=== PATIENT | male | born 1955 | race Caucasian/White ===

== ENCOUNTER 2016-06-07 07:25 | Inpatient (IN) | payer OTHER ==
[2016-06-07] VITALS (7 sets, daily range): BP systolic 123–182; BP diastolic 58–83; PULSE 66–84; RESP 16–20; TEMP 98–98.5; O2SAT 94–98
[~2016-06-07] VITALS: Ht 177.8 cm; Wt 91.0 kg
[~2016-06-07 07:25] MED LIST: ALBU6.7H INH; AMLO5 PO; ASPI1TAB69 PO; ATOR1TAB18 PO; BLOO1KIT49; BUPR100T4 PO; DIGO0.25 PO; ESOM0.1C PO; FENO48TA PO; GABA600T PO; INSU1INJ5 SQ; IPRAAER INH; ISOS20TA PO; LISI-515 PO; METO50TA11 PO; PLAV75TA29 PO; PRED20 PO; SYMB80AE INH; TAMS5CAP PO; TRAZ50TA12 PO
--- NOTE | 2016-06-07 07:44 | PD ---
HPI Chief Complaint: Complaint Time Seen by Provider: 07:33 Travel History International Travel<30 days: No Contact w/Intl Traveler<30days: No Traveled to known affect area: No History of Present Illness HPI 61-year-old male with history of CAD, diabetes, PVD, urinary retention, here for evaluation because his Melgoza catheter fell out about 5 hours ago as well as for evaluation of ulceration to his right foot and right great toe. Patient is complaining of lower abdominal discomfort since his Melgoza became dislodged. He states he is unable to urinate. He has urinary retention secondary to an enlarged prostate. He states that for the last 2 weeks he has been having an ulceration to his right great toe and right great foot which she has been trying to treat on his own at home. No fevers or chills. Pain is mild. He reports that he is supposed be on insulin, however he is not taking any medications at this time. PFSH Past Medical History Hx Anticoagulant Therapy: Yes Atrial Fibrillation: Yes Cardiac Catheterization: Yes Cardiovascular Problems: Yes COPD: Yes Cerebrovascular Accident: Yes Diabetes: Yes Hypertension: Yes Kidney Stones: Yes Psychiatric: No Social History Alcohol Use: No Tobacco Use: Yes (2 PPD) Substance Use: No Allergies-Medications (Allergen,Severity, Reaction): Coded Allergies: Bee Sting (Verified Allergy, Severe, Anaphylaxis, 06/07/16) Reported Meds & Prescriptions Reported Meds & Active Scripts Active Prednisone 20 Mg Tab 20 Mg PO DAILY Flomax (Tamsulosin HCl) 0.4 Mg Cap 0.4 Mg PO DAILY Metoprolol Succinate ER 24 HR (Metoprolol Succinate) 50 Mg Tab 50 Mg PO DAILY Blood Glucose System Kishan (Blood Glucose Monitoring Suppl) 1 Kit Kit Kit Levemir Flextouch Pen Inj (Insulin Detemir) 300 unit/3 ML Pen 30 Units SQ BID Plavix (Clopidogrel Bisulfate) 75 Mg Tab 75 Mg PO DAILY Norvasc (Amlodipine Besylate) 5 Mg Tab 2.5 Mg PO DAILY Reported Finasteride 5 Mg Tab 5 Mg PO DAILY Do not crush. Lisinopril 40 Mg Tab 40 Mg PO Proventil Hfa 6.7 GM Inh (Albuterol Sulfate) 90 Mcg/Act Aer 2 Puff INH Q4-6H PRN Symbicort Inh (Budesonide/Formoterol Fumarate) 80-4.5 Mcg/Act Aero 1 Puff INH Q12HR Trazodone (Trazodone HCl) 50 Mg Tab 50 Mg PO HS Combivent Respimat Inh (Ipratropium-Albuterol Inh) 20-100 Residential/Act Aero 1 Puff INH QID Fenofibrate 48 Mg Tab 48 Mg PO DAILY Gabapentin 600 Mg Tab 600 Mg PO BID Digoxin 0.25 Mg Tab 0.25 Mg PO DAILY Isosorbide Mononitrate 20 Mg Tab 30 Mg PO DAILY Take 2 doses [address]. [address] 20 Mg Capdr 20 Mg PO DAILY Bupropion HCl 100 Mg Tab 150 Mg PO BID Aspirin 81 Mg Tabdr 81 Mg PO DAILY Review of Systems Except as stated in HPI: all other systems reviewed are Neg Physical Exam Narrative GENERAL: Well-developed, well-nourished, no acute distress. SKIN: Right foot with small approximately 1 cm x 1 cm ulceration to the dorsal aspect of his toe just proximal to the base of his fifth metatarsal. His right great toe has distal ulceration with necrosis and foul-smelling purulence. Right foot is erythematous and warm. HEAD: Atraumatic. Normocephalic. EYES: Pupils equal and round. No scleral icterus. No injection or drainage. ENT: Mucous membranes pink and moist. CARDIOVASCULAR: Regular rate and rhythm. Bilateral dorsalis pedis pulses are palpable, however are faint. RESPIRATORY: No accessory muscle use. Clear to auscultation. Breath sounds equal bilaterally. GASTROINTESTINAL: Abdomen soft, non-tender, nondistended. : No blood at urethral meatus MUSCULOSKELETAL: No obvious deformities. No clubbing. No cyanosis. No edema. NEUROLOGICAL: Awake and alert. No obvious cranial nerve deficits. Motor grossly within normal limits. Normal speech. PSYCHIATRIC: Appropriate mood and affect; insight and judgment normal. Data Data Last Documented VS Vital Signs Date Time Temp Pulse Resp B/P Pulse Ox O2 Delivery O2 Flow Rate FiO2 06/07/16 07:52 79 20 126/63 97 Room Air 06/07/16 07:28 98.0 Orders Complete Blood Count With Diff (06/07/16 07:39) Comprehensive Metabolic Panel (06/07/16 07:39) Lipase (06/07/16 07:39) Prothrombin Time / Inr (Pt) (06/07/16 07:39) Act Partial Throm Time (Ptt) (06/07/16 07:39) Urinalysis - C+S If Indicated (06/07/16 07:39) Iv Access Insert/Monitor (06/07/16 07:39) Ecg Monitoring (06/07/16 07:39) Oximetry (06/07/16 07:39) Sodium Chloride 0.9% Flush (Ns Flush) (06/07/16 07:45) Foot, Complete ([id number]) (06/07/16 ) Urinary Catheter Insert/Apply (06/07/16 07:56) Vancomycin Inj (Vancomycin Inj) (06/07/16 08:15) Wound Culture And Gram Stain (06/07/16 08:29) Urine Culture (06/07/16 07:50) Ceftriaxone Inj (Rocephin Inj) (06/07/16 09:00) Insulin Human Regular Inj (Novolin R Inj (06/07/16 09:30) Labs Laboratory Tests Test 06/07/16 07:50 White Blood Count 10.8 TH/MM3 Red Blood Count 4.66 MIL/MM3 Hemoglobin 13.0 GM/DL Hematocrit 40.3 % Mean Corpuscular Volume 86.6 FL Mean Corpuscular Hemoglobin 28.0 PG Mean Corpuscular Hemoglobin 32.4 % Concent Red Cell Distribution Width 15.9 % Platelet Count 221 TH/MM3 Mean Platelet Volume 9.1 FL Neutrophils (%) (Auto) 72.0 % Lymphocytes (%) (Auto) 15.2 % Monocytes (%) (Auto) 7.9 % Eosinophils (%) (Auto) 3.9 % Basophils (%) (Auto) 1.0 % Neutrophils # (Auto) 7.8 TH/MM3 Lymphocytes # (Auto) 1.6 TH/MM3 Monocytes # (Auto) 0.9 TH/MM3 Eosinophils # (Auto) 0.4 TH/MM3 Basophils # (Auto) 0.1 TH/MM3 CBC Comment DIFF FINAL Differential Comment Prothrombin Time 10.6 SEC Prothromb Time International 1.0 RATIO Ratio Activated Partial 28.6 SEC Thromboplast Time Urine Color YELLOW Urine Turbidity HAZY Urine pH 5.5 Urine Specific [place] 1.017 Urine Protein 30 mg/dL Urine Glucose (UA) 300 mg/dL Urine Ketones NEG mg/dL Urine Occult Blood TRACE Urine Nitrite NEG Urine Bilirubin NEG Urine Urobilinogen LESS THAN 2.0 MG/DL Urine Leukocyte Esterase LARGE Urine RBC 9 /hpf Urine WBC 76 /hpf Urine WBC Clumps MOD Urine Squamous Epithelial <1 /hpf Cells Urine Bacteria MANY /hpf Urine Hyaline Casts 1 /lpf Microscopic Urinalysis Comment CULTURE INDICATED Sodium Level 138 MEQ/L Potassium Level 4.2 MEQ/L Chloride Level 103 MEQ/L Carbon Dioxide Level 25.5 MEQ/L Anion Gap 10 MEQ/L Blood Urea Nitrogen 21 MG/DL Creatinine 1.08 MG/DL Estimat Glomerular Filtration 69 ML/MIN Rate Random Glucose 366 MG/DL Calcium Level 9.1 MG/DL Total Bilirubin 0.2 MG/DL Aspartate Amino Transf 14 U/L (AST/SGOT) Alanine Aminotransferase 17 U/L (ALT/SGPT) Alkaline Phosphatase 113 U/L Total Protein 7.1 GM/DL Albumin 3.5 GM/DL Lipase 129 U/L [facility] Medical Decision Making Medical Screen Exam Complete: Yes Emergency Medical Condition: Yes Differential Diagnosis Urinary retention, urethral injury, diabetic foot ulcer, osteomyelitis, chronic PVD, acute arterial occlusion less likely Narrative Course Initial vital signs show heart rate 84, blood pressure 182/83, pulse ox 94% on room air, oral temp of 98F. Blood pressure improved to 126/63 without any intervention. CBC is unremarkable. CMP is remarkable for random glucose 366, otherwise unremarkable. Lipase is 129. UA is suggestive of UTI. Right foot x-ray: CONCLUSION: 1.... No acute fracture or dislocation. 2. Mild degenerative changes involving the right first metatarsal phalangeal joint and right mid foot. Melgoza catheter placed shortly after the patient arrived to the emergency department with over 500 cc of urine output. Patient had almost instant relief of abdominal discomfort with this. Patient was given insulin for his hyperglycemia. He was also started on vancomycin for right foot and right great toe ulcerations with foul-smelling discharge. Right great toe also has some distal necrosis. Bilateral feet are warm. I doubt this is an acute arterial occlusion. His dorsalis pedis pulses are very faint, yet palpable. He will be admitted for further treatment and evaluation of diabetic foot ulcer rule out osteomyelitis, hyperglycemia. Case discussed with hospitalist Dr. Buck who will admit the patient to his service. Diagnosis Primary Impression: Diabetic foot ulcer Qualified Code: E13.621 - Diabetic ulcer of toe of right foot associated with diabetes mellitus of other type, unspecified ulcer stage Additional Impressions: Hyperglycemia Urinary retention Admitting Information Admitting Physician Requests: Admit Renan Ortega MD Jun 07, 2016 07:44
[2016-06-07] MEDS ORDERED: SODIUM CHLORIDE 0.9% FLUSH 10 ML FLUSH IV FLUSH PRN ×2 (07:45→09:45)
[2016-06-07] MEDS ORDERED: VANCOMYCIN INJ 1,000 MG in SODIUM CHLOR 0.9% 250 ML INJ 250 ML IV ONE (08:15)
[2016-06-07] MEDS ORDERED: LISI40TA PO (08:25)
[2016-06-07 08:28] LABS: AUTOMATED NEUTROPHIL # 7.8 TH/MM3 (1.8-7.7); BASOPHIL # 0.1 TH/MM3 (0-0.2); EOSINOPHIL # 0.4 TH/MM3 (0-0.4); EOSINOPHIL % 3.9 % (0.0-4.0); HEMATOCRIT 40.3 % (39.0-51.0); HEMO FLAGS DIFF FINAL; LYMPH % 15.2 % (9.0-44.0); LYMPHOCYTE # 1.6 TH/MM3 (1.0-4.8); MEAN CELL VOLUME 86.6 FL (80.0-100.0); MEAN CORPUSCULAR HGB CONC 32.4 % (32.0-36.0); MONO % 7.9 % (0.0-8.0); PLATELET COUNT 221 TH/MM3 (150-450); RED BLOOD COUNT 4.66 MIL/MM3 (4.50-5.90); RED CELL DISTRIBUTION WIDTH 15.9 % (11.6-17.2); WHITE BLOOD COUNT 10.8 TH/MM3 (4.0-11.0)
[2016-06-07] MEDS ORDERED: FINA5TAB2 PO (08:29)
[2016-06-07 08:37] LABS: APTT (PATIENT) 28.6 SEC (24.3-30.1); PROTHROMBIN TIME - PATIENT 10.6 SEC (9.8-11.6)
[2016-06-07 08:40] LABS: BACTERIA, URINE MANY /hpf; BLOOD, URINE TRACE (NEG); GLUCOSE,URINE 300 mg/dL (NEG); HYALINE CAST, URINE 1 /lpf (RARE); KETONE, URINE NEG (NEG); NITRITE,URINE NEG (NEG); PH, URINE 5.5 (5.0-8.5); SQUAMOUS EPITHELIAL CELL URINE <1 /hpf (0-5); URINE COLOR YELLOW (YELLW/STRAW)
[2016-06-07 08:42] LABS: COMMENT (UR) CULTURE INDICATED; CULTURE IF INDICATED CULTURE INDICATED
[2016-06-07] MEDS ORDERED: cefTRIAXone INJ 1,000 MG in SODIUM CHLORIDE 0.9% INJ 100 ML IV ONE (09:00)
[2016-06-07 09:09] LABS: ALKALINE PHOSPHATASE 113 U/L (45-117); ALT (GPT) 17 U/L (12-78); ANION GAP 10 MEQ/L (5-15); AST (GOT) 14 U/L (15-37); BICARBONATE 25.5 MEQ/L (21.0-32.0); BLOOD UREA NITROGEN 21 MG/DL (7-18); CHLORIDE 103 MEQ/L (98-107); GLOMERULAR FILTRATION RATE 69 ML/MIN (>89); POTASSIUM 4.2 MEQ/L (3.5-5.1); SODIUM (NA) 138 MEQ/L (136-145); TOTAL BILIRUBIN ADULT 0.2 MG/DL (0.2-1.0)
--- NOTE | 2016-06-07 09:22 | RADRPT ---
EXAM DATE/TIME: 06/07/2016 08:10 [place] COMPARISON: No previous studies available for comparison. INDICATIONS: Patient states he has had a toe injury and it hasn't healed. MEDICAL HISTORY: Chronic obstructive pulmonary disease. Renal calculi. Afib. HTN. Diabetes. SURGICAL HISTORY: Coronary artery stent. Cardiac cath. ENCOUNTER: Initial ACUITY: 1 week PAIN SCORE: 6/10 LOCATION: Right ankle. FINDINGS: There is no acute fracture or dislocation of the right foot. Mild degenerative changes are noted inv olving the right first metatarsal phalangeal joint and right mid foot. CONCLUSION: 1. No acute fracture or dislocation. 2. Mild degenerative changes involving the right first metatarsal phalangeal joint and right mid valentino t. Virgil Singh MD on June 07, 2016 at 9:15 Board Certified Radiologist. This report was verified electronically.
[2016-06-07] MEDS ORDERED: INSULIN HUMAN REGULAR 1,000 UNITS/10 ML VIAL SQ ONE (09:30)
[2016-06-07] MEDS ORDERED: NALOXONE HCL 0.4 MG/ML AMP IV PRN (09:45)
[2016-06-07] MEDS ORDERED: BISACODYL 10 MG SUPP PR PRN (09:45)
[2016-06-07] MEDS ORDERED: ACETAMINOPHEN 325 MG TAB PO PRN (09:45)
[2016-06-07] MEDS ORDERED: ONDANSETRON HCL 4 MG/2 ML VIAL IVP PRN (09:45)
[2016-06-07] MEDS ORDERED: HYDROmorphone HCL PF 1 MG/ML VIAL IV PUSH PRN (10:00)
[2016-06-07] MEDS ORDERED: Vancomycin Consult Pharmacy 1 EA OTHER SCH (10:00)
[2016-06-07] MEDS: ENOXAPARIN SODIUM 30 MG/0.3 ML SYRINGE SQ SCH (10:51)
[2016-06-07] MEDS: SODIUM CHLOR 0.9% 1000 ML INJ 1,000 ML IV SCH ×2 (10:51→21:30)
[2016-06-07] MEDS: CEFEPIME INJ 2,000 MG in SODIUM CHLORIDE 0.9% INJ 100 ML IV SCH ×2 (11:08→19:12)
--- NOTE | 2016-06-07 15:15 | HHI.HP ---
[facility] Admission Diagnosis diabetic foot infection, hyperglycemia, urinary retention Diagnoses: Chief Complaint: Wolfe catheter problem, diabetic foot infection. Travel History International Travel<30 Days: No Contact w/Intl Traveler <30 Da: No Traveled to Known Affected Are: No History of Present Illness Mr. Rowland D1-year-old with a history of CAD, diabetes, PVD, urinary retention who presented to the emergency department on 06/07/2016 due to Wolfe catheter problems. Patient complained of lower abdominal discomfort since his Wolfe catheter became dislodged. In the emergency department Wolfe catheter was reinserted. Additionally patient also requested evaluation for his right foot and right great toe ulceration. Patient reports no pain or sensation below his ankle on the right side. His right great toe has been black for about 2 weeks. Denies any chest pain, shortness of breath, fever or chills. Patient was discharged in Feb 2016 after NSTEMI s/p stent placement to RCA and first diagonal branch of LAD. He was discharged on Aspirin and plavix. He was also discharged on insulin for diabetes. Patient reports that he has not taken insulin but has been on aspirin/plavix. Review of Systems Except as stated in HPI: all other systems reviewed are Neg Past Family Social History Past Medical History Diabetes mellitus, PVD, CAD status post stent placement Past Surgical History Stent placements. No major surgery. Reported Medications Prednisone 20 Mg Tab 20 Mg PO DAILY Flomax (Tamsulosin HCl) 0.4 Mg Cap 0.4 Mg PO DAILY Metoprolol Succinate ER 24 HR (Metoprolol Succinate) 50 Mg Tab 50 Mg PO DAILY Blood Glucose System Kishan (Blood Glucose Monitoring Suppl) 1 Kit Kit Kit Levemir Flextouch Pen Inj (Insulin Detemir) 300 unit/3 ML Pen 30 Units SQ BID Plavix (Clopidogrel Bisulfate) 75 Mg Tab 75 Mg PO DAILY Norvasc (Amlodipine Besylate) 5 Mg Tab 2.5 Mg PO DAILY Reported Finasteride 5 Mg Tab 5 Mg PO DAILY Do not crush. Lisinopril 40 Mg Tab 40 Mg PO Proventil Hfa 6.7 GM Inh (Albuterol Sulfate) 90 Mcg/Act Aer 2 Puff INH Q4-6H PRN Symbicort Inh (Budesonide/Formoterol Fumarate) 80-4.5 Mcg/Act Aero 1 Puff INH Q12HR Trazodone (Trazodone HCl) 50 Mg Tab 50 Mg PO HS Combivent Respimat Inh (Ipratropium-Albuterol Inh) 20-100 [place]/Act Aero 1 Puff INH QID Fenofibrate 48 Mg Tab 48 Mg PO DAILY Gabapentin 600 Mg Tab 600 Mg PO BID Digoxin 0.25 Mg Tab 0.25 Mg PO DAILY Isosorbide Mononitrate 20 Mg Tab 30 Mg PO DAILY Take 2 doses [address]. [address] 20 Mg Capdr 20 Mg PO DAILY Bupropion HCl 100 Mg Tab 150 Mg PO BID Aspirin 81 Mg Tabdr 81 Mg PO DAILY Allergies: Coded Allergies: Bee Sting (Verified Allergy, Severe, Anaphylaxis, 06/07/16) Family History No family history of Alzheimer's or Parkinson's. Social History Denies using alcohol or illicit drugs. Smokes 2 ppd. Physical Exam Vital Signs Vital Signs Date Time Temp Pulse Resp B/P Pulse Ox O2 Delivery O2 Flow Rate FiO2 06/07/16 13:00 74 16 123/61 98 Room Air 06/07/16 10:00 76 16 133/62 98 Room Air 06/07/16 07:52 79 20 126/63 97 Room Air 06/07/16 07:28 98.0 84 20 182/83 94 Physical Exam GENERAL: This is a well-nourished, well-developed patient, in no apparent distress. SKIN: No rashes, ecchymoses or lesions. Warm and dry. HEAD: Atraumatic. Normocephalic. No temporal or scalp tenderness. EYES: Pupils equal round and reactive. No injection or drainage. ENT: Nose without bleeding, purulent drainage or septal hematoma. Airway patent. NECK: Trachea midline. No lymphadenopathy. Supple, nontender, no meningeal signs. CARDIOVASCULAR: Regular rate and rhythm without murmurs, gallops, or rubs. No JVD. RESPIRATORY: Clear to auscultation. Breath sounds equal bilaterally. No wheezes , rales, or rhonchi. GASTROINTESTINAL: Abdomen soft, non-tender, nondistended. No guarding. MUSCULOSKELETAL: Extremities without clubbing, cyanosis, or edema. Right great toe has an necrotic top, Sensory deficits below ankle bilaterally. NEUROLOGICAL: Awake and alert. Cranial nerves II through XII intact. No focal neurological deficits. Normal speech. Laboratory Laboratory Tests Test 06/07/16 07:50 White Blood Count 10.8 Red Blood Count 4.66 Hemoglobin 13.0 Hematocrit 40.3 Mean Corpuscular Volume 86.6 Mean Corpuscular Hemoglobin 28.0 Mean Corpuscular Hemoglobin 32.4 Concent Red Cell Distribution Width 15.9 Platelet Count 221 Mean Platelet Volume 9.1 Neutrophils (%) (Auto) 72.0 Lymphocytes (%) (Auto) 15.2 Monocytes (%) (Auto) 7.9 Eosinophils (%) (Auto) 3.9 Basophils (%) (Auto) 1.0 Neutrophils # (Auto) 7.8 Lymphocytes # (Auto) 1.6 Monocytes # (Auto) 0.9 Eosinophils # (Auto) 0.4 Basophils # (Auto) 0.1 CBC Comment DIFF FINAL Differential Comment Erythrocyte Sedimentation Rate 28 Prothrombin Time 10.6 Prothromb Time International 1.0 Ratio Activated Partial 28.6 Thromboplast Time Urine Color YELLOW Urine Turbidity HAZY Urine pH 5.5 Urine Specific [place] 1.017 Urine Protein 30 Urine Glucose (UA) 300 Urine Ketones NEG Urine Occult Blood TRACE Urine Nitrite NEG Urine Bilirubin NEG Urine Urobilinogen LESS THAN 2.0 Urine Leukocyte Esterase LARGE Urine RBC 9 Urine WBC 76 Urine WBC Clumps MOD Urine Squamous Epithelial <1 Cells Urine Bacteria MANY Urine Hyaline Casts 1 Microscopic Urinalysis Comment CULTURE INDICATED Sodium Level 138 Potassium Level 4.2 Chloride Level 103 Carbon Dioxide Level 25.5 Anion Gap 10 Blood Urea Nitrogen 21 Creatinine 1.08 Estimat Glomerular Filtration 69 Rate Random Glucose 366 Calcium Level 9.1 Total Bilirubin 0.2 Aspartate Amino Transf 14 (AST/SGOT) Alanine Aminotransferase 17 (ALT/SGPT) Alkaline Phosphatase 113 Total Protein 7.1 Albumin 3.5 Lipase 129 Date/Time Procedure Status Source Growth 06/07/16 09:20 Gram Stain - Final Resulted Wound Toe 06/07/16 09:20 Wound Culture Resulted Wound Toe Pending 06/07/16 07:50 Urine Culture Received Urine Clean Catch Pending Result Diagram: 06/07/16 0750 06/07/16 0750 Imaging Last Impressions Foot X-Ray 06/07/16 0000 Signed Impressions: Service Date/Time: Tuesday, June 07, 2016 08:10 - CONCLUSION: 1. No acute fracture or dislocation. 2. Mild degenerative changes involving the right first metatarsal phalangeal joint and right mid foot. Virgil Singh MD Assessment and Plan Problem List: (1) Diabetic foot ulcer ICD Code: E11.621 Status: Acute (2) Diabetes ICD Code: E11.9 Status: Acute (3) CAD (coronary artery disease) ICD Code: I25.10 Status: Chronic (4) Urinary retention ICD Code: R33.9 Status: Chronic Assessment and Plan Mr. Rowland is a pleasant 61 year old male with a history of CAD s/p two stent placed, diabetes who presented to the ED due to wolfe catheter problem as well as right sided diabetic foot infection. Patient has been having urinary retention problem and thus has been on Wolfe catheter. Wolfe catheter was replaced in the ED. 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 - Will continue abx - Cefepime and Vancomycin - both intravenously for now. - Podiatry consult pending. Will wait for Podiatry input. An MRI study may be of benefit. - Percocet PO PRN and Dilaudid IV PRN for pain control. - Diabetes mellitus - Diabetic neuropathy - Levemir 15 units QHS and sliding scale insulin. May need pre-meal coverage. - Continue Gabapentin 600mg BID. - CAD s/p two stents - RCA and 1st diag of LAD - Hypercholesteremia - Continue aspirin 81mg, Plavix 75mg. Continue metoprolol succ 50mg Qday, Imdur 30mg Qday. - Continue Fenofibrate. Will discuss with patient regarding statin use. No statins on home meds. - If there is no contraindications, patient should be on high intensity statin such as 80mg Lipitor QHS. - Continue Lisinopril 40mg Qday. Continue digoxin 0.25mg Qday. - Hypertension - Continue Amlodipine 2.5mg Qday, Lisinopril 40mg Qday. - BPH - Continue Tamsulin 0.4mg Qday. - GERD - continue PPI. Full code. Lovenox. Physician Certification 2 Midnight Certification Type: Admission for Inpatient Services Order for Inpatient Services The services are ordered in accordance with Medicare regulations or non- Medicare payer requirements, as applicable. In the case of services not specified as inpatient-only, they are appropriately provided as inpatient services in accordance with the 2-midnight benchmark. Estimated LOS (days): 2 days is the estimated time the patient will need to remain in the hospital, assuming treatment plan goals are met and no additional complications. Post-Hospital Plan: Home Problem Qualifiers (1) Diabetic foot ulcer: Qualified Code: E13.621 - Diabetic ulcer of toe of right foot associated with diabetes mellitus of other type, unspecified ulcer stage Francisco Buck DO Jun 07, 2016 15:15
[2016-06-07] MEDS: oxyCODONE/ACETAMINOPHEN 7.5 MG/325 MG TAB PO PRN ×2 (15:16→21:19)
[2016-06-07] MEDS ORDERED: GLUCAGON 1 MG/ML VIAL OTHER PRN (15:30)
[2016-06-07] MEDS ORDERED: DEXTROSE 50% IN WATER 50 ML VIAL(D50) IV PUSH PRN (15:30)
[2016-06-07] MEDS: INSULIN ASPART SUPPLEMENTAL SCALE SQ SCH ×2 (16:00→21:38)
[2016-06-07] MEDS ORDERED: PILL SPLITTER OTHER PRN (16:15)
[2016-06-07] MEDS: VANCOMYCIN INJ 1,500 MG in SODIUM CHLORID 0.9% 500 ML INJ 500 ML IV SCH (16:55)
[2016-06-07] MEDS: SODIUM CHLORIDE 0.9% FLUSH 10 ML FLUSH IV FLUSH SCH (21:00)
[2016-06-07] MEDS: BUDESONIDE-FORMOTEROL 80/4.5 MCG INHALER INH SCH (21:15)
[2016-06-07] MEDS: GABAPENTIN 300 MG CAP PO SCH (21:15)
[2016-06-07] MEDS: traZODone HCL 50 MG TAB PO SCH (21:16)
[2016-06-07] MEDS: buPROPion HCL 75 MG TAB PO SCH (21:16)
[2016-06-07] MEDS: INSULIN DETEMIR 100 UNITS/ML VIAL SQ SCH (21:37)
[2016-06-08] MEDS: CEFEPIME INJ 2,000 MG in SODIUM CHLORIDE 0.9% INJ 100 ML IV SCH ×3 (03:48→18:49)
[2016-06-08] MEDS: oxyCODONE/ACETAMINOPHEN 7.5 MG/325 MG TAB PO PRN ×3 (03:49→21:16)
[2016-06-08] MEDS: VANCOMYCIN INJ 1,500 MG in SODIUM CHLORID 0.9% 500 ML INJ 500 ML IV SCH ×2 (03:50→15:04)
[2016-06-08] MEDS: SODIUM CHLOR 0.9% 1000 ML INJ 1,000 ML IV SCH ×2 (03:51→15:45)
[2016-06-08 04:03] VITALS: BP 153/65; PULSE 71; RESP 16; TEMP 98.3; O2SAT 96
[2016-06-08] MEDS: INSULIN ASPART SUPPLEMENTAL SCALE SQ SCH ×4 (07:00→21:14)
[2016-06-08 07:29] LABS: AUTOMATED NEUTROPHIL # 5.2 TH/MM3 (1.8-7.7); BASOPHIL # 0.1 TH/MM3 (0-0.2); BASOPHIL % 1.3 % (0.0-2.0); EOSINOPHIL # 0.5 TH/MM3 (0-0.4); EOSINOPHIL % 5.6 % (0.0-4.0); HEMATOCRIT 34.2 % (39.0-51.0); HEMO FLAGS DIFF FINAL; LYMPH % 20.6 % (9.0-44.0); LYMPHOCYTE # 1.7 TH/MM3 (1.0-4.8); MEAN CELL VOLUME 85.9 FL (80.0-100.0); MEAN CORPUSCULAR HEMOGLOBIN 28.9 PG (27.0-34.0); MEAN CORPUSCULAR HGB CONC 33.6 % (32.0-36.0); MONO % 7.8 % (0.0-8.0); NEUT % 64.7 % (16.0-70.0); PLATELET COUNT 184 TH/MM3 (150-450); RED BLOOD COUNT 3.98 MIL/MM3 (4.50-5.90); RED CELL DISTRIBUTION WIDTH 15.5 % (11.6-17.2); WHITE BLOOD COUNT 8.1 TH/MM3 (4.0-11.0)
[2016-06-08 08:00] VITALS: BP 126/64; PULSE 73; RESP 18; TEMP 98.6; O2SAT 96
[2016-06-08 08:02] LABS: BICARBONATE 26.7 MEQ/L (21.0-32.0)
[2016-06-08] MEDS: SODIUM CHLORIDE 0.9% FLUSH 10 ML FLUSH IV FLUSH SCH ×2 (09:00→21:00)
[2016-06-08] MEDS ORDERED: TAMSULOSIN HCL 0.4 MG CAP PO SCH (09:00)
[2016-06-08] MEDS: BUDESONIDE-FORMOTEROL 80/4.5 MCG INHALER INH SCH ×2 (10:14→21:13)
[2016-06-08] MEDS: ASPIRIN EC 81 MG TABEC PO SCH (10:15)
[2016-06-08] MEDS: ISOSORBIDE MONONITRATE 20 MG TAB PO SCH (10:16)
[2016-06-08] MEDS: GABAPENTIN 300 MG CAP PO SCH ×2 (10:17→21:15)
[2016-06-08] MEDS: DIGOXIN 0.25 MG TAB PO SCH (10:17)
[2016-06-08] MEDS: amLODIPine BESYLATE 5 MG TAB PO SCH (10:18)
[2016-06-08] MEDS: CLOPIDOGREL 75 MG TAB PO SCH (10:19)
[2016-06-08] MEDS: LISINOPRIL 20 MG TAB PO SCH (10:19)
[2016-06-08] MEDS: FINASTERIDE 5 MG TAB PO SCH (10:20)
[2016-06-08] MEDS: METOPROLOL SUCCINATE 50 MG EXTENDED RELEASE TAB PO SCH (10:20)
[2016-06-08] MEDS: PANTOPRAZOLE SOD 20 MG DELAYED RELEASE TAB PO SCH (10:20)
[2016-06-08] MEDS: FENOFIBRATE 48 MG TAB PO SCH (10:21)
[2016-06-08] MEDS: buPROPion HCL 75 MG TAB PO SCH ×2 (10:21→21:15)
[2016-06-08 12:00] VITALS: BP 130/70; PULSE 75; RESP 18; TEMP 98.8; O2SAT 95
--- NOTE | 2016-06-08 12:55 | PD.POD.CON ---
Patient Intake Chief Complaint Dry gangrene right foot Consult Requested by Medicine Reason for Consult Evaluation and treatment of dry gangrene right foot Primary Care Physician [facility] History of Present Illness Patient is a 61-year-old diabetic male with severe peripheral vascular disease. Patient states he's never had a vascular workup. He was told by the first aid attendant at the [facility] that he has blockage of his legs based on his exam. Patient started developed right gangrenous changes of the right distal hallux and the right lateral foot. He presented to the emergency department for a problem with his urinary catheter. Coded Allergies: Bee Sting (Verified Allergy, Severe, Anaphylaxis, 06/07/16) Preferred Language to Discuss: Malawian Barriers to Learning: None Teaching Method: Discussion Vital Signs Date Time Temp Pulse Resp B/P Pulse Ox O2 Delivery O2 Flow Rate FiO2 06/08/16 08:00 98.6 73 18 126/64 96 06/08/16 04:03 98.3 71 16 153/65 96 06/08/16 00:00 Room Air 06/07/16 23:30 98.5 66 18 130/71 94 06/07/16 20:58 98.4 72 18 137/66 96 06/07/16 20:00 Room Air 06/07/16 15:16 98.5 73 20 129/58 96 06/07/16 13:00 74 16 123/61 98 Room Air Pain scale used: 0-10 numeric scale Pain score: 3 Medications Current Medications Sodium Chloride 2 ml 2 ml UNSCH PRN IV FLUSH FLUSH AFTER USING IV ACCESS; Start 06/07/16 at 07:45; Stop 06/07/16 at 09:55; Status DC Vancomycin HCl 1000 mg/Sodium Chloride 250 ml @ 250 mls/hr ONCE ONCE IV Last administered on 06/07/16 08:23; Start 06/07/16 at 08:15; Stop 06/07/16 at 09:14 ; Status DC Ceftriaxone Sodium/Sodium Chloride (Rocephin Inj/NS Inj) 100 ml @ 200 mls/hr ONCE ONCE IV Last administered on 06/07/16 09:29; Start 06/07/16 at 09:00; Stop 06/07/16 at 09:29; Status DC Insulin Human Regular 8 units 8 units ONCE ONCE SQ Last administered on 09:30; Start 06/07/16 at 09:30; Stop 06/07/16 at 09:31; Status DC Sodium Chloride (NS 1000 ml Inj) 1,000 ml @ 100 mls/hr Q10H IV Last administered on 06/08/16 03:51; Start 06/07/16 at 09:45 Sodium Chloride (NS Flush) 2 ml UNSCH PRN IV FLUSH FLUSH AFTER USING IV ACCESS ; Start 06/07/16 at 09:45 Sodium Chloride (NS Flush) 2 ml BID IV FLUSH ; Start 06/07/16 at 21:00 Acetaminophen (Tylenol) 650 mg Q4H PRN PO FEVER, HEADACHE, PAIN 1-4; Start at 09:45 Ondansetron HCl (Zofran Inj) 4 mg Q6H PRN IVP NAUSEA OR VOMITING; Start at 09:45 Bisacodyl (Dulcolax Supp) 10 mg DAILY PRN WI CONSTIPATION; Start 06/07/16 at 09 :45 Magnesium Hydroxide (Milk Of Magncyrus Liq) 30 ml Q12H PRN PO CONSTIPATION; Start 06/07/16 at 09:45 Enoxaparin Sodium (Lovenox Inj) 30 mg Q24H SQ Last administered on 06/07/16 10 :51; Start 06/07/16 at 11:00 Naloxone HCl (Narcan Inj) 0.4 mg UNSCH PRN IV SEE LABEL COMMENTS; Start at 09:45 Oxycodone/ Acetaminophen (Percocet 7.5-325 Mg) 1 tab Q6H PRN PO PAIN SCALE 5 TO 10 Last administered on 06/08/16 03:49; Start 06/07/16 at 10:00 Hydromorphone HCl 0.5 mg 0.5 mg Q4H PRN IV PUSH BREAKTHROUGH PAIN; Start at 10:00 Pharmacy Profile Note 0 ml @ 0 mls/hr UNSCH OTHER ; Start 06/07/16 at 10:00 Cefepime HCl 2000 mg/Sodium Chloride 100 ml @ 200 mls/hr Q8H IV Last administered on 06/08/16 10:24; Start 06/07/16 at 11:00 Vancomycin HCl/ Sodium Chloride (Vancomycin Inj/ NS 500 ml Inj) 515 ml @ 250 mls/hr Q12H IV Last administered on 06/08/16 03:50; Start 06/07/16 at 15:00 Miscellaneous Information SPECIFIC LAB TO BE DRAWN:VANCOMYCIN TROUGH DATE TO... ONCE ONCE XX ; Start 06/09/16 at 02:45; Stop 06/09/16 at 02:46 Amlodipine Besylate (Norvasc) 2.5 mg DAILY PO Last administered on 06/08/16 10 :18; Start 06/08/16 at 09:00 Aspirin (Ecotrin Ec) 81 mg DAILY PO Last administered on 06/08/16 10:15; Start 06/08/16 at 09:00 Budesonide/ Formoterol Fumarate (Symbicort 80-4.5 Mcg Inh) 1 puff Q12HR INH Last administered on 06/08/16 10:14; Start 06/07/16 at 21:00 Bupropion HCl (Wellbutrin) 150 mg BID PO Last administered on 06/08/16 10:21; Start 06/07/16 at 21:00 Clopidogrel Bisulfate (Plavix) 75 mg DAILY PO Last administered on 06/08/16 10 :19; Start 06/08/16 at 09:00 Digoxin (Lanoxin) 0.25 mg DAILY PO Last administered on 06/08/16 10:17; Start 06/08/16 at 09:00 Fenofibrate (Tricor) 48 mg DAILY PO Last administered on 06/08/16 10:21; Start 06/08/16 at 09:00 Finasteride (Proscar) 5 mg DAILY PO Last administered on 06/08/16 10:20; Start 06/08/16 at 09:00 Gabapentin (Neurontin) 600 mg BID PO Last administered on 06/08/16 10:17; Start 06/07/16 at 21:00 Isosorbide Mononitrate (Ismo) 30 mg DAILY PO Last administered on 06/08/16 10: 16; Start 06/08/16 at 09:00 Metoprolol Succinate (Toprol Xl) 50 mg DAILY PO Last administered on 06/08/16 10:20; Start 06/08/16 at 09:00 Tamsulosin HCl (Flomax) 0.4 mg DAILY PO Last administered on 06/08/16 10:15; Start 3/23/17 at 09:00 Trazodone HCl (Desyrel) 50 mg HS PO Last administered on 06/07/16 21:16; Start 06/07/16 at 21:00 Pantoprazole Sodium (Protonix) 20 mg DAILY PO Last administered on 06/08/16 10 :20; Start 06/08/16 at 09:00 Dextrose (D50w (Vial) Inj) 25 ml UNSCH PRN IV PUSH HYPOGLYCEMIA-SEE COMMENTS; Start 06/07/16 at 15:30 Glucagon (Glucagon Inj) 1 mg UNSCH PRN OTHER HYPOGLYCEMIA-SEE COMMENTS; Start 06/07/16 at 15:30 Insulin Aspart (NovoLOG SUPPLEMENTAL SCALE) 1 ACHS SLIDING SCALE SQ Last administered on 06/07/16 21:38; Start 06/07/16 at 16:00 Insulin Detemir (Levemir Inj) 15 units HS SQ Last administered on 06/07/16 21: 37; Start 06/07/16 at 21:00 Miscellaneous (Pill Splitter) 1 ea UNSCH PRN OTHER SEE LABEL COMMENTS; Start at 16:15 Lisinopril (Prinivil) 40 mg DAILY PO Last administered on 06/08/16 10:19; Start 06/08/16 at 09:00 Additional information Patient states he can only walk about 40 feet before he gets cramping and pain in his right leg. He quit smoking 10 days ago. Past, Family & Social History Past Medical History PFS Reviewed: Yes Endocrine: REPORTS HX OF: Diabetes mellitus Cardiovascular: REPORTS HX OF: Coronary artery disease, Peripheral vascular dz Genitourinary: REPORTS HX OF: Past UTI Past Surgical History Genitourinary: REPORTS HX OF: Other surgery Substance Use Substance use: Denies use Review of Systems Constitutional: COMPLAINS OF: Pain Exam-Podiatry Constitutional General appearance: comfortable Nutritional status: normal Orientation: alert and oriented x3 Dermatological Exam Skin Temp - Right: Cool Skin Texture - Right: Within Normal Limits Skin Elasticity - Right: Within Normal Limits Skin Tugor - Right: Within Normal Limits Hair Growth - Right: Within Normal Limits Pigmentation - Right: Within Normal Limits Skin Temp - Left: Cool Skin Texture - Left: Within Normal Limits Skin Elasticity - Left: Within Normal Limits Skin Tugor - Left: Within Normal Limits Hair Growth - Left: Within Normal Limits Pigmentation - Left: Within Normal Limits Ulcers: Location/Measurements Dry gangrene changes of the distal right hallux and ischemic ulcerations of the right lateral foot. Vascular/Lymphatic Exam R Dorsails Pedis: Doppler L Dorsails Pedis: Doppler R Posterior Tibial: Doppler L Posterior Tibial: Doppler Neurologic Exam Present on right: Tingling Present on left: Tingling Muscle Strength Dorsiflexion (Right): Normal Plantarflexion (Right): Normal Inversion (Right): Normal Eversion (Right): Normal Digital (Right): Normal Dorsiflexion (Left): Normal Plantarflexion (Left): Normal Inversion (Left): Normal Eversion (Left): Normal Digital (Left): Normal Foot Range of Motion Dorsiflexion (Right): Normal Plantarflexion (Right): Normal Inversion (Right): Normal Eversion (Right): Normal Digital (Right): Normal Dorsiflexion (Left): Normal Plantarflexion (Left): Normal Inversion (Left): Normal Eversion (Left): Normal Digital (Left): Normal Lab and Radiology Results Laboratory Laboratory Tests Test 06/07/16 06/08/16 07:50 07:13 Erythrocyte Sedimentation Rate 28 mm/hr White Blood Count 10.8 TH/MM3 8.1 TH/MM3 Red Blood Count 4.66 MIL/MM3 3.98 MIL/MM3 Hemoglobin 13.0 GM/DL 11.5 GM/DL Hematocrit 40.3 % 34.2 % Mean Corpuscular Volume 86.6 FL 85.9 FL Mean Corpuscular Hemoglobin 28.0 PG 28.9 PG Mean Corpuscular Hemoglobin 32.4 % 33.6 % Concent Red Cell Distribution Width 15.9 % 15.5 % Platelet Count 221 TH/MM3 184 TH/MM3 Mean Platelet Volume 9.1 FL 9.0 FL Neutrophils (%) (Auto) 72.0 % 64.7 % Lymphocytes (%) (Auto) 15.2 % 20.6 % Monocytes (%) (Auto) 7.9 % 7.8 % Eosinophils (%) (Auto) 3.9 % 5.6 % Basophils (%) (Auto) 1.0 % 1.3 % Neutrophils # (Auto) 7.8 TH/MM3 5.2 TH/MM3 Lymphocytes # (Auto) 1.6 TH/MM3 1.7 TH/MM3 Monocytes # (Auto) 0.9 TH/MM3 0.6 TH/MM3 Eosinophils # (Auto) 0.4 TH/MM3 0.5 TH/MM3 Basophils # (Auto) 0.1 TH/MM3 0.1 TH/MM3 CBC Comment DIFF FINAL DIFF FINAL Differential Comment Laboratory Tests Test 06/07/16 06/08/16 07:50 07:13 Sodium Level 138 MEQ/L 144 MEQ/L Potassium Level 4.2 MEQ/L 4.0 MEQ/L Chloride Level 103 MEQ/L 110 MEQ/L Carbon Dioxide Level 25.5 MEQ/L 26.7 MEQ/L Anion Gap 10 MEQ/L 7 MEQ/L Blood Urea Nitrogen 21 MG/DL 12 MG/DL Creatinine 1.08 MG/DL 0.70 MG/DL Estimat Glomerular Filtration 69 ML/MIN 114 ML/MIN Rate Random Glucose 366 MG/DL 132 MG/DL Calcium Level 9.1 MG/DL 8.5 MG/DL Total Bilirubin 0.2 MG/DL Aspartate Amino Transf 14 U/L (AST/SGOT) Alanine Aminotransferase 17 U/L (ALT/SGPT) Alkaline Phosphatase 113 U/L Total Protein 7.1 GM/DL Albumin 3.5 GM/DL Lipase 129 U/L Microbiology Date/Time Procedure Status Source Growth 06/07/16 07:50 Urine Culture - Preliminary Resulted Urine Clean Catch Gram Negative Alejandro 06/07/16 09:20 Gram Stain - Final Resulted Wound Toe 06/07/16 09:20 Wound Culture Resulted Wound Toe Pending Radiology Last Impressions Foot X-Ray 06/07/16 0000 Signed Impressions: Service Date/Time: Tuesday, June 07, 2016 08:10 - CONCLUSION: 1. No acute fracture or dislocation. 2. Mild degenerative changes involving the right first metatarsal phalangeal joint and right mid foot. Virgil Singh MD Assessment/Plan Problem List: (1) Diabetic foot ulcer Status: Acute (2) CAD (coronary artery disease) Status: Chronic (3) Gangrene of foot Status: Acute (4) Peripheral vascular disease in diabetes mellitus Status: Chronic (5) Diabetes mellitus with foot ulcer and gangrene Status: Acute Additional Plans & Procedures PLAN: Ordered CTA with distal runoff. Vascular surgery consult. Before any intervention surgically needs to be performed the patient will require revascularization. Will follow thank you for this consultation Problem Qualifiers (1) Diabetic foot ulcer: Qualified Code: E13.621 - Diabetic ulcer of toe of right foot associated with diabetes mellitus of other type, unspecified ulcer stage Cortez Madsen DPM Jun 08, 2016 12:55
[2016-06-08] MEDS: ENOXAPARIN SODIUM 30 MG/0.3 ML SYRINGE SQ SCH (13:05)
[2016-06-08 16:00] VITALS: BP 122/58; PULSE 68; RESP 18; TEMP 98; O2SAT 99
--- NOTE | 2016-06-08 16:22 | HHI.PR ---
Subjective Remarks Follow up for diabetic foot infection, PVD, DM. Patient is doing well. No fever , chills. Objective Vitals Vital Signs Date Time Temp Pulse Resp B/P Pulse Ox O2 Delivery O2 Flow Rate FiO2 06/08/16 12:00 98.8 75 18 130/70 95 06/08/16 08:00 98.6 73 18 126/64 96 06/08/16 04:03 98.3 71 16 153/65 96 06/08/16 00:00 Room Air 06/07/16 23:30 98.5 66 18 130/71 94 06/07/16 20:58 98.4 72 18 137/66 96 06/07/16 20:00 Room Air I/O 06/07/16 06/07/16 06/07/16 06/08/16 06/08/16 06/08/16 07:00 15:00 23:00 07:00 15:00 23:00 Intake Total 720 ml 120 ml Output Total 1150 ml 650 ml Balance -430 ml -530 ml Intake Oral 720 ml 120 ml Output Urine Total 1150 ml 650 ml # Bowel Movements 0 0 Result Diagram: 06/08/16 0713 06/08/16 0713 Imaging Last Impressions Foot X-Ray 06/07/16 0000 Signed Impressions: Service Date/Time: Tuesday, June 07, 2016 08:10 - CONCLUSION: 1. No acute fracture or dislocation. 2. Mild degenerative changes involving the right first metatarsal phalangeal joint and right mid foot. Virgil Singh MD Objective Remarks GENERAL: AOX3, NAD. SKIN: Warm and dry. HEAD: Normocephalic. EYES: No scleral icterus. No injection or drainage. NECK: Supple, trachea midline. No JVD or lymphadenopathy. CARDIOVASCULAR: Regular rate and rhythm without murmurs, gallops, or rubs. RESPIRATORY: Breath sounds equal bilaterally. No accessory muscle use. GASTROINTESTINAL: Abdomen soft, non-tender, nondistended. MUSCULOSKELETAL: No cyanosis, or edema. Right great toe necrosis. BACK: Nontender without obvious deformity. No CVA tenderness. Procedures None. A/P Problem List: (1) Diabetic foot ulcer ICD Code: E11.621 Status: Acute (2) Diabetes ICD Code: E11.9 Status: Acute (3) CAD (coronary artery disease) ICD Code: I25.10 Status: Chronic (4) Urinary retention ICD Code: R33.9 Status: Chronic Assessment and Plan Mr. Rowland is a pleasant 61 year old male with a history of CAD s/p two stent placed, diabetes who presented to the ED due to wolfe catheter problem as well as right sided diabetic foot infection. Patient has been having urinary retention problem and thus has been on Wolfe catheter. Wolfe catheter was replaced in the ED. 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 - Will continue abx - Cefepime and Vancomycin - both intravenously for now. - Podiatry evaluated patient and recommended Vascular surgery eval. CTA with runoff pending. Discussed with Vascular surgery [facility]. - Percocet PO PRN and Dilaudid IV PRN for pain control. - Diabetes mellitus - Diabetic neuropathy - Levemir 15 units QHS and sliding scale insulin. May need pre-meal coverage. - Continue Gabapentin 600mg BID. - CAD s/p two stents - RCA and 1st diag of LAD - Hypercholesteremia - Continue aspirin 81mg, Plavix 75mg. Continue metoprolol succ 50mg Qday, Imdur 30mg Qday. - Continue Fenofibrate. Will discuss with patient regarding statin use. No statins on home meds. - If there is no contraindications, patient should be on high intensity statin such as 80mg Lipitor QHS. - Continue Lisinopril 40mg Qday. Continue digoxin 0.25mg Qday. - Hypertension - Continue Amlodipine 2.5mg Qday, Lisinopril 40mg Qday. - BPH - Continue Tamsulin 0.8mg Qday. Dr. Davis saw patient previously. Patient requests an Urology evaluation. Will consult Dr. Davis. - GERD - continue PPI. Full code. Lovenox. Problem Qualifiers (1) Diabetic foot ulcer: Qualified Code: E13.621 - Diabetic ulcer of toe of right foot associated with diabetes mellitus of other type, unspecified ulcer stage Francisco Buck DO Jun 08, 2016 4:22 pm
--- NOTE | 2016-06-08 16:38 | PD.VS.CON ---
History of Present Illness Chief Complaint: Pt c/o wound to right great toe times two weeks that started with a cut Consult Requested by: Dr Buck History of Present Illness As Reported: Mr. Rowland is a 61-year-old with a history of CAD, diabetes, PVD, urinary retention who presented to the emergency department on 06/07/2016 due to Melgoza catheter problems. Patient complained of lower abdominal discomfort since his Melgzoa catheter became dislodged. In the emergency department Melgoza catheter was reinserted. Additionally patient also requested evaluation for his right foot and right great toe ulceration. Patient reports no pain or sensation below his ankle on the right side. His right great toe has been black for about 2 weeks. Patient was discharged in Feb 2016 after NSTEMI s/p stent placement to RCA and first diagonal branch of LAD. He was discharged on Aspirin and plavix. He was also discharged on insulin for diabetes. Patient reports that he has not taken insulin but has been on aspirin/plavix. (Muna Blackman) Past/Family/Social History Past Medical History PVD Diabetes mellitus CAD status post stent placement (4) COPD Past Surgical History Stent placements Social History Denies using alcohol or illicit drugs Smokes 2 ppd for 50 years and stated he has not smoked for 10 days. (Muna Blackman) Home Medications Active Scripts Prednisone 20 Mg Tab20 Mg PO DAILY #3 TAB Prov:Ashok Bedoya DO 03/15/16 Tamsulosin (Flomax)0.4 Mg Cap0.4 Mg PO DAILY #30 CAP Prov:Ashok Bedoya DO 03/15/16 Metoprolol Succinate ER 24 HR 50 Mg Tab50 Mg PO DAILY #30 TAB Prov:Ashok Bedoya DO 03/15/16 Blood Glucose Monitoring Suppl (Blood Glucose System Kishan)1 Kit Kit #1 Kit Prov:Ashok Bedoya DO 03/15/16 Insulin Detemir Inj (Levemir Flextouch Pen Inj)300 unit/3 ML Pen30 Units SQ BID #60 PEN Ref 0 Prov:Ashok Bedoya DO 03/15/16 Clopidogrel (Plavix)75 Mg Tab75 Mg PO DAILY #30 TAB Prov:Ashok Bedoya DO 03/15/16 Amlodipine (Norvasc)5 Mg Tab2.5 Mg PO DAILY #30 TAB Prov:Ashok Bedoya DO 03/15/16 Reported Medications Finasteride 5 Mg Tab5 Mg PO DAILY #30 TAB Ref 0 Do not crush. 06/07/16 Lisinopril 40 Mg Tab40 Mg PO #30 TAB Ref 0 06/07/16 Albuterol 6.7 GM Inh (Proventil Hfa 6.7 GM Inh)90 Mcg/Act Aer2 Puff INH Q4-6H PRN (SHORTNESS OF BREATH) #1 INHALER Ref 0 03/07/16 Budesonide-Formoterol Inh (Symbicort Inh)80-4.5 Mcg/Act Aero1 Puff INH Q12HR # 1 INHALER Ref 0 03/07/16 Trazodone 50 Mg Tab50 Mg PO HS #30 TAB Ref 0 03/07/16 Ipratropium-Albuterol Inh (Combivent Respimat Inh)20-100 Longterm/Act Aero1 Puff INH QID #1 INHALER Ref 0 03/07/16 Fenofibrate 48 Mg Tab48 Mg PO DAILY #30 TAB Ref 0 03/07/16 Gabapentin 600 Mg [id number] Mg PO BID #60 TAB Ref 0 03/07/16 Digoxin 0.25 Mg Tab0.25 Mg PO DAILY #30 TAB Ref 0 03/07/16 Isosorbide Mononitrate 20 Mg Tab30 Mg PO DAILY #60 TAB Ref 0 Take 2 doses 7 hours apart. 03/07/[address] 20 Mg Capdr20 Mg PO DAILY #30 CAP Ref 0 03/07/16 Bupropion HCl 100 Mg [id number] Mg PO BID Ref 0 03/07/16 Aspirin 81 Mg Tabdr81 Mg PO DAILY 03/07/16 Discontinued Reported Medications Atorvastatin 80 Mg Tab80 Mg PO HS #30 TAB Ref 0 03/07/16 Discontinued Scripts Lisinopril 20 Mg Tab20 Mg PO DAILY #30 TAB Prov:Ashok Bedoya DO 03/15/16 Coded Allergies: Bee Sting (Verified Allergy, Severe, Anaphylaxis, 06/07/16) Review of Systems Integumentary: COMPLAINS OF: Abnormal pigmentation (right great toe with dry gangrene from tip to mid toe, ulcer noted below 5th toe right side) (Muna Blackman) Physical Exam Vitals/I&O Date Time Temp Pulse Resp B/P Pulse Ox O2 Delivery O2 Flow Rate FiO2 06/08/16 12:00 98.8 75 18 130/70 95 06/08/16 08:00 98.6 73 18 126/64 96 06/08/16 04:03 98.3 71 16 153/65 96 06/08/16 00:00 Room Air 06/07/16 23:30 98.5 66 18 130/71 94 06/07/16 20:58 98.4 72 18 137/66 96 06/07/16 20:00 Room Air Neuro: CN 2-12 intact Heart: +S1, S2 Lungs: clear to auscultation bilat Upper lobes Slight expiratory wheezes noted bilat lower bases Abdomen: soft and non tender Vascular: strong palpable L DP/PT with triphasic signals heard via doppler Non palpable R DP/PT, biphasic signals heard via doppler PT/DP Palpable femoral pulses bilat Extremities: Warm to touch BLE, R foot presents with greater than 4 sec cap refill dry gangrene noted to right great toe from tip to mid region, with odor and tissue loss circular wound noted below 5th great toe (Muna Blackman) Vascular: decreased femoral pulse on the right. (Marko Shelton DO) Laboratory Tests Test 06/08/16 07:13 White Blood Count 8.1 Red Blood Count 3.98 Hemoglobin 11.5 Hematocrit 34.2 Mean Corpuscular Volume 85.9 Mean Corpuscular Hemoglobin 28.9 Mean Corpuscular Hemoglobin 33.6 Concent Red Cell Distribution Width 15.5 Platelet Count 184 Mean Platelet Volume 9.0 Neutrophils (%) (Auto) 64.7 Lymphocytes (%) (Auto) 20.6 Monocytes (%) (Auto) 7.8 Eosinophils (%) (Auto) 5.6 Basophils (%) (Auto) 1.3 Neutrophils # (Auto) 5.2 Lymphocytes # (Auto) 1.7 Monocytes # (Auto) 0.6 Eosinophils # (Auto) 0.5 Basophils # (Auto) 0.1 CBC Comment DIFF FINAL Differential Comment Sodium Level 144 Potassium Level 4.0 Chloride Level 110 Carbon Dioxide Level 26.7 Anion Gap 7 Blood Urea Nitrogen 12 Creatinine 0.70 Estimat Glomerular Filtration 114 Rate Random Glucose 132 Calcium Level 8.5 Date/Time Procedure Status Source Growth 06/07/16 09:20 Gram Stain - Final Resulted Wound Toe 06/07/16 09:20 Wound Culture - Preliminary Resulted Staphylococcus Aureus Gram Negative Alejandro 06/07/16 07:50 Urine Culture - Preliminary Resulted Urine Clean Catch Gram Negative Alejandro Last 48 hours Impressions Foot X-Ray 06/07/16 0000 Signed Impressions: Service Date/Time: Tuesday, June 07, 2016 08:10 - CONCLUSION: 1. No acute fracture or dislocation. 2. Mild degenerative changes involving the right first metatarsal phalangeal joint and right mid foot. Virgil Singh MD (Muna Blackman) Assessment and Plan Assessment: (1) Gangrene of foot Status: Acute (2) PAD (peripheral artery disease) Status: Chronic Plan Plan: Ordered JÚNIOR's Ordered heel protectors to BLE Angiogram early next week with Dr. Nikita WHEELER [facility] [phone] (Muna Blackman) Plan I agrees with the above assessment and plan. Patient made NPO 06/12 Marko Shelton DO, FACS Senior Procurement Manager of Vascular Surgery [facility] (Marko Shelton DO) Muna Blackman Jun 08, 2016 16:38 Marko Shelton DO Jun 09, 2016 10:24
[2016-06-08 20:17] VITALS: BP 123/59; PULSE 71; RESP 18; TEMP 98.7; O2SAT 96
[2016-06-08] MEDS: traZODone HCL 50 MG TAB PO SCH (21:00)
[2016-06-08] MEDS ORDERED: IOHEXOL 350 MG/ML 10 ML VIAL (for RAD DIAG) IV ONE (21:10)
[2016-06-08] MEDS: INSULIN DETEMIR 100 UNITS/ML VIAL SQ SCH (21:30)
--- NOTE | 2016-06-08 23:12 | RADRPT ---
EXAM DATE/TIME: 06/08/2016 19:02 [facility] COMPARISON: No previous studies available for comparison. INDICATIONS : Diabetic wound on right foot. IV CONTRAST: 95 cc Omnipaque 350 (iohexol) IV RADIATION DOSE: 16.25 CTDIvol (mGy) MEDICAL HISTORY : Cerebrovascular disease. Cardiovascular disease Hypertension. SURGICAL HISTORY : Coronary artery stent. ENCOUNTER: Initial ACUITY: 2 weeks PAIN SCALE: 8/10 LOCATION: Right Run off TECHNIQUE: Volumetric scanning was performed using a multi-row detector CT scanner. The data was post processed with a variety of visualization algorithms including full volume maximum intensity projection, multi -planar sliding thin slab reformation, curved planar reformation, and surface rendering techniques. Using automated exposure control and adjustment of the mA and/or kV according to patient size, radiat ion dose was kept as low as reasonably achievable to obtain optimal diagnostic quality images. FINDINGS: Aorta/inflow: Diffuse calcified and noncalcified atheromatous plaque throughout the infrarenal aorta and inflow ves sels. This generates an irregular luminal contour to the infrarenal aorta. No hemodynamically signifi cant stenosis. Inflow vessels are patent. The celiac, SMA, DENY, and renal arteries show atherosclerot ic plaque without hemodynamically significant stenosis. The left internal iliac artery is stenotic at its origin. The right is patent. Right lower extremity: The common femoral artery and profunda femoris are patent. Mild proximal SFA disease. Within the dist al SFA there is a 2 cm segment of occlusion secondary to largely noncalcified atheromatous plaque. Th e popliteal artery shows eccentric noncalcified atheromatous plaque at the level of the femoral condy les generating a 30-40% stenosis for approximately 2 cm in length. The below-knee popliteal artery is patent. 3 vessel runoff to the foot observed. The anterior tibial artery shows moderate stenosis as it crosses the interosseous membrane. There is also a focal high grade stenosis within its mid segmen t. Left lower extremity: The common femoral artery and profunda femoris are patent. Mild scattered SFA and popliteal disease i s noted. No significant stenosis is 30% at the SFA origin. There is moderate proximal anterior tibial artery disease secondary to partially calcified atheromatous plaque. Mild disease within the tibiope roneal trunk with less than 20% luminal narrowing. 3 vessel runoff to the foot otherwise. Other structures: There is a Melgoza balloon contained within a decompressed urinary bladder. There is concern for possib le circumferential wall thickening of the urinary bladder. The urinary bladder is poorly evaluated du e to its decompressed state. An 8 mm smoothly marginated pulmonary nodule is seen within the right gai ng base. CONCLUSION: 1. Patent inflow. 2. The right lower extremity has a short segment occlusion within the distal SFA with mild above knee popliteal disease. Both areas would be amenable to endovascular repair and may improve blood flow to the foot to aid in healing of the wound. 3 vessel runoff to the foot. 3. Left lower extremity shows mild outflow disease. 3 vessel runoff to the foot. 4. 8 mm nodule involving the right lung base. Current guidelines suggest a repeat CT of the thorax in 3-6 months. 5. Concern for circumferential wall thickening involving the urinary bladder wall. I cannot exclude a n acute inflammatory process or even an infiltrating malignancy. Followup is needed. Ryan Meehan Jr., MD on June 08, 2016 at 22:58 Board Certified Radiologist. This report was verified electronically.
[2016-06-08 23:39] VITALS: BP 127/69; PULSE 65; RESP 18; TEMP 98.7; O2SAT 94
--- NOTE | 2016-06-09 00:16 | HHI.PR ---
Subjective Remarks Follow up for diabetic foot infection, PVD, DM. Mr. Rowland is doing well. Earlier today, he got short of breath on ambulation in the room. No fever, chills. Objective Vitals Vital Signs Date Time Temp Pulse Resp B/P Pulse Ox O2 Delivery O2 Flow Rate FiO2 06/08/16 20:17 98.7 71 18 123/59 96 06/08/16 20:15 Room Air 06/08/16 17:29 20 06/08/16 16:00 98.0 68 18 122/58 99 06/08/16 16:00 99 Room Air 06/08/16 12:00 98.8 75 18 130/70 95 06/08/16 08:00 98.6 73 18 126/64 96 06/08/16 04:03 98.3 71 16 153/65 96 I/O 06/08/16 06/08/16 06/08/16 06/09/16 06/09/16 06/09/16 07:00 15:00 23:00 07:00 15:00 23:00 Intake Total 120 ml 960 ml 840 ml Output Total 650 ml 1100 ml 300 ml Balance -530 ml -140 ml 540 ml Intake Oral 120 ml 960 ml 840 ml Output Urine Total 650 ml 1100 ml 300 ml # Bowel Movements 0 0 0 Result Diagram: 06/08/1671206/08/1613 Imaging Last Impressions Aorta w/Runoff CTA 06/08/16 0000 Signed Impressions: Service Date/Time: May 19:02 - CONCLUSION: 1. Patent inflow. 2. The right lower extremity has a short segment occlusion within the distal SFA with mild above knee popliteal disease. Both areas would be amenable to endovascular repair and may improve blood flow to the foot to aid in healing of the wound. 3 vessel runoff to the foot. 3. Left lower extremity shows mild outflow disease. 3 vessel runoff to the foot. 4. 8 mm nodule involving the right lung base. Current guidelines suggest a repeat CT of the thorax in 3-6 months. 5. Concern for circumferential wall thickening involving the urinary bladder wall. I cannot exclude an acute inflammatory process or even an infiltrating malignancy. Followup is needed. Ryan Meehan Jr., MD Foot X-Ray 06/07/16 0000 Signed Impressions: Service Date/Time: Tuesday, June 07, 2016 08:10 - CONCLUSION: 1. No acute fracture or dislocation. 2. Mild degenerative changes involving the right first metatarsal phalangeal joint and right mid foot. Virgil Singh MD Objective Remarks GENERAL: AOX3, NAD. SKIN: Warm and dry. HEAD: Normocephalic. EYES: No scleral icterus. No injection or drainage. NECK: Supple, trachea midline. No JVD or lymphadenopathy. CARDIOVASCULAR: Regular rate and rhythm without murmurs, gallops, or rubs. RESPIRATORY: Breath sounds equal bilaterally. No accessory muscle use. GASTROINTESTINAL: Abdomen soft, non-tender, nondistended. MUSCULOSKELETAL: No cyanosis, or edema. Right great toe necrosis. BACK: Nontender without obvious deformity. No CVA tenderness. Procedures None. A/P Problem List: (1) Diabetic foot ulcer ICD Code: E11.621 Status: Acute (2) Diabetes ICD Code: E11.9 Status: Acute (3) CAD (coronary artery disease) ICD Code: I25.10 Status: Chronic (4) Urinary retention ICD Code: R33.9 Status: Chronic Assessment and Plan Mr. Rowland is a pleasant 61 year old male with a history of CAD s/p two stent placed, diabetes who presented to the ED due to wolfe catheter problem as well as right sided diabetic foot infection. Patient has been having urinary retention problem and thus has been on Wolfe catheter. Wolfe catheter was replaced in the ED. 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 - Will continue abx. Urine culture grew CLL, wound culture from the toe is growing MSSA, gram-negative rods. - Will discontinue Vancomycin and keep Cefepime only. - Vascular surgery plans to do angiogram with possible intervention on 2016. - Percocet PO PRN and Dilaudid IV PRN for pain control. - Pulmonary nodule - repeat CT chest in 3-6 months. - Bladder wall thickening - Urology consult pending. - Diabetes mellitus - Diabetic neuropathy - Increase Levemir 17 units QHS and Continue sliding scale insulin. Add meal coverage with Aspart 4 units TIDAC. - Continue Gabapentin 600mg BID. - CAD s/p two stents - RCA and 1st diag of LAD - Hypercholesteremia - Continue aspirin 81mg, Plavix 75mg. Continue metoprolol succ 50mg Qday, Imdur 30mg Qday. - Continue Fenofibrate. - If there is no contraindications, patient should be on high intensity statin such as 80mg Lipitor QHS. - Continue Lisinopril 40mg Qday. Continue digoxin 0.25mg Qday. - Hypertension - Increase Amlodipine to 5mg Qday, Lisinopril 40mg Qday. - BPH - Continue Tamsulin 0.8mg Qday. Dr. Davis saw patient previously. Patient requests an Urology evaluation. Will consult Dr. Davis. - GERD - continue PPI. Full code. Lovenox. Problem Qualifiers (1) Diabetic foot ulcer: Qualified Code: E13.621 - Diabetic ulcer of toe of right foot associated with diabetes mellitus of other type, unspecified ulcer stage Francisco Buck DO Jun 09, 2016 12:16 am
[2016-06-09] MEDS: CEFEPIME INJ 2,000 MG in SODIUM CHLORIDE 0.9% INJ 100 ML IV SCH ×3 (02:26→17:32)
[2016-06-09] MEDS ORDERED: PHARMACY ORDERED LAB XX ONE (02:45)
[2016-06-09] MEDS: SODIUM CHLOR 0.9% 1000 ML INJ 1,000 ML IV SCH ×3 (02:46→20:20)
[2016-06-09] MEDS: VANCOMYCIN INJ 1,500 MG in SODIUM CHLORID 0.9% 500 ML INJ 500 ML IV SCH ×2 (02:47→17:30)
[2016-06-09 03:45] VITALS: BP 119/64; PULSE 68; RESP 18; TEMP 98.1; O2SAT 93
[2016-06-09] MEDS: oxyCODONE/ACETAMINOPHEN 7.5 MG/325 MG TAB PO PRN ×2 (03:49→20:08)
[2016-06-09] MEDS: INSULIN ASPART SUPPLEMENTAL SCALE SQ SCH ×4 (06:01→20:09)
[2016-06-09 08:00] VITALS: BP 143/72; PULSE 78; RESP 18; TEMP 98; O2SAT 96
--- NOTE | 2016-06-09 10:19 | RADRPT ---
EXAM DATE/TIME: 06/08/2016 00:00 [facility] COMPARISON: No previous studies available for comparison. INDICATIONS : Diabetic Foot Infection, Hyperglycemia TECHNIQUE: Four-cuff ankle and brachial pressures were obtained. Pulse cuff waveform tracings of the ankles were recorded, and ankle-brachial indices were calculated. PRESSURES (mmHg): Brachial (arm): Right IV SITE Left 134 Ankle: Right 49 Left 143 JÚNIOR: Right 0.37 Left 1.07 TBI: Right 0.00 Left 0.97 PULSED CUFF WAVEFORMS: Amplitude blunting of the right ankle waveform with no detectable waveform in the right toe CONCLUSION: 1. Normal JÚNIOR and TBI on the left. 2. Markedly abnormal right JÚNIOR and TBI. Clarence Herrera MD on June 09, 2016 at 10:14 Board Certified Radiologist. This report was verified electronically.
--- NOTE | 2016-06-09 10:29 | PD.VS.PN ---
Subjective Subjective/Hospital Course right 1st toe wound. Objective Vitals/I&O Date Time Temp Pulse Resp B/P Pulse Ox O2 Delivery O2 Flow Rate FiO2 06/09/16 08:00 98.0 78 18 143/72 96 06/09/16 03:45 98.1 68 18 119/64 93 06/08/16 23:39 98.7 65 18 127/69 94 06/08/16 20:17 98.7 71 18 123/59 96 06/08/16 20:15 Room Air 06/08/16 17:29 20 06/08/16 16:00 98.0 68 18 122/58 99 06/08/16 16:00 99 Room Air 06/08/16 12:00 98.8 75 18 130/70 95 06/09/16 06/09/16 06/09/16 07:00 15:00 23:00 Intake Total 240 ml Output Total 1050 ml Balance -810 ml Physical Exam decreased femoral pulse on right with biphasic DP and PT. Left femoral and DP palpable. Right great toe with dry gangrene distally and dime sized shallow ulceration over the dorsum laterally on the foot. Laboratory Laboratory Tests Test 06/08/16 06/09/16 10:30 02:45 Nasal Screen MRSA (PCR) NEGATIVE Vancomycin Level Trough 14.8 Date/Time Procedure Status Source Growth 06/07/16 09:20 Gram Stain - Final Resulted Wound Toe 06/07/16 09:20 Wound Culture - Preliminary Resulted Staphylococcus Aureus Gram Negative Alejandro 06/07/16 07:50 Urine Culture - Final Complete Urine Clean Catch Klebsiella Pneumoniae Imaging Last 48 hours Impressions Aorta w/Runoff CTA 06/08/16 0000 Signed Impressions: Service Date/Time: May 19:02 - CONCLUSION: 1. Patent inflow. 2. The right lower extremity has a short segment occlusion within the distal SFA with mild above knee popliteal disease. Both areas would be amenable to endovascular repair and may improve blood flow to the foot to aid in healing of the wound. 3 vessel runoff to the foot. 3. Left lower extremity shows mild outflow disease. 3 vessel runoff to the foot. 4. 8 mm nodule involving the right lung base. Current guidelines suggest a repeat CT of the thorax in 3-6 months. 5. Concern for circumferential wall thickening involving the urinary bladder wall. I cannot exclude an acute inflammatory process or even an infiltrating malignancy. Followup is needed. Ryan Meehan Jr., MD Assessment and Plan Assessment: (1) Gangrene of foot Status: Acute (2) PAD (peripheral artery disease) Status: Chronic Plan Plan for diagnostic angiogram with possible intervention vs bypass on sunday by vascular surgery. Vein mapping and ABIs to be reviewed in the interim. Marko Shelton DO, FACS [employer] /MinervaMarko Castro DO Jun 09, 2016 10:29
--- NOTE | 2016-06-09 10:32 | RADRPT ---
EXAM DATE/TIME: 06/09/2016 08:24 [facility] COMPARISON: No previous studies available for comparison. INDICATIONS : Vein survery for possible vascular future intervention. MEDICAL HISTORY : Hypertension. Chronic obstructive pulmonary disease. Afib. COPD. Kidney stones. Diabetic. CAD. PVD. CVA. SURGICAL HISTORY : Cardiac catheterization. Cardiac stents. ENCOUNTER: Initial ACUITY: 1 day PAIN SCORE: 0/10 LOCATION: Bilateral leg. TECHNIQUE: Venous ultrasound of the left and right leg was performed from the inguinal ligament to the proximal calf. Real-time, color Doppler and spectral tracing, compression and augmentation techniques were us ed. FINDINGS: RIGHT LEG: There is normal compressibility of the deep venous system from the inguinal region to the proximal ca lf. No echogenic clot is seen in the lumen of the common femoral, femoral, popliteal, and posterior tibial veins. There is a normal response of the venous system to proximal and distal augmentation an d respiration. LEFT LEG: There is normal compressibility of the deep venous system from the inguinal region to the proximal ca lf. No echogenic clot is seen in the lumen of the common femoral, femoral, popliteal, and posterior tibial veins. There is a normal response of the venous system to proximal and distal augmentation an d respiration. CONCLUSION: Normal examination. Kenroy Bowen MD on June 09, 2016 at 10:30 Board Certified Radiologist. This report was verified electronically.
--- NOTE | 2016-06-09 10:56 | RADRPT ---
EXAM DATE/TIME: 06/09/2016 08:57 [facility] COMPARISON: No previous studies available for comparison. INDICATIONS : Vein survery for possible vascular future intervention. MEDICAL HISTORY : Hypertension. Chronic obstructive pulmonary disease. Afib. COPD. Kidney stones. Diabetic. CAD. PVD. CVA. SURGICAL HISTORY : Cardiac catheterization. ENCOUNTER: Initial ACUITY: 1 day PAIN SCORE: 0/10 LOCATION: Bilateral arm. FINDINGS: RIGHT UPPER EXTREMITY: There is spontaneous flow documented in the brachial, basilic, cephalic, axillary, and subclavian vei ns. The vessels are compressible and augmentation response is documented. No filling defects are se en. The flow is phasic with respiration. Direction of flow in the jugular vein is caudal. LEFT UPPER EXTREMITY: There is spontaneous flow documented in the brachial, basilic, cephalic, axillary, and subclavian vei ns. The vessels are compressible and augmentation response is documented. No filling defects are se en. The flow is phasic with respiration. Direction of flow in the jugular vein is caudal. CONCLUSION: Normal examination. Kenroy Bowen MD on June 09, 2016 at 10:54 Board Certified Radiologist. This report was verified electronically.
--- NOTE | 2016-06-09 11:00 | RADRPT ---
EXAM DATE/TIME: 06/09/2016 08:32 [facility] COMPARISON: No previous studies available for comparison. INDICATIONS : Vein survery for possible vascular future intervention. MEDICAL HISTORY : Hypertension. Chronic obstructive pulmonary disease. Afib. Kidney stones. Diabetic. CAD. PVD. C VA. SURGICAL HISTORY : Cardiac catheterization. Cardiac stent. ENCOUNTER: Initial ACUITY: 1 day PAIN SCORE: 0/10 LOCATION: Bilateral leg. GREATER SAPHENOUS VEIN THIGH: PROXIMAL: Right 4 mm Left 4 mm MID: Right 3 mm Left 3 mm DISTAL: Right 2 mm Left 2 mm CALF: PROXIMAL: Right 3 mm Left 2 mm MID: Right 2 mm Left 2 mm DISTAL: Right 3 mm Left 3 mm FINDINGS: The venous system of the lower extremities are patent by color Doppler imaging. Measurements of the leg veins (in mm) are listed above. CONCLUSION: Greater saphenous veins are patent bilaterally. Both measure between 2 and 4 mm. Clarence Herrera MD on June 09, 2016 at 10:57 Board Certified Radiologist. This report was verified electronically.
--- NOTE | 2016-06-09 11:08 | RADRPT ---
EXAM DATE/TIME: 06/09/2016 08:55 [facility] COMPARISON: No previous studies available for comparison. INDICATIONS : Vein survery for possible vascular future intervention. MEDICAL HISTORY : Hypertension. Chronic obstructive pulmonary disease. Afib. Kidney stones. Diabetic. CAD. PVD. C VA. SURGICAL HISTORY : Cardiac catheterization. Cardiac stent. ENCOUNTER: Initial ACUITY: 1 day PAIN SCORE: 0/10 LOCATION: Bilateral arm. CEPHALIC: ORIGIN: Right 3 mm Left 4 mm MID-ARM: Right 3 mm Left 3 mm ELBOW: Right 3 mm Left 5 mm FOREARM: Right 3 mm Left 2 mm WRIST: Right 3 mm Left 1 mm BASILIC: ORIGIN: Right 3 mm Left 3 mm MID-ARM: Right 5 mm Left 3 mm ELBOW: Right 3 mm Left 2 mm ARTERIES: BRACHIAL: Right 4 mm Left 4 mm ULNAR: Right 2 mm Left 3 mm RADIAL: Right 2 mm Left 2 mm VEINS: RADIAL: Right 1 mm Left 1 mm ULNAR: Right 1 mm Left 2 mm FINDINGS: . The venous system of the upper extremities are patent by color Doppler imaging. Measurements of the arm veins (in mm) are listed above. CONCLUSION: 1. Arterial and venous structures of the upper extremities are patent bilaterally. No DVT. 2. Measurements as above. Clarence Herrera MD on June 09, 2016 at 11:05 Board Certified Radiologist. This report was verified electronically.
--- NOTE | 2016-06-09 11:20 | PD.CONS ---
[facility] Service Urology Consult Requested By Primary Care Physician [facility] Diagnosis: (1) Diabetic foot ulcer ICD Code: E11.621 (2) Diabetes ICD Code: E11.9 (3) CAD (coronary artery disease) ICD Code: I25.10 (4) Urinary retention ICD Code: R33.9 History of Present Illness 61-year-old male seen by myself back in February when he was admitted for chest pain and myocardial infarction. At that time, coronary artery stents were placed and he has been on Plavix and aspirin. He was having difficulty with urination and was sent home with a Melgoza catheter. He has been on both Flomax and Proscar and is a patient care at the [place]. He was given a voiding trial there , but failed, and has had a Melgoza catheter in for approximately last 2-3 months. He states he did have one urinary tract infection with a catheter and was recently seen in the ER on this admission after the catheter fallen out. He was unable to void after Melgoza catheter fell out. He denies any family history of prostate cancer. He's also currently being evaluated by vascular surgery for her right lower extremity foot ulcer. Review of Systems Endocrine: DENIES: Heat/cold intolerance Eyes: DENIES: Blurred vision Ears, nose, mouth, throat: DENIES: Tinnitus Cardiovascular: DENIES: Chest pain Gastrointestinal: DENIES: Abdominal pain Genitourinary: COMPLAINS OF: Sexual dysfunction Musculoskeletal: DENIES: Joint pain Hematologic/lymphatic: DENIES: Bruising Neurologic: COMPLAINS OF: Abnormal gait Past Family Social History Past Medical History Coronary artery disease status post SC Hypertension Diabetes BPH with obstruction and urinary retention Past Surgical History Coronary stents placed in February 2016 Allergies: Coded Allergies: Bee Sting (Verified Allergy, Severe, Anaphylaxis, 06/07/16) Family History Denies any family history of prostate cancer. Social History Smoking 2 packs per day is noted. Physical Exam Vital Signs Date Time Temp Pulse Resp B/P Pulse Ox O2 Delivery O2 Flow Rate FiO2 06/09/16 08:00 98.0 78 18 143/72 96 06/09/16 03:45 98.1 68 18 119/64 93 06/08/16 23:39 98.7 65 18 127/69 94 06/08/16 20:17 98.7 71 18 123/59 96 06/08/16 20:15 Room Air 06/08/16 17:29 20 06/08/16 16:00 98.0 68 18 122/58 99 06/08/16 16:00 99 Room Air 06/08/16 12:00 98.8 75 18 130/70 95 Physical Exam GENERAL: This is a well-nourished, well-developed patient, in no apparent distress. SKIN: No rashes, ecchymoses or lesions. Cool and dry. HEAD: Atraumatic. Normocephalic. No temporal or scalp tenderness. EYES: Pupils equal round and reactive. Extraocular motions intact. No scleral icterus. No injection or drainage. ENT: Nose without bleeding, purulent drainage or septal hematoma. Throat without erythema, tonsillar hypertrophy or exudate. Uvula midline. Airway patent. NECK: Trachea midline. No JVD or lymphadenopathy. Supple, nontender, no meningeal signs. CARDIOVASCULAR: Regular rate and rhythm without murmurs, gallops, or rubs. RESPIRATORY: Clear to auscultation. Breath sounds equal bilaterally. No wheezes , rales, or rhonchi. GASTROINTESTINAL: Abdomen soft, non-tender, nondistended. No hepato-splenomegaly , or palpable masses. No guarding. GENITOURINARY: Normal phallus with testes descended. Melgoza catheter in place draining clear urine MUSCULOSKELETAL: Extremities without clubbing, cyanosis, or edema. Right diabetic foot ulcer with necrotic tissue noted in right big toe nail bed. NEUROLOGICAL: Awake and alert. Cranial nerves II through XII intact. Motor and sensory grossly within normal limits. Five out of 5 muscle strength in all muscle groups. Normal speech. Laboratory Tests Test 06/09/16 02:45 Vancomycin Level Trough 14.8 Date/Time Procedure Status Source Growth 06/07/16 09:20 Gram Stain - Final Resulted Wound Toe 06/07/16 09:20 Wound Culture - Preliminary Resulted Staphylococcus Aureus Gram Negative Alejandro 06/07/16 07:50 Urine Culture - Final Complete Urine Clean Catch Klebsiella Pneumoniae Result Diagram: 06/08/16 0713 06/08/16 0713 Imaging Last Impressions Upper Extremity Ultrasound 06/09/16 0000 Signed Impressions: Service Date/Time: Thursday, June 09, 2016 08:57 - CONCLUSION: Normal examination. Kenroy Bowen MD Lower Extremity Ultrasound 06/09/16 0000 Signed Impressions: Service Date/Time: Thursday, June 09, 2016 08:24 - CONCLUSION: Normal examination. Kenroy Bowen MD Aorta w/Runoff CTA 06/08/16 0000 Signed Impressions: Service Date/Time: May 19:02 - CONCLUSION: 1. Patent inflow. 2. The right lower extremity has a short segment occlusion within the distal SFA with mild above knee popliteal disease. Both areas would be amenable to endovascular repair and may improve blood flow to the foot to aid in healing of the wound. 3 vessel runoff to the foot. 3. Left lower extremity shows mild outflow disease. 3 vessel runoff to the foot. 4. 8 mm nodule involving the right lung base. Current guidelines suggest a repeat CT of the thorax in 3-6 months. 5. Concern for circumferential wall thickening involving the urinary bladder wall. I cannot exclude an acute inflammatory process or even an infiltrating malignancy. Followup is needed. Ryan Meehan Jr., MD Foot X-Ray 06/07/16 0000 Signed Impressions: Service Date/Time: Tuesday, June 07, 2016 08:10 - CONCLUSION: 1. No acute fracture or dislocation. 2. Mild degenerative changes involving the right first metatarsal phalangeal joint and right mid foot. Virgil Singh MD Assessment and Plan Assessment and Plan 61 year-old male with history of BPH with obstruction and urinary retention. Patient will need cystoscopy as an outpatient followed by scheduling of a transurethral resection of the prostate. He will need to be able to hold his Plavix and aspirin for 1 week prior to surgery. Will discuss with cardiology as stents have only been in since February 2016. Maintain Melgoza catheter for now. Patient would benefit from clean intermittent catheterization if he was willing to perform this. Thank for the consult and for allowing me to participate in the care of this patient. Problem Qualifiers (1) Diabetic foot ulcer: Qualified Code: E13.621 - Diabetic ulcer of toe of right foot associated with diabetes mellitus of other type, unspecified ulcer stage Ovi Davis DO Jun 09, 2016 11:20
[2016-06-09] MEDS: INSULIN ASPART 1,000 UNITS/10 ML VIAL SQ SCH ×3 (11:53→17:31)
[2016-06-09] MEDS: SODIUM CHLORIDE 0.9% FLUSH 10 ML FLUSH IV FLUSH SCH ×2 (11:54→20:09)
[2016-06-09] MEDS: BUDESONIDE-FORMOTEROL 80/4.5 MCG INHALER INH SCH ×2 (11:54→20:10)
[2016-06-09] MEDS: TAMSULOSIN HCL 0.4 MG CAP PO SCH (11:55)
[2016-06-09] MEDS: ASPIRIN EC 81 MG TABEC PO SCH (11:55)
[2016-06-09] MEDS: DIGOXIN 0.25 MG TAB PO SCH (11:56)
[2016-06-09] MEDS: amLODIPine BESYLATE 5 MG TAB PO SCH (11:56)
[2016-06-09] MEDS: GABAPENTIN 300 MG CAP PO SCH ×2 (11:56→20:07)
[2016-06-09] MEDS: ISOSORBIDE MONONITRATE 20 MG TAB PO SCH (11:56)
[2016-06-09] MEDS: FINASTERIDE 5 MG TAB PO SCH (11:57)
[2016-06-09] MEDS: LISINOPRIL 20 MG TAB PO SCH (11:57)
[2016-06-09] MEDS: CLOPIDOGREL 75 MG TAB PO SCH (11:57)
[2016-06-09] MEDS: FENOFIBRATE 48 MG TAB PO SCH (11:58)
[2016-06-09] MEDS: buPROPion HCL 75 MG TAB PO SCH ×2 (11:58→20:08)
[2016-06-09] MEDS: PANTOPRAZOLE SOD 20 MG DELAYED RELEASE TAB PO SCH (11:58)
[2016-06-09] MEDS: METOPROLOL SUCCINATE 50 MG EXTENDED RELEASE TAB PO SCH (11:58)
[2016-06-09] MEDS: ENOXAPARIN SODIUM 30 MG/0.3 ML SYRINGE SQ SCH (11:59)
[2016-06-09 12:00] VITALS: BP 153/67; PULSE 50; RESP 18; TEMP 98.8; O2SAT 92
[2016-06-09] MEDS: RESP: ALBUTEROL 2.5 MG/IPRATROPIUM 0.5 MG NEB (PRN) NEB (12:50)
[2016-06-09 16:00] VITALS: BP 121/68; PULSE 76; RESP 18; TEMP 97.4; O2SAT 94
[2016-06-09 19:52] VITALS: BP 117/66; PULSE 65; RESP 18; TEMP 98.3; O2SAT 95
[2016-06-09] MEDS: traZODone HCL 50 MG TAB PO SCH (20:07)
[2016-06-09] MEDS: INSULIN DETEMIR 100 UNITS/ML VIAL SQ SCH (20:09)
[2016-06-09 23:20] VITALS: BP 109/58; PULSE 71; RESP 18; TEMP 97.8; O2SAT 95
[2016-06-10] MEDS: CEFEPIME INJ 2,000 MG in SODIUM CHLORIDE 0.9% INJ 100 ML IV SCH ×3 (03:05→21:19)
[2016-06-10] MEDS: oxyCODONE/ACETAMINOPHEN 7.5 MG/325 MG TAB PO PRN ×4 (03:09→23:41)
[2016-06-10] MEDS: VANCOMYCIN INJ 1,500 MG in SODIUM CHLORID 0.9% 500 ML INJ 500 ML IV SCH ×2 (03:09→16:31)
[2016-06-10 04:04] VITALS: BP 122/65; PULSE 66; RESP 18; TEMP 98.4; O2SAT 96
[2016-06-10] MEDS: INSULIN ASPART SUPPLEMENTAL SCALE SQ SCH ×4 (06:07→21:00)
[2016-06-10] MEDS: SODIUM CHLOR 0.9% 1000 ML INJ 1,000 ML IV SCH ×2 (07:45→16:38)
[2016-06-10 08:00] VITALS: BP 121/71; PULSE 64; RESP 18; TEMP 98.5; O2SAT 95
[2016-06-10] MEDS: BUDESONIDE-FORMOTEROL 80/4.5 MCG INHALER INH SCH ×2 (09:00→21:00)
[2016-06-10] MEDS: SODIUM CHLORIDE 0.9% FLUSH 10 ML FLUSH IV FLUSH SCH ×2 (09:00→21:00)
[2016-06-10] MEDS: RESP: ALBUTEROL 2.5 MG/IPRATROPIUM 0.5 MG NEB (PRN) NEB ×3 (09:21→20:26)
[2016-06-10] MEDS: ISOSORBIDE MONONITRATE 20 MG TAB PO SCH (09:39)
[2016-06-10] MEDS: LISINOPRIL 20 MG TAB PO SCH (09:39)
[2016-06-10] MEDS: TAMSULOSIN HCL 0.4 MG CAP PO SCH (09:39)
[2016-06-10] MEDS: FINASTERIDE 5 MG TAB PO SCH (09:39)
[2016-06-10] MEDS: PANTOPRAZOLE SOD 20 MG DELAYED RELEASE TAB PO SCH (09:40)
[2016-06-10] MEDS: GABAPENTIN 300 MG CAP PO SCH ×2 (09:40→21:19)
[2016-06-10] MEDS: CLOPIDOGREL 75 MG TAB PO SCH (09:40)
[2016-06-10] MEDS: DIGOXIN 0.25 MG TAB PO SCH (09:40)
[2016-06-10] MEDS: FENOFIBRATE 48 MG TAB PO SCH (09:40)
[2016-06-10] MEDS: amLODIPine BESYLATE 5 MG TAB PO SCH (09:40)
[2016-06-10] MEDS: buPROPion HCL 75 MG TAB PO SCH ×2 (09:40→21:19)
[2016-06-10] MEDS: ASPIRIN EC 81 MG TABEC PO SCH (09:40)
[2016-06-10] MEDS: METOPROLOL SUCCINATE 50 MG EXTENDED RELEASE TAB PO SCH (09:40)
[2016-06-10] MEDS: INSULIN ASPART 1,000 UNITS/10 ML VIAL SQ SCH ×3 (09:42→16:32)
[2016-06-10] MEDS: ENOXAPARIN SODIUM 30 MG/0.3 ML SYRINGE SQ SCH (11:36)
[2016-06-10] MEDS ORDERED: BISACODYL 10 MG SUPP RECTAL PRN (13:15)
--- NOTE | 2016-06-10 13:15 | HHI.PR ---
Subjective Remarks Follow up for diabetic foot infection, PVD, DM. Mr. Rowland is doing well. Denies any fever, chills. Requests bowel regimen. Objective Vitals Vital Signs Date Time Temp Pulse Resp B/P Pulse Ox O2 Delivery O2 Flow Rate FiO2 06/10/16 08:00 Room Air 06/10/16 08:00 98.5 64 18 121/71 95 06/10/16 04:04 98.4 66 18 122/65 96 06/09/16 23:20 97.8 71 18 109/58 95 06/09/16 19:52 98.3 65 18 117/66 95 06/09/16 19:30 Room Air 06/09/16 16:00 94 Room Air 06/09/16 16:00 97.4 76 18 121/68 94 I/O 06/09/16 06/09/16 06/09/16 06/10/16 06/10/16 06/10/16 07:00 15:00 23:00 07:00 15:00 23:00 Intake Total 240 ml 960 ml 2060 ml 240 ml Output Total 1050 ml 1800 ml 225 ml 950 ml Balance -810 ml -840 ml 1835 ml -710 ml Intake Oral 240 ml 960 ml 480 ml 240 ml IV Total 1580 ml Output Urine Total 1050 ml 1800 ml 225 ml 950 ml # Bowel Movements 0 0 0 0 Result Diagram: 06/08/1671206/08/16712 Imaging Last Impressions Upper Extremity Ultrasound 06/09/16 0000 Signed Impressions: Service Date/Time: Thursday, June 09, 2016 08:57 - CONCLUSION: Normal examination. Kenroy Bowen MD Lower Extremity Ultrasound 06/09/16 0000 Signed Impressions: Service Date/Time: Thursday, June 09, 2016 08:24 - CONCLUSION: Normal examination. Kenroy Bowen MD Aorta w/Runoff CTA 06/08/16 0000 Signed Impressions: Service Date/Time: May 19:02 - CONCLUSION: 1. Patent inflow. 2. The right lower extremity has a short segment occlusion within the distal SFA with mild above knee popliteal disease. Both areas would be amenable to endovascular repair and may improve blood flow to the foot to aid in healing of the wound. 3 vessel runoff to the foot. 3. Left lower extremity shows mild outflow disease. 3 vessel runoff to the foot. 4. 8 mm nodule involving the right lung base. Current guidelines suggest a repeat CT of the thorax in 3-6 months. 5. Concern for circumferential wall thickening involving the urinary bladder wall. I cannot exclude an acute inflammatory process or even an infiltrating malignancy. Followup is needed. Ryan Meehan Jr., MD Foot X-Ray 06/07/16 0000 Signed Impressions: Service Date/Time: Tuesday, June 07, 2016 08:10 - CONCLUSION: 1. No acute fracture or dislocation. 2. Mild degenerative changes involving the right first metatarsal phalangeal joint and right mid foot. Virgil Singh MD Objective Remarks GENERAL: AOX3, NAD. SKIN: Warm and dry. HEAD: Normocephalic. EYES: No scleral icterus. No injection or drainage. NECK: Supple, trachea midline. No JVD or lymphadenopathy. CARDIOVASCULAR: Regular rate and rhythm without murmurs, gallops, or rubs. RESPIRATORY: Breath sounds equal bilaterally. No accessory muscle use. GASTROINTESTINAL: Abdomen soft, non-tender, nondistended. MUSCULOSKELETAL: No cyanosis, or edema. Right great toe necrosis. BACK: Nontender without obvious deformity. No CVA tenderness. Procedures None. A/P Problem List: (1) Diabetic foot ulcer ICD Code: E11.621 Status: Acute (2) Diabetes ICD Code: E11.9 Status: Acute (3) CAD (coronary artery disease) ICD Code: I25.10 Status: Chronic (4) Urinary retention ICD Code: R33.9 Status: Chronic Assessment and Plan Mr. Rowland is a pleasant 61 year old male with a history of CAD s/p two stent placed, diabetes who presented to the ED due to wolfe catheter problem as well as right sided diabetic foot infection. Patient has been having urinary retention problem and thus has been on Wolfe catheter. Wolfe catheter was replaced in the ED. 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 - Will continue abx. Urine culture grew CLL, wound culture from the toe is growing MSSA, gram-negative rods. - Discontinued Vancomycin and keep Cefepime only. - Vascular surgery plans to do angiogram with possible intervention on 2016. - Percocet PO PRN and Dilaudid IV PRN for pain control. - Add Dulcolax suppository. Already has milk of mag. - Pulmonary nodule - repeat CT chest in 3-6 months. - Bladder wall thickening - Urology consult -- Dr. Davis recommends outpatient follow up for TURP. Patient will need to hold plavix and aspirin for one week prior to surgery. - Diabetes mellitus - Diabetic neuropathy - Increase Levemir 17 units QHS and Continue sliding scale insulin. Add meal coverage with Aspart 4 units TIDAC. - Continue Gabapentin 600mg BID. - CAD s/p two stents - RCA and 1st diag of LAD - Hypercholesteremia - Continue aspirin 81mg, Plavix 75mg. Continue metoprolol succ 50mg Qday, Imdur 30mg Qday. - Continue Fenofibrate. - If there is no contraindications, patient should be on high intensity statin such as 80mg Lipitor QHS. - Continue Lisinopril 40mg Qday. Continue digoxin 0.25mg Qday. - Hypertension - Increase Amlodipine to 5mg Qday, Lisinopril 40mg Qday. - BPH - Continue Tamsulin 0.8mg Qday. Outpatient TURP needed. - GERD - continue PPI. Full code. Lovenox. Problem Qualifiers (1) Diabetic foot ulcer: Qualified Code: E13.621 - Diabetic ulcer of toe of right foot associated with diabetes mellitus of other type, unspecified ulcer stage Francisco Buck DO Jun 10, 2016 1:15 pm
[2016-06-10 16:00] VITALS: BP 112/64; PULSE 69; RESP 16; TEMP 97.9; O2SAT 95
[2016-06-10] MEDS: MAGNESIUM HYDROXIDE SUSP 30 ML CUP PO PRN (16:34)
[2016-06-10 20:00] VITALS: BP 126/65; PULSE 66; RESP 22; TEMP 99.7; O2SAT 92
[2016-06-10] MEDS: traZODone HCL 50 MG TAB PO SCH (21:00)
[2016-06-10] MEDS: INSULIN DETEMIR 100 UNITS/ML VIAL SQ SCH (21:00)
[2016-06-11] VITALS: BP 138/62; PULSE 68; RESP 20; TEMP 97.8; O2SAT 95
[2016-06-11] MEDS: CEFEPIME INJ 2,000 MG in SODIUM CHLORIDE 0.9% INJ 100 ML IV SCH ×2 (02:48→11:00)
[2016-06-11] MEDS: VANCOMYCIN INJ 1,500 MG in SODIUM CHLORID 0.9% 500 ML INJ 500 ML IV SCH (02:49)
[2016-06-11] MEDS: RESP: ALBUTEROL 2.5 MG/IPRATROPIUM 0.5 MG NEB (PRN) NEB ×4 (03:40→22:15)
[2016-06-11] MEDS: SODIUM CHLOR 0.9% 1000 ML INJ 1,000 ML IV SCH ×2 (03:45→11:10)
[2016-06-11 06:00] VITALS: BP 128/82; PULSE 85; RESP 22; O2SAT 95
[2016-06-11] MEDS: INSULIN ASPART SUPPLEMENTAL SCALE SQ SCH ×4 (06:04→20:54)
[2016-06-11 06:55] LABS: BICARBONATE 23.6 MEQ/L (21.0-32.0); POTASSIUM 4.2 MEQ/L (3.5-5.1)
[2016-06-11 07:36] LABS: AUTOMATED NEUTROPHIL # 3.8 TH/MM3 (1.8-7.7); BASOPHIL # 0.1 TH/MM3 (0-0.2); BASOPHIL % 1.2 % (0.0-2.0); EOSINOPHIL # 0.3 TH/MM3 (0-0.4); EOSINOPHIL % 5.1 % (0.0-4.0); HEMATOCRIT 31.9 % (39.0-51.0); LYMPH % 20.9 % (9.0-44.0); LYMPHOCYTE # 1.3 TH/MM3 (1.0-4.8); MEAN CELL VOLUME 86.8 FL (80.0-100.0); MEAN CORPUSCULAR HGB CONC 33.4 % (32.0-36.0); NEUT % 63.8 % (16.0-70.0); PLATELET COUNT 150 TH/MM3 (150-450); RED BLOOD COUNT 3.67 MIL/MM3 (4.50-5.90); RED CELL DISTRIBUTION WIDTH 15.3 % (11.6-17.2)
[2016-06-11 08:00] VITALS: BP 157/77; PULSE 51; RESP 18; TEMP 98; O2SAT 94
[2016-06-11] MEDS: INSULIN ASPART 1,000 UNITS/10 ML VIAL SQ SCH ×3 (08:00→16:34)
[2016-06-11] MEDS: SODIUM CHLORIDE 0.9% FLUSH 10 ML FLUSH IV FLUSH SCH ×2 (09:00→20:51)
[2016-06-11] MEDS: DIGOXIN 0.25 MG TAB PO SCH (09:00)
[2016-06-11] MEDS: METOPROLOL SUCCINATE 50 MG EXTENDED RELEASE TAB PO SCH (09:00)
[2016-06-11] MEDS: BUDESONIDE-FORMOTEROL 80/4.5 MCG INHALER INH SCH ×2 (09:00→20:51)
[2016-06-11 09:28] LABS: HEMO FLAGS AUTO DIFF
[2016-06-11 09:29] LABS: SCAN/DIFF AUTO DIFF CONFIRMED
--- NOTE | 2016-06-11 09:38 | HHI.PR ---
Subjective Remarks Follow up for diabetic foot infection, PVD, DM. Patient is doing well. Requests if IV abx can be discontinued. No fever, chills. Objective Vitals Vital Signs Date Time Temp Pulse Resp B/P Pulse Ox O2 Delivery O2 Flow Rate FiO2 06/11/16 00:00 97.8 68 20 138/62 95 06/10/16 20:00 Room Air 06/10/16 20:00 99.7 66 22 126/65 92 06/10/16 16:00 97.9 69 16 112/64 95 I/O 06/10/16 06/10/16 06/10/16 06/11/16 06/11/16 06/11/16 07:00 15:00 23:00 07:00 15:00 23:00 Intake Total 240 ml 240 ml 3593 ml Output Total 950 ml 1250 ml 1000 ml Balance -710 ml -1010 ml 2593 ml Intake Oral 240 ml 240 ml IV Total 3593 ml Output Urine Total 950 ml 1250 ml 1000 ml # Bowel Movements 0 0 Result Diagram: 06/11/16 0502 06/11/16 0502 Imaging Last Impressions Upper Extremity Ultrasound 06/09/16 0000 Signed Impressions: Service Date/Time: Thursday, June 09, 2016 08:57 - CONCLUSION: Normal examination. Kenroy Bowen MD Lower Extremity Ultrasound 06/09/16 0000 Signed Impressions: Service Date/Time: Thursday, June 09, 2016 08:24 - CONCLUSION: Normal examination. Kenroy Bowen MD Aorta w/Runoff CTA 06/08/16 0000 Signed Impressions: Service Date/Time: May 19:02 - CONCLUSION: 1. Patent inflow. 2. The right lower extremity has a short segment occlusion within the distal SFA with mild above knee popliteal disease. Both areas would be amenable to endovascular repair and may improve blood flow to the foot to aid in healing of the wound. 3 vessel runoff to the foot. 3. Left lower extremity shows mild outflow disease. 3 vessel runoff to the foot. 4. 8 mm nodule involving the right lung base. Current guidelines suggest a repeat CT of the thorax in 3-6 months. 5. Concern for circumferential wall thickening involving the urinary bladder wall. I cannot exclude an acute inflammatory process or even an infiltrating malignancy. Followup is needed. Ryan Meehan Jr., MD Foot X-Ray 06/07/16 0000 Signed Impressions: Service Date/Time: Tuesday, June 07, 2016 08:10 - CONCLUSION: 1. No acute fracture or dislocation. 2. Mild degenerative changes involving the right first metatarsal phalangeal joint and right mid foot. Virgil Singh MD Objective Remarks GENERAL: AOX3, NAD. SKIN: Warm and dry. HEAD: Normocephalic. EYES: No scleral icterus. No injection or drainage. NECK: Supple, trachea midline. No JVD or lymphadenopathy. CARDIOVASCULAR: Regular rate and rhythm without murmurs, gallops, or rubs. RESPIRATORY: Breath sounds equal bilaterally. No accessory muscle use. GASTROINTESTINAL: Abdomen soft, non-tender, nondistended. MUSCULOSKELETAL: No cyanosis, or edema. Right great toe necrosis. BACK: Nontender without obvious deformity. No CVA tenderness. Procedures None. A/P Problem List: (1) Diabetic foot ulcer ICD Code: E11.621 Status: Acute (2) Diabetes ICD Code: E11.9 Status: Acute (3) CAD (coronary artery disease) ICD Code: I25.10 Status: Chronic (4) Urinary retention ICD Code: R33.9 Status: Chronic Assessment and Plan Mr. Rowland is a pleasant 61 year old male with a history of CAD s/p two stent placed, diabetes who presented to the ED due to wolfe catheter problem as well as right sided diabetic foot infection. Patient has been having urinary retention problem and thus has been on Wolfe catheter. Wolfe catheter was replaced in the ED. 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 - Patient wants to take oral Abx if possible. For now, we can d/c IV Abx and start him on Levaquin 750mg Qday. - Vascular surgery plans to do angiogram with possible intervention on 2016. - Percocet PO PRN and Dilaudid IV PRN for pain control. - Add Dulcolax suppository. Already has milk of mag. - Pulmonary nodule - repeat CT chest in 3-6 months. - Bladder wall thickening - Urology consult -- Dr. Davis recommends outpatient follow up for TURP. Patient will need to hold plavix and aspirin for one week prior to surgery. - Diabetes mellitus - Diabetic neuropathy - Increase Levemir 20 units QHS and Continue sliding scale insulin. Add meal coverage with Aspart 5 units TIDAC. - Continue Gabapentin 600mg BID. - CAD s/p two stents - RCA and 1st diag of LAD - Hypercholesteremia - Continue aspirin 81mg, Plavix 75mg. Continue metoprolol succ 50mg Qday, Imdur 30mg Qday. - Continue Fenofibrate. - If there is no contraindications, patient should be on high intensity statin such as 80mg Lipitor QHS. - Continue Lisinopril 40mg Qday. Continue digoxin 0.25mg Qday. - Hypertension - Increase Amlodipine to 5mg Qday, Lisinopril 40mg Qday. - BPH - Continue Tamsulin 0.8mg Qday. Outpatient TURP needed. - GERD - continue PPI. Full code. Lovenox. Problem Qualifiers (1) Diabetic foot ulcer: Qualified Code: E13.621 - Diabetic ulcer of toe of right foot associated with diabetes mellitus of other type, unspecified ulcer stage Francisco Buck DO Jun 11, 2016 9:38 am
[2016-06-11] MEDS: FINASTERIDE 5 MG TAB PO SCH (11:07)
[2016-06-11] MEDS: amLODIPine BESYLATE 5 MG TAB PO SCH (11:07)
[2016-06-11] MEDS: buPROPion HCL 75 MG TAB PO SCH ×2 (11:08→20:54)
[2016-06-11] MEDS: GABAPENTIN 300 MG CAP PO SCH ×2 (11:08→20:53)
[2016-06-11] MEDS: CLOPIDOGREL 75 MG TAB PO SCH (11:08)
[2016-06-11] MEDS: ISOSORBIDE MONONITRATE 20 MG TAB PO SCH (11:08)
[2016-06-11] MEDS: LISINOPRIL 20 MG TAB PO SCH (11:09)
[2016-06-11] MEDS: TAMSULOSIN HCL 0.4 MG CAP PO SCH (11:09)
[2016-06-11] MEDS: PANTOPRAZOLE SOD 20 MG DELAYED RELEASE TAB PO SCH (11:09)
[2016-06-11] MEDS: ASPIRIN EC 81 MG TABEC PO SCH (11:09)
[2016-06-11] MEDS: FENOFIBRATE 48 MG TAB PO SCH (11:09)
[2016-06-11] MEDS: ENOXAPARIN SODIUM 30 MG/0.3 ML SYRINGE SQ SCH (11:09)
[2016-06-11] MEDS: oxyCODONE/ACETAMINOPHEN 7.5 MG/325 MG TAB PO PRN ×2 (11:10→20:52)
[2016-06-11] MEDS: MAGNESIUM HYDROXIDE SUSP 30 ML CUP PO PRN ×2 (11:24→21:00)
[2016-06-11 12:00] VITALS: BP 160/78; PULSE 91; RESP 18; TEMP 98.5; O2SAT 93
[2016-06-11] MEDS ORDERED: cefTRIAXone INJ 2,000 MG in SODIUM CHLORIDE 0.9% INJ 100 ML IV SCH (13:00)
[2016-06-11 16:00] VITALS: BP 124/63; PULSE 77; RESP 18; TEMP 98.4; O2SAT 95
[2016-06-11 20:00] VITALS: BP 138/68; PULSE 85; RESP 18; TEMP 98.4; O2SAT 94
[2016-06-11] MEDS: traZODone HCL 50 MG TAB PO SCH (20:53)
[2016-06-11] MEDS: INSULIN DETEMIR 100 UNITS/ML VIAL SQ SCH (20:54)
[2016-06-12] VITALS: BP 122/66; PULSE 85; RESP 18; TEMP 98.2; O2SAT 95
[2016-06-12] MEDS: oxyCODONE/ACETAMINOPHEN 7.5 MG/325 MG TAB PO PRN ×3 (02:31→18:35)
[2016-06-12 04:00] VITALS: BP 123/66; PULSE 87; RESP 18; TEMP 98.1; O2SAT 95
[2016-06-12] MEDS: INSULIN ASPART SUPPLEMENTAL SCALE SQ SCH ×4 (05:49→20:35)
[2016-06-12] MEDS: INSULIN ASPART 1,000 UNITS/10 ML VIAL SQ SCH ×3 (08:00→17:00)
[2016-06-12 08:31] VITALS: BP 142/80; PULSE 73; RESP 21; TEMP 98; O2SAT 93
[2016-06-12] MEDS: BUDESONIDE-FORMOTEROL 80/4.5 MCG INHALER INH SCH ×2 (09:00→20:34)
[2016-06-12] MEDS: FENOFIBRATE 48 MG TAB PO SCH (09:00)
[2016-06-12] MEDS: ENOXAPARIN SODIUM 30 MG/0.3 ML SYRINGE SQ SCH (09:45)
[2016-06-12] MEDS: ISOSORBIDE MONONITRATE 20 MG TAB PO SCH (09:51)
[2016-06-12] MEDS: CLOPIDOGREL 75 MG TAB PO SCH (09:52)
[2016-06-12] MEDS: LEVOFLOXACIN 750 MG TAB PO SCH (09:52)
[2016-06-12] MEDS: TAMSULOSIN HCL 0.4 MG CAP PO SCH (09:52)
[2016-06-12] MEDS: PANTOPRAZOLE SOD 20 MG DELAYED RELEASE TAB PO SCH (09:52)
[2016-06-12] MEDS: buPROPion HCL 75 MG TAB PO SCH ×2 (09:52→20:33)
[2016-06-12] MEDS: DIGOXIN 0.25 MG TAB PO SCH (09:53)
[2016-06-12] MEDS: FINASTERIDE 5 MG TAB PO SCH (09:53)
[2016-06-12] MEDS: ASPIRIN EC 81 MG TABEC PO SCH (09:53)
[2016-06-12] MEDS: METOPROLOL SUCCINATE 50 MG EXTENDED RELEASE TAB PO SCH (09:53)
[2016-06-12] MEDS: amLODIPine BESYLATE 5 MG TAB PO SCH (09:53)
[2016-06-12] MEDS: LISINOPRIL 20 MG TAB PO SCH (09:53)
[2016-06-12] MEDS: GABAPENTIN 300 MG CAP PO SCH ×2 (09:53→20:33)
[2016-06-12 12:13] VITALS: BP 137/80; PULSE 82; RESP 19; TEMP 98.3; O2SAT 93
[2016-06-12] MEDS ORDERED: HEPARIN-NS/PF INJ 500 ML ONE (12:31)
[2016-06-12] MEDS ORDERED: MIDAZOLAM HCL 2 MG/2 ML VIAL ONE ×2 (12:32→13:19)
[2016-06-12] MEDS ORDERED: NITROGLYCERIN INJ 5 ML ONE ×2 (12:32→13:19)
[2016-06-12] MEDS ORDERED: HEPARIN SODIUM - IV 10,000 UNITS/10 ML VIAL ONE (12:32)
[2016-06-12] MEDS ORDERED: VERAPAMIL HCL 5 MG/2 ML VIAL ONE (13:19)
[2016-06-12] MEDS ORDERED: IOHEXOL 350 MG/ML 50 ML BTL (for Cath Lab) IV ONE (14:06)
[2016-06-12] MEDS ORDERED: IOHEXOL 350 MG/ML 100 ML BTL (for Cath Lab) IV ONE (14:06)
--- NOTE | 2016-06-12 15:55 | PD.VS.PN ---
Subjective Subjective/Hospital Course right 1st toe wound. Objective Vitals/I&O Date Time Temp Pulse Resp B/P Pulse Ox O2 Delivery O2 Flow Rate FiO2 06/12/16 12:13 98.3 82 19 137/80 93 06/12/16 08:31 98.0 73 21 142/80 93 06/12/16 08:00 96 Room Air 06/12/16 04:00 98.1 87 18 123/66 95 06/12/16 00:00 98.2 85 18 122/66 95 06/11/16 20:35 Room Air 06/11/16 20:00 98.4 85 18 138/68 94 06/11/16 16:00 98.4 77 18 124/63 95 06/12/16 06/12/16 06/12/16 07:00 15:00 23:00 Intake Total 0 ml Output Total 2600 ml Balance -2600 ml Physical Exam right great toe with dry gangrene but more malodorous. Right DP and PT triphasic. Left groin soft with palpable femoral pulse. Assessment and Plan Assessment: (1) Gangrene of foot Status: Acute (2) PAD (peripheral artery disease) Status: Chronic Plan Status post left lower extremity SFA Recanalization. Spoke with Dr. Torres, He will schedule for a right great toe amputation. Will continue to follow. Marko Shelton DO, FACS Ext Js Developer of Vascular Surgery GABRIELA/Marko Morales DO Jun 12, 2016 15:55
--- NOTE | 2016-06-12 16:16 | PD.POD ---
Subjective Podiatric Problems Diabetes with peripheral vascular disease Dry gangrene distal right hallux Gangrenous ulcerations right lateral foot Pain scale used: 0-10 numeric scale Pain score: 3 Remarks Patient is a 61-year-old diabetic male with tobacco abuse history and severe peripheral vascular disease. I had seen the patient for gangrenous changes of the right foot. I obtained a vascular consultation and the patient underwent endovascular intervention today. Received text and spoke personally with Dr. Yadav about the endovascular results. Suggested doing surgery for the gangrene as soon as possible. Patient was seen in the DOCU following his endovascular intervention. Past Med/Surg/Social History Past Medical History PFS Reviewed: Yes Endocrine: REPORTS HX OF: Diabetes mellitus Cardiovascular: REPORTS HX OF: Coronary artery disease, Peripheral vascular dz Genitourinary: REPORTS HX OF: Past UTI Past Surgical History Genitourinary: REPORTS HX OF: Other surgery Social History Smoking Status: Current Some Day Smoker Review of Systems Constitutional: COMPLAINS OF: Pain Objective Vital Signs Vital Signs Date Time Temp Pulse Resp B/P Pulse Ox O2 Delivery O2 Flow Rate FiO2 06/12/16 12:13 98.3 82 19 137/80 93 06/12/16 08:31 98.0 73 21 142/80 93 06/12/16 08:00 96 Room Air 06/12/16 04:00 98.1 87 18 123/66 95 06/12/16 00:00 98.2 85 18 122/66 95 06/11/16 20:35 Room Air 06/11/16 20:00 98.4 85 18 138/68 94 Coded Allergies: Bee Sting (Verified Allergy, Severe, Anaphylaxis, 06/07/16) Medications and IVs Current Medications Sodium Chloride 2 ml 2 ml UNSCH PRN IV FLUSH FLUSH AFTER USING IV ACCESS; Start 06/07/16 at 07:45; Stop 06/07/16 at 09:55; Status DC Vancomycin HCl 1000 mg/Sodium Chloride 250 ml @ 250 mls/hr ONCE ONCE IV Last administered on 06/07/16 08:23; Start 06/07/16 at 08:15; Stop 06/07/16 at 09:14 ; Status DC Ceftriaxone Sodium/Sodium Chloride (Rocephin Inj/NS Inj) 100 ml @ 200 mls/hr ONCE ONCE IV Last administered on 06/07/16 09:29; Start 06/07/16 at 09:00; Stop 06/07/16 at 09:29; Status DC Insulin Human Regular 8 units 8 units ONCE ONCE SQ Last administered on 09:30; Start 06/07/16 at 09:30; Stop 06/07/16 at 09:31; Status DC Sodium Chloride (NS 1000 ml Inj) 1,000 ml @ 100 mls/hr Q10H IV Last administered on 06/10/16 16:38; Start 06/07/16 at 09:45; Stop 06/11/16 at 13:01 ; Status DC Sodium Chloride (NS Flush) 2 ml UNSCH PRN IV FLUSH FLUSH AFTER USING IV ACCESS ; Start 06/07/16 at 09:45 Sodium Chloride (NS Flush) 2 ml BID IV FLUSH Last administered on 06/11/16 20: 51; Start 06/07/16 at 21:00 Acetaminophen (Tylenol) 650 mg Q4H PRN PO FEVER, HEADACHE, PAIN 1-4; Start at 09:45 Ondansetron HCl (Zofran Inj) 4 mg Q6H PRN IVP NAUSEA OR VOMITING; Start at 09:45 Bisacodyl (Dulcolax Supp) 10 mg DAILY PRN NV CONSTIPATION; Start 06/07/16 at 09 :45; Stop 06/10/16 at 13:19; Status DC Magnesium Hydroxide (Milk Of Magnesia Liq) 30 ml Q12H PRN PO CONSTIPATION Last administered on 06/11/16 21:00; Start 06/07/16 at 09:45 Enoxaparin Sodium (Lovenox Inj) 30 mg Q24H SQ Last administered on 06/11/16 11 :09; Start 06/07/16 at 11:00 Naloxone HCl (Narcan Inj) 0.4 mg UNSCH PRN IV SEE LABEL COMMENTS; Start at 09:45 Oxycodone/ Acetaminophen (Percocet 7.5-325 Mg) 1 tab Q6H PRN PO PAIN SCALE 5 TO 10 Last administered on 06/12/16 10:02; Start 06/07/16 at 10:00 Hydromorphone HCl 0.5 mg 0.5 mg Q4H PRN IV PUSH BREAKTHROUGH PAIN; Start at 10:00 Pharmacy Profile Note 0 ml @ 0 mls/hr UNSCH OTHER ; Start 06/07/16 at 10:00; Stop 06/11/16 at 12:58; Status DC Cefepime HCl 2000 mg/Sodium Chloride 100 ml @ 200 mls/hr Q8H IV Last administered on 06/11/16 02:48; Start 06/07/16 at 11:00; Stop 06/11/16 at 12:58 ; Status DC Vancomycin HCl/ Sodium Chloride (Vancomycin Inj/ NS 500 ml Inj) 515 ml @ 250 mls/hr Q12H IV Last administered on 06/11/16 02:49; Start 06/07/16 at 15:00; Stop 06/11/16 at 12:58; Status DC Miscellaneous Information SPECIFIC LAB TO BE DRAWN:VANCOMYCIN TROUGH DATE TO... ONCE ONCE XX Last administered on 06/09/16 02:45; Start 06/09/16 at 02:45; Stop 06/09/16 at 02:46; Status DC Amlodipine Besylate (Norvasc) 2.5 mg DAILY PO Last administered on 06/09/16 11 :56; Start 06/08/16 at 09:00; Stop 06/09/16 at 14:32; Status DC Aspirin (Ecotrin Ec) 81 mg DAILY PO Last administered on 06/12/16 09:53; Start 06/08/16 at 09:00 Budesonide/ Formoterol Fumarate (Symbicort 80-4.5 Mcg Inh) 1 puff Q12HR INH Last administered on 06/12/16 09:00; Start 06/07/16 at 21:00 Bupropion HCl (Wellbutrin) 150 mg BID PO Last administered on 06/12/16 09:52; Start 06/07/16 at 21:00 Clopidogrel Bisulfate (Plavix) 75 mg DAILY PO Last administered on 06/12/16 09 :52; Start 06/08/16 at 09:00 Digoxin (Lanoxin) 0.25 mg DAILY PO Last administered on 06/12/16 09:53; Start 06/08/16 at 09:00 Fenofibrate (Tricor) 48 mg DAILY PO Last administered on 06/11/16 11:09; Start 06/08/16 at 09:00 Finasteride (Proscar) 5 mg DAILY PO Last administered on 06/12/16 09:53; Start 06/08/16 at 09:00 Gabapentin (Neurontin) 600 mg BID PO Last administered on 06/12/16 09:53; Start 06/07/16 at 21:00 Isosorbide Mononitrate (Ismo) 30 mg DAILY PO Last administered on 06/12/16 09: 51; Start 06/08/16 at 09:00 Metoprolol Succinate (Toprol Xl) 50 mg DAILY PO Last administered on 06/12/16 09:53; Start 06/08/16 at 09:00 Tamsulosin HCl (Flomax) 0.4 mg DAILY PO Last administered on 06/08/16 10:15; Start 06/08/16 at 09:00; Stop 06/08/16 at 16:24; Status DC Trazodone HCl (Desyrel) 50 mg HS PO Last administered on 06/11/16 20:53; Start 06/07/16 at 21:00 Pantoprazole Sodium (Protonix) 20 mg DAILY PO Last administered on 06/12/16 09 :52; Start 06/08/16 at 09:00 Dextrose (D50w (Vial) Inj) 25 ml UNSCH PRN IV PUSH HYPOGLYCEMIA-SEE COMMENTS; Start 06/07/16 at 15:30 Glucagon (Glucagon Inj) 1 mg UNSCH PRN OTHER HYPOGLYCEMIA-SEE COMMENTS; Start 06/07/16 at 15:30 Insulin Aspart (NovoLOG SUPPLEMENTAL SCALE) 1 ACHS SLIDING SCALE SQ Last administered on 06/11/16 20:54; Start 06/07/16 at 16:00 Insulin Detemir (Levemir Inj) 15 units HS SQ Last administered on 06/08/16 21: 30; Start 06/07/16 at 21:00; Stop 06/09/16 at 14:32; Status DC Miscellaneous (Pill Splitter) 1 ea UNSCH PRN OTHER SEE LABEL COMMENTS; Start at 16:15 Lisinopril (Prinivil) 40 mg DAILY PO Last administered on 06/12/16 09:53; Start 06/08/16 at 09:00 Tamsulosin HCl (Flomax) 0.8 mg DAILY PO Last administered on 06/12/16 09:52; Start 06/09/16 at 09:00 Iohexol (Omnipaque 350 Inj) 95 ml STK-MED ONCE IV Last administered on 21:10; Start 06/08/16 at 21:10; Stop 06/08/16 at 21:11; Status DC Insulin Aspart (NovoLOG INJ) 4 units TIDAC SQ Last administered on 06/11/16 11 :15; Start 06/09/16 at 08:00; Stop 06/11/16 at 13:05; Status DC Albuterol/ Ipratropium (Duoneb Neb) 1 ampule Q4HR NEB PRN NEB Dyspnea Last administered on 06/11/16 22:15; Start 06/09/16 at 12:45 Amlodipine Besylate (Norvasc) 5 mg DAILY PO Last administered on 06/12/16 09: 53; Start 06/10/16 at 09:00 Insulin Detemir (Levemir Inj) 17 units HS SQ Last administered on 06/10/16 21: 00; Start 06/09/16 at 21:00; Stop 06/11/16 at 13:05; Status DC Bisacodyl 10 mg 10 mg DAILY PRN RECTAL CONSTIPATION; Start 06/10/16 at 13:15 Ceftriaxone Sodium/Sodium Chloride (Rocephin Inj/NS Inj) 100 ml @ 200 mls/hr Q24H IV ; Start 06/11/16 at 13:00; Stop 06/11/16 at 13:00; Status DC Levofloxacin (Levaquin) 750 mg DAILY PO Last administered on 06/12/16 09:52; Start 06/12/16 at 09:00 Insulin Aspart (NovoLOG INJ) 5 units TIDAC SQ Last administered on 06/11/16 16 :34; Start 06/11/16 at 17:00 Insulin Detemir 20 units 20 units HS SQ Last administered on 06/11/16 20:54; Start 06/11/16 at 21:00 Heparin Sodium/ Sodium Chloride (Heparin-NS/Pf Inj) 500 ml @ As Directed STK- MED ONCE .ROUTE Last administered on 06/12/16 12:31; Start 06/12/16 at 12:31; Stop 06/12/16 at 12:32; Status DC Midazolam HCl (Versed Inj) 2 mg STK-MED ONCE .ROUTE Last administered on 12:55; Start 06/12/16 at 12:32; Stop 06/12/16 at 12:33; Status DC Fentanyl Citrate (fentaNYL INJ) 100 mcg STK-MED ONCE .ROUTE Last administered on 06/12/16 12:56; Start 06/12/16 at 12:32; Stop 06/12/16 at 12:33; Status DC Heparin Sodium (Porcine) 68511 units 10,000 units STK-MED ONCE .ROUTE Last administered on 06/12/16 13:16; Start 06/12/16 at 12:32; Stop 06/12/16 at 12:33 ; Status DC Nitroglycerin (Nitroglycerin Inj) 5 ml @ As Directed STK-MED ONCE .ROUTE Last administered on 06/12/16 13:13; Start 06/12/16 at 12:32; Stop 06/12/16 at 12:33 ; Status DC Midazolam HCl (Versed Inj) 2 mg STK-MED ONCE .ROUTE Last administered on 13:25; Start 06/12/16 at 13:19; Stop 06/12/16 at 13:20; Status DC Fentanyl Citrate (fentaNYL INJ) 100 mcg STK-MED ONCE .ROUTE Last administered on 06/12/16 13:26; Start 06/12/16 at 13:19; Stop 06/12/16 at 13:20; Status DC Verapamil HCl 5 mg 5 mg STK-MED ONCE .ROUTE Last administered on 06/12/16 13: 24; Start 06/12/16 at 13:19; Stop 06/12/16 at 13:20; Status DC Nitroglycerin (Nitroglycerin Inj) 5 ml @ As Directed STK-MED ONCE .ROUTE Last administered on 06/12/16 13:24; Start 06/12/16 at 13:19; Stop 06/12/16 at 13:20 ; Status DC Iohexol (OMNIPAQUE 350 INJ ([place])) 100 ml STK-MED ONCE IV ; Start 06/12/16 at 14:06; Stop 06/12/16 at 14:07; Status DC Iohexol (OMNIPAQUE 350 INJ ([place] Buster)) 50 ml STK-MED ONCE IV ; Start 06/12/16 at 14:06; Stop 06/12/16 at 14:07; Status DC Other Results Laboratory Tests Test 06/11/16 05:02 White Blood Count 6.0 TH/MM3 Red Blood Count 3.67 MIL/MM3 Hemoglobin 10.6 GM/DL Hematocrit 31.9 % Mean Corpuscular Volume 86.8 FL Mean Corpuscular Hemoglobin 29.0 PG Mean Corpuscular Hemoglobin 33.4 % Concent Red Cell Distribution Width 15.3 % Platelet Count 150 TH/MM3 Mean Platelet Volume 9.2 FL Neutrophils (%) (Auto) 63.8 % Lymphocytes (%) (Auto) 20.9 % Monocytes (%) (Auto) 9.0 % Eosinophils (%) (Auto) 5.1 % Basophils (%) (Auto) 1.2 % Neutrophils # (Auto) 3.8 TH/MM3 Lymphocytes # (Auto) 1.3 TH/MM3 Monocytes # (Auto) 0.5 TH/MM3 Eosinophils # (Auto) 0.3 TH/MM3 Basophils # (Auto) 0.1 TH/MM3 CBC Comment AUTO DIFF Differential Comment AUTO DIFF CONFIRMED Laboratory Tests Test 06/11/16 05:02 Sodium Level 139 MEQ/L Potassium Level 4.2 MEQ/L Chloride Level 109 MEQ/L Carbon Dioxide Level 23.6 MEQ/L Anion Gap 6 MEQ/L Blood Urea Nitrogen 10 MG/DL Creatinine 0.71 MG/DL Estimat Glomerular Filtration 112 ML/MIN Rate Random Glucose 188 MG/DL Calcium Level 8.0 MG/DL Exam-Podiatry Constitutional General appearance: comfortable Nutritional status: normal Orientation: alert and oriented x3 Dermatological Exam Skin Temp - Right: Cool Skin Texture - Right: Within Normal Limits Skin Elasticity - Right: Within Normal Limits Skin Tugor - Right: Within Normal Limits Hair Growth - Right: Within Normal Limits Pigmentation - Right: Within Normal Limits Skin Temp - Left: Cool Skin Texture - Left: Within Normal Limits Skin Elasticity - Left: Within Normal Limits Skin Tugor - Left: Within Normal Limits Hair Growth - Left: Within Normal Limits Pigmentation - Left: Within Normal Limits Ulcers: Location/Measurements Dry gangrene of the distal right hallux. Gangrenous ulcerations right lateral foot Vascular/Lymphatic Exam R Dorsails Pedis: Doppler L Dorsails Pedis: Doppler R Posterior Tibial: Doppler L Posterior Tibial: Doppler Neurologic Exam Present on right: Tingling Present on left: Tingling Muscle Strength Dorsiflexion (Right): Normal Plantarflexion (Right): Normal Inversion (Right): Normal Eversion (Right): Normal Digital (Right): Normal Dorsiflexion (Left): Normal Plantarflexion (Left): Normal Inversion (Left): Normal Eversion (Left): Normal Digital (Left): Normal Foot Range of Motion Dorsiflexion (Right): Normal Plantarflexion (Right): Normal Inversion (Right): Normal Eversion (Right): Normal Digital (Right): Normal Dorsiflexion (Left): Normal Plantarflexion (Left): Normal Inversion (Left): Normal Eversion (Left): Normal Digital (Left): Normal Assessment & Plan Diagnosis: (1) Gangrene of foot Status: Acute (2) Diabetic foot ulcer Status: Acute (3) Diabetes mellitus with foot ulcer and gangrene Status: Acute (4) Peripheral vascular disease in diabetes mellitus Status: Chronic A/P PLAN: Patient was scheduled for partial amputation of the right hallux and debridement of right foot wounds tomorrow at 4:30 PM. Preop orders written. Discussed planned procedure with the patient. He understands no guarantees are offered. Patient wishes to proceed with planned surgery. Problem Qualifiers (1) Diabetic foot ulcer: Qualified Code: E13.621 - Diabetic ulcer of toe of right foot associated with diabetes mellitus of other type, unspecified ulcer stage Cortez Madsen DPM Jun 12, 2016 16:16
[2016-06-12 16:30] VITALS: BP 137/70; PULSE 76; RESP 21; TEMP 97.7; O2SAT 92
--- NOTE | 2016-06-12 17:46 | RADRPT ---
EXAM DATE/TIME: 06/12/2016 17:33 [place] COMPARISON: No previous studies available for comparison. INDICATIONS : Short of breath. Cellulitis. MEDICAL HISTORY : Hypertension. Chronic obstructive pulmonary disease. Renal calculi. Atrial fibrilation. SURGICAL HISTORY : Cardiac catherization. ENCOUNTER: Initial ACUITY: 2 days PAIN SCORE: 0/10 LOCATION: Bilateral chest FINDINGS: PA and lateral views of the chest demonstrate the lungs to be symmetrically aerated without evidence of mass, infiltrate or effusion. The cardiomediastinal contours are unremarkable. Osseous structure s are intact. CONCLUSION: No acute disease. Christiano Robertson MD FACR on June 12, 2016 at 17:45 Board Certified Radiologist. This report was verified electronically.
[2016-06-12] MEDS: RESP: ALBUTEROL 2.5 MG/IPRATROPIUM 0.5 MG NEB (PRN) NEB ×2 (18:03→21:30)
--- NOTE | 2016-06-12 18:06 | HHI.PR ---
Subjective Remarks Follow up for diabetic foot infection, PVD, DM. Mr. Rowland underwent left lower ext SFA recanalization (Dr. Shelton) today. He is scheduled for right great toe amputation on 06/13/2016 in the afternoon. Post op, patient is doing well. No acute concerns. Objective Vitals Vital Signs Date Time Temp Pulse Resp B/P Pulse Ox O2 Delivery O2 Flow Rate FiO2 06/12/16 16:30 97.7 76 21 137/70 92 06/12/16 16:14 95 Room Air 06/12/16 12:13 98.3 82 19 137/80 93 06/12/16 08:31 98.0 73 21 142/80 93 06/12/16 08:00 96 Room Air 06/12/16 04:00 98.1 87 18 123/66 95 06/12/16 00:00 98.2 85 18 122/66 95 06/11/16 20:35 Room Air 06/11/16 20:00 98.4 85 18 138/68 94 I/O 06/11/16 06/11/16 06/11/16 06/12/16 06/12/16 06/12/16 07:00 15:00 23:00 07:00 15:00 23:00 Intake Total 3593 ml 480 ml 482 ml 0 ml 0 ml Output Total 1000 ml 1400 ml 2000 ml 2600 ml 800 ml Balance 2593 ml -920 ml -1518 ml -2600 ml -800 ml Intake Oral 480 ml 480 ml 0 ml 0 ml IV Total 3593 ml 2 ml Output Urine Total 1000 ml 1400 ml 2000 ml 2600 ml 800 ml # Bowel Movements 1 1 0 Result Diagram: 06/11/16 0502 06/11/16 0502 Imaging Last Impressions Chest X-Ray 06/12/16 0000 Signed Impressions: Service Date/Time: Sunday, June 12, 2016 17:33 - CONCLUSION: No acute disease. Christiano Robertson MD FACR Upper Extremity Ultrasound 06/09/16 0000 Signed Impressions: Service Date/Time: Thursday, June 09, 2016 08:57 - CONCLUSION: Normal examination. Kenroy Bowen MD Lower Extremity Ultrasound 06/09/16 0000 Signed Impressions: Service Date/Time: Thursday, June 09, 2016 08:24 - CONCLUSION: Normal examination. Kenroy Bowen MD Aorta w/Runoff CTA 06/08/16 0000 Signed Impressions: Service Date/Time: May 19:02 - CONCLUSION: 1. Patent inflow. 2. The right lower extremity has a short segment occlusion within the distal SFA with mild above knee popliteal disease. Both areas would be amenable to endovascular repair and may improve blood flow to the foot to aid in healing of the wound. 3 vessel runoff to the foot. 3. Left lower extremity shows mild outflow disease. 3 vessel runoff to the foot. 4. 8 mm nodule involving the right lung base. Current guidelines suggest a repeat CT of the thorax in 3-6 months. 5. Concern for circumferential wall thickening involving the urinary bladder wall. I cannot exclude an acute inflammatory process or even an infiltrating malignancy. Followup is needed. Ryan Meehan Jr., MD Foot X-Ray 06/07/16 0000 Signed Impressions: Service Date/Time: Tuesday, June 07, 2016 08:10 - CONCLUSION: 1. No acute fracture or dislocation. 2. Mild degenerative changes involving the right first metatarsal phalangeal joint and right mid foot. Virgil Singh MD Objective Remarks GENERAL: AOX3, NAD. SKIN: Warm and dry. HEAD: Normocephalic. EYES: No scleral icterus. No injection or drainage. NECK: Supple, trachea midline. No JVD or lymphadenopathy. CARDIOVASCULAR: Regular rate and rhythm without murmurs, gallops, or rubs. RESPIRATORY: Breath sounds equal bilaterally. No accessory muscle use. GASTROINTESTINAL: Abdomen soft, non-tender, nondistended. MUSCULOSKELETAL: No cyanosis, or edema. Right great toe necrosis. BACK: Nontender without obvious deformity. No CVA tenderness. Procedures left lower extremity SFA Recanalization. 06/12/2016. A/P Problem List: (1) Diabetic foot ulcer ICD Code: E11.621 Status: Acute (2) Diabetes ICD Code: E11.9 Status: Acute (3) CAD (coronary artery disease) ICD Code: I25.10 Status: Chronic (4) Urinary retention ICD Code: R33.9 Status: Chronic Assessment and Plan Mr. Rowland is a pleasant 61 year old male with a history of CAD s/p two stent placed, diabetes who presented to the ED due to wolfe catheter problem as well as right sided diabetic foot infection. Patient has been having urinary retention problem and thus has been on Wolfe catheter. Wolfe catheter was replaced in the ED. 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 - Continue Levaquin 750mg Qday. - left lower extremity SFA Recanalization - 06/12/2016. - Percocet PO PRN and Dilaudid IV PRN for pain control. - Dulcolax suppository and milk of mag for bowel regimen. - Nasal congestion - add fluticasone. - Pulmonary nodule - repeat CT chest in 3-6 months. - Bladder wall thickening - Urology consult -- Dr. Davis recommends outpatient follow up for TURP. Patient will need to hold plavix and aspirin for one week prior to surgery. - Diabetes mellitus - Diabetic neuropathy - Increase Levemir 20 units QHS and Continue sliding scale insulin. Add meal coverage with Aspart 5 units TIDAC. - Continue Gabapentin 600mg BID. - CAD s/p two stents - RCA and 1st diag of LAD - Hypercholesteremia - Continue aspirin 81mg, Plavix 75mg. Continue metoprolol succ 50mg Qday, Imdur 30mg Qday. - Continue Fenofibrate. - If there is no contraindications, patient should be on high intensity statin such as 80mg Lipitor QHS. - Continue Lisinopril 40mg Qday. Continue digoxin 0.25mg Qday. - Hypertension - Increase Amlodipine to 5mg Qday, Lisinopril 40mg Qday. - BPH - Continue Tamsulin 0.8mg Qday. Outpatient TURP needed. - GERD - continue PPI. Full code. Lovenox. Problem Qualifiers (1) Diabetic foot ulcer: Qualified Code: E13.621 - Diabetic ulcer of toe of right foot associated with diabetes mellitus of other type, unspecified ulcer stage Francisco Buck DO Jun 12, 2016 18:06
[2016-06-12] MEDS: FLUTICASONE PROPIONATE 220 MCG/ACT 12 GM INHALER INH SCH ×2 (18:15→20:34)
[2016-06-12] MEDS: INSULIN DETEMIR 100 UNITS/ML VIAL SQ SCH (20:34)
[2016-06-12] MEDS: traZODone HCL 50 MG TAB PO SCH (20:34)
[2016-06-12 20:41] VITALS: BP 158/71; PULSE 74; RESP 20; TEMP 97.2; O2SAT 94
[2016-06-12] MEDS: SODIUM CHLORIDE 0.9% FLUSH 10 ML FLUSH IV FLUSH SCH (21:00)
[2016-06-12] MEDS: FLUTICASONE PROPIONATE 50 MCG/ACT 16 GM NASAL SPRAY NASAL SCH (22:17)
[2016-06-12] MEDS: MAGNESIUM HYDROXIDE SUSP 30 ML CUP PO PRN (23:23)
[2016-06-13] VITALS (7 sets, daily range): BP systolic 121–151; BP diastolic 61–71; PULSE 67–77; RESP 16–20; TEMP 97.3–98.5; O2SAT 93–95
[2016-06-13] MEDS: oxyCODONE/ACETAMINOPHEN 7.5 MG/325 MG TAB PO PRN ×3 (03:56→18:59)
[2016-06-13] MEDS: INSULIN ASPART SUPPLEMENTAL SCALE SQ SCH ×4 (06:33→21:20)
--- NOTE | 2016-06-13 07:31 | MA ---
cc: DAYSI CERDA DATE: 06/12/2016 PREOPERATIVE DIAGNOSIS Critical limb ischemia and gangrene right great toe. POSTOPERATIVE DIAGNOSIS Critical limb ischemia and gangrene right great toe. PROCEDURE 1. Aortogram and selective right lower extremity arteriogram. 2. Re-channeling of right superficial femoral artery using CSI atherectomy 2.0 and balloon angioplasty, a number 5 x 150 Savor balloon. SURGEON Daysi Cerda, DO ACCESS Duplex ultrasound for access. IV FLUIDS Approximately 1 liter. ESTIMATED BLOOD LOSS Minimal. URINE OUTPUT Not calculated. COMPLICATIONS None. SEDATION Moderate sedation. PROCEDURE The patient's left groin was prepped and draped in sterile fashion after being under moderate sedation. I got access to the left common femoral artery using Duplex ultrasound. I exchanged for a 4-Burkinan micropuncture catheter, then exchanged for a 5-Burkinan sheath. I advanced the Omni flush catheter into the abdominal aorta over a stiff-angled Glidewire, shot an AP aortogram. I pulled my catheter and I shot pelvic oblique arteriograms. I then selected out the right common femoral artery using stiff angled Glidewire and Omni flush catheter and I shot selective right lower extremity arteriogram. After I shot my selective right lower extremity arteriogram I exchanged for a 6-Burkinan 45 cm destination sheath and then set up to re-channel a right SFA chronic total occlusion of a short segment in the area of the Marco's canal. My findings were an abdominal aorta, the bilateral renal artery was patent, bilateral common, internal and external iliac arteries were widely patent. There was some mild narrowing of the distal abdominal aorta but the patient had palpable femoral pulses bilaterally. The right common femoral artery and profunda artery and superficial femoral artery were patent proximally. The right superficial femoral artery had a chronic total occlusion distally and also the above-knee popliteal artery had at least a moderate stenosis. The patient did have three-vessel runoff across the level of the ankle. I heparinized the patient with approximately 6000 units to an ACT of greater than 200. I used a quick cross catheter and a stiff angled Glidewire across the right superficial femoral artery to cross the artery. Once I was across and I knew that I had contrast distally, then I performed a CSI atherectomy with 2.0 solid atherectomy device at low and high speeds. I removed the atherectomy device. I did inject approximately 300 units of nitroglycerin afterwards and then performed balloon angioplasty that extended from the SFA into the popliteal artery with a number 5 x 150 balloon angioplasty balloon. After I was done performing balloon angioplasty there was less than 20% residual narrowing, no dissection and no occlusion. The patient has three-vessel runoff below this. Afterwards I performed Angio-Seal of the left common femoral artery using duplex after I shot a selective groin shot which showed that the sheath was in above the bifurcation of the profunda and superficial femoral artery takeoff. CONCLUSION The patient had a chronic total occlusion of the right popliteal artery and at least a moderate stenosis of the right popliteal artery as well. The patient had some mild disease of the right anterior tibial artery proximally. The patient had re-channeling of the right superficial femoral artery and balloon angioplasty of both the superficial femoral artery and the above-knee popliteal artery with satisfactory resolution. DO HUMAIRA Delgado/MAKSIM /2:08 PM /7:26 AM
[2016-06-13] MEDS: INSULIN ASPART 1,000 UNITS/10 ML VIAL SQ SCH ×3 (08:00→16:18)
[2016-06-13] MEDS: BUDESONIDE-FORMOTEROL 80/4.5 MCG INHALER INH SCH ×2 (09:00→21:17)
[2016-06-13] MEDS: FLUTICASONE PROPIONATE 50 MCG/ACT 16 GM NASAL SPRAY NASAL SCH ×2 (09:00→21:17)
[2016-06-13] MEDS: GABAPENTIN 300 MG CAP PO SCH ×2 (09:09→21:17)
[2016-06-13] MEDS: DIGOXIN 0.25 MG TAB PO SCH (09:10)
[2016-06-13] MEDS: LISINOPRIL 20 MG TAB PO SCH (09:10)
[2016-06-13] MEDS: METOPROLOL SUCCINATE 50 MG EXTENDED RELEASE TAB PO SCH (09:10)
[2016-06-13] MEDS: PANTOPRAZOLE SOD 20 MG DELAYED RELEASE TAB PO SCH (09:10)
[2016-06-13] MEDS: buPROPion HCL 75 MG TAB PO SCH ×2 (09:10→21:17)
[2016-06-13] MEDS: amLODIPine BESYLATE 5 MG TAB PO SCH (09:10)
[2016-06-13] MEDS: CLOPIDOGREL 75 MG TAB PO SCH (09:10)
[2016-06-13] MEDS: TAMSULOSIN HCL 0.4 MG CAP PO SCH (09:10)
[2016-06-13] MEDS: ASPIRIN EC 81 MG TABEC PO SCH (09:11)
[2016-06-13] MEDS: ISOSORBIDE MONONITRATE 20 MG TAB PO SCH (09:11)
[2016-06-13] MEDS: FINASTERIDE 5 MG TAB PO SCH (09:11)
[2016-06-13] MEDS: LEVOFLOXACIN 750 MG TAB PO SCH (09:11)
--- NOTE | 2016-06-13 10:12 | HHI.PR ---
Subjective Remarks Follow up for diabetic foot infection, PVD, DM. Mr. Rowland decided in the morning not to undergo scheduled toe amputation. For a second opinion, Dr. Shelton was kind enough to come back and explain. However, patient became really upset although later on he did calm down and discussed with Dr. Shelton. No fever, chills. Objective Vitals Vital Signs Date Time Temp Pulse Resp B/P Pulse Ox O2 Delivery O2 Flow Rate FiO2 06/13/16 08:02 98.5 67 18 121/69 94 06/13/16 05:00 16 06/13/16 04:30 98.2 69 20 140/71 95 06/13/16 00:20 97.9 77 20 134/61 95 06/12/16 20:41 97.2 74 20 158/71 94 06/12/16 20:30 Room Air 06/12/16 16:30 97.7 76 21 137/70 92 06/12/16 16:14 95 Room Air 06/12/16 12:13 98.3 82 19 137/80 93 I/O 06/12/16 06/12/16 06/12/16 06/13/16 06/13/16 06/13/16 07:00 15:00 23:00 07:00 15:00 23:00 Intake Total 0 ml 0 ml Output Total 2600 ml 800 ml 700 ml 700 ml Balance -2600 ml -800 ml -700 ml -700 ml Intake Oral 0 ml 0 ml Output Urine Total 2600 ml 800 ml 700 ml 700 ml # Bowel Movements 1 0 Result Diagram: 06/11/16 0502 06/11/16 0502 Imaging Last Impressions Chest X-Ray 06/12/16 0000 Signed Impressions: Service Date/Time: Sunday, June 12, 2016 17:33 - CONCLUSION: No acute disease. Christiano Robertson MD FACR Upper Extremity Ultrasound 06/09/16 0000 Signed Impressions: Service Date/Time: Thursday, June 09, 2016 08:57 - CONCLUSION: Normal examination. Kenroy Bowen MD Lower Extremity Ultrasound 06/09/16 0000 Signed Impressions: Service Date/Time: Thursday, June 09, 2016 08:24 - CONCLUSION: Normal examination. Kenroy Bowen MD Aorta w/Runoff CTA 06/08/16 0000 Signed Impressions: Service Date/Time: May 19:02 - CONCLUSION: 1. Patent inflow. 2. The right lower extremity has a short segment occlusion within the distal SFA with mild above knee popliteal disease. Both areas would be amenable to endovascular repair and may improve blood flow to the foot to aid in healing of the wound. 3 vessel runoff to the foot. 3. Left lower extremity shows mild outflow disease. 3 vessel runoff to the foot. 4. 8 mm nodule involving the right lung base. Current guidelines suggest a repeat CT of the thorax in 3-6 months. 5. Concern for circumferential wall thickening involving the urinary bladder wall. I cannot exclude an acute inflammatory process or even an infiltrating malignancy. Followup is needed. Ryan Meehan Jr., MD Foot X-Ray 06/07/16 0000 Signed Impressions: Service Date/Time: Tuesday, June 07, 2016 08:10 - CONCLUSION: 1. No acute fracture or dislocation. 2. Mild degenerative changes involving the right first metatarsal phalangeal joint and right mid foot. Virgil Singh MD Objective Remarks GENERAL: AOX3, NAD. SKIN: Warm and dry. HEAD: Normocephalic. EYES: No scleral icterus. No injection or drainage. NECK: Supple, trachea midline. No JVD or lymphadenopathy. CARDIOVASCULAR: Regular rate and rhythm without murmurs, gallops, or rubs. RESPIRATORY: Breath sounds equal bilaterally. No accessory muscle use. GASTROINTESTINAL: Abdomen soft, non-tender, nondistended. MUSCULOSKELETAL: No cyanosis, or edema. Right great toe necrosis. Bilateral pedal pulses present. BACK: Nontender without obvious deformity. No CVA tenderness. Procedures left lower extremity SFA Recanalization. 06/12/2016. A/P Problem List: (1) Diabetic foot ulcer ICD Code: E11.621 Status: Acute (2) Diabetes ICD Code: E11.9 Status: Acute (3) CAD (coronary artery disease) ICD Code: I25.10 Status: Chronic (4) Urinary retention ICD Code: R33.9 Status: Chronic Assessment and Plan Mr. Rowland is a pleasant 61 year old male with a history of CAD s/p two stent placed, diabetes who presented to the ED due to wolfe catheter problem as well as right sided diabetic foot infection. Patient has been having urinary retention problem and thus has been on Wolfe catheter. Wolfe catheter was replaced in the ED. 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 - Continue Levaquin 750mg Qday. - left lower extremity SFA Recanalization - 06/12/2016. - Percocet PO PRN and Dilaudid IV PRN for pain control. - Dulcolax suppository and milk of mag for bowel regimen. - Will ask Dr. Go (Podiatry) to get a second opinion on right great toe debridement vs. amputation. - Dr. Shelton explained the importance of getting this done during this admission as longer wait would potentially result in complications. - Discussed with Dr. Go who came later to discuss with patient. Surgery is planned for 06/14/2016. - Nasal congestion - Continue fluticasone. - Pulmonary nodule - repeat CT chest in 3-6 months. - Bladder wall thickening - Urology consult -- Dr. Davis recommends outpatient follow up for TURP. Patient will need to hold plavix and aspirin for one week prior to surgery. - Diabetes mellitus - Diabetic neuropathy - Increase Levemir 20 units QHS and Continue sliding scale insulin. Add meal coverage with Aspart 5 units TIDAC. - Continue Gabapentin 600mg BID. - CAD s/p two stents - RCA and 1st diag of LAD - Hypercholesteremia - Continue aspirin 81mg, Plavix 75mg. Continue metoprolol succ 50mg Qday, Imdur 30mg Qday. - Continue Fenofibrate. - If there is no contraindications, patient should be on high intensity statin such as 80mg Lipitor QHS. - Continue Lisinopril 40mg Qday. Continue digoxin 0.25mg Qday. - Hypertension - Increase Amlodipine to 5mg Qday, Lisinopril 40mg Qday. - BPH - Continue Tamsulin 0.8mg Qday. Outpatient TURP needed. - GERD - continue PPI. Full code. Lovenox. Problem Qualifiers (1) Diabetic foot ulcer: Qualified Code: E13.621 - Diabetic ulcer of toe of right foot associated with diabetes mellitus of other type, unspecified ulcer stage Francisco Buck DO Jun 13, 2016 10:12
[2016-06-13] MEDS: FENOFIBRATE 48 MG TAB PO SCH (11:01)
--- NOTE | 2016-06-13 12:05 | PD.VS.PN ---
Subjective POD #: 1 Procedure(s): Right lower extremity SFA Recanalization Subjective/Hospital Course Pt was admitted for Right great toe with dry gangrene distally and dime sized shallow ulceration over the dorsum laterally on the foot. Was consulted for Surgical/Vascular Intervention to achieve better blood supply to RLE for optimal healing of wounds to RLE Pt is s/p RLE SFA Recanalization with BLE palpable pedal pulses Pt is doing well post op and is without complaints at time of evaluation ( Muna Blackman) Objective Vitals/I&O Date Time Temp Pulse Resp B/P Pulse Ox O2 Delivery O2 Flow Rate FiO2 06/13/16 08:02 98.5 67 18 121/69 94 06/13/16 05:00 16 06/13/16 04:30 98.2 69 20 140/71 95 06/13/16 00:20 97.9 77 20 134/61 95 06/12/16 20:41 97.2 74 20 158/71 94 06/12/16 20:30 Room Air 06/12/16 16:30 97.7 76 21 137/70 92 06/12/16 16:14 95 Room Air 06/12/16 12:13 98.3 82 19 137/80 93 06/13/16 06/13/16 06/13/16 07:00 15:00 23:00 Output Total 700 ml Balance -700 ml Exam: GENERAL: A&OX3, GCS15, NAD, affect appropriate to situation SKIN: Warm and dry. Right great toe with dry gangrene distally and dime sized shallow ulceration over the dorsum laterally on the foot, No change from previous assessment CARDIOVASCULAR: RRR RESPIRATORY: No accessory muscle use. GASTROINTESTINAL: Abdomen soft, non-tender, nondistended. MUSCULOSKELETAL: No cyanosis, or edema. LE warm with motor intact Pulses: Bilat PEDAL pulses palpable (Muna Blackman) Exam: Right DP palpable and foot warm. Right great toe dry but malodorous. right lateral dorsum of foot with shallow 6mm wound. (Marko Shelton DO) Assessment and Plan Assessment: (1) Gangrene of foot Status: Acute (2) PAD (peripheral artery disease) Status: Chronic Plan Status post Right lower extremity SFA Recanalization. Spoke with Dr. Buck, Pt would like a second opinion for Right Great toe amputation Will continue to follow Muna WHEELER /[place] [phone] (Muna Blackman) Assessment: (1) Diabetes mellitus with foot ulcer and gangrene Status: Acute Plan Patient status post recanalization of SFA for right great toe gangrene. Blood supply adequate with arterial pulsation and warm extremity. Debridement of right great toe necrotic tissue to be determined by podiatry. Will continue to follow. Patient should be restarted on plavix JURGEN after debridement. Will need follow up duplex US in office of right SFA. Spent about 30 minutes discussing need for debridement of necrotic tissue after revascularization and increase risk of limb loss if neglected. Marko Shelton DO, FACS [employer] [facility] /[place] (Marko Shelton DO) Muna Blackman Jun 13, 2016 12:05 Marko Shelton DO Jun 14, 2016 08:51
[2016-06-13] MEDS: ENOXAPARIN SODIUM 30 MG/0.3 ML SYRINGE SQ SCH (15:59)
[2016-06-13] MEDS: MAGNESIUM HYDROXIDE SUSP 30 ML CUP PO PRN (18:58)
[2016-06-13] MEDS: RESP: ALBUTEROL 2.5 MG/IPRATROPIUM 0.5 MG NEB (PRN) NEB (20:02)
[2016-06-13] MEDS: traZODone HCL 50 MG TAB PO SCH (21:00)
[2016-06-13] MEDS: SODIUM CHLORIDE 0.9% FLUSH 10 ML FLUSH IV FLUSH SCH (21:00)
--- NOTE | 2016-06-13 21:13 | PD.POD ---
Subjective Podiatric Problems Right hallux gangrene. PVD. Patient seen at bedside this pm with Nursing staff. Pain scale used: 0-10 numeric scale Pain score: 3 Past Med/Surg/Social History Past Medical History PFSH Reviewed: Yes Endocrine: REPORTS HX OF: Diabetes mellitus Cardiovascular: REPORTS HX OF: Coronary artery disease, Peripheral vascular dz Genitourinary: REPORTS HX OF: Past UTI Past Surgical History Genitourinary: REPORTS HX OF: Other surgery Social History Smoking Status: Current Some Day Smoker Objective Vital Signs Vital Signs Date Time Temp Pulse Resp B/P Pulse Ox O2 Delivery O2 Flow Rate FiO2 06/13/16 15:06 98.0 69 20 130/65 95 06/13/16 12:06 98.5 73 20 124/65 93 06/13/16 08:02 98.5 67 18 121/69 94 06/13/16 08:00 96 Room Air 06/13/16 05:00 16 06/13/16 04:30 98.2 69 20 140/71 95 06/13/16 00:20 97.9 77 20 134/61 95 Coded Allergies: Bee Sting (Verified Allergy, Severe, Anaphylaxis, 06/07/16) Other Results Laboratory Tests Test 06/09/16 06/11/16 02:45 05:02 Vancomycin Level Trough 14.8 MCG/ML White Blood Count 6.0 TH/MM3 Red Blood Count 3.67 MIL/MM3 Hemoglobin 10.6 GM/DL Hematocrit 31.9 % Mean Corpuscular Volume 86.8 FL Mean Corpuscular Hemoglobin 29.0 PG Mean Corpuscular Hemoglobin 33.4 % Concent Red Cell Distribution Width 15.3 % Platelet Count 150 TH/MM3 Mean Platelet Volume 9.2 FL Neutrophils (%) (Auto) 63.8 % Lymphocytes (%) (Auto) 20.9 % Monocytes (%) (Auto) 9.0 % Eosinophils (%) (Auto) 5.1 % Basophils (%) (Auto) 1.2 % Neutrophils # (Auto) 3.8 TH/MM3 Lymphocytes # (Auto) 1.3 TH/MM3 Monocytes # (Auto) 0.5 TH/MM3 Eosinophils # (Auto) 0.3 TH/MM3 Basophils # (Auto) 0.1 TH/MM3 CBC Comment AUTO DIFF Differential Comment AUTO DIFF CONFIRMED Sodium Level 139 MEQ/L Potassium Level 4.2 MEQ/L Chloride Level 109 MEQ/L Carbon Dioxide Level 23.6 MEQ/L Anion Gap 6 MEQ/L Blood Urea Nitrogen 10 MG/DL Creatinine 0.71 MG/DL Estimat Glomerular Filtration 112 ML/MIN Rate Random Glucose 188 MG/DL Calcium Level 8.0 MG/DL Physical Exam Details RLE :\ Right hallux with dry stable gangrene. Right dorsal lateral foot with 3 x 3 ulcer, crusting. Foot is warm to warm with +5/5 muscle strength. Assessment & Plan Diagnosis: (1) Gangrene of foot Status: Acute (2) Diabetic foot ulcer Status: Acute (3) PAD (peripheral artery disease) Status: Chronic A/P 1) Medical Clearance per Dr Buck 2) NPO after breakfast on 06/14/16 3) Plan for OR on 06/14/[address] Go on 06/14/16 at 15.30 Problem Qualifiers (1) Diabetic foot ulcer: Qualified Code: E13.621 - Diabetic ulcer of toe of right foot associated with diabetes mellitus of other type, unspecified ulcer stage Lexus Go DPM Jun 13, 2016 21:13
[2016-06-13] MEDS: INSULIN DETEMIR 100 UNITS/ML VIAL SQ SCH (21:19)
--- NOTE | 2016-06-13 21:58 | EKG ---
Date Performed: 06/12/2016 Time Performed: 16:53:22 PTAGE: 61 years EKG: Sinus rhythm Left axis deviation rSr'(V1) - probable normal variant Possible septal infarct - age undetermined [place] t[place] ST-T changes are nonspecific Since previous tracing, no significant change noted Abnormal ECG PREVIOUS TRACING : 03/15/2016 06.10 DOCTOR: Abida Martinez Interpretating Date/Time 06/13/2016 21:57:27
[2016-06-14 04:08] VITALS: BP 123/61; PULSE 66; RESP 16; TEMP 97.8; O2SAT 96
[2016-06-14] MEDS: oxyCODONE/ACETAMINOPHEN 7.5 MG/325 MG TAB PO PRN ×2 (06:05→18:30)
[2016-06-14] MEDS: INSULIN ASPART SUPPLEMENTAL SCALE SQ SCH ×4 (06:06→21:00)
[2016-06-14 08:04] VITALS: BP 130/70; PULSE 67; RESP 16; TEMP 98; O2SAT 95
[2016-06-14] MEDS: CLOPIDOGREL 75 MG TAB PO SCH (09:16)
[2016-06-14] MEDS: DIGOXIN 0.25 MG TAB PO SCH (09:16)
[2016-06-14] MEDS: FINASTERIDE 5 MG TAB PO SCH (09:17)
[2016-06-14] MEDS: METOPROLOL SUCCINATE 50 MG EXTENDED RELEASE TAB PO SCH (09:17)
[2016-06-14] MEDS: LISINOPRIL 20 MG TAB PO SCH (09:17)
[2016-06-14] MEDS: ASPIRIN EC 81 MG TABEC PO SCH (09:17)
[2016-06-14] MEDS: TAMSULOSIN HCL 0.4 MG CAP PO SCH (09:17)
[2016-06-14] MEDS: ISOSORBIDE MONONITRATE 20 MG TAB PO SCH (09:17)
[2016-06-14] MEDS: FENOFIBRATE 48 MG TAB PO SCH (09:17)
[2016-06-14] MEDS: amLODIPine BESYLATE 5 MG TAB PO SCH (09:17)
[2016-06-14] MEDS: SODIUM CHLORIDE 0.9% FLUSH 10 ML FLUSH IV FLUSH SCH ×2 (09:18→21:00)
[2016-06-14] MEDS: GABAPENTIN 300 MG CAP PO SCH ×2 (09:18→21:21)
[2016-06-14] MEDS: LEVOFLOXACIN 750 MG TAB PO SCH (09:18)
[2016-06-14] MEDS: BUDESONIDE-FORMOTEROL 80/4.5 MCG INHALER INH SCH ×2 (09:18→21:21)
[2016-06-14] MEDS: FLUTICASONE PROPIONATE 50 MCG/ACT 16 GM NASAL SPRAY NASAL SCH ×2 (09:18→21:21)
[2016-06-14] MEDS: PANTOPRAZOLE SOD 20 MG DELAYED RELEASE TAB PO SCH (09:18)
[2016-06-14] MEDS: buPROPion HCL 75 MG TAB PO SCH ×2 (09:18→21:21)
[2016-06-14] MEDS: INSULIN ASPART 1,000 UNITS/10 ML VIAL SQ SCH ×3 (09:19→18:20)
[2016-06-14] MEDS: RESP: ALBUTEROL 2.5 MG/IPRATROPIUM 0.5 MG NEB (PRN) NEB (09:29)
[2016-06-14] MEDS: ENOXAPARIN SODIUM 30 MG/0.3 ML SYRINGE SQ SCH ×3 (11:00→12:26)
[2016-06-14] MEDS ORDERED: NEOMYCIN/POLYMYXIN 1 ML G.U. IRRIGANT IRRIGATION ONE (11:41)
[2016-06-14] MEDS ORDERED: ePHEDrine/NS 25 MG/5 ML SYR IV ONE (12:00)
[2016-06-14] MEDS ORDERED: PROPOFOL 200 MG/20 ML AMP IV ONE (12:00)
[2016-06-14 12:03] VITALS: BP 128/60; PULSE 72; RESP 16; TEMP 97.7; O2SAT 95
[2016-06-14] MEDS: MAGNESIUM HYDROXIDE SUSP 30 ML CUP PO PRN (12:28)
[2016-06-14] MEDS ORDERED: LIDOCAINE HCL 2% 50 ML VIAL ONE (14:20)
[2016-06-14] MEDS ORDERED: BUPIVACAINE HCL PF 0.5% 30 ML VIAL ONE (14:22)
[2016-06-14] MEDS ORDERED: FAMOTIDINE 20 MG/2 ML VIAL ONE (15:25)
[2016-06-14] MEDS ORDERED: METOCLOPRAMIDE HCL 10 MG/2 ML VIAL ONE (15:25)
[2016-06-14] MEDS ORDERED: ceFAZolin INJ 1,000 MG VIAL ONE (15:35)
[2016-06-14] MEDS ORDERED: ceFAZolin INJ 1,000 MG VIAL IV ONE (15:54)
[2016-06-14] MEDS ORDERED: BUPIVACAINE HCL PF 0.5% 30 ML VIAL INFIL ONE (16:00)
[2016-06-14] MEDS ORDERED: LIDOCAINE HCL 2% 50 ML VIAL INFIL ONE (16:00)
[2016-06-14 16:04] VITALS: BP 128/60; PULSE 72; RESP 16; TEMP 97.7; O2SAT 95
--- NOTE | 2016-06-14 16:42 | PQ ---
Physician Query Response Document PATIENT: FIORELLA HANNAH : 1955 ADMIT DATE: 06/07/2016 9:48 AM DISCH DATE: RESPONDING PROVIDER #: elissa QUERY TEXT: Cause and Effect Relationship Please clarify in documentation the relationship, if any, between ___FOLEY and__UTI___ Such as: -- Conditions are due to or associated -- Unrelated to each other -- Other, please specify The patient's Clinical Indicators include: urinary retention problem and thus has been on Melgoza catheter. Urine Cx growing Klebsiella Query created by: Veronica Chery on 06/13/2016 3:12 PM RESPONSE TEXT: Urinary tract infection due to Klebsiella possibly related to chronic Melgoza Catheter. Electronically signed by: Kraig Buck DO 06/14/2016 4:38 PM
[2016-06-14] MEDS ORDERED: MIDAZOLAM HCL 2 MG/2 ML VIAL ONE (16:58)
--- NOTE | 2016-06-14 17:33 | HHI.PR ---
Subjective Remarks Follow up for diabetic foot infection, PVD, DM. Patient is currently doing well. No chest pain, shortness of breath, fever or chills. He is scheduled for toe amputation this afternoon. Objective Vitals Vital Signs Date Time Temp Pulse Resp B/P Pulse Ox O2 Delivery O2 Flow Rate FiO2 06/14/16 16:52 98.1 65 12 110/64 95 Nasal Cannula 2 06/14/16 12:03 97.7 72 16 128/60 95 06/14/16 08:04 98.0 67 16 130/70 95 06/14/16 08:00 Room Air 06/14/16 07:24 18 06/14/16 04:08 97.8 66 16 123/61 96 06/13/16 23:20 97.3 71 16 151/71 93 06/13/16 21:15 Room Air 06/13/16 19:28 97.6 68 16 146/69 95 I/O 06/13/16 06/13/16 06/13/16 06/14/16 06/14/16 06/14/16 07:00 15:00 23:00 07:00 15:00 23:00 Intake Total 960 ml 720 ml 0 ml Output Total 700 ml 700 ml 1250 ml 120 ml Balance -700 ml 260 ml -530 ml -120 ml Intake Oral 960 ml 720 ml 0 ml Output Urine Total 700 ml 700 ml 1250 ml 120 ml # Bowel Movements 0 0 1 Result Diagram: 06/11/16 0502 06/11/16 0502 Imaging Last Impressions Chest X-Ray 06/12/16 0000 Signed Impressions: Service Date/Time: Sunday, June 12, 2016 17:33 - CONCLUSION: No acute disease. Christiano Robertson MD FACR Upper Extremity Ultrasound 06/09/16 0000 Signed Impressions: Service Date/Time: Thursday, June 09, 2016 08:57 - CONCLUSION: Normal examination. Kenroy Bowen MD Lower Extremity Ultrasound 06/09/16 0000 Signed Impressions: Service Date/Time: Thursday, June 09, 2016 08:24 - CONCLUSION: Normal examination. Kenroy Bowen MD Aorta w/Runoff CTA 06/08/16 0000 Signed Impressions: Service Date/Time: May 19:02 - CONCLUSION: 1. Patent inflow. 2. The right lower extremity has a short segment occlusion within the distal SFA with mild above knee popliteal disease. Both areas would be amenable to endovascular repair and may improve blood flow to the foot to aid in healing of the wound. 3 vessel runoff to the foot. 3. Left lower extremity shows mild outflow disease. 3 vessel runoff to the foot. 4. 8 mm nodule involving the right lung base. Current guidelines suggest a repeat CT of the thorax in 3-6 months. 5. Concern for circumferential wall thickening involving the urinary bladder wall. I cannot exclude an acute inflammatory process or even an infiltrating malignancy. Followup is needed. Ryan Meehan Jr., MD Foot X-Ray 06/07/16 0000 Signed Impressions: Service Date/Time: Tuesday, June 07, 2016 08:10 - CONCLUSION: 1. No acute fracture or dislocation. 2. Mild degenerative changes involving the right first metatarsal phalangeal joint and right mid foot. Virgil Singh MD Objective Remarks GENERAL: AOX3, NAD. SKIN: Warm and dry. HEAD: Normocephalic. EYES: No scleral icterus. No injection or drainage. NECK: Supple, trachea midline. No JVD or lymphadenopathy. CARDIOVASCULAR: Regular rate and rhythm without murmurs, gallops, or rubs. RESPIRATORY: Breath sounds equal bilaterally. No accessory muscle use. GASTROINTESTINAL: Abdomen soft, non-tender, nondistended. MUSCULOSKELETAL: No cyanosis, or edema. Right great toe necrosis. Bilateral pedal pulses present. BACK: Nontender without obvious deformity. No CVA tenderness. Procedures left lower extremity SFA Recanalization. 06/12/2016. A/P Problem List: (1) Diabetic foot ulcer ICD Code: E11.621 Status: Acute (2) Diabetes ICD Code: E11.9 Status: Acute (3) CAD (coronary artery disease) ICD Code: I25.10 Status: Chronic (4) Urinary retention ICD Code: R33.9 Status: Chronic Assessment and Plan Mr. Rowland is a pleasant 61 year old male with a history of CAD s/p two stent placed, diabetes who presented to the ED due to wolfe catheter problem as well as right sided diabetic foot infection. Patient has been having urinary retention problem and thus has been on Wolfe catheter. Wolfe catheter was replaced in the ED. 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 - Continue Levaquin 750mg Qday. - left lower extremity SFA Recanalization - 06/12/2016. - Percocet PO PRN and Dilaudid IV PRN for pain control. - Dulcolax suppository and milk of mag for bowel regimen. - Dr. Shelton explained the importance of getting this done during this admission as longer wait would potentially result in complications. - Discussed with Dr. Go who came later to discuss with patient. Surgery is planned for 06/14/2016. - Nasal congestion - Continue fluticasone. - Pulmonary nodule - repeat CT chest in 3-6 months. - Bladder wall thickening - Urology consult -- Dr. Davis recommends outpatient follow up for TURP. Patient will need to hold plavix and aspirin for one week prior to surgery. - Diabetes mellitus - Diabetic neuropathy - Increase Levemir 20 units QHS and Continue sliding scale insulin. Add meal coverage with Aspart 5 units TIDAC. - Continue Gabapentin 600mg BID. - CAD s/p two stents - RCA and 1st diag of LAD - Hypercholesteremia - Continue aspirin 81mg, Plavix 75mg. Continue metoprolol succ 50mg Qday, Imdur 30mg Qday. - Continue Fenofibrate. - If there is no contraindications, patient should be on high intensity statin such as 80mg Lipitor QHS. - Continue Lisinopril 40mg Qday. Continue digoxin 0.25mg Qday. - Hypertension - Increase Amlodipine to 5mg Qday, Lisinopril 40mg Qday. - BPH - Continue Tamsulin 0.8mg Qday. Outpatient TURP needed. - GERD - continue PPI. Full code. Lovenox. Problem Qualifiers (1) Diabetic foot ulcer: Qualified Code: E13.621 - Diabetic ulcer of toe of right foot associated with diabetes mellitus of other type, unspecified ulcer stage Francisco Buck DO Jun 14, 2016 5:32 pm
--- NOTE | 2016-06-14 17:55 | RADRPT ---
EXAM DATE/TIME: 06/14/2016 17:13 [facility] COMPARISON: FOOT RIGHT COMPLETE ([id number]), June 07, 2016, 8:10. INDICATIONS : Post op right foot, great toe. MEDICAL HISTORY : Hypertension. Chronic obstructive pulmonary disease. Renal calculi. A-fib. SURGICAL HISTORY : Cardiac cath. Coronary artery stent. ENCOUNTER: Initial ACUITY: 1 day PAIN SCORE: Non-responsive. LOCATION: Right foot, great toe FINDINGS: Patient is status post amputation of the phalanx of the great toe. CONCLUSION: Amputation of phalanx great toe. Christiano Robertson MD FACR on June 14, 2016 at 17:51 Board Certified Radiologist. This report was verified electronically.
[2016-06-14 20:00] VITALS: BP 117/60; PULSE 64; RESP 16; TEMP 97.9; O2SAT 92
[2016-06-14] MEDS: traZODone HCL 50 MG TAB PO SCH (21:00)
[2016-06-14] MEDS: INSULIN DETEMIR 100 UNITS/ML VIAL SQ SCH (21:21)
--- NOTE | 2016-06-14 22:23 | MB ---
cc: HEATHER CONRAD DPM DATE OF CONSULTATION 06/14/2016 DATE OF 1955 REASON FOR CONSULTATION 1. Right foot diabetic infection. 2. Right foot dry stable gangrene. 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 He presented to the ED on 06/07/2016 with Melgoza catheter problems. The patient on admission reported that his right toe has been black for approximately two weeks. He had undergone revascularization with Dr. Shelton with good inflow reported thereafter. REVIEW OF SYSTEMS The patient denies nausea, vomiting, fever, diarrhea or chills. PAST MEDICAL HISTORY 1. Diabetes mellitus. 2. Peripheral vascular disease. 3. Coronary artery disease status post stent placement. PAST SURGICAL HISTORY Stenting. MEDICATIONS 1. Prednisone. 2. Flomax. 3. Metoprolol. 4. Blood glucose system pack. 5. Levemir. 6. Plavix. 7. Norvasc. FAMILY HISTORY Noncontributory. SOCIAL HISTORY Smokes two packs per day. Denies alcohol, illicit drugs. PHYSICAL EXAMINATION EXTREMITIES: The right foot DP and PT diminished. Lower extremities warm to warm proximal to distal. Protective sensation grossly absent. Muscle strength was 05/05 in all quadrants. Right hallux distal one-third with dry stable gangrene. Positive malodor. No active drainage. No purulence noted. No streaking noted. Right dorsal lateral foot with 1 x 2 cm ulcer with crusting lesion. No active drainage noted. LABORATORY DATA WBC on 06/11/2016 6.0, RBC of 3.67. H&H 10.6 and 31.9. IMAGING Foot x-ray 06/07/[address] Clark with no acute fracture dislocation and mild DJD at the first metatarsal phalangeal joint. ASSESSMENT/PLAN 1. DM with neuropathy. 2. PVD. 3. Right hallux dry stable gangrene. 4. Right foot dorsal foot wound. Risks, benefits, pros, cons were discussed. The patient freely consents to surgical intervention. No guarantees were given or implied. The patient has consented to surgical intervention. The patient was medically cleared by Dr. Buck. The patient was placed on n.p.o. after a.m. breakfast. All questions answered. MAGDY Lantigua /9:04 PM /10:11 PM
[2016-06-15] VITALS (8 sets, daily range): BP systolic 114–145; BP diastolic 58–74; PULSE 62–82; RESP 16–20; TEMP 97.5–98.1; O2SAT 92–98
[2016-06-15] MEDS: oxyCODONE/ACETAMINOPHEN 7.5 MG/325 MG TAB PO PRN ×3 (02:30→19:14)
[2016-06-15] MEDS: INSULIN ASPART SUPPLEMENTAL SCALE SQ SCH ×4 (06:08→21:34)
[2016-06-15] MEDS: INSULIN ASPART 1,000 UNITS/10 ML VIAL SQ SCH ×3 (08:00→17:00)
[2016-06-15] MEDS: SODIUM CHLORIDE 0.9% FLUSH 10 ML FLUSH IV FLUSH SCH ×2 (09:00→21:33)
[2016-06-15] MEDS: LEVOFLOXACIN 750 MG TAB PO SCH (09:00)
[2016-06-15] MEDS: PANTOPRAZOLE SOD 20 MG DELAYED RELEASE TAB PO SCH (10:00)
[2016-06-15] MEDS: TAMSULOSIN HCL 0.4 MG CAP PO SCH (10:00)
[2016-06-15] MEDS: LISINOPRIL 20 MG TAB PO SCH (10:00)
[2016-06-15] MEDS: FENOFIBRATE 48 MG TAB PO SCH (10:01)
[2016-06-15] MEDS: ASPIRIN EC 81 MG TABEC PO SCH (10:01)
[2016-06-15] MEDS: ISOSORBIDE MONONITRATE 20 MG TAB PO SCH (10:01)
[2016-06-15] MEDS: amLODIPine BESYLATE 5 MG TAB PO SCH (10:02)
[2016-06-15] MEDS: FINASTERIDE 5 MG TAB PO SCH (10:02)
[2016-06-15] MEDS: CLOPIDOGREL 75 MG TAB PO SCH (10:02)
[2016-06-15] MEDS: METOPROLOL SUCCINATE 50 MG EXTENDED RELEASE TAB PO SCH (10:02)
[2016-06-15] MEDS: DIGOXIN 0.25 MG TAB PO SCH (10:03)
[2016-06-15] MEDS: buPROPion HCL 75 MG TAB PO SCH ×2 (10:03→21:28)
[2016-06-15] MEDS: GABAPENTIN 300 MG CAP PO SCH ×2 (10:03→21:27)
[2016-06-15] MEDS: MAGNESIUM HYDROXIDE SUSP 30 ML CUP PO PRN (10:12)
[2016-06-15] MEDS: FLUTICASONE PROPIONATE 50 MCG/ACT 16 GM NASAL SPRAY NASAL SCH ×2 (10:14→21:30)
[2016-06-15] MEDS: BUDESONIDE-FORMOTEROL 80/4.5 MCG INHALER INH SCH ×2 (10:15→21:31)
--- NOTE | 2016-06-15 12:19 | RADRPT ---
EXAM DATE/TIME: 06/15/2016 11:31 [facility] COMPARISON: CHEST SINGLE AP, March 08, 2016, 18:53. INDICATIONS : Chest pain. MEDICAL HISTORY : Chronic obstructive pulmonary disease. Congestive heart failure. Myocardial infarction. SURGICAL HISTORY : Coronary artery stent. ENCOUNTER: Initial ACUITY: 1 day PAIN SCORE: 2/10 LOCATION: Bilateral chest FINDINGS: 2 portable frontal views of the chest show no acute infiltrate or effusion. The heart is at the upper limits of normal in terms of size. Bony structures are unremarkable. CONCLUSION: No acute disease. Ryan Meehan Jr., MD on June 15, 2016 at 12:08 Board Certified Radiologist. This report was verified electronically.
[2016-06-15] MEDS: ENOXAPARIN SODIUM 30 MG/0.3 ML SYRINGE SQ SCH (12:29)
[2016-06-15] MEDS ORDERED: MORPHINE SULFATE 4 MG/ML INJ IV PUSH ONE (12:30)
[2016-06-15] MEDS ORDERED: NITROGLYCERIN 2% OINT 1 GM PACKET TOPICAL ONE (12:30)
[2016-06-15] MEDS ORDERED: ASPIRIN EC 81 MG TABEC PO ONE (12:30)
--- NOTE | 2016-06-15 15:23 | PD.VS.PN ---
Subjective Subjective/Hospital Course S/P RLE SFA Recanalization, Right great toe partial amputation Pt is doing well post op and is without complaints at time of evaluation PT reported at 1300 he developed an episode of CP (left sided stabbing that radiated to neck and right arm) He stated it was relieved by Morphine and Nitro. Pt is currently Pain free at this time alert and in NAD Objective Vitals/I&O Date Time Temp Pulse Resp B/P Pulse Ox O2 Delivery O2 Flow Rate FiO2 06/15/16 12:00 67 20 141/73 94 06/15/16 08:00 97.5 65 20 145/74 92 06/15/16 04:38 97.8 62 16 116/59 93 06/15/16 00:36 97.9 63 16 120/62 94 06/14/16 21:00 Room Air 06/14/16 20:00 97.9 64 16 117/60 92 06/14/16 17:30 98.1 64 12 125/73 98 Nasal Cannula 2 06/14/16 17:15 63 14 128/74 95 06/14/16 17:00 63 12 110/64 98 Nasal Cannula 2 06/14/16 16:52 98.1 65 12 110/64 95 Nasal Cannula 2 06/14/16 16:04 97.7 72 16 128/60 95 06/15/16 06/15/16 06/15/16 07:00 15:00 23:00 Intake Total 240 ml Output Total 75 ml Balance 165 ml Physical Exam GENERAL: Pleasant 61/M, GCS15, in NAD SKIN: Warm and dry. RLE with dressing/soco wrap intact and without drainage. NECK: No JVD or lymphadenopathy.. MUSCULOSKELETAL: No cyanosis, or edema. BLE warm with motor intact Laboratory Laboratory Tests Test 06/15/16 12:06 Troponin I 0.06 Date/Time Procedure Status Source Growth 06/14/16 16:23 Gram Stain - Final Resulted Wound Foot 06/14/16 16:23 Wound Culture - Preliminary Resulted Wound Foot NO GROWTH IN 24 HOURS. Imaging Last 48 hours Impressions Chest X-Ray 06/15/16 0000 Signed Impressions: Service Date/Time: May 11:31 - CONCLUSION: No acute disease. Ryan Meehan Jr., MD Foot X-Ray 06/14/16 0000 Signed Impressions: Service Date/Time: Tuesday, June 14, 2016 17:13 - CONCLUSION: Amputation of phalanx great toe. Christiano Robertson MD FACR Assessment and Plan Assessment: (1) Diabetes mellitus with foot ulcer and gangrene Status: Acute Plan Patient status post recanalization of SFA Blood supply adequate with arterial pulsation and warm extremity. Will continue to follow. Muna WHEELER [facility] [phone] Muna Blackman Jun 15, 2016 15:23
--- NOTE | 2016-06-15 16:39 | MB ---
cc: JENNIFER CHRISTIANSON DATE OF CONSULTATION: 06/15/2016 DATE OF : 1955 REASON FOR CONSULTATION Chest pain. HISTORY OF PRESENT ILLNESS 61-year-old male with a past medical history significant for coronary artery disease status post PCI the most recent in February,, diabetes, hypertension, peripheral vascular disease with recent angiogram to the right leg and atherectomy, hyperlipidemia, a smoker who has been admitted to the hospital since June 07, 2016. At that time, he was complaining of urinary retention and Melgoza catheter problems. Additionally, he got evaluated for a right great toe ulceration/gangrene. He was seen by vascular surgery and he underwent an angiogram, atherectomy and amputation of the great toe. Today he complaint of left-sided chest dyscomfort, sharp in nature, associated with bilateral shoulder pain, lasting seconds that reminded him of his angina type pain. Pain went away by itself. EKG done showed normal sinus rhythm with no significant ST changes. The first set of cardiac troponins 0.06. Cardiology has been consulted for further management and evaluation of chest pain. REVIEW OF SYSTEMS The patient denied palpitations, shortness of breath, PND, syncope, lightheadedness, melena, hematochezia, abdominal pain, nausea, vomiting, diarrhea, fevers. PAST MEDICAL HISTORY 1. Diabetes. 2. Peripheral vascular disease. 3. Coronary artery disease. 4. Hypertension. 5. Hyperlipidemia. 6. Smoker. PAST SURGICAL HISTORY 1. CAD status post PCI. 2. 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 MEDICATIONS Reviewed. FAMILY HISTORY Noncontributory. SOCIAL HISTORY He is a smoker. Denies alcohol or illicit drug use. PHYSICAL EXAMINATION VITAL SIGNS: Temperature 97.5, respiratory rate 20, pulse 67, blood pressure 141/73, O2 sat 94% on room air. GENERAL: Awake, alert, oriented x3, in no acute distress. NECK: No JVD. No carotid bruits. HEART: Regular rate and rhythm. No murmurs, rubs or gallops. LUNGS: Clear to auscultation bilaterally. ABDOMEN: Obese. Positive bowel sounds. Soft, nontender, nondistended. EXTREMITIES: There is no cyanosis or edema. The right foot is covered. DATA CBC: Hemoglobin 10, hematocrit 31, platelet count 150. INR 1.0. Sodium 139, potassium 4.9, chloride 109, BUN 10, creatinine 0.71, glucose 188. Troponin 0.06. Micro- Wound culture Staph aureus. Chest X-ray: No acute cardiopulmonary process. Echocardiogram 02/2016: Normal LV systolic function with an estimated ejection fraction of 60% and no wall motion abnormalities. Coronary angiogram 02/2016: ISR of the right coronary artery which was re- stented and significant stenosis in the first diagonal which was also stented. ASSESSMENT 61-year-old male with a known CAD recent LHC/PCI in 02/2016, preserved LV function and compliant with DAPT (Aspirin and Plavix) complaining of angina. He remains fairly hemodynamically stable. Currently chest pain free. First set of cardiac markers 0.06. No significant EKG changes. Given the patient's history and complaints, I think it would be reasonable to rule him out by cardiac enzymes and start aggressive medical management of coronary artery disease. If cardiac markers trend up he will most likely need a coronary angiogram but if in the contrary troponin remain flat then he will need optimization of medical management of IHD and +/-nuclear stress test. RECOMMENDATIONS 1. Rule out by cardiac markers q.6 for a total of three sets. 2. Continue aggressive medical management of coronary artery disease with Aspirin, Plavix, beta-blockers, statins and EMMANUEL inhibitors. 3. Keep n.p.o. after midnight for possible coronary angiogram. Thank you for the opportunity to take part in the care of this patient Further therapy to be determined. MD JOE Trujillo/NICOLA /3:09 PM /3:55 PM LORE
--- NOTE | 2016-06-15 18:26 | PD.POD ---
Subjective Podiatric Problems s/p Right hallux partial amputation and wound debridment POD # 1. PVD. Patient seen at bedside this pm Pain scale used: 0-10 numeric scale Pain score: 0 Past Med/Surg/Social History Past Medical History PFSH Reviewed: Yes Endocrine: REPORTS HX OF: Diabetes mellitus Cardiovascular: REPORTS HX OF: Coronary artery disease, Peripheral vascular dz Genitourinary: REPORTS HX OF: Past UTI Past Surgical History Genitourinary: REPORTS HX OF: Other surgery Social History Smoking Status: Current Some Day Smoker Objective Vital Signs Vital Signs Date Time Temp Pulse Resp B/P Pulse Ox O2 Delivery O2 Flow Rate FiO2 06/15/16 12:00 67 20 141/73 94 06/15/16 08:00 97.5 65 20 145/74 92 06/15/16 04:38 97.8 62 16 116/59 93 06/15/16 00:36 97.9 63 16 120/62 94 06/14/16 21:00 Room Air 06/14/16 20:00 97.9 64 16 117/60 92 Coded Allergies: Bee Sting (Verified Allergy, Severe, Anaphylaxis, 06/07/16) Other Results Last Impressions Chest X-Ray 06/15/16 0000 Signed Impressions: Service Date/Time: May 11:31 - CONCLUSION: No acute disease. Ryan Meehan Jr., MD Foot X-Ray 06/14/16 0000 Signed Impressions: Service Date/Time: Tuesday, June 14, 2016 17:13 - CONCLUSION: Amputation of phalanx great toe. Christiano Robertson MD FACR Upper Extremity Ultrasound 06/09/16 0000 Signed Impressions: Service Date/Time: Thursday, June 09, 2016 08:57 - CONCLUSION: Normal examination. Kenroy Bowen MD Lower Extremity Ultrasound 06/09/16 0000 Signed Impressions: Service Date/Time: Thursday, June 09, 2016 08:24 - CONCLUSION: Normal examination. Kenroy Bowen MD Aorta w/Runoff CTA 06/08/16 0000 Signed Impressions: Service Date/Time: May 19:02 - CONCLUSION: 1. Patent inflow. 2. The right lower extremity has a short segment occlusion within the distal SFA with mild above knee popliteal disease. Both areas would be amenable to endovascular repair and may improve blood flow to the foot to aid in healing of the wound. 3 vessel runoff to the foot. 3. Left lower extremity shows mild outflow disease. 3 vessel runoff to the foot. 4. 8 mm nodule involving the right lung base. Current guidelines suggest a repeat CT of the thorax in 3-6 months. 5. Concern for circumferential wall thickening involving the urinary bladder wall. I cannot exclude an acute inflammatory process or even an infiltrating malignancy. Followup is needed. Ryan Meehan Jr., MD Laboratory Tests Test 06/11/16 06/15/16 05:02 12:06 White Blood Count 6.0 TH/MM3 Red Blood Count 3.67 MIL/MM3 Hemoglobin 10.6 GM/DL Hematocrit 31.9 % Mean Corpuscular Volume 86.8 FL Mean Corpuscular Hemoglobin 29.0 PG Mean Corpuscular Hemoglobin 33.4 % Concent Red Cell Distribution Width 15.3 % Platelet Count 150 TH/MM3 Mean Platelet Volume 9.2 FL Neutrophils (%) (Auto) 63.8 % Lymphocytes (%) (Auto) 20.9 % Monocytes (%) (Auto) 9.0 % Eosinophils (%) (Auto) 5.1 % Basophils (%) (Auto) 1.2 % Neutrophils # (Auto) 3.8 TH/MM3 Lymphocytes # (Auto) 1.3 TH/MM3 Monocytes # (Auto) 0.5 TH/MM3 Eosinophils # (Auto) 0.3 TH/MM3 Basophils # (Auto) 0.1 TH/MM3 CBC Comment AUTO DIFF Differential Comment AUTO DIFF CONFIRMED Sodium Level 139 MEQ/L Potassium Level 4.2 MEQ/L Chloride Level 109 MEQ/L Carbon Dioxide Level 23.6 MEQ/L Anion Gap 6 MEQ/L Blood Urea Nitrogen 10 MG/DL Creatinine 0.71 MG/DL Estimat Glomerular Filtration 112 ML/MIN Rate Random Glucose 188 MG/DL Calcium Level 8.0 MG/DL Troponin I 0.06 NG/ML Physical Exam Details RLE Warm proximally. Intact dressing with no strikethrough. No calf pain and ROM at the ankle intact with no pain. Assessment & Plan Diagnosis: (1) Gangrene of foot Status: Resolved (2) Diabetic foot ulcer Status: Acute (3) PAD (peripheral artery disease) Status: Chronic A/P OK to d/c per Podiatry. Please d/c with 2 weeks of Bactrim DS. Patient to keep dressing clean dry and intact until f/u Able to weight bear with post op shoe. Patient will f/u with Dr Go with 1 week of d/c at the [facility]. Problem Qualifiers (1) Diabetic foot ulcer: Qualified Code: E13.621 - Diabetic ulcer of toe of right foot associated with diabetes mellitus of other type, unspecified ulcer stage Lexus Go DPM Jun 15, 2016 18:26
[2016-06-15] MEDS: traZODone HCL 50 MG TAB PO SCH (21:28)
[2016-06-15] MEDS: INSULIN DETEMIR 100 UNITS/ML VIAL SQ SCH (21:34)
--- NOTE | 2016-06-15 21:37 | HHI.PR ---
Subjective Remarks Follow up for diabetic foot infection, PVD, DM. This morning, Mr. Rowland complained of left sided chest pain. He had a lateral left chest sharp pain but also more medial left chest pressure with radiation to the neck, shoulders and arms. He reported shortness of breath but no nausea, vomiting or diaphoresis. I was on the floor and immediately went to evaluate patient. Objective Vitals Vital Signs Date Time Temp Pulse Resp B/P Pulse Ox O2 Delivery O2 Flow Rate FiO2 06/15/16 19:27 98.0 65 16 131/67 94 06/15/16 16:00 97.6 69 20 114/58 95 06/15/16 12:00 67 20 141/73 94 06/15/16 08:00 97.5 65 20 145/74 92 06/15/16 07:15 Room Air 2.00 06/15/16 04:38 97.8 62 16 116/59 93 06/15/16 00:36 97.9 63 16 120/62 94 I/O 06/14/16 06/14/16 06/14/16 06/15/16 06/15/16 06/15/16 07:00 15:00 23:00 07:00 15:00 23:00 Intake Total 0 ml 0 ml 1320 ml 240 ml 240 ml Output Total 120 ml 400 ml 900 ml 75 ml 1200 ml Balance -120 ml -400 ml 420 ml 165 ml -960 ml Intake Oral 0 ml 0 ml 720 ml 240 ml 240 ml Other 600 ml Output Urine Total 120 ml 400 ml 850 ml 75 ml 1200 ml Other 50 ml # Bowel Movements 1 0 0 0 Result Diagram: 06/11/16 0502 06/11/16 0502 Imaging Last Impressions Chest X-Ray 06/15/16 0000 Signed Impressions: Service Date/Time: May 11:31 - CONCLUSION: No acute disease. Ryan Meehan Jr., MD Foot X-Ray 06/14/16 0000 Signed Impressions: Service Date/Time: Tuesday, June 14, 2016 17:13 - CONCLUSION: Amputation of phalanx great toe. Christiano Robertson MD FACR Upper Extremity Ultrasound 06/09/16 0000 Signed Impressions: Service Date/Time: Thursday, June 09, 2016 08:57 - CONCLUSION: Normal examination. Kenroy Bowen MD Lower Extremity Ultrasound 06/09/16 0000 Signed Impressions: Service Date/Time: Thursday, June 09, 2016 08:24 - CONCLUSION: Normal examination. Kenroy Bowen MD Aorta w/Runoff CTA 06/08/16 0000 Signed Impressions: Service Date/Time: May 19:02 - CONCLUSION: 1. Patent inflow. 2. The right lower extremity has a short segment occlusion within the distal SFA with mild above knee popliteal disease. Both areas would be amenable to endovascular repair and may improve blood flow to the foot to aid in healing of the wound. 3 vessel runoff to the foot. 3. Left lower extremity shows mild outflow disease. 3 vessel runoff to the foot. 4. 8 mm nodule involving the right lung base. Current guidelines suggest a repeat CT of the thorax in 3-6 months. 5. Concern for circumferential wall thickening involving the urinary bladder wall. I cannot exclude an acute inflammatory process or even an infiltrating malignancy. Followup is needed. Ryan Meehan Jr., MD Objective Remarks GENERAL: AOX3, in Mild distress initially, later more comfortable. SKIN: Warm and dry. HEAD: Normocephalic. EYES: No scleral icterus. No injection or drainage. NECK: Supple, trachea midline. No JVD or lymphadenopathy. CARDIOVASCULAR: Regular rate and rhythm without murmurs, gallops, or rubs. RESPIRATORY: Breath sounds equal bilaterally. No accessory muscle use. GASTROINTESTINAL: Abdomen soft, non-tender, nondistended. MUSCULOSKELETAL: No cyanosis, or edema. s/p right hallux amputation, wrapped. BACK: Nontender without obvious deformity. No CVA tenderness. Procedures left lower extremity SFA Recanalization. 06/12/2016. A/P Problem List: (1) Diabetic foot ulcer ICD Code: E11.621 Status: Acute (2) Diabetes ICD Code: E11.9 Status: Acute (3) CAD (coronary artery disease) ICD Code: I25.10 Status: Chronic (4) Urinary retention ICD Code: R33.9 Status: Chronic Assessment and Plan Mr. Rowland is a pleasant 61 year old male with a history of CAD s/p two stent placed, diabetes who presented to the ED due to wolfe catheter problem as well as right sided diabetic foot infection. Patient has been having urinary retention problem and thus has been on Wolfe catheter. Wolfe catheter was replaced in the ED. Patient underwent angioplasty by vascular surgery and right hallux amputation, wound debridement by podiatry. 06/15/2016: Mr. Rowland reported left sided chest pain this morning. I immediately went to evaluate patient. Patient complained of left lateral chest sharp pain and left medial chest pressure with radiation to the shoulders, neck , arms. He reported shortness of breath but no nausea, vomiting. I remained with patient while we ordered CXR, EKG. CXR reviewed by me did not show any evidence of aortic dissection or any other acute findings. EKG was unremarkable for any acute ischemic events. I ordered Aspirin 162mg once, morphine IV, breathing treatments, topical nitroglycerine. We also ordered troponins and serial EKGs. First troponin was 0.06. Given patient's typical symptoms and high risk ( CAD with stents, DM, PVD), we consulted cardiology. I went back to evaluate patient and he reported feeling somewhat better. Reviewed Cardiology note later in the day - Cardiology recommends serial troponin and NPO midnight for possible Cath in the morning. More than 35 minutes spent on critical care including evaluation and management of patient's acute chest pain with typical symptoms consistent with Acute coronary symptoms. Other medical conditions during this hospitalization: - Diabetic foot ulcer - Probable right foot osteomyelitis - Toe wound cx growing MSSA and Urine Cx growing Klebsiella - both are sensitive to cephalosporin as well as Levaquin. - Continue Levaquin 750mg Qday. - left lower extremity SFA Recanalization - 06/12/2016. - Percocet PO PRN and Dilaudid IV PRN for pain control. - Dulcolax suppository and milk of mag for bowel regimen. - Dr. Shelton explained the importance of getting this done during this admission as longer wait would potentially result in complications. - s/p Right hallux partial amputation and wound debridement by Podiatry. - Nasal congestion - Continue fluticasone. - Pulmonary nodule - repeat CT chest in 3-6 months. - Bladder wall thickening - Urology consult -- Dr. Davis recommends outpatient follow up for TURP. Patient will need to hold plavix and aspirin for one week prior to surgery. - Diabetes mellitus - Diabetic neuropathy - Increase Levemir 20 units QHS and Continue sliding scale insulin. Add meal coverage with Aspart 5 units TIDAC. - Continue Gabapentin 600mg BID. - CAD s/p two stents - RCA and 1st diag of LAD - Hypercholesteremia - Continue aspirin 81mg, Plavix 75mg. Continue metoprolol succ 50mg Qday, Imdur 30mg Qday. - Continue Fenofibrate. - If there is no contraindications, patient should be on high intensity statin such as 80mg Lipitor QHS. - Continue Lisinopril 40mg Qday. Continue digoxin 0.25mg Qday. - Hypertension - Increase Amlodipine to 5mg Qday, Lisinopril 40mg Qday. - BPH - Continue Tamsulin 0.8mg Qday. Outpatient TURP needed. - GERD - continue PPI. Full code. Lovenox. Problem Qualifiers (1) Diabetic foot ulcer: Qualified Code: E13.621 - Diabetic ulcer of toe of right foot associated with diabetes mellitus of other type, unspecified ulcer stage Francisco Buck DO Jun 15, 2016 21:37
[2016-06-16 03:54] VITALS: BP 132/67; PULSE 63; RESP 16; TEMP 98.5; O2SAT 96
[2016-06-16] MEDS: oxyCODONE/ACETAMINOPHEN 7.5 MG/325 MG TAB PO PRN ×2 (04:34→10:29)
[2016-06-16] MEDS: INSULIN ASPART SUPPLEMENTAL SCALE SQ SCH ×2 (04:37→11:00)
[2016-06-16 08:00] VITALS: BP 147/64; PULSE 66; RESP 20; TEMP 98.9; O2SAT 92
[2016-06-16] MEDS: INSULIN ASPART 1,000 UNITS/10 ML VIAL SQ SCH ×2 (08:00→12:00)
[2016-06-16 08:15] VITALS: PULSE 62
[2016-06-16] MEDS: RESP: ALBUTEROL 2.5 MG/IPRATROPIUM 0.5 MG NEB (PRN) NEB (08:32)
[2016-06-16] MEDS: SODIUM CHLORIDE 0.9% FLUSH 10 ML FLUSH IV FLUSH SCH (09:00)
[2016-06-16] MEDS: FINASTERIDE 5 MG TAB PO SCH (09:00)
[2016-06-16] MEDS: LISINOPRIL 20 MG TAB PO SCH (09:34)
[2016-06-16] MEDS: TAMSULOSIN HCL 0.4 MG CAP PO SCH (09:35)
[2016-06-16] MEDS: ISOSORBIDE MONONITRATE 20 MG TAB PO SCH (09:35)
[2016-06-16] MEDS: FENOFIBRATE 48 MG TAB PO SCH (09:35)
[2016-06-16] MEDS: PANTOPRAZOLE SOD 20 MG DELAYED RELEASE TAB PO SCH (09:36)
[2016-06-16] MEDS: DIGOXIN 0.25 MG TAB PO SCH (09:36)
[2016-06-16] MEDS: ASPIRIN EC 81 MG TABEC PO SCH (09:36)
[2016-06-16] MEDS: amLODIPine BESYLATE 5 MG TAB PO SCH (09:36)
[2016-06-16] MEDS: GABAPENTIN 300 MG CAP PO SCH (09:36)
[2016-06-16] MEDS: METOPROLOL SUCCINATE 50 MG EXTENDED RELEASE TAB PO SCH (09:36)
[2016-06-16] MEDS: CLOPIDOGREL 75 MG TAB PO SCH (09:37)
[2016-06-16] MEDS: LEVOFLOXACIN 750 MG TAB PO SCH (09:37)
[2016-06-16] MEDS: buPROPion HCL 75 MG TAB PO SCH (09:37)
[2016-06-16] MEDS: BUDESONIDE-FORMOTEROL 80/4.5 MCG INHALER INH SCH (09:38)
[2016-06-16] MEDS: FLUTICASONE PROPIONATE 50 MCG/ACT 16 GM NASAL SPRAY NASAL SCH (09:38)
--- NOTE | 2016-06-16 10:59 | PD.CARD.PN ---
Subjective Subjective Remarks no complaints ambulating without difficulty Trop 0.06, 0.06, 0.06 Objective Medications Current Medications Medications (Trade) Dose Ordered Sig/Kurt Route Start Time Stop Time Status Last Admin (NS Flush) 2 ml UNSCH PRN IV FLUSH 06/07/16 09:45 (NS Flush) 2 ml BID IV FLUSH 06/07/16 21:00 06/16/16 09:00 (Tylenol) 650 mg Q4H PRN PO 06/07/16 09:45 (Zofran Inj) 4 mg Q6H PRN IVP 06/07/16 09:45 (Milk Of Magnesia Liq) 30 ml Q12H PRN PO 06/07/16 09:45 06/15/16 10:12 (Lovenox Inj) 30 mg Q24H SQ 06/07/16 11:00 06/15/16 12:29 (Narcan Inj) 0.4 mg UNSCH PRN IV 06/07/16 09:45 (Percocet 7.5-325 Mg) 1 tab Q6H PRN PO 06/07/16 10:00 06/16/16 10:29 (Dilaudid Pf Inj) 0.5 mg Q4H PRN IV PUSH 06/07/16 10:00 (Ecotrin Ec) 81 mg DAILY PO 06/08/16 09:00 06/16/16 09:36 (Symbicort 80-4.5 Mcg Inh) 1 puff Q12HR INH 06/07/16 21:00 06/16/16 09:38 (Wellbutrin) 150 mg BID PO 06/07/16 21:00 06/16/16 09:37 (Plavix) 75 mg DAILY PO 06/08/16 09:00 06/16/16 09:37 (Lanoxin) 0.25 mg DAILY PO 06/08/16 09:00 06/16/16 09:36 (Tricor) 48 mg DAILY PO 06/08/16 09:00 06/16/16 09:35 (Proscar) 5 mg DAILY PO 06/08/16 09:00 06/16/16 09:00 (Neurontin) 600 mg BID PO 06/07/16 21:00 06/16/16 09:36 (Ismo) 30 mg DAILY PO 06/08/16 09:00 06/16/16 09:35 (Toprol Xl) 50 mg DAILY PO 06/08/16 09:00 06/16/16 09:36 (Desyrel) 50 mg HS PO 06/07/16 21:00 06/15/16 21:28 (Protonix) 20 mg DAILY PO 06/08/16 09:00 06/16/16 09:36 (D50w (Vial) Inj) 25 ml UNSCH PRN IV PUSH 06/07/16 15:30 (Glucagon Inj) 1 mg UNSCH PRN OTHER 06/07/16 15:30 (Pill Splitter) 1 ea UNSCH PRN OTHER 06/07/16 16:15 (Prinivil) 40 mg DAILY PO 06/08/16 09:00 06/16/16 09:34 (Flomax) 0.8 mg DAILY PO 06/09/16 09:00 06/16/16 09:35 (Norvasc) 5 mg DAILY PO 06/10/16 09:00 06/16/16 09:36 (Dulcolax Supp) 10 mg DAILY PRN RECTAL 06/10/16 13:15 06/15/16 21:42 (Levaquin) 750 mg DAILY PO 06/12/16 09:00 06/16/16 09:37 (NovoLOG INJ) 5 units TIDAC SQ 06/11/16 17:00 06/16/16 08:00 (Levemir Inj) 20 units HS SQ 06/11/16 21:00 06/15/16 21:34 (Flonase Yunior Spr) 1 spray BID NASAL 06/12/16 21:15 06/16/16 09:38 Vital Signs / I&O Vital Signs Date Time Temp Pulse Resp B/P Pulse Ox O2 Delivery O2 Flow Rate FiO2 06/16/16 08:00 98.9 66 20 147/64 92 06/16/16 03:54 98.5 63 16 132/67 96 06/15/16 23:10 98.1 63 16 130/63 92 06/15/16 22:51 62 06/15/16 20:00 Room Air 06/15/16 19:27 98.0 65 16 131/67 94 06/15/16 16:00 97.6 69 20 114/58 95 06/15/16 12:00 67 20 141/73 94 I/O 06/15/16 06/15/16 06/15/16 06/16/16 06/16/16 06/16/16 07:00 15:00 23:00 07:00 15:00 23:00 Intake Total 240 ml 240 ml 480 ml 720 ml Output Total 75 ml 1200 ml 750 ml 2150 ml Balance 165 ml -960 ml -270 ml -1430 ml Intake Oral 240 ml 240 ml 480 ml 720 ml Output Urine Total 75 ml 1200 ml 750 ml 2150 ml # Bowel Movements 0 0 0 Physical Exam GENERAL: Well-nourished, well-developed patient. SKIN: Warm and dry. HEAD: Normocephalic. EYES: No scleral icterus. No injection or drainage. NECK: Supple, trachea midline. No JVD or lymphadenopathy. CARDIOVASCULAR: Regular rate and rhythm without murmurs, gallops, or rubs. RESPIRATORY: Breath sounds equal bilaterally. No accessory muscle use. GASTROINTESTINAL: Abdomen soft, non-tender, nondistended. EXTREMITIES: No cyanosis, or edema. NEUROLOGICAL: Awake, alert, and oriented x 3. Non-focal. Laboratory Laboratory Tests Test 06/15/16 06/15/16 06/16/16 12:06 18:41 01:11 Troponin I 0.06 NG/ML 0.06 NG/ML 0.06 NG/ML Imaging Last Impressions Chest X-Ray 06/15/16 0000 Signed Impressions: Service Date/Time: May 11:31 - CONCLUSION: No acute disease. Ryan Meehan Jr., MD Foot X-Ray 06/14/16 0000 Signed Impressions: Service Date/Time: Tuesday, June 14, 2016 17:13 - CONCLUSION: Amputation of phalanx great toe. Christiano Robertson MD FACR Upper Extremity Ultrasound 06/09/16 0000 Signed Impressions: Service Date/Time: Thursday, June 09, 2016 08:57 - CONCLUSION: Normal examination. Kenroy Bowen MD Lower Extremity Ultrasound 06/09/16 0000 Signed Impressions: Service Date/Time: Thursday, June 09, 2016 08:24 - CONCLUSION: Normal examination. Kenroy Bowen MD Aorta w/Runoff CTA 06/08/16 0000 Signed Impressions: Service Date/Time: May 19:02 - CONCLUSION: 1. Patent inflow. 2. The right lower extremity has a short segment occlusion within the distal SFA with mild above knee popliteal disease. Both areas would be amenable to endovascular repair and may improve blood flow to the foot to aid in healing of the wound. 3 vessel runoff to the foot. 3. Left lower extremity shows mild outflow disease. 3 vessel runoff to the foot. 4. 8 mm nodule involving the right lung base. Current guidelines suggest a repeat CT of the thorax in 3-6 months. 5. Concern for circumferential wall thickening involving the urinary bladder wall. I cannot exclude an acute inflammatory process or even an infiltrating malignancy. Followup is needed. Ryan Meehan Jr., MD Assessment and Plan Problem List: (1) CAD (coronary artery disease) Assessment and Plan: Afebrile, hemodynamically stable, chest pain free. no more episodes of chest discomfort. Troponin remained flat at 0.06 Cont aggressive medical management for 2 prevention of CAD Optimal medical therapy for IHD with BB and long acting nitrates No need to pursue invasive cardiac work up at this time Outpatient stress test and follow up with cardiology at the [facility] (2) HTN (hypertension) (3) A-fib (4) Hyperglycemia (5) Peripheral vascular disease in diabetes mellitus Alexis Cruz MD Jun 16, 2016 10:59
[2016-06-16] MEDS: ENOXAPARIN SODIUM 30 MG/0.3 ML SYRINGE SQ SCH (11:00)
[2016-06-16 12:00] VITALS: BP 124/68; PULSE 69; RESP 20; TEMP 98.1; O2SAT 93
[2016-06-16] MEDS ORDERED: LIPI80TA PO (12:09)
[2016-06-16] MEDS ORDERED: TAMS5CAP PO (12:09)
--- NOTE | 2016-06-16 12:10 | HHI.DS ---
Discharge Summary Admission Date Jun 07, 2016 at 9:48 am Discharge Date: Jun 16, 2016 Admitting Diagnosis diabetic foot infection, hyperglycemia, urinary retention (1) Diabetic foot ulcer ICD Code: E11.621 Diagnosis: Principal (2) Diabetes ICD Code: E11.9 (3) CAD (coronary artery disease) ICD Code: I25.10 (4) Urinary retention ICD Code: R33.9 Procedures left lower extremity SFA Recanalization. 06/12/2016. Brief History - From Admission Mr. Rowland D1-year-old with a history of CAD, diabetes, PVD, urinary retention who presented to the emergency department on 06/07/2016 due to Wolfe catheter problems. Patient complained of lower abdominal discomfort since his Wolfe catheter became dislodged. In the emergency department Wolfe catheter was reinserted. Additionally patient also requested evaluation for his right foot and right great toe ulceration. Patient reports no pain or sensation below his ankle on the right side. His right great toe has been black for about 2 weeks. Denies any chest pain, shortness of breath, fever or chills. Patient was discharged in Feb 2016 after NSTEMI s/p stent placement to RCA and first diagonal branch of LAD. He was discharged on Aspirin and plavix. He was also discharged on insulin for diabetes. Patient reports that he has not taken insulin but has been on aspirin/plavix. Significant Findings Laboratory Tests Test 06/15/16 06/15/16 06/16/16 12:06 18:41 01:11 Troponin I 0.06 NG/ML 0.06 NG/ML 0.06 NG/ML (0.02-0.05) (0.02-0.05) (0.02-0.05) Imaging Last Impressions Chest X-Ray 06/15/16 0000 Signed Impressions: Service Date/Time: May 11:31 - CONCLUSION: No acute disease. Ryan Meehan Jr., MD Foot X-Ray 06/14/16 0000 Signed Impressions: Service Date/Time: Tuesday, June 14, 2016 17:13 - CONCLUSION: Amputation of phalanx great toe. Christiano Robertson MD FACR Upper Extremity Ultrasound 06/09/16 0000 Signed Impressions: Service Date/Time: Thursday, June 09, 2016 08:57 - CONCLUSION: Normal examination. Kenroy Bowen MD Lower Extremity Ultrasound 06/09/16 0000 Signed Impressions: Service Date/Time: Thursday, June 09, 2016 08:24 - CONCLUSION: Normal examination. Kenroy Bowen MD Aorta w/Runoff CTA 06/08/16 Signed Impressions: Service Date/Time: May 19:02 - CONCLUSION: 1. Patent inflow. 2. The right lower extremity has a short segment occlusion within the distal SFA with mild above knee popliteal disease. Both areas would be amenable to endovascular repair and may improve blood flow to the foot to aid in healing of the wound. 3 vessel runoff to the foot. 3. Left lower extremity shows mild outflow disease. 3 vessel runoff to the foot. 4. 8 mm nodule involving the right lung base. Current guidelines suggest a repeat CT of the thorax in 3-6 months. 5. Concern for circumferential wall thickening involving the urinary bladder wall. I cannot exclude an acute inflammatory process or even an infiltrating malignancy. Followup is needed. Ryan Meehan Jr., MD PE at Discharge GENERAL: AOX3, in Mild distress initially, later more comfortable. SKIN: Warm and dry. HEAD: Normocephalic. EYES: No scleral icterus. No injection or drainage. NECK: Supple, trachea midline. No JVD or lymphadenopathy. CARDIOVASCULAR: Regular rate and rhythm without murmurs, gallops, or rubs. RESPIRATORY: Breath sounds equal bilaterally. No accessory muscle use. GASTROINTESTINAL: Abdomen soft, non-tender, nondistended. MUSCULOSKELETAL: No cyanosis, or edema. s/p right hallux amputation, wrapped. BACK: Nontender without obvious deformity. No CVA tenderness. Pt update on day of discharge Patient is doing well. No acute concerns. Cardiology saw patient too and decided not to perform cardiac cath. Medical management and cardiology follow up was recommended. Hospital Course Mr. Rowland is a pleasant 61 year old male with a history of CAD s/p two stent placed, diabetes who presented to the ED due to wolfe catheter problem as well as right sided diabetic foot infection. Patient has been having urinary retention problem and thus has been on Wolfe catheter. Wolfe catheter was replaced in the ED. Patient underwent angioplasty by vascular surgery and right hallux amputation, wound debridement by podiatry. More than 35 minutes spent on critical care including evaluation and management of patient's acute chest pain with typical symptoms consistent with Acute coronary symptoms. 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 - Continue Levaquin 750mg Qday. - left lower extremity SFA Recanalization - 06/12/2016. - Percocet PO PRN and Dilaudid IV PRN for pain control. - Dulcolax suppository and milk of mag for bowel regimen. - s/p Right hallux partial amputation and wound debridement by Podiatry. - Nasal congestion - Continue fluticasone. - Pulmonary nodule - repeat CT chest in 3-6 months. - Bladder wall thickening - Urology consult -- Dr. Davis recommends outpatient follow up for TURP. Patient will need to hold plavix and aspirin for one week prior to surgery. - Diabetes mellitus - Diabetic neuropathy - Increase Levemir 20 units QHS and Continue sliding scale insulin. Add meal coverage with Aspart 5 units TIDAC. - Continue Gabapentin 600mg BID. - CAD s/p two stents - RCA and 1st diag of LAD - Hypercholesteremia - Continue aspirin 81mg, Plavix 75mg. Continue metoprolol succ 50mg Qday, Imdur 30mg Qday. - Continue Fenofibrate. - If there is no contraindications, patient should be on high intensity statin such as 80mg Lipitor QHS. - Continue Lisinopril 40mg Qday. Continue digoxin 0.25mg Qday. - Chest pain - cardiology consulted. Troponins x 3 0.06. - No cardiac cath per cardiology. - Continue Aspirin, plavix, metoprolol, lisinopril, Imdur 30 - outpatient follow up with cardiology (perhaps at the [facility]) for monitoring as well as possible Nuclear stress test. - Hypertension - Increase Amlodipine to 5mg Qday, Lisinopril 40mg Qday. - BPH - Continue Tamsulin 0.8mg Qday. Outpatient TURP needed. - GERD - continue PPI. Pt Condition on Discharge: Good Discharge Disposition: Discharge Home Discharge Time: > 30 minutes Discharge Instructions DIET: Follow Instructions for: Heart Healthy Diet, Diabetic Diet Activities you can perform: Regular-No Restrictions Follow up Referrals: Cardiology - 2 Weeks PCP Follow-up - 1 Week Urology - 10 Days New Medications: Atorvastatin (Lipitor) 80 Mg Tab 80 MG PO HS Cholesterol Management #30 Ref 0 TAB Magnesium Hydroxide Liq (Milk of Magnesia Liq) 400 Mg/5 Ml Susp 30 ML PO DAILY PRN CONSTIPATION #1 Ref 0 BOTTLE Levofloxacin (Levaquin) 750 Mg Tab 750 MG PO DAILY Infection #5 TAB Oxycodone-Acetaminophen (Oxycodone-Acetaminophen) 7.5-325 mg Tab 1 TAB PO Q6H PRN PAIN SCALE 5 TO 10 #30 TAB Tamsulosin (Flomax) 0.4 Mg Cap 0.8 MG PO DAILY BPH #90 CAP Continued Medications: Albuterol 6.7 GM Inh (Proventil Hfa 6.7 GM Inh) 90 Mcg/Act Aer 2 PUFF INH Q4-6H PRN SHORTNESS OF BREATH #1 Ref 0 INHALER Amlodipine (Norvasc) 5 Mg Tab 2.5 MG PO DAILY Blood Pressure Management #30 TAB Aspirin (Aspirin) 81 Mg Tabdr 81 MG PO DAILY TAB Budesonide-Formoterol Inh (Symbicort Inh) 80-4.5 Mcg/Act Aero 1 PUFF INH Q12HR Asthma Management #1 Ref 0 INHALER Bupropion HCl (Bupropion HCl) 100 Mg Tab 150 MG PO BID Control Depression Ref 0 TAB Clopidogrel (Plavix) 75 Mg Tab 75 MG PO DAILY Stents #30 TAB Digoxin (Digoxin) 0.25 Mg Tab 0.25 MG PO DAILY Regulate Heart Beat #30 Ref [address] (Esome[address]raz[address]) 20 Mg Capdr 20 MG PO DAILY #30 Ref 0 CAP Fenofibrate (Fenofibrate) 48 Mg Tab 48 MG PO DAILY #30 Ref 0 TAB Finasteride (Finasteride) 5 Mg Tab 5 MG PO DAILY Do not crush. Manage Prostate Problems #30 Ref 0 TAB Gabapentin (Gabapentin) 600 Mg Tab 600 MG PO BID #60 Ref 0 TAB Insulin Detemir Inj (Levemir Flextouch Pen Inj) 300 unit/3 ML Pen 30 UNITS SQ BID Blood Sugar Management #60 Ref 0 PEN Ipratropium-Albuterol Inh (Combivent Respimat Inh) 20-100 Chcf/Act Aero 1 PUFF INH QID Asthma Management #1 Ref 0 INHALER Isosorbide Mononitrate (Isosorbide Mononitrate) 20 Mg Tab 30 MG PO DAILY Take 2 doses 7 hours apart. Prevent Chest Pain #60 Ref 0 TAB Lisinopril (Lisinopril) 40 Mg Tab 40 MG PO Blood Pressure Management #30 Ref 0 TAB Metoprolol Succinate ER 24 HR (Metoprolol Succinate ER 24 HR) 50 Mg Tab 50 MG PO DAILY Blood Pressure Management #30 TAB Trazodone (Trazodone) 50 Mg Tab 50 MG PO HS Control Depression #30 Ref 0 TAB Discontinued Medications: Prednisone (Prednisone) 20 Mg Tab 20 MG PO DAILY Breathing #3 TAB Tamsulosin (Flomax) 0.4 Mg Cap 0.4 MG PO DAILY Bladder #30 CAP Francisco Buck DO Jun 16, 2016 12:10
[2016-06-16] MEDS ORDERED: LEVA750T PO (12:16)
[2016-06-16] MEDS ORDERED: OXYC1TAB35 PO (12:16)
[2016-06-16] MEDS ORDERED: MILKSUS PO (13:56)
--- NOTE | 2016-06-16 16:51 | EKG ---
Date Performed: 06/15/2016 Time Performed: 11:38:40 PTAGE: 61 years EKG: Sinus rhythm . Left axis deviation rSr'(V1) - probable normal variant Abnormal ECG Compared to prior tracing no si gnificant change PREVIOUS TRACING : 06/12/2016 16.53 DOCTOR: Radha Reyes Interpretating Date/Time 06/16/2016 16:50:11
--- NOTE | 2016-06-16 16:52 | EKG ---
Date Performed: 06/15/2016 Time Performed: 16:50:25 PTAGE: 61 years EKG: ECTOPIC ATRIAL RHYTHM MARKED LEFT AXIS DEVIATION INCOMPLETE RIGHT BUNDLE BRANCH BLOCK SEPTA L MYOCARDIAL INFARCTION , PROBABLY OLD ABNORMAL ECG PREVIOUS TRACING : 06/15/2016 11.38.40 DOCTOR: Radha Reyes Interpretating Date/Time 06/16/2016 16:50:39
--- NOTE | 2016-06-16 16:52 | EKG ---
Date Performed: 06/15/2016 Time Performed: 20:32:16 PTAGE: 61 years EKG: ECTOPIC ATRIAL RHYTHM INCOMPLETE RIGHT BUNDLE BRANCH BLOCK LEFT ANTERIOR FASCICULAR BLOCK S EPTAL MYOCARDIAL INFARCTION , PROBABLY OLD ABNORMAL ECG PREVIOUS TRACING : 06/15/2016 16.50 DOCTOR: Radha Reyes Interpretating Date/Time 06/16/2016 16:50:51
--- NOTE | 2016-06-18 08:24 | MP ---
cc: LEXUS GO DPM DATE OF SURGERY: 06/14/2016 DATE OF : 1955 SURGEON Lexus Go DPM PREOPERATIVE DIAGNOSIS 1. Right foot wound. 2. Right hallux dry stable gangrene. POSTOPERATIVE DIAGNOSIS 1. Right foot wound. 2. Right hallux dry stable gangrene. PROCEDURE 1. Right hallux disarticulation, amputation partial. 2. Right foot wound debridement. ANESTHESIOLOGIST Dr. Bocanegra. ANESTHESIA LMA. HEMOSTASIS None. ESTIMATED BLOOD LOSS Less than 5 ccs. MATERIALS 2-0 Vicryl, 3-0 Nylon. INJECTABLES Postoperatively 10 ccs 0.5% Marcaine plain. BRIEF HISTORY The patient is a 61-year-old male who presented to [facility] for right foot gangrene. He had undergone revascularization by Dr. Shelton, who indicated that he had appropriate flow to the lower extremity and recommended followup surgery for the right foot. On discussion with the patient he presented with dry stable gangrene with a malodor and the risk of converting to wet gangrene now that inflow had been allowed for was a risk. There was sufficient necrotic tissue allowing for wound care was unlikely. Also presented with a right dorsal foot wound for several months. Risks, benefits, pros and cons were discussed with the patient and he freely consents for surgical intervention. No guarantees were given or implied. All questions were answered. PROCEDURE IN DETAIL The patient was brought into the operating room and placed on the operating table in the supine position. Ancef 1 gram was given preoperatively. The patient was prepped, scrubbed and draped in usual sterile aseptic manner. Prior to prep a right first ray block was given with 10 ccs of 1:1 mixture of 0.5% Marcaine plain along with 2% lidocaine plain. Time-out was called where appropriate identify is noted as well as procedure and site identification noted. Attention was then directed to the right first ray where of fishmouth type incision was carried through the skin and soft tissue down to the level of the bone. The distal right hallux was disarticulated at the IP joint. The specimen was passed off the field and sent for pathology. Culture at the IP joint was taken and sent to lab for aerobic, anaerobic Gram stain culture and sensitivity. The incision was then copiously irrigated with normal sterile saline impregnated with . Necrotic nonviable tissue was rongeured, sharply debrided. Bleeders were Bovied as necessary. The incision was then closed in layers using 2-0 Vicryl deep and 3-0 Nylon in a simple suture pattern. Attention was then directed to the right dorsal foot where right dorsal foot ulceration was noted, 1 x 2 centimeters with a depth of 0.2 cm. There is no exposed bone or tendon. Using a #10 blade necrotic nonviable tissue was sharply debrided and excised down to healthy bleeding tissue. This incision was copiously irrigated with normal sterile saline. Dry sterile dressings were applied on both surgical sites using Xeroform, 4x4s, light cast padding and an ABD, and this was secured lightly with Deric wrap. The patient tolerated the procedure to completion. He will be transferred to PACU for a brief period of postop monitoring after which he will be discharged to the floor. Right foot x-rays were initiated. Postop shoe was ordered for the right foot. The patient able to weight bear as tolerated. The patient will be followed up appropriately while in-house. Lexus Go DPM SR/MAKSIM /8:58 PM /7:59 AM
== END 2016-06-16 14:33 | disposition home or self-care (01) | DRG 271 ==
LOC: NEPC 07:25 → NEDA 09:48 → NEDH 13:32 → N04B 14:45
PROVIDERS: ADMIT Hospitalist; ATTEND Hospitalist
PROC: 0T9B70Z Drainage of Bladder with Drainage Device, Via Natural or Artificial Opening (ICD-10-PCS; 2016-06-07)
PROC: B41D1ZZ Fluoroscopy of Aorta and Bilateral Lower Extremity Arteries using Low Osmolar Contrast (ICD-10-PCS; 2016-06-08)
PROC: 047K3Z1 Dilation of Right Femoral Artery using Drug-Coated Balloon, Percutaneous Approach (ICD-10-PCS; 2016-06-12)
PROC: B41F1ZZ Fluoroscopy of Right Lower Extremity Arteries using Low Osmolar Contrast (ICD-10-PCS; 2016-06-12)
PROC: 04CK3ZZ Extirpation of Matter from Right Femoral Artery, Percutaneous Approach (ICD-10-PCS; principal; 2016-06-12 12:00)
PROC: 0Y6P0Z0 Detachment at Right 1st Toe, Complete, Open Approach (ICD-10-PCS; 2016-06-14)
PROC: 0JBQ0ZZ Excision of Right Foot Subcutaneous Tissue and Fascia, Open Approach (ICD-10-PCS; 2016-06-14)
DX: E11.52 Type 2 diabetes mellitus with diabetic peripheral angiopathy with gangrene (principal); M86.9 Osteomyelitis, unspecified; E11.621 Type 2 diabetes mellitus with foot ulcer; E11.40 Type 2 diabetes mellitus with diabetic neuropathy, unspecified; I70.261 Atherosclerosis of native arteries of extremities with gangrene, right leg; I70.92 Chronic total occlusion of artery of the extremities; N13.8 Other obstructive and reflux uropathy; T83.511A Infection and inflammatory reaction due to indwelling urethral catheter, initial encounter; N39.0 Urinary tract infection, site not specified; I25.110 Atherosclerotic heart disease of native coronary artery with unstable angina pectoris; E11.65 Type 2 diabetes mellitus with hyperglycemia; L97.519 Non-pressure chronic ulcer of other part of right foot with unspecified severity; E11.69 Type 2 diabetes mellitus with other specified complication; N40.1 Benign prostatic hyperplasia with lower urinary tract symptoms; R33.8 Other retention of urine; I10 Essential (primary) hypertension; K21.9 Gastro-esophageal reflux disease without esophagitis; E78.00 Pure hypercholesterolemia, unspecified; I48.91 Unspecified atrial fibrillation; J44.9 Chronic obstructive pulmonary disease, unspecified; R09.81 Nasal congestion; R91.1 Solitary pulmonary nodule; I25.2 Old myocardial infarction; E78.5 Hyperlipidemia, unspecified; B95.61 Methicillin susceptible Staphylococcus aureus infection as the cause of diseases classified elsewhere; B96.1 Klebsiella pneumoniae [K. pneumoniae] as the cause of diseases classified elsewhere; F17.210 Nicotine dependence, cigarettes, uncomplicated; Z79.02 Long term (current) use of antithrombotics/antiplatelets; Z79.82 Long term (current) use of aspirin; Z79.4 Long term (current) use of insulin; Z86.73 Personal history of transient ischemic attack (TIA), and cerebral infarction without residual deficits; Z91.030 Bee allergy status; Z95.5 Presence of coronary angioplasty implant and graft
CPT/HCPCS: 36200; 37225; 51702; 71010; 71020; 73630; 75625; 75635; 75710; 76937; 80048; 80053; 80202; 81001; 82948; 83690; 84484; 85002; 85025; 85610; 85652; 85730; 86403; 87070; 87077; 87086; 87147; 87186; 87205; 87641; 88305; 93005; 93922; 93970; 93998; 94640; 94664; 96365; 96372; C1714; C1725; C1751; C1760; C1769; C1893; G0269; J0690; J0692; J0696; J1644; J1650; J1815; J2250; J2270; J2765; J3010; J3370; J7030; J7040; J7050; L3260; Q9967

== ENCOUNTER 2016-11-14 15:41 | Inpatient (IN) | payer OTHER ==
[2016-11-14] VITALS (8 sets, daily range): BP systolic 135–169; BP diastolic 76–99; PULSE 91–124; RESP 20–30; TEMP 98.4–101.1; O2SAT 93–98
[~2016-11-14] VITALS: Ht 177.8 cm; Wt 88.6 kg
[~2016-11-14 15:41] MED LIST changes: -ATOR1TAB18 PO; +FINA5TAB2 PO; +LEVA750T PO; +LIPI80TA PO; -LISI-515 PO; +LISI40TA PO; +MILKSUS PO; +OXYC1TAB35 PO; -PRED20 PO
[2016-11-14] MEDS ORDERED: SODIUM CHLORIDE 0.9% FLUSH 10 ML FLUSH IVF PRN (16:00)
[2016-11-14] MEDS ORDERED: PIPERACIL-TAZO 4.5 GM PREMIX 100 ML IV STA (16:01)
[2016-11-14] MEDS ORDERED: VANCOMYCIN INJ 1,000 MG in SODIUM CHLOR 0.9% 250 ML INJ 250 ML IV STA (16:01)
--- NOTE | 2016-11-14 16:04 | PD ---
HPI Chief Complaint: Edema Time Seen by Provider: 15:45 Travel History International Travel<30 days: No Contact w/Intl Traveler<30days: No Traveled to known affect area: No History of Present Illness HPI 61-year-old male presents with chest pain for which he feels he needs an angiogram because it feels like how his chest felt whenever he had blockages before. He states that the wound to his left foot is infected again and he is not sure how long that has been 4. He states that he just took the bandage off recently and saw the redness. He states that [facility] and he has not followed with them since he was here in the hospital in May as he states he is bedbound. He states that he has no other complaints other than swelling in his legs but he is difficult to get history from as he gets angry and doesn' t want answer questions when you try to get him to tell you more he will just tell you to look at his records and leave the room PFSH Past Medical History Narrative Medical by records Hx Anticoagulant Therapy: Yes Atrial Fibrillation: Yes Heart Rhythm Problems: Yes (A FIB ) Cancer: No Cardiac Catheterization: Yes Cardiovascular Problems: Yes High Cholesterol: Yes Chest Pain: Yes Congestive Heart Failure: Yes COPD: Yes Cerebrovascular Accident: Yes (HX OF TIA) Diabetes: Yes Patient Takes Glucophage: No Diminished Hearing: No Endocrine: Yes Gastrointestinal Disorders: No GERD: Yes Genitourinary: Yes Hypertension: Yes Immune Disorder: No Kidney Stones: Yes Musculoskeletal: No Neurologic: Yes Psychiatric: No Reproductive: No Respiratory: Yes Migraines: Yes (YEARS AGO) Seizures: No Thyroid Disease: No Past Surgical History Narrative Surgical by records Cardiac Surgery: Yes (ABLATION & 2 STENTS) Coronary Stent: Yes (DEC) Other Surgery: Yes Social History Narrative Social History by records Alcohol Use: No Tobacco Use: Yes (pt sts smoked 10 days ago) Substance Use: Yes (pt sts smokes marijuana a little for pain) Allergies-Medications (Allergen,Severity, Reaction): Coded Allergies: bee venom protein (honey bee) (Unverified Allergy, Severe, Anaphylaxis, ) Reported Meds & Prescriptions Reported Meds & Active Scripts Active Milk of Magnesia Liq (Magnesium Hydroxide) 400 Mg/5 Ml Susp 30 Ml PO DAILY PRN Oxycodone-Acetaminophen 7.5-325 mg Tab 1 Tab PO Q6H PRN Lipitor (Atorvastatin Calcium) 80 Mg Tab 80 Mg PO HS Flomax (Tamsulosin HCl) 0.4 Mg Cap 0.8 Mg PO DAILY Metoprolol Succinate ER 24 HR (Metoprolol Succinate) 50 Mg Tab 50 Mg PO DAILY Blood Glucose System Kishan (Blood Glucose Monitoring Suppl) 1 Kit Kit Kit Levemir Flextouch Pen Inj (Insulin Detemir) 300 unit/3 ML Pen 30 Units SQ BID Plavix (Clopidogrel Bisulfate) 75 Mg Tab 75 Mg PO DAILY Norvasc (Amlodipine Besylate) 5 Mg Tab 2.5 Mg PO DAILY Reported Finasteride 5 Mg Tab 5 Mg PO DAILY Do not crush. Lisinopril 40 Mg Tab 40 Mg PO Proventil Hfa 6.7 GM Inh (Albuterol Sulfate) 90 Mcg/Act Aer 2 Puff INH Q4-6H PRN Symbicort Inh (Budesonide/Formoterol Fumarate) 80-4.5 Mcg/Act Aero 1 Puff INH Q12HR Trazodone (Trazodone HCl) 50 Mg Tab 50 Mg PO HS Combivent Respimat Inh (Ipratropium-Albuterol Inh) 20-100 Retirement/Act Aero 1 Puff INH QID Fenofibrate 48 Mg Tab 48 Mg PO DAILY Gabapentin 600 Mg Tab 600 Mg PO BID Digoxin 0.25 Mg Tab 0.25 Mg PO DAILY Isosorbide Mononitrate 20 Mg Tab 30 Mg PO DAILY Take 2 doses [address] 20 Mg Capdr 20 Mg PO DAILY Bupropion HCl 100 Mg Tab 150 Mg PO BID Review of Systems ROS Limitations: Poor Historian Except as stated in HPI: all other systems reviewed are Neg Physical Exam Exam Limitations: Uncooperative Narrative GENERAL: 61-year-old male patient. SKIN: Erythema and warmth noted to left foot and lower leg, ulceration noted to base of left hallux with foul drainage HEAD: Normocephalic and atraumatic. EYES: No injection or drainage. ENT: No nasal drainage noted. NECK: Supple, trachea midline. CARDIOVASCULAR: irregular rate and rhythm RESPIRATORY: Breath sounds equal bilaterally at apices. No accessory muscle use. GASTROINTESTINAL: Abdomen soft, non-tender EXTREMITIES: Mild bilateral pedal edema, strong dorsalis pedis pulse on left, palpable posterior tibialis on right, pain noted over left foot-Limited exam NEUROLOGICAL: Awake. Moves all extremities. Normal speech. Data Data Last Documented VS Vital Signs Date Time Temp Pulse Resp B/P (MAP) Pulse Ox O2 Delivery O2 Flow Rate FiO2 11/14/16 16:26 123 20 152/76 (101) 97 154/80 (104) 11/14/16 15:47 101.1 Orders Orders Electrocardiogram (11/14/16 15:54) Ckmb (Isoenzyme) Profile (11/14/16 15:54) Complete Blood Count With Diff (11/14/16 15:54) Comprehensive Metabolic Panel (11/14/16 15:54) Magnesium (Mg) (11/14/16 15:54) Prothrombin Time / Inr (Pt) (11/14/16 15:54) Act Partial Throm Time (Ptt) (11/14/16 15:54) Troponin I (11/14/16 15:54) Chest, Single Ap (11/14/16 15:54) Ecg Monitoring (11/14/16 15:54) Bilateral Bp Monitoring (11/14/16 15:54) Iv Access Insert/Monitor (11/14/16 15:54) Oximetry (11/14/16 15:54) Sodium Chloride 0.9% Flush (Ns Flush) (11/14/16 16:00) Lactic Acid Sepsis Protocol (11/14/16 15:54) Urinalysis - C+S If Indicated (11/14/16 15:54) Blood Culture (11/14/16 15:54) Wound Culture And Gram Stain (11/14/16 15:54) Foot, Complete ([id number]) (11/14/16 ) B-Type Natriuretic Peptide (11/14/16 15:54) Piperacil-Tazo 4.5 Gm Premix (Zosyn 4.5 (11/14/16 16:01) Vancomycin Inj (Vancomycin Inj) (11/14/16 16:01) Acetaminophen (Tylenol) (11/14/16 16:15) Urine Culture (11/14/16 16:15) Sodium Chlorid 0.9% 500 Ml Inj (Ns 500 M (11/14/16 16:45) Labs Laboratory Tests Test 11/14/16 16:05 11/14/16 16:15 White Blood Count 13.4 TH/MM3 Red Blood Count 4.73 MIL/MM3 Hemoglobin 12.4 GM/DL Hematocrit 38.2 % Mean Corpuscular Volume 80.7 FL Mean Corpuscular Hemoglobin 26.1 PG Mean Corpuscular Hemoglobin Concent 32.4 % Red Cell Distribution Width 14.5 % Platelet Count 225 TH/MM3 Mean Platelet Volume 8.9 FL Neutrophils (%) (Auto) 82.2 % Lymphocytes (%) (Auto) 6.7 % Monocytes (%) (Auto) 7.7 % Eosinophils (%) (Auto) 0.7 % Basophils (%) (Auto) 2.7 % Neutrophils # (Auto) 11.0 TH/MM3 Lymphocytes # (Auto) 0.9 TH/MM3 Monocytes # (Auto) 1.0 TH/MM3 Eosinophils # (Auto) 0.1 TH/MM3 Basophils # (Auto) 0.4 TH/MM3 CBC Comment DIFF FINAL Differential Comment Prothrombin Time 11.4 SEC Prothromb Time International Ratio 1.0 RATIO Activated Partial Thromboplast Time 33.8 SEC Blood Urea Nitrogen 10 MG/DL Creatinine 0.82 MG/DL Random Glucose 240 MG/DL Total Protein 7.6 GM/DL Albumin 3.1 GM/DL Calcium Level 8.7 MG/DL Magnesium Level 1.7 MG/DL Alkaline Phosphatase 116 U/L Aspartate Amino Transf (AST/SGOT) 23 U/L Alanine Aminotransferase (ALT/SGPT) 16 U/L Total Bilirubin 0.6 MG/DL Sodium Level 134 MEQ/L Potassium Level 4.5 MEQ/L Chloride Level 98 MEQ/L Carbon Dioxide Level 28.6 MEQ/L Anion Gap 7 MEQ/L Estimat Glomerular Filtration Rate 95 ML/MIN Lactic Acid Level 1.6 mmol/L Total Creatine Kinase 82 U/L Troponin I 0.12 NG/ML B-Type Natriuretic Peptide 144 PG/ML Urine Collection Type CLEAN CATCH Urine Color YELLOW Urine Turbidity SLIGHT Urine pH 7.0 Urine Specific [place] 1.022 Urine Protein 100 mg/dL Urine Glucose (UA) NEG mg/dL Urine Ketones TRACE mg/dL Urine Occult Blood TRACE Urine Nitrite POS Urine Bilirubin NEG Urine Leukocyte Esterase SMALL Urine RBC 10-14 /hpf Urine WBC 25-49 /hpf Urine Squamous Epithelial Cells 6-8 /hpf Urine Bacteria MANY /hpf Microscopic Urinalysis Comment CULTURE INDICATED Urine Collection Time 16:15 MDM Medical Decision Making Medical Screen Exam Complete: Yes Emergency Medical Condition: Yes Medical Record Reviewed: Yes (pmh confirmed, hospitalization from May) Interpretation(s) EKG is atrial fibrillation at 120 without STEMI criteria CBC & BMP Diagram 11/14/16 16:05 Total Protein 7.6, Albumin 3.1 L, Calcium Level 8.7, Magnesium Level 1.7, Alkaline Phosphatase 116, Aspartate Amino Transf (AST/SGOT) 23, Alanine Aminotransferase (ALT/SGPT) 16, Total Bilirubin 0.6 Last 24 hours Impressions Chest X-Ray 11/14/16 1554 Signed Impressions: Service Date/Time: Monday, November 14, 2016 16:12 - CONCLUSION: No acute disease. No significant change has occurred. Gregorio Patiño MD Foot X-Ray 11/14/16 0000 Signed Impressions: Service Date/Time: Monday, November 14, 2016 16:11 - CONCLUSION: Soft tissue swelling dorsally. Otherwise negative Gregorio Patiño MD Differential Diagnosis Sepsis, osteomyelitis, cellulitis, angina, SC, gastritis, UTI.... Narrative Course Will check blood work, imaging and dose with vancomycin, Zosyn and dose with small 500 mL bolus given edema and active chest pain and closely monitor, Tylenol will be given for fever Labs show elevated infection count, moderate elevation of troponin and patient has tachycardia and fever here. He has obvious infection to his left foot and will need antibiotics and hospitalization for this in addition he will need cardiac monitoring and workup for his cardiac history with chest pain. He has no chest pain right at this moment. He has had aspirin. Sepsis Criteria SIRS Criteria (2 or more): Temp > 100.9 or < 96.8, Heart rate over 90, WBC > 22610, < 4000 or > 10% bands Sepsis Criteria (SIRS+source): Infect source susp/known Criteria Outcome: Meets sepsis criteria Physician Communication Physician Communication dr brush agrees to admit Diagnosis Primary Impression: Diabetic foot ulcer Qualified Codes: E08.621 - Diabetes mellitus due to underlying condition with foot ulcer; L97.529 - Non-pressure chronic ulcer of other part of left foot with unspecified severity Additional Impressions: Sepsis Qualified Codes: A41.9 - Sepsis, unspecified organism Chest pain Qualified Codes: R07.9 - Chest pain, unspecified Elevated troponin Cellulitis Qualified Codes: L03.116 - Cellulitis of left lower limb A-fib Qualified Codes: I48.91 - Unspecified atrial fibrillation Admitting Information Admitting Physician Requests: Admit Hird,Jennifer May MD Nov 14, 2016 16:04
[2016-11-14 16:14] LABS: BASOPHIL # 0.4 TH/MM3 (0-0.2); BASOPHIL % 2.7 % (0.0-2.0); EOSINOPHIL # 0.1 TH/MM3 (0-0.4); EOSINOPHIL % 0.7 % (0.0-4.0); HEMATOCRIT 38.2 % (39.0-51.0); LYMPH % 6.7 % (9.0-44.0); LYMPHOCYTE # 0.9 TH/MM3 (1.0-4.8); MEAN CELL VOLUME 80.7 FL (80.0-100.0); MEAN CORPUSCULAR HEMOGLOBIN 26.1 PG (27.0-34.0); MEAN CORPUSCULAR HGB CONC 32.4 % (32.0-36.0); MONO % 7.7 % (0.0-8.0); NEUT % 82.2 % (16.0-70.0); PLATELET COUNT 225 TH/MM3 (150-450); RED BLOOD COUNT 4.73 MIL/MM3 (4.50-5.90); RED CELL DISTRIBUTION WIDTH 14.5 % (11.6-17.2); WHITE BLOOD COUNT 13.4 TH/MM3 (4.0-11.0)
[2016-11-14] MEDS ORDERED: ACETAMINOPHEN 325 MG TAB PO ONE (16:15)
--- NOTE | 2016-11-14 16:20 | RADRPT ---
EXAM DATE/TIME: 11/14/2016 16:11 [facility] COMPARISON: No previous studies available for comparison. INDICATIONS : Left foot sore. Swelling and infection. MEDICAL HISTORY : None. SURGICAL HISTORY : None. ENCOUNTER: Initial ACUITY: 1 day PAIN SCORE: 4/10 LOCATION: Left foot. FINDINGS: Three view examination of the left foot demonstrates no dislocation, or fracture. The tarsal bones appear intact. The interphalangeal and metatarsophalangeal joints are intact. The calcaneus is inta ct. Bony mineralization is normal. There is soft tissue swelling dorsal of the foot negative for air or radiopaque foreign body CONCLUSION: Soft tissue swelling dorsally. Otherwise negative Gregorio Patiño MD on November 14, 2016 at 16:17 Board Certified Radiologist. This report was verified electronically.
--- NOTE | 2016-11-14 16:21 | RADRPT ---
EXAM DATE/TIME: 11/14/2016 16:12 [facility] COMPARISON: CHEST SINGLE AP, June 15, 2016, 11:31. INDICATIONS : Chest pain. MEDICAL HISTORY : Chronic obstructive pulmonary disease. A-fib. SURGICAL HISTORY : None. ENCOUNTER: Initial ACUITY: 1 day PAIN SCORE: 2/10 LOCATION: Left chest FINDINGS: A single view of the chest demonstrates the lungs to be symmetrically aerated without evidence of mas s, infiltrate or effusion. The cardiomediastinal contours are unremarkable. Osseous structures are intact. CONCLUSION: No acute disease. No significant change has occurred. Gregorio Patiño MD on November 14, 2016 at 16:19 Board Certified Radiologist. This report was verified electronically.
[2016-11-14 16:24] LABS: BLOOD, URINE TRACE (NEG); GLUCOSE,URINE NEG (NEG); KETONE, URINE TRACE mg/dL (NEG); NITRITE,URINE POS (NEG)
[2016-11-14 16:24] LABS: HEMO FLAGS DIFF FINAL
[2016-11-14 16:32] LABS: METHOD OF COLLECTION CLEAN CATCH; URINE COLOR YELLOW (YELLW/STRAW)
[2016-11-14 16:32] LABS: CHLORIDE 98 MEQ/L (98-107); SODIUM (NA) 134 MEQ/L (136-145)
[2016-11-14 16:33] LABS: BACTERIA, URINE MANY /hpf; COMMENT (UR) CULTURE INDICATED; CULTURE IF INDICATED CULTURE INDICATED
[2016-11-14 16:34] LABS: APTT (PATIENT) 33.8 SEC (24.3-30.1); PROTHROMBIN TIME - PATIENT 11.4 SEC (9.8-11.6)
[2016-11-14 16:37] LABS: ANION GAP 7 MEQ/L (5-15); BICARBONATE 28.6 MEQ/L (21.0-32.0); BLOOD UREA NITROGEN 10 MG/DL (7-18); MAGNESIUM 1.7 MG/DL (1.5-2.5)
[2016-11-14 16:40] LABS: ALT (GPT) 16 U/L (12-78); AST (GOT) 23 U/L (15-37); GLOMERULAR FILTRATION RATE 95 ML/MIN (>89)
[2016-11-14 16:42] LABS: TOTAL BILIRUBIN ADULT 0.6 MG/DL (0.2-1.0)
[2016-11-14 16:43] LABS: ALKALINE PHOSPHATASE 116 U/L (45-117)
[2016-11-14] MEDS ORDERED: SODIUM CHLORID 0.9% 500 ML INJ 500 ML IV ONE ×2 (16:45→17:15)
[2016-11-14 16:46] LABS: POTASSIUM 4.5 MEQ/L (3.5-5.1)
[2016-11-14 16:47] LABS: CREATINE KINASE 82 U/L (39-308)
[2016-11-14] MEDS ORDERED: SODIUM CHLORIDE 0.9% FLUSH 10 ML FLUSH IV FLUSH PRN (17:15)
[2016-11-14] MEDS ORDERED: ACETAMINOPHEN 325 MG TAB PO PRN (17:15)
[2016-11-14] MEDS ORDERED: LACTULOSE SYRUP 20 GM/30 ML CUP PO PRN (17:15)
[2016-11-14] MEDS ORDERED: BISACODYL 10 MG SUPP RECTAL PRN (17:15)
[2016-11-14] MEDS ORDERED: SENNOSIDES 8.6 MG TAB PO PRN (17:15)
[2016-11-14] MEDS ORDERED: MAGNESIUM HYDROXIDE SUSP 30 ML CUP PO PRN (17:15)
[2016-11-14] MEDS ORDERED: TEMAZEPAM 15 MG CAP PO PRN (17:15)
[2016-11-14] MEDS ORDERED: ONDANSETRON HCL 4 MG/2 ML VIAL IVP PRN (17:15)
[2016-11-14] MEDS ORDERED: NALOXONE HCL 0.4 MG/ML AMP IV PRN (17:15)
[2016-11-14] MEDS ORDERED: HEPARIN SODIUM - SQ 10,000 UNITS/ML VIAL SQ SCH (18:00)
--- NOTE | 2016-11-14 18:15 | HHI.HP ---
[facility]PI [facility] Admission Diagnosis sepsis, chest pain, elevated troponin, diabetic foot ulcer, A. fib Diagnoses: Chief Complaint: Chest pain, left foot infection. Travel History International Travel<30 Days: No Contact w/Intl Traveler <30 Da: No Traveled to Known Affected Are: No Sepsis Criteria SIRS Criteria (2 or more): Temp > 100.9 or < 96.8, Heart rate over 90, RR > 20 or PaCO2 < 32, WBC > 98412, < 4000 or > 10% bands Sepsis Criteria (SIRS+source): Infect source susp/known Criteria Outcome: Meets SIRS criteria, Meets sepsis criteria History of Present Illness Mr. Rowland is a pleasant 61-year-old with a history of coronary artery disease status post stent placement in February 2016, diabetes mellitus, PVD, urinary retention who presents to the emergency department due to sharp left-sided chest pain as well as left foot infection. His chest pain is localized in the left chest area and sharp in nature. No associated nausea vomiting or diaphoresis. Patient also reports noticing a blister on his left foot about 2 months ago. The blister improved and started drying up. However about 2 weeks ago he noticed a hole in his left foot and since then his left foot infection has been worsening. He reports fever and chills in the last 2 weeks. Denies any changes in bowel habits. He has chronic Melgo[place] catheter. On arrival temperature 101.1F pulse 124 respiration 22 blood pressure 169/99 pulse oximetry 95% on room air. WBC 13.4 with neutrophil 82.2%, hemoglobin 12.4. Sodium 134 potassium 4.5 BUN 10 creatinine 0.82 random glucose 240. Lactic acid 1.6. Troponin 0.12. Review of Systems Except as stated in HPI: all other systems reviewed are Neg Past Family Social History Past Medical History Diabetes mellitus, PVD, CAD status post stent placement Past Surgical History Stent placements. Right great toe partial amputation. Reported Medications Milk of Magnesia Liq (Magnesium Hydroxide) 400 Mg/5 Ml Susp 30 Ml PO DAILY PRN Oxycodone-Acetaminophen 7.5-325 mg Tab 1 Tab PO Q6H PRN Lipitor (Atorvastatin Calcium) 80 Mg Tab 80 Mg PO HS Flomax (Tamsulosin HCl) 0.4 Mg Cap 0.8 Mg PO DAILY Metoprolol Succinate ER 24 HR (Metoprolol Succinate) 50 Mg Tab 50 Mg PO DAILY Blood Glucose System Kishan (Blood Glucose Monitoring Suppl) 1 Kit Kit Kit Levemir Flextouch Pen Inj (Insulin Detemir) 300 unit/3 ML Pen 30 Units SQ BID Plavix (Clopidogrel Bisulfate) 75 Mg Tab 75 Mg PO DAILY Norvasc (Amlodipine Besylate) 5 Mg Tab 2.5 Mg PO DAILY Reported Finasteride 5 Mg Tab 5 Mg PO DAILY Do not crush. Lisinopril 40 Mg Tab 40 Mg PO Proventil Hfa 6.7 GM Inh (Albuterol Sulfate) 90 Mcg/Act Aer 2 Puff INH Q4-6H PRN Symbicort Inh (Budesonide/Formoterol Fumarate) 80-4.5 Mcg/Act Aero 1 Puff INH Q12HR Trazodone (Trazodone HCl) 50 Mg Tab 50 Mg PO HS Combivent Respimat Inh (Ipratropium-Albuterol Inh) 20-100 Chcf/Act Aero 1 Puff INH QID Fenofibrate 48 Mg Tab 48 Mg PO DAILY Gabapentin 600 Mg Tab 600 Mg PO BID Digoxin 0.25 Mg Tab 0.25 Mg PO DAILY Isosorbide Mononitrate 20 Mg Tab 30 Mg PO DAILY Take 2 doses [address] 20 Mg Capdr 20 Mg PO DAILY Bupropion HCl 100 Mg Tab 150 Mg PO BID Allergies: Coded Allergies: bee venom protein (honey bee) (Unverified Allergy, Severe, Anaphylaxis, ) Family History No family history of Alzheimer's or Parkinson's. Social History Denies using alcohol or illicit drugs. Smokes two packs per month. Physical Exam Vital Signs Vital Signs Date Time Temp Pulse Resp B/P (MAP) Pulse Ox O2 Delivery O2 Flow Rate FiO2 11/14/16 18:06 11/14/16 17:09 99.7 95 20 135/80 (98) 97 11/14/16 16:26 123 20 152/76 (101) 97 154/80 (104) 11/14/16 16:08 96 11/14/16 15:47 101.1 124 22 169/99 (122) 95 Physical Exam GENERAL: This is a well-nourished, well-developed patient, in no apparent distress. SKIN: No rashes, ecchymoses or lesions. Warm and dry. HEAD: Atraumatic. Normocephalic. No temporal or scalp tenderness. EYES: Pupils equal round and reactive. No injection or drainage. ENT: Nose without bleeding, purulent drainage or septal hematoma. Airway patent. NECK: Trachea midline. No lymphadenopathy. Supple, nontender, no meningeal signs. CARDIOVASCULAR: Irreg Irreg, tachycardic without murmurs, gallops, or rubs. No JVD. RESPIRATORY: Clear to auscultation. Breath sounds equal bilaterally. No wheezes , rales, or rhonchi. GASTROINTESTINAL: Abdomen soft, non-tender, nondistended. No guarding. MUSCULOSKELETAL: Extremities without clubbing, cyanosis, or edema. Right great toe s/p partial amputation. Left foot has a large necrotic smelling lesion. 1+ edema on the left lower ext, tender to palpation. NEUROLOGICAL: Awake and alert. Cranial nerves II through XII intact. No focal neurological deficits. Normal speech. Laboratory Laboratory Tests Test 11/14/16 16:05 11/14/16 16:15 White Blood Count 13.4 Red Blood Count 4.73 Hemoglobin 12.4 Hematocrit 38.2 Mean Corpuscular Volume 80.7 Mean Corpuscular Hemoglobin 26.1 Mean Corpuscular Hemoglobin Concent 32.4 Red Cell Distribution Width 14.5 Platelet Count 225 Mean Platelet Volume 8.9 Neutrophils (%) (Auto) 82.2 Lymphocytes (%) (Auto) 6.7 Monocytes (%) (Auto) 7.7 Eosinophils (%) (Auto) 0.7 Basophils (%) (Auto) 2.7 Neutrophils # (Auto) 11.0 Lymphocytes # (Auto) 0.9 Monocytes # (Auto) 1.0 Eosinophils # (Auto) 0.1 Basophils # (Auto) 0.4 CBC Comment DIFF FINAL Differential Comment Prothrombin Time 11.4 Prothromb Time International Ratio 1.0 Activated Partial Thromboplast Time 33.8 Blood Urea Nitrogen 10 Creatinine 0.82 Random Glucose 240 Total Protein 7.6 Albumin 3.1 Calcium Level 8.7 Magnesium Level 1.7 Alkaline Phosphatase 116 Aspartate Amino Transf (AST/SGOT) 23 Alanine Aminotransferase (ALT/SGPT) 16 Total Bilirubin 0.6 Sodium Level 134 Potassium Level 4.5 Chloride Level 98 Carbon Dioxide Level 28.6 Anion Gap 7 Estimat Glomerular Filtration Rate 95 Lactic Acid Level 1.6 Total Creatine Kinase 82 Troponin I 0.12 B-Type Natriuretic Peptide 144 Urine Collection Type CLEAN CATCH Urine Color YELLOW Urine Turbidity SLIGHT Urine pH 7.0 Urine Specific [place] 1.022 Urine Protein 100 Urine Glucose (UA) NEG Urine Ketones TRACE Urine Occult Blood TRACE Urine Nitrite POS Urine Bilirubin NEG Urine Leukocyte Esterase SMALL Urine RBC 10-14 Urine WBC 25-49 Urine Squamous Epithelial Cells 6-8 Urine Bacteria MANY Microscopic Urinalysis Comment CULTURE INDICATED Urine Collection Time 16:15 Date/Time Source Procedure Growth Status 11/14/16 16:05 Blood Peripheral Aerobic Blood Culture Pending Received 11/14/16 16:05 Blood Peripheral Anaerobic Blood Culture Pending Received 11/14/16 16:15 Urine Clean Catch Urine Culture Pending Received 11/14/16 16:05 Wound Foot Gram Stain Pending Received 11/14/16 16:05 Wound Foot Wound Culture Pending Received Result Diagram: 11/14/16 1605 11/14/16 1605 Imaging Last Impressions Chest X-Ray 11/14/16 1554 Signed Impressions: Service Date/Time: Monday, November 14, 2016 16:12 - CONCLUSION: No acute disease. No significant change has occurred. Gregorio Patiño MD Foot X-Ray 11/14/16 0000 Signed Impressions: Service Date/Time: Monday, November 14, 2016 16:11 - CONCLUSION: Soft tissue swelling dorsally. Otherwise negative Gregorio Patiño MD Caprini VTE Risk Assessment Caprini VTE Risk Assessment: Mod/High Risk (score >= 2) Caprini Risk Assessment Model Point Value = 1 Point Value = 2 Point Value = 3 Point Value = 5 Age 41-60 Minor surgery BMI > 25 kg/m2 Swollen legs Varicose veins or History of unexplained or recurrent spontaneous Oral contraceptives or hormone replacement Sepsis (< 1 month) Serious lung disease, including pneumonia (< 1 month) Abnormal pulmonary function Acute myocardial infarction Congestive heart failure (< 1 month) History of inflammatory bowel disease Medical patient at bed rest Age 61-74 Arthroscopic surgery Major open surgery (> 45 min) Laparoscopic surgery (> 45 min) Malignancy Confined to bed (> 72 hours) Immobilizing plaster cast Central venous access Age >= 75 History of VTE Family history of VTE Factor V Leiden Prothrombin [id number] Lupus anticoagulant Anticardiolipin antibodies Elevated serum homocysteine Heparin-induced thrombocytopenia Other congenital or acquired thrombophilia Stroke (< 1 month) Elective arthroplasty Hip, pelvis, or leg fracture Acute spinal cord injury (< 1 month) Prophylaxis Regimen Total Risk Factor Score Risk Level Prophylaxis Regimen 0-1 Low Early ambulation 2 Moderate Order ONE of the following: *Sequential Compression Device (SCD) *Heparin 5000 units SQ BID 3-4 Higher Order ONE of the following medications: *Heparin 5000 units SQ TID *Enoxaparin/Lovenox 40 mg SQ daily (WT < 150 kg, CrCl > 30 mL/min) *Enoxaparin/Lovenox 30 mg SQ daily (WT < 150 kg, CrCl > 10-29 mL/min) *Enoxaparin/Lovenox 30 mg SQ BID (WT < 150 kg, CrCl > 30 mL/min) AND/OR *Sequential Compression Device (SCD) 5 or more Highest Order ONE of the following medications: *Heparin 5000 units SQ TID (Preferred with Epidurals) *Enoxaparin/Lovenox 40 mg SQ daily (WT < 150 kg, CrCl > 30 mL/min) *Enoxaparin/Lovenox 30 mg SQ daily (WT < 150 kg, CrCl > 10-29 mL/min) *Enoxaparin/Lovenox 30 mg SQ BID (WT < 150 kg, CrCl > 30 mL/min) AND *Sequential Compression Device (SCD) Assessment and Plan Problem List: (1) NSTEMI (non-ST elevated myocardial infarction) ICD Code: I21.4 - Non-ST elevation (NSTEMI) myocardial infarction Status: Acute (2) Diabetic foot ulcer ICD Code: E11.621 - Type 2 diabetes mellitus with foot ulcer; L97.509 - Non- pressure chronic ulcer of other part of unspecified foot with unspecified severity Status: Acute (3) Diabetes mellitus with foot ulcer and gangrene ICD Code: E11.621 - Type 2 diabetes mellitus with foot ulcer; E11.52 - Type 2 diabetes mellitus with diabetic peripheral angiopathy with gangrene; L97.509 - Non-pressure chronic ulcer of other part of unspecified foot with unspecified severity Status: Acute (4) Peripheral vascular disease in diabetes mellitus ICD Code: E11.51 - Type 2 diabetes mellitus with diabetic peripheral angiopathy without gangrene Status: Chronic (5) CAD (coronary artery disease) ICD Code: I25.10 - Atherosclerotic heart disease of [place] coronary artery without angina pectoris Status: Chronic (6) Urinary retention ICD Code: R33.9 - Retention of urine, unspecified Status: Chronic Assessment and Plan Mr. Rowland is a pleasant 61-year-old with a history of coronary artery disease status post stent placement in February 2016, diabetes mellitus, PVD, urinary retention who presents to the emergency department due to sharp left-sided chest pain as well as left foot infection. On arrival temperature 101.1F pulse 124 respiration 22 blood pressure 169/99 pulse oximetry 95% on room air. WBC 13.4 with neutrophil 82.2%, hemoglobin 12.4. Sodium 134 potassium 4.5 BUN 10 creatinine 0.82 random glucose 240. Lactic acid 1.6. Troponin 0.12. - Sepsis - due to diabetic foot infection. - Diabetic foot infection of the left foot. - Possibly due to Staph Aureus, Pseudomonas species. - Possibility of Osteomyelitis is significant. - Continue empiric coverage with vancomycin, pharmacy to dose and Zosyn 4.5 g every 8 hours. - Will consult Podiatry. We'll obtain MRI of the left foot. If there is evidence of osteomyelitis, consider infectious disease consultation. - Discussed with community life director Dr. Cr. - Pain control with [place] when necessary, acetaminophen when necessary, Dilaudid IV for breakthrough. - NSTEMI - possibly type 2. - Coronary artery disease status post stent placement in February 2016. - Chest pain is not typical. - Elevated troponin of 0.12 likely due to sepsis. EKG reviewed by me shows atrial fibrillation. - We'll monitor troponins. If significantly elevated will start patient on heparin drip and consider cardiology consultation. - Continue aspirin, Plavix, statin. Continue beta sheree, lisinopril 40 mg , Imdur. - Atrial fibrillation with rapid ventricular response - Start metoprolol tartrate 50 mg every 12 hours. - [id number] score 3 (DM, PVD, HTN). - Patient will likely benefit from Apixaban 5mg BID. However, he is currently on Aspirin and Plavix due to stent placement in Feb 2016. - If Apixaban is started after surgical intervention, Aspirin can be discontinued. - Patient will likely need surgical intervention due to his left foot infection. Continue aspirin and Plavix for now. - Diabetes mellitus - Diabetic neuropathy - Levemir 15 units QHS and sliding scale insulin. Also include meal coverage with aspart 6 units 3 times a day before meals. - Continue Gabapentin 600mg BID. - Hypertension - Continue Amlodipine 2.5mg Qday, Lisinopril 40mg Qday. Consider increasing Amlodipine if BP remains elevated. - BPH - Continue Tamsulin 0.4mg Qday, finasteride 5 mg daily - GERD - continue PPI. Full code. Lovenox. Discussed Condition With RN, ED provider, Podiatry. Physician Certification 2 Midnight Certification Type: Admission for Inpatient Services Order for Inpatient Services The services are ordered in accordance with Medicare regulations or non- Medicare payer requirements, as applicable. In the case of services not specified as inpatient-only, they are appropriately provided as inpatient services in accordance with the 2-midnight benchmark. Estimated LOS (days): 3 days is the estimated time the patient will need to remain in the hospital, assuming treatment plan goals are met and no additional complications. Post-Hospital Plan: Not yet determined Problem Qualifiers (1) Diabetic foot ulcer: Qualified Codes: E08.621 - Diabetes mellitus due to underlying condition with foot ulcer; L97.529 - Non-pressure chronic ulcer of other part of left foot with unspecified severity Francisco Buck DO Nov 14, 2016 18:15
[2016-11-14] MEDS ORDERED: ALBUTEROL SULFATE 90 MCG/ACT HFA 8 GM INHALER INH PRN (18:45)
[2016-11-14] MEDS ORDERED: Vancomycin Consult Pharmacy 1 EA OTHER SCH (19:00)
[2016-11-14] MEDS ORDERED: PILL SPLITTER OTHER PRN (19:15)
[2016-11-14] MEDS ORDERED: DEXTROSE 50% IN WATER 50 ML VIAL(D50) IV PRN (19:15)
[2016-11-14] MEDS ORDERED: GLUCAGON 1 MG/ML VIAL OTHER PRN (19:15)
[2016-11-14] MEDS ORDERED: ENOXAPARIN SODIUM 40 MG/0.4 ML SYRINGE SQ SCH (20:00)
[2016-11-14] MEDS: HYDROmorphone HCL PF 1 MG/ML VIAL IV PUSH PRN (20:18)
[2016-11-14] MEDS: ATORVASTATIN 40 MG TAB PO SCH (20:19)
[2016-11-14] MEDS: METOPROLOL TARTRATE 50 MG TAB PO SCH (20:19)
[2016-11-14] MEDS: GABAPENTIN 300 MG CAP PO SCH (20:19)
[2016-11-14] MEDS: DOCUSATE SODIUM 50 MG/SENNA 8.6 MG TAB PO SCH (20:19)
[2016-11-14] MEDS: traZODone HCL 50 MG TAB PO SCH (20:23)
[2016-11-14] MEDS: SODIUM CHLORIDE 0.9% FLUSH 10 ML FLUSH IV FLUSH SCH (20:23)
[2016-11-14] MEDS: INSULIN DETEMIR 100 UNITS/ML VIAL SQ SCH (20:23)
[2016-11-14] MEDS: RESP: ALBUTEROL 2.5 MG/IPRATROPIUM 0.5 MG NEB (SCH) NEB (20:24)
[2016-11-14] MEDS: BUDESONIDE-FORMOTEROL 80/4.5 MCG INHALER INH SCH (20:44)
[2016-11-14] MEDS: INSULIN ASPART SUPPLEMENTAL SCALE SQ SCH (20:46)
[2016-11-15] VITALS (25 sets, daily range): BP systolic 82–123; BP diastolic 53–79; PULSE 84–108; RESP 22–36; TEMP 98–99.2; O2SAT 90–99
[2016-11-15] MEDS: PIPERACIL-TAZO 4.5 GM PREMIX 100 ML IV SCH ×3 (00:07→17:20)
[2016-11-15] MEDS: VANCOMYCIN INJ 1,500 MG in SODIUM CHLORID 0.9% 500 ML INJ 500 ML IV SCH ×2 (00:07→13:56)
[2016-11-15] MEDS: RESP: ALBUTEROL 2.5 MG/IPRATROPIUM 0.5 MG NEB (PRN) NEB ×2 (00:22→03:36)
[2016-11-15] MEDS: ISOSORBIDE MONONITRATE 30 MG TAB PO SCH (06:05)
[2016-11-15] MEDS: INSULIN ASPART SUPPLEMENTAL SCALE SQ SCH ×4 (06:05→21:00)
[2016-11-15 06:06] LABS: AUTOMATED NEUTROPHIL # 7.7 TH/MM3 (1.8-7.7); BASOPHIL # 0.1 TH/MM3 (0-0.2); BASOPHIL % 0.9 % (0.0-2.0); EOSINOPHIL # 0.2 TH/MM3 (0-0.4); EOSINOPHIL % 2.4 % (0.0-4.0); HEMATOCRIT 34.6 % (39.0-51.0); HEMO FLAGS DIFF FINAL; LYMPH % 11.1 % (9.0-44.0); LYMPHOCYTE # 1.1 TH/MM3 (1.0-4.8); MEAN CELL VOLUME 81.6 FL (80.0-100.0); MEAN CORPUSCULAR HEMOGLOBIN 26.2 PG (27.0-34.0); MEAN CORPUSCULAR HGB CONC 32.2 % (32.0-36.0); MONO % 9.3 % (0.0-8.0); NEUT % 76.3 % (16.0-70.0); PLATELET COUNT 213 TH/MM3 (150-450); RED BLOOD COUNT 4.24 MIL/MM3 (4.50-5.90); RED CELL DISTRIBUTION WIDTH 14.8 % (11.6-17.2)
[2016-11-15 06:20] LABS: POTASSIUM 4.2 MEQ/L (3.5-5.1)
[2016-11-15 06:23] LABS: BICARBONATE 27.7 MEQ/L (21.0-32.0)
[2016-11-15] MEDS: INSULIN ASPART 1,000 UNITS/10 ML VIAL SQ SCH ×3 (08:00→17:00)
[2016-11-15] MEDS: RESP: ALBUTEROL 2.5 MG/IPRATROPIUM 0.5 MG NEB (SCH) NEB ×4 (08:12→19:39)
[2016-11-15] MEDS ORDERED: amLODIPine BESYLATE 5 MG TAB PO SCH (09:00)
[2016-11-15] MEDS ORDERED: METOPROLOL SUCCINATE 50 MG EXTENDED RELEASE TAB PO SCH (09:00)
[2016-11-15] MEDS ORDERED: ASPIRIN EC 81 MG TABEC PO SCH (09:00)
[2016-11-15] MEDS: PANTOPRAZOLE SOD 20 MG DELAYED RELEASE TAB PO SCH (09:04)
[2016-11-15] MEDS: SODIUM CHLORIDE 0.9% FLUSH 10 ML FLUSH IV FLUSH SCH ×2 (09:04→21:00)
[2016-11-15] MEDS: GABAPENTIN 300 MG CAP PO SCH ×2 (09:04→21:00)
[2016-11-15] MEDS: LISINOPRIL 20 MG TAB PO SCH (09:05)
[2016-11-15] MEDS: CLOPIDOGREL 75 MG TAB PO SCH (09:05)
[2016-11-15] MEDS: FINASTERIDE 5 MG TAB PO SCH (09:05)
[2016-11-15] MEDS: DOCUSATE SODIUM 50 MG/SENNA 8.6 MG TAB PO SCH ×2 (09:06→21:00)
[2016-11-15] MEDS: TAMSULOSIN HCL 0.4 MG CAP PO SCH (09:06)
[2016-11-15] MEDS: METOPROLOL TARTRATE 50 MG TAB PO SCH ×2 (09:06→21:00)
--- NOTE | 2016-11-15 09:42 | MB ---
cc: SAMUEL RIVERA DPM DATE OF CONSULTATION: 11/15/2016 REASON FOR CONSULTATION Left diabetic foot infection. HISTORY OF PRESENT ILLNESS This is a 61-year-old diabetic male with a history of an ulcer that started within the last few months. He admits packing it with toilet paper. He experienced some swelling, redness and concern. He was admitted for diabetic foot infection. I received a call last night from the admitting team explaining the severity of the infection. I ordered the patient n.p.o. and MRI ordered. Currently I am seeing the patient bedside. He correlates the history. He has a history of a right hallux partial amputation within June/July of last year done by my partner Dr. Go. [facility] but appears that [facility] has not been too consistent regarding his foot. He has other issues he wishes to have addressed such as his cardiac issue. He is requesting an angiogram. He also has chronic BPH in which he must self-cath. He also requests that this issue be addressed. Currently the patient is resting comfortably. PAST MEDICAL HISTORY 1. Diabetes. 2. PVD. 3. CAD, status post stent. 4. Right hallux amputation. MEDICATIONS Outpatient medications: 1. Oxycodone. 2. Lipitor. 3. Flomax. 4. Metoprolol. 5. Levemir. 6. Plavix. 7. Norvasc. Medications reviewed inpatient. The patient is receiving vancomycin and Zosyn. Please see complete med list. ALLERGIES BEE VENOM PROTEIN (HONEY BEE). PHYSICAL EXAMINATION VITAL SIGNS: Temperature 98.8, pulse rate 90, respiratory rate 22, blood pressure 109/79. He is satting 2 liters on nasal cannula. GENERAL: This is an alert and oriented male seen bedside exhibiting nonlabored respirations. LOWER EXTREMITIES: Bilateral lower extremities are examined. 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 The left foot is swollen and edematous, near entire foot, with a plantar necrotic draining ulcer at the level of the first MPJ. There is purulent discharge. There is fibrotic tissue. This likely probes to the joint. Pulses are hard to palpate due to the edema, however, they are audible via Doppler, dorsalis pedis and posterior tibialis. Sensation is decreased to light touch. There is no crepitus or instability upon range of motion of the bilateral forefoot, hindfoot or ankle. IMAGING FINDINGS X-rays appear to show increased soft tissue. No obvious focal bony erosion. No foreign body noted. There is a soft tissue deficit. No obvious mention of gas within the tissue. MRI ordered and pending. MICROBIAL FINDINGS Wound culture is ordered and pending. LABORATORY FINDINGS Reviewed. White blood cell trending 13.4 down to 10, hemoglobin and hematocrit 11 and 34, platelet count 213. Chem-7: Sodium 138, potassium 4.2, chloride 104, CO2 27.7, BUN 13, creatinine 0.6, calcium 8.2. Troponin 11/14/2016 is 0.11. Troponin 11/15/2016 at 5:40 this morning is 0.10. Coagulation profile: PT 11.4, INR 1.0. Chem-7: Sodium 138, potassium 4.2, chloride 104, CO2 27.7, BUN 13, creatinine 0.6, random glucose 93. Lactic acid 8.2. ASSESSMENT AND PLAN Left foot abscess, ulcer, cellulitis, likely osteomyelitis, at least in early stage. MRI is ordered and pending. The plan was for surgery at noon today, however, the patient possibly has a non-STEMI cardiac event. We will wait until Medicine clears the patient, likely proceed with surgery within the next 24-48 hours. I do anticipate likely the need for long-term IV antibiotics given the extent of the infection. I will leave it to Medicine to address the bladder and the cardiac issues. MAGDY Chambers/RALPH /8:58 AM /9:15 AM
--- NOTE | 2016-11-15 10:01 | HHI.PR ---
Subjective Remarks Seen and evaluated today in follow-up for atypical chest pain with coronary artery disease and for atrial fibrillation. Patient with foot infection likely will need surgical treatment per podiatry. MRI pending. Discussed with patient today who is complaining of left-sided chest discomfort. Patient says this is typical of his anginal presentation. Care plan discussed with podiatry and cardiology line person Objective Vitals Vital Signs Date Time Temp Pulse Resp B/P (MAP) Pulse Ox O2 Delivery O2 Flow Rate FiO2 11/15/16 08:15 99 Nasal Cannula 2.00 11/15/16 04:00 90 11/15/16 04:00 98.4 94 22 109/79 (89) 99 11/15/16 00:00 98.2 92 22 117/78 (91) 99 11/15/16 00:00 92 11/14/16 20:24 98 Nasal Cannula 2.00 11/14/16 20:00 91 11/14/16 20:00 98.4 111 28 139/87 (104) 93 11/14/16 18:07 110 11/14/16 18:06 11/14/16 18:00 98.7 109 30 159/84 (109) 94 11/14/16 17:09 99.7 95 20 135/80 (98) 97 11/14/16 16:26 123 20 152/76 (101) 97 154/80 (104) 11/14/16 16:08 96 11/14/16 15:47 101.1 124 22 169/99 (122) 95 I/O 11/14/16 11/14/16 11/14/16 11/15/16 11/15/16 11/15/16 07:00 15:00 23:00 07:00 15:00 23:00 Intake Total 850 ml 1130 ml Output Total 550 ml Balance 850 ml 580 ml Intake Oral 480 ml IV Total 850 ml 650 ml Output Urine Total 550 ml Result Diagram: 11/15/16 0549 11/15/16 0549 Objective Remarks GENERAL: This is a well-nourished, well-developed patient, in no apparent distress. CARDIOVASCULAR: Atrial fibrillation with rapid rate without murmurs, gallops, or rubs. RESPIRATORY: Clear to auscultation. Breath sounds equal bilaterally. No wheezes , rales, or rhonchi. GASTROINTESTINAL: Abdomen soft, non-tender, nondistended. Normal active bowel sounds MUSCULOSKELETAL: Left foot wrapped, Extremities without clubbing, cyanosis, or edema. NEURO: Alert & Oriented x4 to person, place, time, situation. Moves all ext x4 A/P Problem List: (1) NSTEMI (non-ST elevated myocardial infarction) ICD Code: I21.4 - Non-ST elevation (NSTEMI) myocardial infarction Status: Acute Plan: Patient with left-sided chest pain radiating to back and scapula in the setting of arrhythmia (known atrial fibrillation and now with mildly elevated ventricular rate) Patient has history of coronary artery disease with stenting Cardiology consult pending Troponin elevated/non-ST elevation ME?, Although this may be due to sepsis patient has risk factors which will need cardiac evaluation Patient has refused pharmacological stress testing, The patient is status post cardiac catheterization 03/14/16 with successful PCI to the right coronary artery and first diagonal branch of the LAD. Continue with the beta sheree, aspirin, morphine,LMWH, plavix, oxygen, lipitor (2) Diabetic foot ulcer ICD Code: E11.621 - Type 2 diabetes mellitus with foot ulcer; L97.509 - Non- pressure chronic ulcer of other part of unspecified foot with unspecified severity Status: Acute Plan: abscess and ulcer gram stain pending MRI pending, likely osteomyelitis, we'll continue with vancomycin and Zosyn for now Plan discussed with podiatry ID followup pending (3) Peripheral vascular disease in diabetes mellitus ICD Code: E11.51 - Type 2 diabetes mellitus with diabetic peripheral angiopathy without gangrene Status: Chronic Plan: right leg aspirin/plavix (4) Urinary retention ICD Code: R33.9 - Retention of urine, unspecified Status: Chronic Plan: Continue with catheter Patient on Flomax for BPH Follow cultures (5) A-fib ICD Code: I48.91 - Unspecified atrial fibrillation Status: Chronic Plan: with rapid ventricular rate, continue with the beta sheree LMWH Problem Qualifiers (1) Diabetic foot ulcer: Qualified Codes: E08.621 - Diabetes mellitus due to underlying condition with foot ulcer; L97.529 - Non-pressure chronic ulcer of other part of left foot with unspecified severity (2) A-fib: Qualified Codes: I48.91 - Unspecified atrial fibrillation Jemma Adhikari MD Nov 15, 2016 10:01
[2016-11-15] MEDS: BUDESONIDE-FORMOTEROL 80/4.5 MCG INHALER INH SCH ×2 (10:03→21:00)
[2016-11-15] MEDS: ACETAMINOPHEN/HYDROcodone 325 MG/7.5 MG TAB PO PRN ×2 (10:08→20:57)
[2016-11-15] MEDS ORDERED: GADODIAMIDE PF 287 MG/ML 5 ML VIAL (for RAD MRI) IV PUSH ONE (12:30)
[2016-11-15] MEDS: ENOXAPARIN SODIUM 80 MG/0.8 ML SYRINGE SQ SCH ×2 (12:38→23:00)
--- NOTE | 2016-11-15 13:15 | RADRPT ---
EXAM DATE/TIME: 11/15/2016 11:28 [facility] COMPARISON: No previous studies available for comparison. INDICATIONS : Osteomyelitis. Wound medial left ball of foot below 1st toe. CONTRAST: 14 cc Omniscan (gadodiamide) IV MEDICAL HISTORY : Hypertension. Chronic obstructive pulmonary disease. Renal calculi. Atrial SURGICAL HISTORY : Cardiac Cath PAIN SCORE: 0/10 LOCATION: Left Foot TECHNIQUE: Multiplanar, multisequence MRI examination was performed without contrast and after the intravenous a dministration of gadolinium. FINDINGS: There is new soft tissue ulcer on the plantar surface of the foot directly beneath the head of the fi rst metatarsal and the first metatarsal phalangeal joint. Extensive plantar edema is present. The ulceration is superf icial and does not extend to bone. Intense enhancement is seen along the medial flexor tendons. There is no define d fluid collection present. The induration, enhancement edema extends over to the third metatarsal. I do no t see marrow edema to suggest not dilated. I do not see defined fluid collection suggest deep space abscess. The edema does extend along the plantar fascia to its insertion. Generalized soft tissue swelling is evident. CONCLUSION: Ulceration but does not extend to the bone. There is no defined abscess. Extensive edema is evident. Previous CTA runoff had shown more disease on the right than the left. Christiano Robertson MD FACR on November 15, 2016 at 13:09 Board Certified Radiologist. This report was verified electronically.
--- NOTE | 2016-11-15 17:08 | EKG ---
Date Performed: 11/15/2016 Time Performed: 00:27:40 PTAGE: 61 years EKG: ATRIAL FIBRILLATION MARKED LEFT AXIS DEVIATION INCOMPLETE RIGHT BUNDLE BRANCH BLOCK SEPTAL MYOCARDIAL INFARCTION Compared to previous tracing, the patient now has better rate control ABNORMAL ECG PREVIOUS TRACING : 11/14/2016 20.09 DOCTOR: Lay Inman Interpretating Date/Time 11/15/2016 17:04:11
--- NOTE | 2016-11-15 17:08 | EKG ---
Date Performed: 11/14/2016 Time Performed: 16:17:29 PTAGE: 61 years EKG: ATRIAL FIBRILLATION WITH RAPID VENTRICULAR RESPONSE LEFT ANTERIOR FASCICULAR BLOCK PROBABLE SEPTAL MYOCARDIAL INFARCTION Compared to previous tracing, the patient is now in atrial fibrillation With rapid ventricular response ABNORMAL ECG PREVIOUS TRACING : 06/15/2016 20.32 DOCTOR: Lay Inman Interpretating Date/Time 11/15/2016 17:03:37
--- NOTE | 2016-11-15 17:08 | EKG ---
Date Performed: 11/14/2016 Time Performed: 20:09:36 PTAGE: 61 years EKG: ATRIAL FIBRILLATION WITH RAPID VENTRICULAR RESPONSE INDETERMINATE AXIS INCOMPLETE RIGHT BUN DLE BRANCH BLOCK SEPTAL MYOCARDIAL INFARCTION Compared to prior tracing no significant change ABNORMA L ECG PREVIOUS TRACING : 11/14/2016 16.17 DOCTOR: Lay Inman Interpretating Date/Time 11/15/2016 17:03:48
--- NOTE | 2016-11-15 18:00 | PD.CONS ---
History of Present Illness Service Infectious Disease Consult Requested By Dr Jemma Adhikari Reason for Consult Left foot ulcer Primary Care Physician [facility] Diagnoses: (1) Sepsis (2) Diabetic foot ulcer (3) Urinary retention (4) CAD (coronary artery disease) (5) Peripheral vascular disease in diabetes mellitus Past Family Social History Allergies: Coded Allergies: bee venom protein (honey bee) (Unverified Allergy, Severe, Anaphylaxis, ) Past Medical History Past Medical History Diabetes mellitus, PVD, CAD status post stent placement Past Surgical History Stent placements. Right great toe partial amputation. Family History Family History No family history of Alzheimer's or Parkinson's. Social History Denies using alcohol or illicit drugs. Smokes two packs per month. Physical Exam Vital Signs Vital Signs Date Time Temp Pulse Resp B/P (MAP) Pulse Ox O2 Delivery O2 Flow Rate FiO2 11/15/16 16:16 98.0 98 30 82/60 (67) 98 11/15/16 16:00 96 11/15/16 15:00 88 11/15/16 14:08 92 34 86/62 (70) 95 11/15/16 14:04 84 30 82/53 (63) 95 11/15/16 14:00 90 11/15/16 13:04 96 33 84/60 (68) 90 11/15/16 13:00 88 22 96 11/15/16 13:00 88 11/15/16 12:17 98.3 95/56 (69) 11/15/16 11:00 94 11/15/16 11:00 94 32 11/15/16 10:52 88 35 83/56 (65) 11/15/16 10:08 100 32 113/65 (81) 90 11/15/16 10:00 100 11/15/16 09:16 98.0 106 36 123/78 (93) 98 11/15/16 09:00 108 11/15/16 08:15 99 Nasal Cannula 2.00 11/15/16 08:00 106 11/15/16 07:00 100 11/15/16 04:00 90 11/15/16 04:00 98.4 94 22 109/79 (89) 99 11/15/16 00:00 98.2 92 22 117/78 (91) 99 11/15/16 00:00 92 11/14/16 20:24 98 Nasal Cannula 2.00 11/14/16 20:00 91 11/14/16 20:00 98.4 111 28 139/87 (104) 93 11/14/16 18:07 110 11/14/16 18:06 11/14/16 18:00 98.7 109 30 159/84 (109) 94 Physical Exam GENERAL: This is a chronically ill patient, in no apparent distress. SKIN: Left foot ulcer on plantar surface over MCP jt- some purulence which is foul smelling HEAD: Atraumatic. Normocephalic. No temporal or scalp tenderness. EYES: Pupils equal round and reactive. Extraocular motions intact. No scleral icterus. No injection or drainage. ENT: Nose without bleeding, purulent drainage or septal hematoma. Throat without erythema, tonsillar hypertrophy or exudate. Uvula midline. Airway patent. NECK: Trachea midline. No JVD or lymphadenopathy. Supple, nontender, no meningeal signs. CARDIOVASCULAR: Regular rate and rhythm without murmurs, gallops, or rubs. RESPIRATORY: Clear to auscultation. Breath sounds equal bilaterally. No wheezes , rales, or rhonchi. GASTROINTESTINAL: Abdomen soft, non-tender, nondistended. No hepato-splenomegaly , or palpable masses. No guarding. MUSCULOSKELETAL: Extremities without clubbing, cyanosis, or edema. No joint tenderness, effusion, or edema noted. No calf tenderness. Negative Homans sign bilaterally. NEUROLOGICAL: Awake and alert. Cranial nerves II through XII intact. Peripheral neuropathy Laboratory Laboratory Tests Test 11/14/16 22:45 11/15/16 05:49 11/15/16 13:47 Troponin I 0.11 0.10 White Blood Count 10.0 Red Blood Count 4.24 Hemoglobin 11.1 Hematocrit 34.6 Mean Corpuscular Volume 81.6 Mean Corpuscular Hemoglobin 26.2 Mean Corpuscular Hemoglobin Concent 32.2 Red Cell Distribution Width 14.8 Platelet Count 213 Mean Platelet Volume 8.4 Neutrophils (%) (Auto) 76.3 Lymphocytes (%) (Auto) 11.1 Monocytes (%) (Auto) 9.3 Eosinophils (%) (Auto) 2.4 Basophils (%) (Auto) 0.9 Neutrophils # (Auto) 7.7 Lymphocytes # (Auto) 1.1 Monocytes # (Auto) 0.9 Eosinophils # (Auto) 0.2 Basophils # (Auto) 0.1 CBC Comment DIFF FINAL Differential Comment Blood Urea Nitrogen 13 Creatinine 0.60 Random Glucose 93 Calcium Level 8.2 Sodium Level 138 Potassium Level 4.2 Chloride Level 104 Carbon Dioxide Level 27.7 Anion Gap 6 Estimat Glomerular Filtration Rate 136 Lactic Acid Level 1.4 Date/Time Source Procedure Growth Status 11/14/16 16:05 Blood Peripheral Aerobic Blood Culture - Preliminary NO GROWTH IN 1 DAY Resulted 11/14/16 16:05 Blood Peripheral Anaerobic Blood Culture - Preliminary NO GROWTH IN 1 DAY Resulted 11/14/16 16:15 Urine Clean Catch Urine Culture - Preliminary IMMATURE GROWTH - REINCUBATE Resulted 11/14/16 16:05 Wound Foot Gram Stain - Final Resulted 11/14/16 16:05 Wound Foot Wound Culture - Preliminary Resulted Result Diagram: 11/15/16 0549 11/15/1649 Assessment and Plan Problem List: (1) Sepsis ICD Codes: A41.9 - Sepsis, unspecified organism Status: Acute Plan: Likely secondary to Left foot infection & UTI Follow Blood and wound cultures Follow Urine cultures IV Vancomycin and IV Zosyn (2) Diabetic foot ulcer ICD Codes: E11.621 - Type 2 diabetes mellitus with foot ulcer; L97.509 - Non- pressure chronic ulcer of other part of unspecified foot with unspecified severity Status: Acute (3) Urinary retention ICD Codes: R33.9 - Retention of urine, unspecified Status: Chronic (4) CAD (coronary artery disease) ICD Codes: I25.10 - Atherosclerotic heart disease of [place] coronary artery without angina pectoris Status: Chronic (5) Peripheral vascular disease in diabetes mellitus ICD Codes: E11.51 - Type 2 diabetes mellitus with diabetic peripheral angiopathy without gangrene Status: Chronic Problem Qualifiers (1) Sepsis: Qualified Codes: A41.9 - Sepsis, unspecified organism (2) Diabetic foot ulcer: Qualified Codes: E08.621 - Diabetes mellitus due to underlying condition with foot ulcer; L97.529 - Non-pressure chronic ulcer of other part of left foot with unspecified severity Margi Richards MD Nov 15, 2016 18:00
--- NOTE | 2016-11-15 20:46 | MB ---
cc: NANDINI GAEE MD DATE OF CONSULTATION 11/15/2016 REASON FOR CONSULTATION Chest pain. HISTORY OF PRESENT ILLNESS The patient is a pleasant 61-year-old gentleman with history of complex coronary artery disease status post PCI last year by Dr. Ballesteros who has multiple medical problems but presented with sharp, left-sided chest pain as well as a left foot infection. The pain does sound fairly atypical. He says this is exactly the same pain which precipitated his last PCI. His other symptoms include a nonhealing left foot ulcer. His initial labs were notable for a slightly positive troponin and thus I was consulted. Currently the patient is denying any residual chest pain, shortness of breath, lightheadedness or dizziness. PAST MEDICAL HISTORY 1. Coronary artery disease. 2. Peripheral vascular disease. 3. Diabetes. 4. Hypertension. 5. Hyperlipidemia. 6. Atrial fibrillation. CURRENT MEDICATIONS 1. Aspirin 325 mg daily. 2. Nitro paste. 3. Lovenox 80 mg subcu. 4. Amlodipine 2.5 mg daily. 5. Plavix 75 milligrams daily. 6. Proscar 5 mg daily. 7. Flomax 0.8 mg daily. 8. Protonix 20 mg daily. 9. Lisinopril 40 mg daily. 10. Imdur 30 mg daily. 11. Vancomycin. 12. Zosyn. 13. Neurontin 600 milligrams b.i.d. 14. Lopressor 50 mg b.i.d. ALLERGIES BEE VENOM. PHYSICAL EXAMINATION VITAL SIGNS: Afebrile, pulse 96, respiratory 33, BP 84/60, sating 90%. GENERAL: Pleasant gentleman appearing older than stated age in no distress. NECK: No JVD. LUNGS: Clear to auscultation bilaterally. CARDIOVASCULAR: Irregularly irregular rhythm with a regular rate. No murmurs appreciated. ABDOMEN: Benign. EXTREMITIES: No edema. LABORATORY DATA Sodium 138, potassium 4.2, chloride 104, bicarb 27.7, BUN 13, creatinine 0.6. Troponin 0.12, 0.11, 0.10. INR was 1.0. White count was 10.0, hematocrit 34.6, platelets 213. EKG shows atrial fibrillation rate of [address] changes. IMPRESSION 1. Atypical chest pain was mildly elevated troponin. The patient's chest pain is sharp and fairly atypical sounding though he says that this is the exact pain which precipitated his prior interventions. With his known complex coronary disease and slightly elevated troponin, I feel it is likely necessary to have him undergo a cardiac catheterization both to define his coronary anatomy and for his preoperative evaluation. I discussed with Dr. Perez who agrees to do the case and the patient will be transferred to the main hospital. 2. Atrial fibrillation. The patient is currently reasonably controlled though trending toward slightly rapid. His blood pressure is low on this current regimen. I will resume his digoxin and stop his amlodipine in case additional rate-controlled medications are required. He is currently on therapeutic Lovenox but anticoagulation will need to be addressed prior to discharge. Further recommendations will based on his cardiac catheterization course. Thank you again for the opportunity to participate in this patient's care. MD EUSEBIO Gonzalez/RASHEEDA /2:55 PM /8:30 PM
[2016-11-15] MEDS: INSULIN DETEMIR 100 UNITS/ML VIAL SQ SCH (21:00)
[2016-11-15] MEDS: traZODone HCL 50 MG TAB PO SCH (21:00)
[2016-11-15] MEDS: ATORVASTATIN 40 MG TAB PO SCH (21:00)
[2016-11-16] VITALS (21 sets, daily range): BP systolic 112–125; BP diastolic 66–79; PULSE 90–120; RESP 18–20; TEMP 97.9–99; O2SAT 92–97
[2016-11-16] MEDS: PIPERACIL-TAZO 4.5 GM PREMIX 100 ML IV SCH ×3 (00:05→16:38)
[2016-11-16] MEDS: VANCOMYCIN INJ 1,500 MG in SODIUM CHLORID 0.9% 500 ML INJ 500 ML IV SCH ×2 (00:57→15:14)
[2016-11-16] MEDS: HYDROmorphone HCL PF 1 MG/ML VIAL IV PUSH PRN ×3 (05:01→22:22)
[2016-11-16] MEDS: ISOSORBIDE MONONITRATE 30 MG TAB PO SCH (05:08)
[2016-11-16] MEDS: INSULIN ASPART SUPPLEMENTAL SCALE SQ SCH ×4 (05:32→21:00)
[2016-11-16] MEDS: INSULIN ASPART 1,000 UNITS/10 ML VIAL SQ SCH ×3 (08:00→17:00)
[2016-11-16] MEDS: RESP: ALBUTEROL 2.5 MG/IPRATROPIUM 0.5 MG NEB (SCH) NEB ×4 (08:19→21:30)
[2016-11-16] MEDS: TAMSULOSIN HCL 0.4 MG CAP PO SCH (08:36)
[2016-11-16] MEDS: METOPROLOL TARTRATE 50 MG TAB PO SCH ×2 (08:36→22:21)
[2016-11-16] MEDS: CLOPIDOGREL 75 MG TAB PO SCH (08:36)
[2016-11-16] MEDS: FINASTERIDE 5 MG TAB PO SCH (08:36)
[2016-11-16] MEDS: ACETAMINOPHEN/HYDROcodone 325 MG/7.5 MG TAB PO PRN ×2 (08:36→18:15)
[2016-11-16] MEDS: DIGOXIN 0.25 MG TAB PO SCH (08:36)
[2016-11-16] MEDS: PANTOPRAZOLE SOD 20 MG DELAYED RELEASE TAB PO SCH (08:43)
[2016-11-16] MEDS: LISINOPRIL 20 MG TAB PO SCH (08:49)
[2016-11-16] MEDS: GABAPENTIN 300 MG CAP PO SCH ×2 (08:49→22:22)
[2016-11-16] MEDS: DOCUSATE SODIUM 50 MG/SENNA 8.6 MG TAB PO SCH ×2 (08:49→22:21)
[2016-11-16] MEDS: SODIUM CHLORIDE 0.9% FLUSH 10 ML FLUSH IV FLUSH SCH ×2 (08:50→22:23)
[2016-11-16] MEDS: BUDESONIDE-FORMOTEROL 80/4.5 MCG INHALER INH SCH ×2 (08:50→22:23)
[2016-11-16] MEDS ORDERED: ASPIRIN 325 MG TAB PO SCH (09:00)
--- NOTE | 2016-11-16 09:29 | HHI.PR ---
Subjective Remarks Follow-up for diabetic foot infection, NSTEMI, atrial fibrillation. Patient is currently doing well. Denies any chest pain, shortness of breath, fever or chills. He was transferred from [place] yesterday. Cardiology evaluated patient and plans to do a cardiac catheterization today. Objective Vitals Vital Signs Date Time Temp Pulse Resp B/P (MAP) Pulse Ox O2 Delivery O2 Flow Rate FiO2 11/16/16 08:23 92 Nasal Cannula 2.00 11/16/16 08:00 97.9 114 20 125/66 (85) 97 11/16/16 07:15 97 Nasal Cannula 2.00 11/16/16 07:15 112 11/16/16 04:01 99 11/16/16 04:01 99.0 111 18 117/71 (86) 93 11/16/16 00:01 112 11/16/16 00:01 98.0 112 18 120/67 (84) 93 11/15/16 20:04 99.2 102 29 99/59 (72) 96 11/15/16 20:00 96 Nasal Cannula 2.00 11/15/16 20:00 105 11/15/16 19:40 97 Nasal Cannula 2.00 11/15/16 19:04 102 27 94/53 (67) 98 11/15/16 19:00 104 31 98 11/15/16 16:16 98.0 98 30 82/60 (67) 98 11/15/16 16:00 96 11/15/16 15:00 88 11/15/16 14:08 92 34 86/62 (70) 95 11/15/16 14:04 84 30 82/53 (63) 95 11/15/16 14:00 90 11/15/16 13:04 96 33 84/60 (68) 90 11/15/16 13:00 88 22 96 11/15/16 13:00 88 11/15/16 12:17 98.3 95/56 (69) 11/15/16 11:00 94 11/15/16 11:00 94 32 11/15/16 10:52 88 35 83/56 (65) 11/15/16 10:08 100 32 113/65 (81) 90 11/15/16 10:00 100 I/O 11/15/16 11/15/16 11/15/16 11/16/1611/16/17 8/31/17 07:00 15:00 23:00 07:00 15:00 23:00 Intake Total 1130 ml 1680 ml 1133 ml Output Total 550 ml 700 ml 1550 ml Balance 580 ml 980 ml -417 ml Intake Oral 480 ml 480 ml 480 ml IV Total 650 ml 1200 ml 653 ml Output Urine Total 550 ml 700 ml 1550 ml # Bowel Movements 0 Result Diagram: 11/15/16 0549 11/15/16 0549 Imaging Last Impressions Foot MRI 11/15/16 0000 Signed Impressions: Service Date/Time: Tuesday, November 15, 2016 11:28 - CONCLUSION: Ulceration but does not extend to the bone. There is no defined abscess. Extensive edema is evident. Previous CTA runoff had shown more disease on the right than the left. Christiano Robertson MD FACR Chest X-Ray 11/14/16 1554 Signed Impressions: Service Date/Time: Monday, November 14, 2016 16:12 - CONCLUSION: No acute disease. No significant change has occurred. Gregorio Patiño MD Foot X-Ray 11/14/16 0000 Signed Impressions: Service Date/Time: Monday, November 14, 2016 16:11 - CONCLUSION: Soft tissue swelling dorsally. Otherwise negative Gregorio Patiño MD Objective Remarks GENERAL: Alert, oriented 3, NAD. SKIN: Warm and dry. HEAD: Normocephalic. EYES: No scleral icterus. No injection or drainage. NECK: Supple, trachea midline. No JVD or lymphadenopathy. CARDIOVASCULAR: Irregularly irregular without murmurs, gallops, or rubs. RESPIRATORY: Breath sounds equal bilaterally. No accessory muscle use. GASTROINTESTINAL: Abdomen soft, non-tender, nondistended. MUSCULOSKELETAL: No cyanosis, or edema. Left foot wrapped. BACK: Nontender without obvious deformity. No CVA tenderness. Procedures None A/P Problem List: (1) NSTEMI (non-ST elevated myocardial infarction) ICD Code: I21.4 - Non-ST elevation (NSTEMI) myocardial infarction Status: Acute (2) Diabetic foot ulcer ICD Code: E11.621 - Type 2 diabetes mellitus with foot ulcer; L97.509 - Non- pressure chronic ulcer of other part of unspecified foot with unspecified severity Status: Acute (3) Peripheral vascular disease in diabetes mellitus ICD Code: E11.51 - Type 2 diabetes mellitus with diabetic peripheral angiopathy without gangrene Status: Chronic (4) Urinary retention ICD Code: R33.9 - Retention of urine, unspecified Status: Chronic (5) A-fib ICD Code: I48.91 - Unspecified atrial fibrillation Status: Chronic Assessment and Plan Mr. Rowland is a pleasant 61-year-old with a history of coronary artery disease status post stent placement in February 2016, diabetes mellitus, PVD, urinary retention who presents to the emergency department due to sharp left-sided chest pain as well as left foot infection. On arrival temperature 101.1F pulse 124 respiration 22 blood pressure 169/99 pulse oximetry 95% on room air. WBC 13.4 with neutrophil 82.2%, hemoglobin 12.4. Sodium 134 potassium 4.5 BUN 10 creatinine 0.82 random glucose 240. Lactic acid 1.6. Troponin 0.12. - Sepsis - due to diabetic foot infection. - Diabetic foot infection of the left foot. - Possibly due to Staph Aureus, Pseudomonas species. - Continue empiric coverage with vancomycin, pharmacy to dose and Zosyn 4.5 g every 8 hours. - Podiatry following. MRI did not show any evidence of osteomyelitis. - Pain control with [place] when necessary, acetaminophen when necessary, Dilaudid IV for breakthrough. - NSTEMI - possibly type 2. - Coronary artery disease status post stent placement in February 2016. - Patient was transferred to the [facility] for cardiac catheterization. - Continue aspirin, Plavix, statin. Continue beta sheree, lisinopril 40 mg , Imdur. - Atrial fibrillation with rapid ventricular response - Start metoprolol tartrate 50 mg every 12 hours. Continue digoxin 0.25 mg daily - [id number] score 3 (DM, PVD, HTN). - Patient will likely benefit from Apixaban 5mg BID. However, he is currently on Aspirin and Plavix due to stent placement in Feb 2016. - After any podiatry surgical intervention with can consider apixaban 5 mg twice a day. - If patient receives any stent during cardiac catheterization today, he may need to continue aspirin and Plavix as well. - Patient does not have any significant bleeding history. - Diabetes mellitus - Diabetic neuropathy - Levemir 18 units QHS and sliding scale insulin. Also include meal coverage with aspart 6 units 3 times a day before meals. - Continue Gabapentin 600mg BID. - Hypertension - Continue Amlodipine 2.5mg Qday, Lisinopril 40mg Qday. Consider increasing Amlodipine if BP remains elevated. - BPH - Continue Tamsulin 0.4mg Qday, finasteride 5 mg daily - GERD - continue PPI. Full code. Patient was on full dose Lovenox. Cardiology stopped Lovenox this morning. Problem Qualifiers (1) Diabetic foot ulcer: Qualified Codes: E08.621 - Diabetes mellitus due to underlying condition with foot ulcer; L97.529 - Non-pressure chronic ulcer of other part of left foot with unspecified severity (2) A-fib: Qualified Codes: I48.91 - Unspecified atrial fibrillation Francisco Buck DO Nov 16, 2016 09:29
[2016-11-16] MEDS ORDERED: HEPARIN-NS/PF INJ 500 ML ONE (10:13)
[2016-11-16] MEDS ORDERED: HEPARIN SODIUM - IV 10,000 UNITS/10 ML VIAL ONE ×3 (10:14→23:08)
[2016-11-16] MEDS ORDERED: MIDAZOLAM HCL 2 MG/2 ML VIAL ONE ×2 (10:14→23:09)
[2016-11-16] MEDS ORDERED: NITROGLYCERIN INJ 5 ML ONE (10:14)
[2016-11-16] MEDS ORDERED: VERAPAMIL HCL 5 MG/2 ML VIAL ONE (10:14)
--- NOTE | 2016-11-16 12:14 | CATHPROC ---
apiOmat HIS Report Study Information Study Number Admission Scheduled Start Study Start [id number] Nov 14 2016 5:02PM 11/16/2016 Nov 16 2016 10:11AM [facility] [facility] Cardiac Catheterization Admit Source Facility Department Emergency department [facility] - [facility] [employer] Physician and Clinical Staff Initial Marin Brower Quirk Sander Veronica Crowell RN Quirk Sander Cathie Murry,ONOFRE Recorder Lucy Daniel,RT(R) (BS) Scrub Lima Stanton,MEDICAL ONCOLOGY PHYSICIAN TECH2 Procedures Performed Procedure Location (Site) Vessel Name Coronary Angiograms LCA Left Coronary Coronary Angiograms RCA Right Coronary Drug Eluting Inflatio RCA Dist Right Coronary L Heart Cath PTCA RCA Dist Right Coronary Wire insertion Radial (right) Radial Art. Equipment Time Band Leader Description Size Mfg Part Number Used/Scraped [id number] 11:12 [employer]ES [employer] WIRE, ASAHI PROWATER 300CM 300CM Used *[id number] WIRE, BALANCE MIDDLEWEIGHT [id number] 10:52 [employer] 300CM Used 300CM *[id number] TRANSDUCER, TRUWAVE [id number] 10:20 MOORE MANJARREZ * Used W/STOCKCOCK *[id number] 11:18 BOSTON SCIENTIFIC BALLOON, 2.5 12MM EMERGE MR 2.5 12MM Used *[id number] *[id number] *[id number] [id number] *[id number] [id number] *[id number] 10:20 Ideedock PACK, CCL CUSTOM * Used *[id number] 10:20 [employer]deedock SUPPORT, ARTERIAL ADULT 30432 *[id number] Used BALLOON, 2.5 X 8MM NC [id number] 12:12 MEDTRONIC 8MM Used EUPHORA *[id number] STENT, 2.5 18 RESOLUTE [id number] 11:23 MEDTRONIC 2.5 18 Used INTEGRITY RX *[id number] 11:21 CoinBatch MEDICAL 30 ASHOK INDEFLATOR Used *[id number] BAND, RADIAL COMPRESSION TR [id number] 11:50 Coin[employer] MEDICAL 24CM Used SHORT 24 *[id number] 10:20 Make Music TV WIRE, EXCHANGE 260CM 3MMJ 260CM Used *[id number] 10:20 NAMIC MANIFOLD, 4 PORT * Used *[id number] 10:20 NYCOMED OMNIPAQUE, 350 MG, 150ML 150ML [id number] Used [id number] 10:20 [employer]ARR[employer]A MEDICAL BLANKET,WARM AIR CCL * Used *[id number] SHEATH, FR6 TRANSRADIAL [id number] 10:20 TERUMO MEDICAL FR 6 Used SLENDER 10CM *[id number] SHEATH, FR6 TRANSRADIAL [id number] 10:46 TERUMO MEDICAL FR 6 Used SLENDER 10CM *[id number] Equipment Model, Serial, Lot Number and Expiration Data Description Model Number Serial Number Lot Number Expiration Date BALLOON, 2.5 12MM EMERGE MR [id number] 06-16-2019 STENT, 2.5 18 RESOLUTE [id number] 06-01-2018 INTEGRITY RX History: Current Medications Medication Dosage/Unit Route Frequency Last Date/Time Taken ASA PLAVIX History: Allergies Allergy 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 History: Risk Factors Family History of Hypertension Dyslipidemia Previous NC Previous Heart Failure Premature CAD Yes Yes Yes Yes No Prior Valve Prior PCI Prior PCIDate Prior CABG Surgery No Yes 02/17/2016 No Cerebrovascular Peripheral Artery Chronic Lung On Dialysis Diabetes Diabetes Therapy Disease Disease Disease No Yes No Yes Yes Insulin History: Stress Tests Stress or Imaging Studies Performed No History: Other Current Smoker Method Yes Cigarettes Labs Hgb (g/dl) Hct (%) WBC (l/cumm) Platelets (thousands) 11.60-17.00 35.00-51.00 4.00-11.00 150.00-450.00 11.1 34.6 10 213 Glucose (mg/dl) BUN (mg/dl) Creatinine (mg/dl) BUN:Creatinine (1:x) 74.00-106.00 7.00-18.00 0.50-1.30 10.00-20.00 93 13 0.6 21.7 Na (meq/l) K (meq/l) 136.00-145.00 3.50-5.10 138 4.2 INR (PTT:PT) 0.90-1.10 1 Troponin I (ng/ml) CPK-MB (ng/ML) 0.02-0.05 0.50-3.60 0.1 Not Drawn Medication Medication Total Dose (Bolus/Oral) Medication Total Dosage/Unit 1% XYLOCAINE 20 mL FENTANYL 50 mcg HEPARIN 6000 units NTG (IC) 100 mcg RADIAL COCKTAIL 1 units VERSED 0.5 mg Medications (Bolus/Oral) Medication Time Given Dosage/Unit Administered By Reason VERSED 11/16/2016 10:33:41 AM 0.5 mg Veronica Crowell 0.5 mg VERSED given in lab by Veronica Crowell RN via Peripheral IV. Ordered by Marin Perez. FENTANYL 11/16/2016 10:34:53 AM 25 mcg Veronica Crowell 25 mcg FENTANYL given in lab by Veronica Crowell RN via Peripheral IV. Ordered by Marin Perez. 1% XYLOCAINE 11/16/2016 10:35:05 AM 20 mL Marin Perez 20 mL 1% XYLOCAINE given in lab by Marin Perez in Right Radial via Subcutaneous. Ordered by Pet Marin casillas. Ntg 200mcg Verapamil 2.5mg Heparin RADIAL COCKTAIL 11/16/2016 10:37:16 AM 1 units aMrin Perez 2000U 1 units RADIAL COCKTAIL given in lab by Marin Perez via Radial. Ordered by Marin Perez. R monica: Ntg 200mcg Verapamil 2.5mg Heparin 3700U. HEPARIN 11/16/2016 10:53:28 AM 4000 units Veronica Crowell 4000 units HEPARIN given in lab by Veronica Crowell RN in Left Antecubital via Peripheral IV. Ordered by Marin Perez. HEPARIN 11/16/2016 11:14:24 AM 1000 units Veronica Crowell 1000 units HEPARIN given in lab by Veronica Crowell RN in Left Antecubital via Peripheral IV. Ordered by Marin Perez. FENTANYL 11/16/2016 11:25:10 AM 25 mcg Veronica Crowell 25 mcg FENTANYL given in lab by Veronica Crowell RN in Left Antecubital via Peripheral IV. Ordered by Marin Perez. HEPARIN 11/16/2016 11:39:02 AM 1000 units Veronica Crowell 1000 units HEPARIN given in lab by Veronica Crowell RN in Left Antecubital via Peripheral IV. Ordered by Marin Perez. NTG (IC) 11/16/2016 11:44:41 AM 100 mcg Marin Preez 100 mcg NTG (IC) given in lab by Marin Perez via Intra-coronary. Medication (Drip) Medication Time Given Dosage/Unit Concentration/Unit Diluent (ml) Solution IV Solutions 11/16/2016 10:11:13 AM 0 mL (IV) 500 NaCl .9 IV Solutions given in lab by Veronica Crowell RN in Left Antecubital via Peripheral IV. Pump/Drip Govind w = 100 ml/hr using NaCl .9. Initial Case Assessment Cardiovascular HR Rhythm NIBP Chest Pain 100 afib 103/63 0 Edema Present Skin color Skin None Normal Warm Dry Circulatory - Right Pulses Dorsalis Pedis Femoral Radial 1 1 1 Scale (0,1,2,3,4,d) Circulatory - Left Pulses Dorsalis Pedis Femoral Radial 1 1 Scale (0,1,2,3,4,d) Circulatory - Lower Extremities Color Lower Right Color Lower Left Normal Normal Neurological State Oriented to time-place- Alert Moves all extremities person Respiration - General Respiration Rate SpO2 (%) O2 (lpm) (B/min) 11 94 2 Final Case Assessment Cardiovascular HR Rhythm NIBP Chest Pain 90 afib 115/69 0 Edema Present Skin color Skin None Normal Warm Dry Circulatory - Right Pulses Dorsalis Pedis Femoral Radial 1 1 1 Scale (0,1,2,3,4,d) Circulatory - Left Pulses Dorsalis Pedis Femoral Radial 1 1 Scale (0,1,2,3,4,d) Circulatory - Lower Extremities Color Lower Right Color Lower Left Normal Normal Neurological State Oriented to time-place- Alert Moves all extremities person Respiration - General Respiration Rate SpO2 (%) O2 (lpm) (B/min) 11 98 2 Chronological Log Time Study Chronological Log 10:00:43 Patient arrived via Bed. 10:00:48 Patient Name, D.O.B, / Armband Verified By R.N. 10:00:50 Consent signed by the physician and the patient and verified by the Steam [employer] staff. 10:00:54 Pre-op and post- op instructions given; patient acknowledges understanding of instructions. 10:10:58 Verbal Stimulation=2 Physical Stimulation=2 Airway=2 Respiration=2 TOTAL=8. (0=absent, 1=li mited, 2=present) 10:11:00 Presedation assessment performed by Steam [employer]vel Operator RN. 10:11:04 Allens test performed on the right radial and ulnar artery. 10:11:06 Patient has been NPO for More than 6Hrs. 10:11:07 Skin Breakdown left foot dm ulcer 10:11:08 Patient Warmer Placed on the Table. 10:11:10 Deepa Prominences Protected 10:11:12 A # 20 IV was noted in the Antecubital (left). Grade = 0 IV Solutions given in lab by Veronica Crowell, RN in Left Antecubital via Peripheral IV. Pump/Dr ip Flow = 100 ml/hr using 10:11:13 NaCl .9. 10:11:14 History and physical on the chart or being dictated. Assessment: Initial Case, OA=501 BPM, Rhythm=afib, VDGL=735/63 mmhg, Chest Pain=0, Edema=None, Color=Normal, Skin = Warm, Dry Right Pulses: Sree Ped=1, Femoral=1, Radial=1 Left Pulses: Sree Ped=1, Femoral=1 10:11:15 Lower Right Extremities: Color=Normal Lower Left Extremities: Color=Normal Neurological: State=Alert, Ox3, DEVI Respiration: Resp=11 B/min, SpO2=94 %, O2=2 lpm Vitals capture started with the following parameters, Patient=Adult, Interval=5 min, Initial Pr trvtex=851 mmHg, 10:11:32 Deflation Rate=5 mmHg, Cuff placed on Right Arm 10:12:08 II=652 bpm, HQPA=928/72 mmhg, SpO2=92.0 %, Resp=22 B/min, Pain=0, Raimundo=10, Rodriguez=2 10:13:48 Reference ECG taken 10:17:11 HR=95 bpm, LUMA=502/63 mmhg, SpO2=92.0 %, Resp=14 B/min, Pain=0, Raimundo=10, Rodriguez=2 10:18:28 MD arrived. 10:18:40 Bilateral groins and right radial prepped with 2% chlorhexidine, and with a 3 min. waiting time. 10:22:06 PP=780 bpm, LFCT=049/71 mmhg, SpO2=94.0 %, Resp=19 B/min, Pain=0, Raimundo=10, Rodriguez=2 10:24:18 Pressure channel 1 zeroed. 10:27:07 HR=95 bpm, NIBP=99/69 mmhg, Resp=20 B/min, Pain=0, Raimundo=10, Rodriguez=2 10:32:06 LS=999 bpm, ZGZP=146/70 mmhg, SpO2=97.0 %, Resp=18 B/min, Pain=0, Raimundo=10, Rodriguez=2 Time Out. Correct patient, correct procedure,correct physician, ,power injector not loaded with contrast. Time Out 10:33:09 Concurred by , individual staff in procedure 10:33:41 0.5 mg VERSED given in lab by Veronica Crowell, RN via Peripheral IV. Ordered by Marybel Perez 10:34:53 25 mcg FENTANYL given in lab by Veronica Crowell, RN via Peripheral IV. Ordered by Marin Perez. 10:34:55 Case Start 20 mL 1% XYLOCAINE given in lab by Marin Perez in Right Radial via Subcutaneous. Ordered by Chris 10:35:05 Marin. 10:36:38 Access site was Right Radial Artery. A SHEATH, FR6 TRANSRADIAL SLENDER 10CM FR 6 was advanced into the Radial (right) using the Perc utaneous 10:36:42 technique. 10:37:07 HR=94 bpm, GKBJ=805/71 mmhg, SpO2=98.0 %, Resp=14 B/min, Pain=0, Raimundo=10, Rodriguez=2 1 units RADIAL COCKTAIL given in lab by Marin Perez via Radial. Ordered by Iman Perez. Reason: Ntg 10:37:16 200mcg Verapamil 2.5mg Heparin 3700U. A JR 3.5 INFINITI CATHETER FR 5 was advanced over a wire. OMNIPAQUE, 350 MG, 150ML 150ML was us ed for 10:38:22 injections. Recorded Pressure: LV, PG=725, Condition=Condition 1 10:39:17 (Left Ventricle) LV 96/4/13 Recorded Pressure: LV, Ao, WN=581, Condition=Condition 1 10:39:36 (Left Ventricle) LV 87/1/9, (Aorta) Ao 83/52/67 Recorded Pressure: Ao, HR=95, Condition=Condition 1 10:40:31 (Aorta) Ao 80/56/68 10:41:07 The RCA was injected and visualized at various angles. OMNIPAQUE, 350 MG, 150ML 150ML used . 10:42:10 HR=93 bpm, NIBP=92/57 mmhg, SpO2=94.0 %, Resp=17 B/min, Pain=0, Raimundo=10, Rodriguez=2 After removing the current catheter a JL 3.5 INFINITI CATHETER FR 5 was advanced over a WIRE, E XCHANGE 260CM 10:43:39 3MMJ 260CM. 10:46:10 The LCA was injected and visualized at various angles. OMNIPAQUE, 350 MG, 150ML 150ML used . 10:47:05 HR=98 bpm, NIBP=94/64 mmhg, SpO2=96.0 %, Resp=15 B/min, Pain=0, Raimundo=10, Rodriguez=2 After removing the current catheter a AR 1 GUIDE CATHETER FR 6 was advanced over a WIRE, EXCHAN GE 260CM 10:52:02 3MMJ 260CM. 10:52:06 HR=87 bpm, INGP=488/64 mmhg, SpO2=95.0 %, Resp=18 B/min, Pain=0, Raimundo=10, Rodriguez=2 4000 units HEPARIN given in lab by Veronica Crowell RN in Left Antecubital via Peripheral IV. O rdered by Chris, 10:53:28 Marin. 10:54:41 A WIRE, BALANCE MIDDLEWEIGHT 300CM 300CM was inserted via Radial (right). 10:57:09 HR=91 bpm, NIBP=98/58 mmhg, SpO2=93.0 %, Resp=22 B/min, Pain=0, Raimundo=10, Rodriguez=2 11:00:23 Wire removed 11:01:17 A WIRE, EXCHANGE 260CM 3MMJ 260CM was inserted via Radial (right). 11:02:06 HR=89 bpm, NIBP=96/65 mmhg, SpO2=94.0 %, Resp=12 B/min, Pain=0, Raimundo=10, Rodriguez=2 11:02:26 Catheter was removed A AL .75 GUIDE CATHETER FR 6 was advanced over a wire. OMNIPAQUE, 350 MG, 150ML 150ML was used for 11:02:29 injections. 11:03:05 Wire removed 11:04:52 A WIRE, BALANCE MIDDLEWEIGHT 300CM 300CM was inserted via Radial (right). 11:04:56 Activated Clotting Time Drawn 11:07:05 HR=95 bpm, BIMK=913/75 mmhg, SpO2=96 %, Resp=19 B/min, Pain=0, Raimundo=10, Rodriguez=2 11:10:13 ACT (Normal Range 90-180) = 276 11:12:08 HR=87 bpm, KIKQ=426/70 mmhg, SpO2=96.0 %, Resp=16 B/min, Pain=0, Raimundo=10, Rodriguez=2 11:13:13 A WIRE, ASAHI PROWATER 300CM 300CM was inserted via Radial (right). 1000 units HEPARIN given in lab by Veronica Crowell, ONOFRE in Left Antecubital via Peripheral IV. O rdered by Chris, 11:14:24 Marin. 11:17:09 HR=96 bpm, HTMT=038/69 mmhg, Resp=19 B/min, Pain=0, Raimundo=10, Rodriguez=2 A BALLOON, 2.5 12MM EMERGE MR 2.5 12MM was inserted over WIRE, BALANCE MIDDLEWEIGHT 300CM 300CM via 11:18:02 the Radial (right). A BALLOON, 2.5 12MM EMERGE MR 2.5 12MM over a WIRE, BALANCE MIDDLEWEIGHT 300CM 300CM in the RCA Dist 11:20:35 was inflated using a 30 ASHOK INDEFLATOR at 6 ashok for 15 sec. A BALLOON, 2.5 12MM EMERGE MR 2.5 12MM over a WIRE, BALANCE MIDDLEWEIGHT 300CM 300CM in the RCA Dist 11:21:44 was inflated using a 30 ASHOK INDEFLATOR at 6 ashok for 10 sec. 11:22:11 HR=83 bpm, JMQX=210/67 mmhg, SpO2=96.0 %, Resp=10 B/min, Pain=0, Raimundo=10, Rodriguez=2 11:22:50 Balloon Removed A STENT, 2.5 18 RESOLUTE INTEGRITY RX 2.5 18 was advanced through a AL .75 GUIDE CATHETER FR 6 over a 11:23:48 WIRE, BALANCE MIDDLEWEIGHT 300CM 300CM. 25 mcg FENTANYL given in lab by Veronica Crowell, ONOFRE in Left Antecubital via Peripheral IV. Orde red by Chris, 11:25:10 Vincryan. 11:27:10 HR=95 bpm, KWKK=165/74 mmhg, Resp=16 B/min, Pain=0, Raimundo=10, Rodriguez=2 A STENT, 2.5 18 RESOLUTE INTEGRITY RX 2.5 18 was deployed using a 30 ASHOK INDEFLATOR at 9 atmosp heres for 13 11:29:21 seconds in the RCA Dist. 11:30:20 Delivery device removed 11:32:11 FF=685 bpm, DAWD=188/69 mmhg, SpO2=97.0 %, Resp=13 B/min, Pain=0, Raimundo=10, Rodriguez=2 11:37:14 HR=96 bpm, KKUG=572/73 mmhg, SpO2=97.0 %, Resp=20 B/min, Pain=0, Raimundo=10, Rodriguez=2 1000 units HEPARIN given in lab by Veronica Crowell RN in Left Antecubital via Peripheral IV. O rdered by Chris, 11:39:02 Marin. A BALLOON, 2.5 X 8MM NC EUPHORA 8MM was inserted over WIRE, BALANCE MIDDLEWEIGHT 300CM 300CM vi a the 11:40:12 Radial (right). A BALLOON, 2.5 X 8MM NC EUPHORA 8MM over a WIRE, BALANCE MIDDLEWEIGHT 300CM 300CM in the RCA Di st was 11:41:01 inflated using a 30 ASHOK INDEFLATOR at 10 ashok for 20 sec. A BALLOON, 2.5 X 8MM NC EUPHORA 8MM over a WIRE, BALANCE MIDDLEWEIGHT 300CM 300CM in the RCA Di st was 11:41:48 inflated using a 30 ASHOK INDEFLATOR at 14 ashok for 18 sec. 11:42:13 HR=97 bpm, BSWA=222/74 mmhg, SpO2=99.0 %, Resp=20 B/min, Pain=0, Raimundo=10, Rodriguez=2 11:43:21 Balloon Removed 11:44:41 100 mcg NTG (IC) given in lab by Marin Perez via Intra-coronary. 11:45:50 Wire removed prowater 11:46:53 Wire removed bmw 11:46:58 A WIRE, EXCHANGE 260CM 3MMJ 260CM was inserted via Radial (right). 11:47:12 HR=94 bpm, HEUT=543/69 mmhg, Resp=18 B/min, Pain=0, Raimundo=10, Rodriguez=2 11:49:58 Wire removed 11:50:06 Catheter was removed Radial Compression Device Used. 8 mLs of air placed in BAND, RADIAL COMPRESSION TR SHORT 24 24 CM. Affected 11:50:52 hand 99 % O2 saturation. Assessment: Final Case, HR=90 BPM, Rhythm=afib, WWMM=640/69 mmhg, Chest Pain=0, Edema=None, Co alirio=Normal, Skin = Warm, Dry Right Pulses: Sree Ped=1, Femoral=1, Radial=1 Left Pulses: Sree Ped=1, Femoral=1 11:51:26 Lower Right Extremities: Color=Normal Lower Left Extremities: Color=Normal Neurological: State=Alert, Ox3, DEVI Respiration: Resp=11 B/min, SpO2=98 %, O2=2 lpm 11:51:52 Sterile dressing applied to site 11::53 No case complications noted. 11::53 Cine recording checked. 11:51:57 Bedside Report will be given. 11:51:58 Implantable Device card placed in patient's chart. 11:52:00 Contrast Scanned 11:52:05 Verbal Stimulation=2 Physical Stimulation=2 Airway=2 Respiration=2 TOTAL=8. (0=absent, 1=l imited, 2=present) 11:52:13 A Left Heart Cath was performed. 11:52:15 HR=96 bpm, FFAG=273/70 mmhg, SpO2=97.0 %, Resp=18 B/min, Pain=0, Raimundo=10, Rodriguez=2 11:53:15 Case End 11:57:03 Vitals capture stopped. 12:02:16 [facility] Study - Contrast Media Used In Study Contrast Total Opened (mL) Total Used (mL) Total Wasted (mL) Omnipaque 140 140 0 End Study - Maximum Contrast Load Max Contrast Load (mL) 762.5 End Study - Radiation Exposure Fluoro Time (minutes) 24.6 End Study - Patient Disposition Complications Transferred To Interventional Outcome No Telemetry Bed successful
[2016-11-16] MEDS: NITROGLYCERIN 2% OINT 1 GM PACKET TOP SCH ×2 (12:41→18:15)
[2016-11-16] MEDS ORDERED: VANCOMYCIN TROUGH ONE ×2 (12:45→14:45)
[2016-11-16] MEDS ORDERED: IOHEXOL 350 MG/ML 100 ML BTL (for Cath Lab) OTHER ONE (12:54)
[2016-11-16] MEDS ORDERED: IOHEXOL 350 MG/ML 50 ML BTL (for Cath Lab) OTHER ONE (12:54)
--- NOTE | 2016-11-16 16:19 | PD.POD ---
Subjective Pain score: 6 Remarks Minimal foot pain more chest symptoms SP heart stenting this AM Past Med/Surg/Social History Past Medical History Endocrine: REPORTS HX OF: Diabetes mellitus Cardiovascular: REPORTS HX OF: Coronary artery disease, Peripheral vascular dz Genitourinary: REPORTS HX OF: Past UTI Past Surgical History Genitourinary: REPORTS HX OF: Other surgery Social History Smoking Status: Current Some Day Smoker Objective Vital Signs Vital Signs Date Time Temp Pulse Resp B/P (MAP) Pulse Ox O2 Delivery O2 Flow Rate FiO2 11/16/16 16:06 93 Nasal Cannula 2.00 11/16/16 14:00 92 11/16/16 13:00 99 11/16/16 13:00 20 11/16/16 12:27 20 11/16/16 12:15 91 20 121/71 (88) 97 11/16/16 12:00 90 11/16/16 10:00 110 11/16/16 09:00 120 11/16/16 08:23 92 Nasal Cannula 2.00 11/16/16 08:00 97.9 114 20 125/66 (85) 97 11/16/16 08:00 116 11/16/16 07:15 97 Nasal Cannula 2.00 11/16/16 07:15 112 11/16/16 04:01 99 11/16/16 04:01 99.0 111 18 117/71 (86) 93 11/16/16 00:01 112 11/16/16 00:01 98.0 112 18 120/67 (84) 93 11/15/16 20:04 99.2 102 29 99/59 (72) 96 11/15/16 20:00 96 Nasal Cannula 2.00 11/15/16 20:00 105 11/15/16 19:40 97 Nasal Cannula 2.00 11/15/16 19:04 102 27 94/53 (67) 98 11/15/16 19:00 104 31 98 11/15/16 16:16 98.0 98 30 82/60 (67) 98 Coded Allergies: bee venom protein (honey bee) (Unverified Allergy, Severe, Anaphylaxis, ) Medications and IVs Administered Medications Medications (Trade) Dose Ordered Sig/Kurt Route PRN Reason Start Time Stop Time Status Last Admin Dose Admin Sodium Chloride (NS Flush) 2 ml BID IV FLUSH 11/14/16 21:00 11/15/16 09:04 Senna/Docusate Sodium (Aundrea-Colace) 1 tab BID PO 11/14/16 21:00 11/16/16 08:49 Albuterol Sulfate (Proair Hfa Inh) 2 puff Q4H PRN INH COPD 11/14/16 18:45 11/15/16 09:04 Albuterol/ Ipratropium (Duoneb Neb) 1 ampule Q4HR WHILE AWAKE NEB NEB 11/14/16 20:00 11/16/16 15:37 Acetaminophen/ Hydrocodone Bitart (Leigh 7.5-325 Mg) 1 tab Q6H PRN PO PAIN SCALE 5 TO 10 11/14/16 18:45 11/16/16 08:36 Hydromorphone HCl (Dilaudid Pf Inj) 1 mg Q4H PRN IV PUSH BREAKTHROUGH PAIN 11/14/16 18:45 11/16/16 12:27 Atorvastatin Calcium (Lipitor) 80 mg HS PO 11/14/16 21:00 11/14/16 20:19 Budesonide/ Formoterol Fumarate (Symbicort 80-4.5 Mcg Inh) 1 puff Q12HR INH 11/14/16 21:00 11/16/16 08:50 Clopidogrel Bisulfate (Plavix) 75 mg DAILY PO 11/15/16 09:00 11/16/16 08:36 Finasteride (Proscar) 5 mg DAILY PO 11/15/16 09:00 11/16/16 08:36 Gabapentin (Neurontin) 600 mg BID PO 11/14/16 21:00 11/16/16 08:49 Isosorbide Mononitrate (Imdur) 30 mg DAILY@0700 PO 11/15/16 07:00 11/16/16 05:08 Tamsulosin HCl (Flomax) 0.8 mg DAILY PO 11/15/16 09:00 11/16/16 08:36 Trazodone HCl (Desyrel) 50 mg HS PO 11/14/16 21:00 11/14/16 20:23 Pantoprazole Sodium (Protonix) 20 mg DAILY PO 11/15/16 09:00 11/16/16 08:43 Piperacillin Sod/ Tazobactam Sod 100 ml @ 200 mls/hr Q8H IV 11/15/16 00:00 11/16/16 12:27 Vancomycin HCl 1500 mg/Sodium Chloride 515 ml @ 250 mls/hr Q12H IV 11/15/16 01:00 11/16/16 15:14 Metoprolol Tartrate (Lopressor) 50 mg Q12HR PO 11/14/16 21:00 11/16/16 08:36 Insulin Aspart (NovoLOG SUPPLEMENTAL SCALE) 1 ACHS SLIDING SCALE SQ 11/14/16 21:00 11/15/16 12:39 Insulin Aspart (NovoLOG INJ) 6 units TIDAC SQ 11/15/16 08:00 11/15/16 12:40 Lisinopril (Prinivil) 40 mg DAILY PO 11/15/16 09:00 11/16/16 08:49 Albuterol/ Ipratropium (Duoneb Neb) 1 ampule Q2HR NEB PRN NEB wheezing 11/15/16 01:00 11/15/16 03:36 Nitroglycerin (Nitroglycerin 2% Oint) 1 inch Q6HR TOP 11/16/16 12:00 11/16/16 12:41 Digoxin (Lanoxin) 0.25 mg DAILY PO 11/16/16 09:00 11/16/16 08:36 Other Results Last 72 hours Impressions Foot MRI 11/15/16 0000 Signed Impressions: Service Date/Time: Tuesday, November 15, 2016 11:28 - CONCLUSION: Ulceration but does not extend to the bone. There is no defined abscess. Extensive edema is evident. Previous CTA runoff had shown more disease on the right than the left. Christiano Robertson MD FACR Chest X-Ray 11/14/16 1554 Signed Impressions: Service Date/Time: Monday, November 14, 2016 16:12 - CONCLUSION: No acute disease. No significant change has occurred. Gregorio Patiño MD Foot X-Ray 11/14/16 0000 Signed Impressions: Service Date/Time: Monday, November 14, 2016 16:11 - CONCLUSION: Soft tissue swelling dorsally. Otherwise negative Gregorio Patiño MD ORDERED: WOUND CULTURE QUERIES: Method of Collection: SWAB ACT WKST: WOUNDS 11/15/16 #1 Procedure Result Verified Site GRAM STAIN Final 11/14/16-1839 Test not performed WOUND CULTURE Preliminary 11/16/16-1326 HEAVY GROWTH STAPHYLOCOCCUS AUREUS- SUSCEPTIBILITY TO FOLLOW MODERATE GROWTH GROUP D ENTEROCOCCUS(PRESUMPTIVE ID)ID AND BENNETT TO FOLLOW CULTURE IS GROWING >=3 MIXED ENTERIC GRAM NEGATIVE RODS WITH NO PREDOMINANT ORGANISM. NO FURTHER WORK-UP Isolates held for 5 days; for further workup, [place] [phone] HEAVY GROWTH NORMAL SKIN SHADY RULING OUT ANAEROBE WOUND CULTURE Preliminary (changed) 11/16/16-1110 HEAVY GROWTH STAPHYLOCOCCUS AUREUS- SUSCEPTIBILITY TO FOLLOW MODERATE GROWTH GROUP D ENTEROCOCCUS(PRESUMPTIVE ID)ID AND BENNETT TO FOLLOW CULTURE IS GROWING >=3 MIXED ENTERIC GRAM NEGATIVE RODS WITH NO PREDOMINANT ORGANISM. NO FURTHER WORK-UP Physical Exam Remarks LOWER EXTREMITIES: Bilateral lower extremities are examined. 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 The left foot is swollen and edematous, improved redness, with a plantar necrotic draining ulcer at the level of the first MPJ. There is decreased purulent discharge. There is fibrotic tissue. Pulses are hard to palpate due to the edema, however, they are audible via Doppler, dorsalis pedis and posterior tibialis. Sensation is decreased to light touch. There is no crepitus or instability upon range of motion of the bilateral forefoot, hindfoot or ankle. Assessment & Plan A/P Left foot abscess, ulcer, cellulitis WBC is trending down, MRI shows no OM. Plan for operative debridement and to obtain deep cx. Reviewed case with [facility] who was able to check with Dr Perez, I was given permission to proceed with surgery tomorrow. Reviewed risks and benefits, may need multiple d bridements in the future which may lead to foot amputation- partial or full with possible progression to BKA. Akin Cr DPM Nov 16, 2016 16:19
--- NOTE | 2016-11-16 19:40 | PD.CARD.PN ---
Subjective Subjective Remarks Patient seen earlier post-cath Was having sharp chest pain post-cath, similar to his usual pain, relieved with pain meds Objective Medications Current Medications Medications (Trade) Dose Ordered Sig/Kurt Route Start Time Stop Time Status Last Admin (NS Flush) 2 ml UNSCH PRN IV FLUSH 11/14/16 17:15 (NS Flush) 2 ml BID IV FLUSH 11/14/16 21:00 11/15/16 09:04 (Tylenol) 650 mg Q4H PRN PO 11/14/16 17:15 (Zofran Inj) 4 mg Q6H PRN IVP 11/14/16 17:15 (Narcan Inj) 0.4 mg UNSCH PRN IV 11/14/16 17:15 (Aundrea-Colace) 1 tab BID PO 11/14/16 21:00 11/16/16 08:49 (Milk Of Magnesia Liq) 30 ml Q12H PRN PO 11/14/16 17:15 (Senokot) 17.2 mg Q12H PRN PO 11/14/16 17:15 (Dulcolax Supp) 10 mg DAILY PRN RECTAL 11/14/16 17:15 (Lactulose Liq) 30 ml DAILY PRN PO 11/14/16 17:15 (Proair Hfa Inh) 2 puff Q4H PRN INH 11/14/16 18:45 11/15/16 09:04 (Duoneb Neb) 1 ampule Q4HR WHILE AWAKE NEB NEB 11/14/16 20:00 11/16/16 15:37 ([place] 7.5-325 Mg) 1 tab Q6H PRN PO 11/14/16 18:45 11/16/16 18:15 (Dilaudid Pf Inj) 1 mg Q4H PRN IV PUSH 11/14/16 18:45 11/16/16 12:27 (Lipitor) 80 mg HS PO 11/14/16 21:00 11/14/16 20:19 (Symbicort 80-4.5 Mcg Inh) 1 puff Q12HR INH 11/14/16 21:00 11/16/16 08:50 (Plavix) 75 mg DAILY PO 11/15/16 09:00 11/16/16 08:36 (Proscar) 5 mg DAILY PO 11/15/16 09:00 11/16/16 08:36 (Neurontin) 600 mg BID PO 11/14/16 21:00 11/16/16 08:49 (Imdur) 30 mg DAILY@0700 PO 11/15/16 07:00 11/16/16 05:08 (Flomax) 0.8 mg DAILY PO 11/15/16 09:00 11/16/16 08:36 (Desyrel) 50 mg HS PO 11/14/16 21:00 11/14/16 20:23 (Protonix) 20 mg DAILY PO 11/15/16 09:00 11/16/16 08:43 Pharmacy Profile Note 0 ml @ 0 mls/hr UNSCH OTHER 11/14/16 19:00 Piperacillin Sod/ Tazobactam Sod 100 ml @ 200 mls/hr Q8H IV 11/15/16 00:00 11/16/16 16:38 (Pill Splitter) 1 ea UNSCH PRN OTHER 11/14/16 19:15 Vancomycin HCl 1500 mg/Sodium Chloride 515 ml @ 250 mls/hr Q12H IV 11/15/16 01:00 11/16/16 15:14 (Lopressor) 50 mg Q12HR PO 11/14/16 21:00 11/16/16 08:36 (D50w (Vial) Inj) 50 ml UNSCH PRN IV 11/14/16 19:15 (Glucagon Inj) 1 mg UNSCH PRN OTHER 11/14/16 19:15 (NovoLOG SUPPLEMENTAL SCALE) 1 ACHS SLIDING SCALE SQ 11/14/16 21:00 11/16/16 16:00 (NovoLOG INJ) 6 units TIDAC SQ 11/15/16 08:00 11/15/16 12:40 (Prinivil) 40 mg DAILY PO 11/15/16 09:00 11/16/16 08:49 (Duoneb Neb) 1 ampule Q2HR NEB PRN NEB 11/15/16 01:00 11/15/16 03:36 (Nitroglycerin 2% Oint) 1 inch Q6HR TOP 11/16/16 12:00 11/16/16 18:15 (Lanoxin) 0.25 mg DAILY PO 11/16/16 09:00 11/16/16 08:36 (Aspirin Chew) 81 mg DAILY PO 11/17/16 09:00 (Heparin Inj) 5,000 units Q8H SQ 11/17/16 09:00 (Levemir Inj) 18 units HS SQ 11/16/16 21:00 Vital Signs / I&O Vital Signs Date Time Temp Pulse Resp B/P (MAP) Pulse Ox O2 Delivery O2 Flow Rate FiO2 11/16/16 18:00 110 11/16/16 17:00 92 11/16/16 16:06 93 Nasal Cannula 2.00 11/16/16 16:00 102 20 112/76 (88) 96 11/16/16 16:00 97 11/16/16 15:00 100 11/16/16 14:00 92 11/16/16 13:00 99 11/16/16 13:00 20 11/16/16 12:27 20 11/16/16 12:15 91 20 121/71 (88) 97 11/16/16 12:00 90 11/16/16 10:00 110 11/16/16 09:00 120 11/16/16 08:23 92 Nasal Cannula 2.00 11/16/16 08:00 97.9 114 20 125/66 (85) 97 11/16/16 08:00 116 11/16/16 07:15 97 Nasal Cannula 2.00 11/16/16 07:15 112 11/16/16 04:01 99 11/16/16 04:01 99.0 111 18 117/71 (86) 93 11/16/16 00:01 112 11/16/16 00:01 98.0 112 18 120/67 (84) 93 11/15/16 20:04 99.2 102 29 99/59 (72) 96 11/15/16 20:00 96 Nasal Cannula 2.00 11/15/16 20:00 105 11/15/16 19:40 97 Nasal Cannula 2.00 I/O 11/15/16 11/15/16 11/15/16 11/16/16 11/16/16 11/16/16 06:59 14:59 22:59 06:59 14:59 22:59 Intake Total 1130 ml 1680 ml 1133 ml 1520 ml Output Total 550 ml 700 ml 1550 ml 800 ml Balance 580 ml 980 ml -417 ml 720 ml Intake Oral 480 ml 480 ml 480 ml 720 ml IV Total 650 ml 1200 ml 653 ml 800 ml Output Urine Total 550 ml 700 ml 1550 ml 800 ml # Bowel Movements 0 Physical Exam GENERAL: NAD, AAOx3 SKIN: Warm and dry. HEAD: Atraumatic. Normocephalic. EYES: Pupils equal and round. No scleral icterus. No injection or drainage. ENT: No nasal bleeding or discharge. Mucous membranes pink and moist. NECK: Trachea midline. No JVD. CARDIOVASCULAR: Irregularly irregular RESPIRATORY: No accessory muscle use. Clear to auscultation. Breath sounds equal bilaterally. GASTROINTESTINAL: Abdomen soft, non-tender, nondistended. Hepatic and splenic margins not palpable. MUSCULOSKELETAL: Left lower extremity with bandage NEUROLOGICAL: Awake and alert. No obvious cranial nerve deficits. Motor grossly within normal limits. Five out of 5 muscle strength in the arms and legs. Normal speech. PSYCHIATRIC: Appropriate mood and affect; insight and judgment normal. Laboratory Laboratory Tests Test 11/16/16 15:20 Vancomycin Level Trough 9.4 MCG/ML Assessment and Plan Problem List: (1) NSTEMI (non-ST elevated myocardial infarction) ICD Codes: I21.4 - Non-ST elevation (NSTEMI) myocardial infarction Status: Acute (2) CAD (coronary artery disease) ICD Codes: I25.10 - Atherosclerotic heart disease of [place] coronary artery without angina pectoris Status: Chronic (3) Peripheral vascular disease in diabetes mellitus ICD Codes: E11.51 - Type 2 diabetes mellitus with diabetic peripheral angiopathy without gangrene Status: Chronic (4) Diabetes mellitus with foot ulcer and gangrene ICD Codes: E11.621 - Type 2 diabetes mellitus with foot ulcer; E11.52 - Type 2 diabetes mellitus with diabetic peripheral angiopathy with gangrene; L97.509 - Non-pressure chronic ulcer of other part of unspecified foot with unspecified severity Status: Acute (5) Diabetic foot ulcer ICD Codes: E11.621 - Type 2 diabetes mellitus with foot ulcer; L97.509 - Non- pressure chronic ulcer of other part of unspecified foot with unspecified severity Status: Acute (6) A-fib ICD Codes: I48.91 - Unspecified atrial fibrillation Status: Chronic Assessment and Plan 1) Post cath s/p BRIAN to distal RCA (2.5x18) Chest pain relieved with his pain meds Discussed with his nurse over the phone in the afternoon, no further chest pain Con't ASA/Plavix 2) Left foot abscess Presented with sepsis felt to be due to his left foot cellulitis Debridement per podiatry If stable in the morning, may proceed to surgery, if concern please call 3) Atrial fibrillation Mostly controlled Will need to consider anti-coagulation after debridement Most likely ASA/Plavix/Eliquis Patient understands this is off-label, but unable to take Coumadin as he can not get out to get his INR checked regularly Problem Qualifiers (1) Diabetic foot ulcer: Qualified Codes: E08.621 - Diabetes mellitus due to underlying condition with foot ulcer; L97.529 - Non-pressure chronic ulcer of other part of left foot with unspecified severity (2) A-fib: Qualified Codes: I48.91 - Unspecified atrial fibrillation Marin Perez DO Nov 16, 2016 19:40
[2016-11-16] MEDS: traZODone HCL 50 MG TAB PO SCH (22:21)
[2016-11-16] MEDS: ATORVASTATIN 40 MG TAB PO SCH (22:21)
[2016-11-16] MEDS: INSULIN DETEMIR 100 UNITS/ML VIAL SQ SCH (22:36)
[2016-11-17] VITALS (24 sets, daily range): BP systolic 117–164; BP diastolic 71–93; PULSE 41–128; RESP 16–18; TEMP 97.3–99.2; O2SAT 93–99
[2016-11-17] MEDS: VANCOMYCIN INJ 1,500 MG in SODIUM CHLORID 0.9% 500 ML INJ 500 ML IV SCH ×2 (03:39→15:00)
[2016-11-17] MEDS: ACETAMINOPHEN/HYDROcodone 325 MG/7.5 MG TAB PO PRN ×2 (04:42→21:41)
[2016-11-17 06:29] LABS: BASOPHIL # 0.1 TH/MM3 (0-0.2); BASOPHIL % 0.9 % (0.0-2.0); EOSINOPHIL # 0.2 TH/MM3 (0-0.4); EOSINOPHIL % 2.2 % (0.0-4.0); HEMATOCRIT 30.4 % (39.0-51.0); HEMO FLAGS DIFF FINAL; LYMPH % 8.2 % (9.0-44.0); LYMPHOCYTE # 0.7 TH/MM3 (1.0-4.8); MEAN CELL VOLUME 82.8 FL (80.0-100.0); MEAN CORPUSCULAR HGB CONC 32.6 % (32.0-36.0); MONO % 12.2 % (0.0-8.0); NEUT % 76.5 % (16.0-70.0); PLATELET COUNT 224 TH/MM3 (150-450); RED BLOOD COUNT 3.68 MIL/MM3 (4.50-5.90); RED CELL DISTRIBUTION WIDTH 15.3 % (11.6-17.2); WHITE BLOOD COUNT 9.1 TH/MM3 (4.0-11.0)
[2016-11-17 06:47] LABS: BICARBONATE 29.2 MEQ/L (21.0-32.0)
[2016-11-17] MEDS: INSULIN ASPART SUPPLEMENTAL SCALE SQ SCH ×4 (07:00→21:00)
[2016-11-17] MEDS: ISOSORBIDE MONONITRATE 30 MG TAB PO SCH ×2 (07:00→10:30)
[2016-11-17] MEDS: PIPERACIL-TAZO 4.5 GM PREMIX 100 ML IV SCH ×3 (08:00→16:00)
[2016-11-17] MEDS: INSULIN ASPART 1,000 UNITS/10 ML VIAL SQ SCH ×3 (08:00→17:00)
[2016-11-17] MEDS: RESP: ALBUTEROL 2.5 MG/IPRATROPIUM 0.5 MG NEB (SCH) NEB ×4 (08:35→20:06)
--- NOTE | 2016-11-17 08:56 | MB ---
cc: MARIN ASIF DO DATE OF CONSULTATION November 16, 2016 REASON FOR CONSULTATION Consideration of cardiac catheterization. HISTORY OF PRESENT ILLNESS Jose Alberto Rowland is a pleasant 61-year-old male who originally presented to [facility] in [place] on November 14, 2016, due to a left foot infection as well as left-sided chest pain. He states that the chest pain is localized to the left side and sharp in nature. He denies nausea, vomiting or shortness of breath with the episode. He also notes that he has had a blister on his left foot for two months. This started to dry out but then two weeks ago he started noticing a hole in his left foot and it has become more erythematous and edematous. He has also had fevers and chills for the past two weeks. During his workup troponins were checked and they were elevated at 0.12. He was seen by my partner, Dr. Hernadez for preoperative evaluation before undergoing left foot debridement by Podiatry. Although his chest pain does sound atypical, there was a concern as this chest pain was similar to his previous episode where he needed to be stented in February of 2016. Because of this, he was recommended cardiac catheterization. In seeing him this morning he denies chest pain, shortness of breath or palpitations. PAST MEDICAL HISTORY 1. Diabetes mellitus. 2. Peripheral vascular disease. 3. Coronary artery disease. 4. Atrial fibrillation. 5. Diabetes mellitus. 6. Hypertension. 7. Hyperlipidemia. PAST SURGICAL HISTORY 1. Cardiac catheterization (March 15, 2016) status post bare metal stent (4 x 30) for in-stent restenosis of RCA, status post bare metal stent (2.25 x 18) to first diagonal. 2. Rechanneling of the right SFA using orbital atherectomy and balloon angioplasty (June 12, 2016). 3. Right great toe partial amputation. ALLERGIES BEE VENOM PROTEIN. MEDICATIONS 1. Combivent 4 times a day. 2. Albuterol 2 puffs every 4 hours as needed for shortness of breath. 3. Flomax 0.8 mg daily. 4. Plavix 75 mg daily. 5. Digoxin 0.25 mg daily 6. Fenofibrate 48 mg daily. 7. Lipitor 80 mg every night. 8. Imdur 30 mg daily. 9. Toprol XL 50 mg daily. 10. Norvasc 2.5 mg daily. 11. Lisinopril 40 mg daily. 12. Oxycodone/acetaminophen 7.5/325 mg every 8 hours as needed for pain. 13. Gabapentin 600 mg b.i.d. 14. Bupropion 150 mg b.i.d. 15. Trazodone 50 mg every night. 16. Symbicort every 12 hours. 17. Esomeprazole 20 mg daily. 18. Levemir 30 units b.i.d. 19. Finasteride 5 mg daily. FAMILY HISTORY Denies premature coronary artery disease or sudden cardiac within the family. SOCIAL HISTORY The patient continues to smoke 1/4 to 1/2 pack a week. Denies alcohol or drug abuse. REVIEW OF SYSTEMS 14-systems were reviewed including osteopathic pertinent positives and negatives above, otherwise negative. PHYSICAL EXAMINATION VITAL SIGNS: Temperature 97.9, heart rate 110, blood pressure 125/66, respirations 20, pulse ox 97% on 2 liters. IN GENERAL: The patient appears well, in no acute distress, alert, awake and oriented x 3. Extraocular muscles intact. Mucous membranes moist. NECK: Supple. No JVD at 45 degrees. No carotid bruits heard bilaterally. Carotid upstrokes brisk in nature. HEART: Irregularly irregular. Positive first and second heart sounds with no murmurs, gallops or rubs. LUNGS: Relatively clear to auscultation bilaterally. No wheezes, rales or rhonchi. ABDOMEN: Soft, non-tender, non-distended. No organomegaly noted. EXTREMITIES: Right great toe status post partial amputation. Left foot has a large necrotic lesion. Left lower extremity with 1+ pitting edema. NEUROLOGICALLY: No focal deficits. SKIN: Warm, dry and intact. OSTEOPATHIC EXAM: No kyphoscoliosis, lordosis or paraspinal tender points. LABORATORY FINDINGS Hemoglobin 11.1, hematocrit 34.6, platelets 213. Potassium 4.2, BUN 13, creatinine 0.6. Troponin 0.12 decreasing to 0.1. ELECTROCARDIOGRAM (November 15, 2016 12:27) Atrial fibrillation with controlled ventricular response, left axis deviation, incomplete right bundle branch block, possible old septal infarction. IMPRESSION 1. Chest pain concerning for coronary insufficiency. 2. Mildly elevated troponin. 3. History of coronary artery disease status post PCI of his RCA and diagonal with bare metal stents as above. 4. Sepsis due to a diabetic foot infection. 5. Atrial fibrillation. 6. Diabetic left foot infection. 7. Hypertension. 8. BPH. RECOMMENDATIONS 1. Mr. Rowland needs to undergo debridement of his left foot as this has brought him in with sepsis. There is a concern due to his chest pain and elevated troponin and because of this I agree with Dr. Hernadez that he should undergo cardiac catheterization. 2. He will continue on aspirin, Plavix, beta sheree therapy. 3. We will attempt to control his atrial fibrillation as best we can. 4. Post surgical debridement, we will have to discuss with him about anticoagulation as well as his antiplatelet medications. 5. Further recommendations will be made after cardiac catheterization. Thank you for allowing me to see Ed Janett. If there are any questions, please do not hesitate to call. Marin Asif DO VGP/SSB /7:52 PM /8:13 AM
[2016-11-17] MEDS: METOPROLOL TARTRATE 50 MG TAB PO SCH ×2 (09:00→21:37)
[2016-11-17] MEDS: DIGOXIN 0.25 MG TAB PO SCH (09:00)
[2016-11-17] MEDS: TAMSULOSIN HCL 0.4 MG CAP PO SCH ×2 (09:00→10:35)
[2016-11-17] MEDS: CLOPIDOGREL 75 MG TAB PO SCH (09:00)
[2016-11-17] MEDS: GABAPENTIN 300 MG CAP PO SCH ×4 (09:00→21:38)
[2016-11-17] MEDS: ASPIRIN 81 MG CHEW TAB PO SCH ×3 (09:00→11:50)
[2016-11-17] MEDS: PANTOPRAZOLE SOD 20 MG DELAYED RELEASE TAB PO SCH ×2 (09:00→10:34)
[2016-11-17] MEDS: DOCUSATE SODIUM 50 MG/SENNA 8.6 MG TAB PO SCH ×3 (09:00→11:50)
[2016-11-17] MEDS: LISINOPRIL 20 MG TAB PO SCH ×2 (09:00→10:35)
[2016-11-17] MEDS: FINASTERIDE 5 MG TAB PO SCH ×3 (09:00→11:50)
[2016-11-17] MEDS ORDERED: LIDOCAINE HCL 1% 20 ML VIAL NERV BLOCK ONE (09:20)
[2016-11-17] MEDS ORDERED: ROPIVACAINE 0.5% PF INJ 30 ML VIAL NERV BLOCK ONE (09:20)
--- NOTE | 2016-11-17 10:14 | HHI.PR ---
Subjective Remarks Pt states he feels tired and would like to sleep. Pain controlled. No chest pain , SOB the same and not worsened, no nausea or vomiting. Expecting to go to OR around 12:30 today for debridement. Objective Vitals Vital Signs Date Time Temp Pulse Resp B/P (MAP) Pulse Ox O2 Delivery O2 Flow Rate FiO2 11/17/16 09:00 44 11/17/16 08:37 94 Nasal Cannula 2.00 11/17/16 08:00 98.3 102 16 127/89 (102) 11/17/16 08:00 41 11/17/16 07:00 105 11/17/16 06:00 106 11/17/16 05:50 16 11/17/16 05:00 98 11/17/16 04:00 99.2 100 16 128/71 (90) 97 11/17/16 04:00 94 11/17/16 03:00 100 11/17/16 03:00 97 Nasal Cannula 2.00 11/17/16 02:00 106 11/17/16 01:00 114 11/17/16 00:00 99.0 96 18 117/76 (90) 96 11/17/16 00:00 114 11/16/16 23:00 116 11/16/16 23:00 96 Nasal Cannula 2.00 11/16/16 23:00 16 11/16/16 22:00 108 11/16/16 21:00 102 11/16/16 20:00 98.9 113 18 123/79 (94) 97 11/16/16 20:00 108 11/16/16 19:00 102 11/16/16 19:00 97 Nasal Cannula 2.00 11/16/16 18:00 110 11/16/16 17:00 92 11/16/16 16:06 93 Nasal Cannula 2.00 11/16/16 16:00 102 20 112/76 (88) 96 11/16/16 16:00 97 11/16/16 15:00 100 11/16/16 14:00 92 11/16/16 13:00 99 11/16/16 12:15 91 20 121/71 (88) 97 11/16/16 12:00 90 I/O 11/16/16 11/16/16 11/16/16 11/17/16 11/17/16 11/17/16 06:59 14:59 22:59 06:59 14:59 22:59 Intake Total 1133 ml 1520 ml 1030 ml Output Total 1550 ml 800 ml 800 ml Balance -417 ml 720 ml 230 ml Intake Oral 480 ml 720 ml 480 ml IV Total 653 ml 800 ml 550 ml Output Urine Total 1550 ml 800 ml 800 ml # Bowel Movements 0 1 Result Diagram: 11/17/16 0542 11/17/16 0542 Imaging Last Impressions Foot MRI 11/15/16 0000 Signed Impressions: Service Date/Time: Tuesday, November 15, 2016 11:28 - CONCLUSION: Ulceration but does not extend to the bone. There is no defined abscess. Extensive edema is evident. Previous CTA runoff had shown more disease on the right than the left. Christiano Robertson MD FACR Chest X-Ray 11/14/16 1554 Signed Impressions: Service Date/Time: Monday, November 14, 2016 16:12 - CONCLUSION: No acute disease. No significant change has occurred. Gregorio Patiño MD Foot X-Ray 11/14/16 0000 Signed Impressions: Service Date/Time: Monday, November 14, 2016 16:11 - CONCLUSION: Soft tissue swelling dorsally. Otherwise negative Gregorio Patiño MD Objective Remarks GENERAL: Alert, oriented 3, NAD. SKIN: Warm and very dry. HEAD: Normocephalic. EYES: EOMI NECK: trachea midline. CARDIOVASCULAR: Irregularly irregular without murmurs RESPIRATORY: Breath sounds equal bilaterally. No accessory muscle use. Mild expiratory wheeze noted GASTROINTESTINAL: Abdomen soft, non-tender, nondistended. MUSCULOSKELETAL: Left foot wrapped. ulcer noted on left great toe Procedures cardiac cath s/p BRIAN to distal RCA (2.5x18) A/P Problem List: (1) NSTEMI (non-ST elevated myocardial infarction) ICD Code: I21.4 - Non-ST elevation (NSTEMI) myocardial infarction Status: Acute (2) Diabetic foot ulcer ICD Code: E11.621 - Type 2 diabetes mellitus with foot ulcer; L97.509 - Non- pressure chronic ulcer of other part of unspecified foot with unspecified severity Status: Acute (3) Peripheral vascular disease in diabetes mellitus ICD Code: E11.51 - Type 2 diabetes mellitus with diabetic peripheral angiopathy without gangrene Status: Chronic (4) Urinary retention ICD Code: R33.9 - Retention of urine, unspecified Status: Chronic (5) A-fib ICD Code: I48.91 - Unspecified atrial fibrillation Status: Chronic Assessment and Plan Mr. Rowland is a pleasant 61-year-old with a history of coronary artery disease status post stent placement in February 2016, diabetes mellitus, PVD, urinary retention who presents to the emergency department due to sharp left-sided chest pain as well as left foot infection - Sepsis - due to diabetic foot infection. On arrival temperature 101.1F pulse 124 respiration 22, WBC 13.4 - Diabetic foot infection of the left foot. - wound grew staph aureus and enterococcus faecalis. - Continue empiric coverage with vancomycin, pharmacy to dose and Zosyn 4.5 g every 8 hours. - Podiatry following. MRI did not show any evidence of osteomyelitis. Pt going for debridement later today. - continue pain control with [place] when necessary, acetaminophen when necessary, Dilaudid IV for breakthrough. - NSTEMI - possibly type 2. - Coronary artery disease status post stent placement in February 2016. - s/p cardiac cath s/p BRIAN to distal RCA (2.5x18) - Continue aspirin, Plavix, statin. Continue beta sheree, lisinopril 40 mg , Imdur. Discussed the case w Dr. Perez and pt will go on Impinj once all procedures completed. - Atrial fibrillation with rapid ventricular response - on metoprolol tartrate 50 mg every 12 hours. Continue digoxin 0.25 mg daily - [id number] score 3 (DM, PVD, HTN). - After any podiatry surgical intervention with can consider apixaban 5 mg twice a day. - continue aspirin and Plavix - Patient does not have any significant bleeding history. - Diabetes mellitus - Diabetic neuropathy - Levemir 18 units QHS and sliding scale insulin. Also include meal coverage with aspart 6 units 3 times a day before meals. - Continue Gabapentin 600mg BID. - Hypertension - Continue Amlodipine 2.5mg Qday, Lisinopril 40mg Qday. Consider increasing Amlodipine if BP remains elevated. - BPH - Continue Tamsulin 0.4mg Qday, finasteride 5 mg daily - GERD - continue PPI. Discharge Planning going to OR later today for debridement. Problem Qualifiers (1) Diabetic foot ulcer: Qualified Codes: E08.621 - Diabetes mellitus due to underlying condition with foot ulcer; L97.529 - Non-pressure chronic ulcer of other part of left foot with unspecified severity (2) A-fib: Qualified Codes: I48.91 - Unspecified atrial fibrillation Birgit Li MD Nov 17, 2016 10:14
--- NOTE | 2016-11-17 10:18 | MA ---
cc: MARIN ASIF DO DATE: November 16, 2016 PROCEDURE Left heart catheterization, coronary angiogram, complex case, Resolute drug-eluting stent (2.5 x 18) from the right coronary artery into the posterior descending artery, moderate sedation 80 minutes PREPROCEDURE DIAGNOSIS End STEMI, coronary artery disease, chest pain ([place] anginal score 3) POSTPROCEDURE DIAGNOSIS Coronary artery disease status post Resolute drug-eluting stent (2.5 x 18) from the Right coronary artery into the posterior descending artery. MEDICATIONS 1. Versed 0.5 mg. 2. Fentanyl 50 mcg. 3. Heparin 11,600 units. 4. Verapamil 2.5 mg 5. Nitro 200 mcg. CONTRAST 140 cc. FLUOROSCOPY: Fluoroscopy 24.6 minutes SEDATION: Moderate sedation 80 minutes PROCEDURAL STUDY: Jose Alberto Rowland is a pleasant 61-year-old male who originally presented to [facility] emergency room due to the left foot wound with fevers and chills as well as chest pain. During his workup he was found to have an elevated troponin. They planned to take him for debridement but as for cardiac evaluation preoperatively. Because of his recent history of coronary artery disease, chest pain and elevated troponin it was felt necessary that he should undergo cardiac catheterization preoperatively. Risks, benefits and alternatives were explained to him he consented as such. Right radial artery was accessed using a modified Seldinger technique and placement of a 5/6 [place] slender sheath. This was easily aspirated and flushed. The JR-3.5 was advanced over a J-wire to the ascending aorta and across the aortic valve for measurement of left ventricular pressures. This was pulled back across the aortic valve showing no significant gradient of aortic stenosis. JR-3.5 was then used for selective angiography of the right coronary system. This was exchanged out for a JL-3.5 which was used for selective angiography of the left coronary system. Please see interventional notes below. Postprocedure, the radial band was placed across the arteriotomy site for hemostasis. Reverse bar robert which is the ARBEAU was done to make sure there was patent hemostasis. 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 FINDINGS Left main, overall short vessel with no significant disease and adequate reflux. It trifurcates into an left anterior descending ramus and circumflex. Left anterior descending, normal-size vessel with mild luminal irregularities throughout. It gives off one major diagonal with that is patent with 10% in-stent restenosis. Ramus normal-size vessel with 40% ostial stenosis. In no significant disease throughout. Left circumflex normal size vessel. AV groove circumflex has an ostial 30% lesion that is overall small vessel. It gives off one major obtuse marginal which is a large vessel with no significant disease. Right coronary artery, a normal-size vessel with multiple stents throughout the midportion with two areas of 40-50% in-stent restenosis in the midportion. At the distal end of the right coronary artery before the bifurcation into a posterior descending artery and PLV, there is an 80% stenosis. The PLV appears to have a 30% stenosis in the midportion. Left ventricular end-diastolic pressure 9. Intervention: Because of the significant stenosis at the distal portion of the right coronary artery. It was felt that this needed to be intervened on. An AR Mod guide was used but did not allow for adequate support so this was changed out for a AL 0.75 guide. A long BMW wire was advanced down the posterior descending artery. A long [place] wire was advanced down the posterior lateral branch. A compliant balloon (2.5 x 12) was then used to pre dilate the lesion. A Resolute drug-eluting stent (2.5, 18) was then placed across the lesion as well as across the bifurcation as it was not felt that the stent could be landed before the bifurcation as it appears there is disease in the ostium of the posterior descending artery. It was inflated to normal pressure. The [place] wire was pulled back from the posterior lateral branch and rewired through the stent. A noncompliant balloon (2.5 x 8) was then used to post dilate the stent. Final angiogram shows a well opposed stent with no perforations or dissection and no impingement on the posterior lateral branch. Both wires were removed. Guide was removed over a J-wire. IMPRESSION 1. Chest pain somewhat atypical for coronary insufficiency although the patient relates this to his previous times when he needed interventions on his coronary arteries. 2. Coronary artery disease as above with recent intervention (February 2016) on his diagonal and RCA. 3. NSTEMI status post Resolute drug-eluting stent (2.5 x 18) from the Right coronary artery into the posterior descending artery for provisional stenting of the bifurcation. 4. Diabetic foot ulcer for which the patient is septic. RECOMMENDATIONS 1. Mr. Rowland underwent stenting of his distal right coronary artery into the posterior descending artery. A drug-eluting stent was chosen as he recently had stents placed in his diagonal and right coronary artery and it appears that his RCA BMS has some restenosis of up to 50% in the midportion. 2. He will continue on aspirin and Plavix therapy. 3. If he is stable in the morning he may go for debridement with podiatry but he needs to continue after aspirin and Plavix no matter what. 4. After debridement consideration will be made for placing him on possibly an anticoagulant for his atrial fibrillation. The patient does not believe he would be able to take Coumadin as he is unable to get out of the house to get his INRs checked and so he may have to go on the off label use of aspirin, Plavix and Eliquis with a plan to drop the aspirin after one month. 5. This will be further decided based on his hospital course. Thank you for allowing me to see Jose Alberto Rowland. If there are any questions please due not hesitate to call. Marin Asif DO NIRMAL/elizabeth /9:44 PM /9:25 AM LORE
[2016-11-17] MEDS: SODIUM CHLORIDE 0.9% FLUSH 10 ML FLUSH IV FLUSH SCH ×2 (10:30→21:43)
[2016-11-17] MEDS: BUDESONIDE-FORMOTEROL 80/4.5 MCG INHALER INH SCH ×2 (10:31→21:36)
[2016-11-17] MEDS: HEPARIN SODIUM - SQ 10,000 UNITS/ML VIAL SQ SCH ×2 (10:34→17:00)
--- NOTE | 2016-11-17 11:54 | PD.CARD.PN ---
Subjective Subjective Remarks No events overnight Bilaterally leg pain No further chest pain Objective Medications Current Medications Medications (Trade) Dose Ordered Sig/Kurt Route Start Time Stop Time Status Last Admin (NS Flush) 2 ml UNSCH PRN IV FLUSH 11/14/16 17:15 (NS Flush) 2 ml BID IV FLUSH 11/14/16 21:00 11/17/16 10:30 (Tylenol) 650 mg Q4H PRN PO 11/14/16 17:15 (Zofran Inj) 4 mg Q6H PRN IVP 11/14/16 17:15 (Narcan Inj) 0.4 mg UNSCH PRN IV 11/14/16 17:15 (Aundrea-Colace) 1 tab BID PO 11/14/16 21:00 11/16/16 22:21 (Milk Of Magnesia Liq) 30 ml Q12H PRN PO 11/14/16 17:15 (Senokot) 17.2 mg Q12H PRN PO 11/14/16 17:15 (Dulcolax Supp) 10 mg DAILY PRN RECTAL 11/14/16 17:15 (Lactulose Liq) 30 ml DAILY PRN PO 11/14/16 17:15 (Proair Hfa Inh) 2 puff Q4H PRN INH 11/14/16 18:45 11/15/16 09:04 (Duoneb Neb) 1 ampule Q4HR WHILE AWAKE NEB NEB 11/14/16 20:00 11/17/16 08:35 (Westley 7.5-325 Mg) 1 tab Q6H PRN PO 11/14/16 18:45 11/17/16 04:42 (Dilaudid Pf Inj) 1 mg Q4H PRN IV PUSH 11/14/16 18:45 11/16/16 22:22 (Lipitor) 80 mg HS PO 11/14/16 21:00 11/16/16 22:21 (Symbicort 80-4.5 Mcg Inh) 1 puff Q12HR INH 11/14/16 21:00 11/17/16 10:31 (Plavix) 75 mg DAILY PO 11/15/16 09:00 11/16/16 08:36 (Proscar) 5 mg DAILY PO 11/15/16 09:00 11/16/16 08:36 (Neurontin) 600 mg BID PO 11/14/16 21:00 11/16/16 22:22 (Imdur) 30 mg DAILY@0700 PO 11/15/16 07:00 11/16/16 05:08 (Flomax) 0.8 mg DAILY PO 11/15/16 09:00 11/16/16 08:36 (Desyrel) 50 mg HS PO 11/14/16 21:00 11/16/16 22:21 (Protonix) 20 mg DAILY PO 11/15/16 09:00 11/16/16 08:43 Pharmacy Profile Note 0 ml @ 0 mls/hr UNSCH OTHER 11/14/16 19:00 Piperacillin Sod/ Tazobactam Sod 100 ml @ 200 mls/hr Q8H IV 11/15/16 00:00 11/17/16 08:00 (Pill Splitter) 1 ea UNSCH PRN OTHER 11/14/16 19:15 Vancomycin HCl 1500 mg/Sodium Chloride 515 ml @ 250 mls/hr Q12H IV 11/15/16 01:00 11/17/16 03:39 (Lopressor) 50 mg Q12HR PO 11/14/16 21:00 11/16/16 22:21 (D50w (Vial) Inj) 50 ml UNSCH PRN IV 11/14/16 19:15 (Glucagon Inj) 1 mg UNSCH PRN OTHER 11/14/16 19:15 (NovoLOG SUPPLEMENTAL SCALE) 1 ACHS SLIDING SCALE SQ 11/14/16 21:00 11/16/16 21:00 (NovoLOG INJ) 6 units TIDAC SQ 11/15/16 08:00 11/15/16 12:40 (Prinivil) 40 mg DAILY PO 11/15/16 09:00 11/16/16 08:49 (Duoneb Neb) 1 ampule Q2HR NEB PRN NEB 11/15/16 01:00 11/15/16 03:36 (Lanoxin) 0.25 mg DAILY PO 11/16/16 09:00 11/16/16 08:36 (Aspirin Chew) 81 mg DAILY PO 11/17/16 09:00 (Heparin Inj) 5,000 units Q8H SQ 11/17/16 09:00 11/17/16 10:34 (Levemir Inj) 18 units HS SQ 11/16/16 21:00 8/31/17 22:36 Vital Signs / I&O Vital Signs Date Time Temp Pulse Resp B/P (MAP) Pulse Ox O2 Delivery O2 Flow Rate FiO2 11/17/16 10:00 42 11/17/16 09:00 44 11/17/16 08:37 94 Nasal Cannula 2.00 11/17/16 08:00 98.3 102 16 127/89 (102) 11/17/16 08:00 41 11/17/16 07:00 105 11/17/16 06:00 106 11/17/16 05:50 16 11/17/16 05:00 98 11/17/16 04:00 99.2 100 16 128/71 (90) 97 11/17/16 04:00 94 11/17/16 03:00 100 11/17/16 03:00 97 Nasal Cannula 2.00 11/17/16 02:00 106 11/17/16 01:00 114 11/17/16 00:00 99.0 96 18 117/76 (90) 96 11/17/16 00:00 114 11/16/16 23:00 116 11/16/16 23:00 96 Nasal Cannula 2.00 11/16/16 23:00 16 11/16/16 22:00 108 11/16/16 21:00 102 11/16/16 20:00 98.9 113 18 123/79 (94) 97 11/16/16 20:00 108 11/16/16 19:00 102 11/16/16 19:00 97 Nasal Cannula 2.00 11/16/16 18:00 110 11/16/16 17:00 92 11/16/16 16:06 93 Nasal Cannula 2.00 11/16/16 16:00 102 20 112/76 (88) 96 11/16/16 16:00 97 11/16/16 15:00 100 11/16/16 14:00 92 11/16/16 13:00 99 11/16/16 12:15 91 20 121/71 (88) 97 11/16/16 12:00 90 I/O 11/16/16 11/16/16 11/16/16 11/17/16 11/17/16 11/17/16 07:00 15:00 23:00 07:00 15:00 23:00 Intake Total 1133 ml 1520 ml 1030 ml Output Total 1550 ml 800 ml 800 ml Balance -417 ml 720 ml 230 ml Intake Oral 480 ml 720 ml 480 ml IV Total 653 ml 800 ml 550 ml Output Urine Total 1550 ml 800 ml 800 ml # Bowel Movements 0 1 Physical Exam GENERAL: NAD, AAOx3 SKIN: Warm and dry. HEAD: Atraumatic. Normocephalic. EYES: Pupils equal and round. No scleral icterus. No injection or drainage. ENT: No nasal bleeding or discharge. Mucous membranes pink and moist. NECK: Trachea midline. No JVD. CARDIOVASCULAR: Irregularly irregular RESPIRATORY: No accessory muscle use. Clear to auscultation. Breath sounds equal bilaterally. GASTROINTESTINAL: Abdomen soft, non-tender, nondistended. Hepatic and splenic margins not palpable. MUSCULOSKELETAL: Left lower extremity with bandage. Right radial no hematoma, neurovascularly intact distally NEUROLOGICAL: Awake and alert. No obvious cranial nerve deficits. Motor grossly within normal limits. Five out of 5 muscle strength in the arms and legs. Normal speech. PSYCHIATRIC: Appropriate mood and affect; insight and judgment normal. Laboratory Laboratory Tests Test 11/16/16 15:20 11/17/16 05:42 Vancomycin Level Trough 9.4 MCG/ML White Blood Count 9.1 TH/MM3 Red Blood Count 3.68 MIL/MM3 Hemoglobin 9.9 GM/DL Hematocrit 30.4 % Mean Corpuscular Volume 82.8 FL Mean Corpuscular Hemoglobin 27.0 PG Mean Corpuscular Hemoglobin Concent 32.6 % Red Cell Distribution Width 15.3 % Platelet Count 224 TH/MM3 Mean Platelet Volume 8.5 FL Neutrophils (%) (Auto) 76.5 % Lymphocytes (%) (Auto) 8.2 % Monocytes (%) (Auto) 12.2 % Eosinophils (%) (Auto) 2.2 % Basophils (%) (Auto) 0.9 % Neutrophils # (Auto) 7.0 TH/MM3 Lymphocytes # (Auto) 0.7 TH/MM3 Monocytes # (Auto) 1.1 TH/MM3 Eosinophils # (Auto) 0.2 TH/MM3 Basophils # (Auto) 0.1 TH/MM3 CBC Comment DIFF FINAL Differential Comment Blood Urea Nitrogen 10 MG/DL Creatinine 0.66 MG/DL Random Glucose 177 MG/DL Calcium Level 8.4 MG/DL Sodium Level 138 MEQ/L Potassium Level 4.0 MEQ/L Chloride Level 101 MEQ/L Carbon Dioxide Level 29.2 MEQ/L Anion Gap 8 MEQ/L Estimat Glomerular Filtration Rate 122 ML/MIN Assessment and Plan Problem List: (1) NSTEMI (non-ST elevated myocardial infarction) ICD Codes: I21.4 - Non-ST elevation (NSTEMI) myocardial infarction Status: Acute (2) CAD (coronary artery disease) ICD Codes: I25.10 - Atherosclerotic heart disease of [place] coronary artery without angina pectoris Status: Chronic (3) Peripheral vascular disease in diabetes mellitus ICD Codes: E11.51 - Type 2 diabetes mellitus with diabetic peripheral angiopathy without gangrene Status: Chronic (4) Diabetes mellitus with foot ulcer and gangrene ICD Codes: E11.621 - Type 2 diabetes mellitus with foot ulcer; E11.52 - Type 2 diabetes mellitus with diabetic peripheral angiopathy with gangrene; L97.509 - Non-pressure chronic ulcer of other part of unspecified foot with unspecified severity Status: Acute (5) Diabetic foot ulcer ICD Codes: E11.621 - Type 2 diabetes mellitus with foot ulcer; L97.509 - Non- pressure chronic ulcer of other part of unspecified foot with unspecified severity Status: Acute (6) A-fib ICD Codes: I48.91 - Unspecified atrial fibrillation Status: Chronic Assessment and Plan 1) Post cath s/p BRIAN to distal RCA (2.5x18) Con't ASA/Plavix 2) Left foot abscess Presented with sepsis felt to be due to his left foot cellulitis Debridement per podiatry Appears stable for debridement, prefer popliteal block over general if possible, but understandably needs to have debridement due to the sepsis Must continue on the ASA/Plavix without stopping 3) Atrial fibrillation Mostly controlled Will need to consider anti-coagulation after debridement Most likely ASA/Plavix/Eliquis Patient understands this is off-label, but unable to take Coumadin as he can not get out to get his INR checked regularly Plan to stop ASA 1 month after triple therapy 4) Discussed with Dr. Li about cardiovascular plan If concerns over the weekend, please call covering physician 5) BPH/retained wolfe Patient is waiting for TURP with outpt urologist Should follow up with [facility] for risk assessment, overall he needs to stay on the ASA/Plavix no matter what Problem Qualifiers (1) Diabetic foot ulcer: Qualified Codes: E08.621 - Diabetes mellitus due to underlying condition with foot ulcer; L97.529 - Non-pressure chronic ulcer of other part of left foot with unspecified severity (2) A-fib: Qualified Codes: I48.91 - Unspecified atrial fibrillation Marin Perez DO Nov 17, 2016 11:54
[2016-11-17] MEDS ORDERED: PROPOFOL 200 MG/20 ML AMP IV ONE (12:00)
[2016-11-17] MEDS ORDERED: NORMOSOL R INJ 1,000 ML IV ONE (12:00)
[2016-11-17] MEDS ORDERED: BUPIVACAINE HCL PF 0.25% 30 ML VIAL ONE (12:19)
[2016-11-17] MEDS ORDERED: NEOMYCIN/POLYMYXIN 1 ML G.U. IRRIGANT IRRIGATION ONE (14:04)
[2016-11-17] MEDS ORDERED: DO NOT ADM ANY ANTICOAGULANT DRUGS PRN (14:45)
--- NOTE | 2016-11-17 14:54 | HHI.PR ---
Immediate Post Op Note Procedure Date: Nov 17, 2016 Pre Op Diagnosis: Left foot ulcer abscess, septic joint Post Op Diagnosis: same Surgeon: Akin Echavarria High Rigger(s): scrub Procedure: Left foot incision, drainage, debridement, tibial sesamoid removal, rotational skin closure greater than 2.5cm Findings: puss within joint, ulcer probing directly to sesamoid Complications: none Specimen(s) removed: bone for path- tibial sesamoid, deep wound cx- 1st MPJ for micro Estimated blood loss: less 50 mL Anesthesia: Regional Block Drains: None Patient to: Other Patient Condition: Fair Implant/Devices: SEE IMPLANT LOG (if applicable) Date/Time of Procedure: SEE SURGICAL CARE RECORD Akin Echavarria DPM Nov 17, 2016 14:54
[2016-11-17] MEDS ORDERED: VANCOMYCIN 500 MG VIAL ONE (15:12)
[2016-11-17] MEDS ORDERED: VANCOMYCIN HCL 1000 MG VIAL ONE (15:12)
[2016-11-17] MEDS: HYDROmorphone HCL PF 1 MG/ML VIAL IV PUSH PRN (18:17)
[2016-11-17] MEDS: traZODone HCL 50 MG TAB PO SCH (21:00)
[2016-11-17] MEDS: ATORVASTATIN 40 MG TAB PO SCH (21:37)
[2016-11-17] MEDS: INSULIN DETEMIR 100 UNITS/ML VIAL SQ SCH (21:51)
[2016-11-18] VITALS (28 sets, daily range): BP systolic 120–154; BP diastolic 68–87; PULSE 92–118; RESP 16–20; TEMP 98.1–99.3; O2SAT 94–98
[2016-11-18] MEDS: PIPERACIL-TAZO 4.5 GM PREMIX 100 ML IV SCH ×4 (00:28→23:57)
[2016-11-18] MEDS: HEPARIN SODIUM - SQ 10,000 UNITS/ML VIAL SQ SCH ×4 (00:30→23:57)
[2016-11-18] MEDS: HYDROmorphone HCL PF 1 MG/ML VIAL IV PUSH PRN ×4 (01:24→23:58)
[2016-11-18] MEDS: VANCOMYCIN INJ 1,750 MG in SODIUM CHLORID 0.9% 500 ML INJ 500 ML IV SCH ×2 (04:05→16:01)
[2016-11-18] MEDS: ISOSORBIDE MONONITRATE 30 MG TAB PO SCH (06:31)
[2016-11-18] MEDS: INSULIN ASPART SUPPLEMENTAL SCALE SQ SCH ×4 (06:38→21:00)
[2016-11-18] MEDS: RESP: ALBUTEROL 2.5 MG/IPRATROPIUM 0.5 MG NEB (SCH) NEB ×3 (08:39→16:03)
[2016-11-18] MEDS: ASPIRIN 81 MG CHEW TAB PO SCH ×2 (09:00→09:58)
[2016-11-18] MEDS: TAMSULOSIN HCL 0.4 MG CAP PO SCH ×2 (09:00→09:55)
[2016-11-18] MEDS: METOPROLOL TARTRATE 50 MG TAB PO SCH ×3 (09:00→20:56)
[2016-11-18] MEDS: BUDESONIDE-FORMOTEROL 80/4.5 MCG INHALER INH SCH ×2 (09:54→21:00)
[2016-11-18] MEDS: SODIUM CHLORIDE 0.9% FLUSH 10 ML FLUSH IV FLUSH SCH ×2 (09:54→20:57)
[2016-11-18] MEDS: LISINOPRIL 20 MG TAB PO SCH (09:55)
[2016-11-18] MEDS: PANTOPRAZOLE SOD 20 MG DELAYED RELEASE TAB PO SCH (09:55)
[2016-11-18] MEDS: CLOPIDOGREL 75 MG TAB PO SCH (09:56)
[2016-11-18] MEDS: DIGOXIN 0.25 MG TAB PO SCH (09:57)
[2016-11-18] MEDS: DOCUSATE SODIUM 50 MG/SENNA 8.6 MG TAB PO SCH ×2 (09:58→20:56)
[2016-11-18] MEDS: FINASTERIDE 5 MG TAB PO SCH (09:58)
[2016-11-18] MEDS: GABAPENTIN 300 MG CAP PO SCH ×2 (09:59→20:55)
[2016-11-18] MEDS: INSULIN ASPART 1,000 UNITS/10 ML VIAL SQ SCH ×3 (10:08→16:07)
--- NOTE | 2016-11-18 10:26 | HHI.PR ---
Subjective Remarks Pt is refusing to take his metoprolol. He states that Dr. Perez no longer "works for me". Doesn't want to tell me why he doesn't want Dr. Perez to assist in his care. He states that he has been having suprapubic pain and no one addresses it. Both myself and RN never heard of this complaint and states that he did tell someone two days ago. He is frustrated and wants something to be done, he has burning at catheter site. When asked about his foot, he states that his suprapubic pain is worst 7-8/10. Pt is not very pleasant w staff. Objective Vitals Vital Signs Date Time Temp Pulse Resp B/P (MAP) Pulse Ox O2 Delivery O2 Flow Rate FiO2 11/18/16 08:00 98.6 114 20 137/77 (97) 96 11/18/16 06:00 94 11/18/16 05:00 92 11/18/16 04:00 94 11/18/16 04:00 98.6 98 16 123/72 (89) 96 11/18/16 03:00 96 Room Air 11/18/16 03:00 98 11/18/16 02:07 16 11/18/16 02:00 98 11/18/16 01:00 98 11/18/16 00:00 116 11/18/16 00:00 99.3 104 18 145/82 (103) 98 11/17/16 23:00 98 Nasal Cannula 2.00 11/17/16 23:00 114 11/17/16 22:53 16 11/17/16 22:00 118 11/17/16 21:00 116 11/17/16 20:06 93 Nasal Cannula 2.00 11/17/16 20:00 98.7 117 18 164/93 (116) 99 11/17/16 20:00 118 11/17/16 19:00 99 Nasal Cannula 2.00 11/17/16 19:00 120 11/17/16 18:00 112 11/17/16 17:00 96 11/17/16 16:10 107 11/17/16 16:10 97.3 112 18 127/86 (100) 97 11/17/16 15:30 104 16 102/52 (69) 98 Nasal Cannula 2 11/17/16 15:15 108 16 120/65 (83) 98 Nasal Cannula 2 11/17/16 15:00 112 16 121/56 (77) 98 Nasal Cannula 2 11/17/16 14:45 97.8 106 16 106/63 (77) 100 Nasal Cannula 2 11/17/16 13:05 119 11/17/16 12:00 128 11/17/16 12:00 115 11/17/16 11:00 128 I/O 11/17/16 11/17/16 11/17/16 11/18/16 11/18/16 11/18/16 07:00 15:00 23:00 07:00 15:00 23:00 Intake Total 1030 ml 20 ml 470 ml 1170 ml Output Total 800 ml 10 ml 1300 ml 550 ml Balance 230 ml 10 ml -830 ml 620 ml Intake Oral 480 ml 450 ml 720 ml IV Total 550 ml 20 ml 450 ml Other 20 ml Output Urine Total 800 ml 1300 ml 550 ml Estimated Blood Loss 10 ml # Bowel Movements 1 Result Diagram: 11/17/16 0542 11/17/16 0542 Imaging Last Impressions Foot MRI 11/15/16 0000 Signed Impressions: Service Date/Time: Tuesday, November 15, 2016 11:28 - CONCLUSION: Ulceration but does not extend to the bone. There is no defined abscess. Extensive edema is evident. Previous CTA runoff had shown more disease on the right than the left. Christiano Robertson MD FACR Chest X-Ray 11/14/16 1554 Signed Impressions: Service Date/Time: Monday, November 14, 2016 16:12 - CONCLUSION: No acute disease. No significant change has occurred. Gregorio Patiño MD Foot X-Ray 11/14/16 0000 Signed Impressions: Service Date/Time: Monday, November 14, 2016 16:11 - CONCLUSION: Soft tissue swelling dorsally. Otherwise negative Gregorio Patiño MD Objective Remarks GENERAL: Alert, oriented 3, NAD. SKIN: Warm and very dry. HEAD: Normocephalic. EYES: EOMI NECK: trachea midline. CARDIOVASCULAR: Irregularly irregular without murmurs RESPIRATORY: Breath sounds equal bilaterally. No accessory muscle use. Mild expiratory wheeze noted GASTROINTESTINAL: Abdomen soft, some suprapubic discomfort w deep palpation but no guarding or rebound MUSCULOSKELETAL: Left foot wrapped. Procedures cardiac cath s/p BRIAN to distal RCA (2.5x18) A/P Problem List: (1) NSTEMI (non-ST elevated myocardial infarction) ICD Code: I21.4 - Non-ST elevation (NSTEMI) myocardial infarction Status: Acute (2) Diabetic foot ulcer ICD Code: E11.621 - Type 2 diabetes mellitus with foot ulcer; L97.509 - Non- pressure chronic ulcer of other part of unspecified foot with unspecified severity Status: Acute (3) Peripheral vascular disease in diabetes mellitus ICD Code: E11.51 - Type 2 diabetes mellitus with diabetic peripheral angiopathy without gangrene Status: Chronic (4) Urinary retention ICD Code: R33.9 - Retention of urine, unspecified Status: Chronic (5) A-fib ICD Code: I48.91 - Unspecified atrial fibrillation Status: Chronic Assessment and Plan Mr. Rowland is a pleasant 61-year-old with a history of coronary artery disease status post stent placement in February 2016, diabetes mellitus, PVD, urinary retention who presents to the emergency department due to sharp left-sided chest pain as well as left foot infection - Sepsis - due to diabetic foot infection. On arrival temperature 101.1F pulse 124 respiration 22, WBC 13.4 - Diabetic foot infection of the left foot. - wound grew staph aureus and enterococcus faecalis. - Continue empiric coverage with vancomycin, pharmacy to dose and Zosyn 4.5 g every 8 hours. - Podiatry following. MRI did not show any evidence of osteomyelitis. Pt s/p left foot I&D tibial sesamoid removal, rotational skin closure POD 1 - continue pain control with [place] when necessary, acetaminophen when necessary, Dilaudid IV for breakthrough. - NSTEMI - possibly type 2. - Coronary artery disease status post stent placement in February 2016. - s/p cardiac cath s/p BRIAN to distal RCA (2.5x18) - Continue aspirin, Plavix, statin. Continue beta sheree, lisinopril 40 mg , Imdur. Per cards pt will go on eliquis once all surgical procedures completed. -Pt refusing his metoprolol this morning. Stating Dr. Perez is no longer his physician. Don't explain to me why. Pt being non compliant w medical recs. Monitor HR closely. - Atrial fibrillation with rapid ventricular response - on metoprolol tartrate 50 mg every 12 hours. Continue digoxin 0.25 mg daily. Pt non compliant. - [id number] score 3 (DM, PVD, HTN). - After any podiatry surgical intervention with can consider apixaban 5 mg twice a day. - continue aspirin and Plavix - Patient does not have any significant bleeding history. - Diabetes mellitus - Diabetic neuropathy - Levemir 18 units QHS and sliding scale insulin. Also include meal coverage with aspart 6 units 3 times a day before meals. - Continue Gabapentin 600mg BID. - Hypertension - Continue Amlodipine 2.5mg Qday, Lisinopril 40mg Qday. Consider increasing Amlodipine if BP remains elevated. - BPH - Continue Tamsulin 0.4mg Qday, finasteride 5 mg daily - GERD - continue PPI. Discharge Planning Pt refusing to take dose of BB today. Awaiting final recs from podiatry and clearance to start eliquis Problem Qualifiers (1) Diabetic foot ulcer: Qualified Codes: E08.621 - Diabetes mellitus due to underlying condition with foot ulcer; L97.529 - Non-pressure chronic ulcer of other part of left foot with unspecified severity (2) A-fib: Qualified Codes: I48.91 - Unspecified atrial fibrillation Birgit Li MD Nov 18, 2016 10:26
--- NOTE | 2016-11-18 17:26 | PD.CONS ---
HPI Service Urology Consult Requested By Reason for Consult Bladder spasms secondary to chronic indwelling Melgoza catheter [facility] Diagnosis: (1) NSTEMI (non-ST elevated myocardial infarction) ICD Code: I21.4 - Non-ST elevation (NSTEMI) myocardial infarction (2) Diabetic foot ulcer ICD Code: E11.621 - Type 2 diabetes mellitus with foot ulcer; L97.509 - Non- pressure chronic ulcer of other part of unspecified foot with unspecified severity (3) Peripheral vascular disease in diabetes mellitus ICD Code: E11.51 - Type 2 diabetes mellitus with diabetic peripheral angiopathy without gangrene (4) Urinary retention ICD Code: R33.9 - Retention of urine, unspecified (5) A-fib ICD Code: I48.91 - Unspecified atrial fibrillation History of Present Illness 61 year-old gentleman with history chronic urinary retention and coronary artery disease who was admitted for workup of chest pain. During present hospitalization the patient underwent cardiac catheterization and placement of multiple cardiac stents. With respect to the chronic urinary retention it appears is related to obstructing BPH and patient was told that he would require a TURP. He was seen here at [place] by my associate Dr. Davis last February and was followed over at the [facility] after hospital discharge. Patient expressed frustration with the [facility] system as there was some glitches and scheduled him for the TURP procedure. Presently complains of irritation from the Melgoza catheter and bladder spasms. Review of Systems Constitutional: DENIES: Fever, Chills Cardiovascular: COMPLAINS OF: Chest pain (now resolved) Gastrointestinal: COMPLAINS OF: Abdominal pain (lower abdomen) Genitourinary: DENIES: Hematuria Except as stated in HPI: all other systems reviewed are Neg Past Family Social History Past Medical History Coronary artery disease History atrial fibrillation CHF Hypertension Diabetes BPH COPD Past Surgical History Status post placement of multiple cardiac stents Reported Medications Refer to EMR Allergies: Coded Allergies: bee venom protein (honey bee) (Unverified Allergy, Severe, Anaphylaxis, ) Active Ordered Medications Refer to EMR Family History Reviewed and noncontributory 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, 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 Denies history of alcohol abuse or illicit drug abuse Physical Exam Vital Signs Date Time Temp Pulse Resp B/P (MAP) Pulse Ox O2 Delivery O2 Flow Rate FiO2 11/18/16 15:57 98.1 100 20 120/68 (85) 98 11/18/16 12:00 98.7 110 18 147/70 (95) 98 11/18/16 08:39 95 21 11/18/16 08:00 98.6 114 20 137/77 (97) 96 11/18/16 06:00 94 11/18/16 05:00 92 11/18/16 04:00 94 11/18/16 04:00 98.6 98 16 123/72 (89) 96 11/18/16 03:00 96 Room Air 11/18/16 03:00 98 11/18/16 02:07 16 11/18/16 02:00 98 11/18/16 01:00 98 11/18/16 00:00 116 11/18/16 00:00 99.3 104 18 145/82 (103) 98 11/17/16 23:00 98 Nasal Cannula 2.00 11/17/16 23:00 114 11/17/16 22:53 16 11/17/16 22:00 118 11/17/16 21:00 116 11/17/16 20:06 93 Nasal Cannula 2.00 11/17/16 20:00 98.7 117 18 164/93 (116) 99 11/17/16 20:00 118 11/17/16 19:00 99 Nasal Cannula 2.00 11/17/16 19:00 120 11/17/16 18:00 112 Physical Exam GENERAL: This is a well-nourished, well-developed patient, in no apparent distress. SKIN: No rashes, ecchymoses or lesions. Cool and dry. HEAD: Atraumatic. Normocephalic. No temporal or scalp tenderness. EYES: Pupils equal round and reactive. Extraocular motions intact. No scleral icterus. No injection or drainage. ENT: Nose without bleeding, purulent drainage or septal hematoma. Throat without erythema, tonsillar hypertrophy or exudate. Uvula midline. Airway patent. NECK: Trachea midline. No JVD or lymphadenopathy. Supple, nontender, no meningeal signs. GASTROINTESTINAL: Abdomen soft, non-tender, nondistended. Bladder not distended. GENITOURINARY: Melgoza catheter in place and noted to be under traction from weight of the Melgoza bag. MUSCULOSKELETAL: Partial amputation right great toe. Negative Homans sign bilaterally. NEUROLOGICAL: Awake and alert. Cranial nerves II through XII intact. Motor and sensory grossly within normal limits. Five out of 5 muscle strength in all muscle groups. Normal speech. Lab results reviewed: Yes Date/Time Source Procedure Growth Status 11/14/16 16:05 Blood Peripheral Aerobic Blood Culture - Preliminary NO GROWTH IN 4 DAYS Resulted 11/14/16 16:05 Blood Peripheral Anaerobic Blood Culture - Preliminary NO GROWTH IN 4 DAYS Resulted 11/14/16 16:15 Urine Clean Catch Urine Culture - Final Complete 11/17/16 14:07 Wound Foot Fungal Smear - Final NO FUNGAL ELEMENTS SEEN. Resulted 11/17/16 14:07 Wound Foot Fungal Culture Pending Resulted Result Diagram: 11/17/16 0542 11/17/16 0542 Imaging Last Impressions Foot MRI 11/15/16 0000 Signed Impressions: Service Date/Time: Tuesday, November 15, 2016 11:28 - CONCLUSION: Ulceration but does not extend to the bone. There is no defined abscess. Extensive edema is evident. Previous CTA runoff had shown more disease on the right than the left. Christiano Robertson MD FACR Chest X-Ray 11/14/16 1554 Signed Impressions: Service Date/Time: Monday, November 14, 2016 16:12 - CONCLUSION: No acute disease. No significant change has occurred. Gregorio Patiño MD Foot X-Ray 11/14/16 0000 Signed Impressions: Service Date/Time: Monday, November 14, 2016 16:11 - CONCLUSION: Soft tissue swelling dorsally. Otherwise negative Gregorio Patiño MD Assessment and Plan Assessment and Plan Urologic impression: #1 chronic indwelling Melgoza related to bladder outlet obstruction secondary to BPH #2 Melgoza catheter irritation and bladder spasms related to traction on the Melgoza catheter Recommendations: #1 Velcro leg strap to take tension off of the Melgoza catheter #2 Detrol LA 4 mg by mouth daily to manage bladder spasms #3 change Melgoza catheter out every 3 weeks #4 patient advised to follow up with my associate Dr. Davis after hospital discharge once cleared by cardiology to undergo a TURP procedure (patient states he does not want to have this procedure performed over at the [place]). [phone]. Problem Qualifiers (1) Diabetic foot ulcer: Qualified Codes: E08.621 - Diabetes mellitus due to underlying condition with foot ulcer; L97.529 - Non-pressure chronic ulcer of other part of left foot with unspecified severity (2) A-fib: Qualified Codes: I48.91 - Unspecified atrial fibrillation Amari Lutz MD Nov 18, 2016 17:26
--- NOTE | 2016-11-18 19:11 | HHI.IDPN ---
Subjective Subjective Remarks D X cover for Dr Ferrer chart reviewed 61 yo diabetic male with urinary retention 2 2 BPH and indwelling wolfe since february and L foot DFI Sp L foot surgery yday: Left foot incision, drainage, debridement, tibial sesamoid removal, rotational skin closure greater than 2.5cm puss within joint, ulcer probing directly to sesamoid bone for path- tibial sesamoid, deep wound cx- 1st MPJ for micro clx grew MSSA, Enterocci and a gram neg anaerobic john, beta lac pos along with > =3 MIXED ENTERIC GRAM NEGATIVE RODS WITH NO PREDOMINANT ORGANISM. Antibiotics zosyn vanco Allergies: Coded Allergies: bee venom protein (honey bee) (Unverified Allergy, Severe, Anaphylaxis, ) Objective . Vital Signs Date Time Temp Pulse Resp B/P (MAP) Pulse Ox O2 Delivery O2 Flow Rate FiO2 11/18/16 15:57 98.1 100 20 120/68 (85) 98 11/18/16 12:00 98.7 110 18 147/70 (95) 98 11/18/16 11:00 98 Room Air 11/18/16 08:39 95 21 11/18/16 08:00 98 Room Air 11/18/16 08:00 98.6 114 20 137/77 (97) 96 11/18/16 07:00 96 11/18/16 06:00 94 11/18/16 05:00 92 11/18/16 04:00 94 11/18/16 04:00 98.6 98 16 123/72 (89) 96 11/18/16 03:00 96 Room Air 11/18/16 03:00 98 11/18/16 02:07 16 11/18/16 02:00 98 11/18/16 01:00 98 11/18/16 00:00 116 11/18/16 00:00 99.3 104 18 145/82 (103) 98 11/17/16 23:00 98 Nasal Cannula 2.00 11/17/16 23:00 114 11/17/16 22:53 16 11/17/16 22:00 118 11/17/16 21:00 116 11/17/16 20:06 93 Nasal Cannula 2.00 11/17/16 20:00 98.7 117 18 164/93 (116) 99 11/17/16 20:00 118 11/18/16 11/18/16 11/19/16 15:00 23:00 07:00 Intake Total 1320 ml Output Total 1000 ml Balance 320 ml Intake Oral 720 ml IV Total 600 ml Output Urine Total 1000 ml . Laboratory Tests Test 11/17/16 05:42 White Blood Count 9.1 TH/MM3 Red Blood Count 3.68 MIL/MM3 Hemoglobin 9.9 GM/DL Hematocrit 30.4 % Mean Corpuscular Volume 82.8 FL Mean Corpuscular Hemoglobin 27.0 PG Mean Corpuscular Hemoglobin Concent 32.6 % Red Cell Distribution Width 15.3 % Platelet Count 224 TH/MM3 Mean Platelet Volume 8.5 FL Neutrophils (%) (Auto) 76.5 % Lymphocytes (%) (Auto) 8.2 % Monocytes (%) (Auto) 12.2 % Eosinophils (%) (Auto) 2.2 % Basophils (%) (Auto) 0.9 % Neutrophils # (Auto) 7.0 TH/MM3 Lymphocytes # (Auto) 0.7 TH/MM3 Monocytes # (Auto) 1.1 TH/MM3 Eosinophils # (Auto) 0.2 TH/MM3 Basophils # (Auto) 0.1 TH/MM3 CBC Comment DIFF FINAL Differential Comment Laboratory Tests Test 11/17/16 05:42 Blood Urea Nitrogen 10 MG/DL Creatinine 0.66 MG/DL Random Glucose 177 MG/DL Calcium Level 8.4 MG/DL Sodium Level 138 MEQ/L Potassium Level 4.0 MEQ/L Chloride Level 101 MEQ/L Carbon Dioxide Level 29.2 MEQ/L Anion Gap 8 MEQ/L Estimat Glomerular Filtration Rate 122 ML/MIN Microbiology Date/Time Source Procedure Growth Status 11/17/16 14:07 Wound Foot Fungal Smear - Final NO FUNGAL ELEMENTS SEEN. Resulted 11/17/16 14:07 Wound Foot Fungal Culture Pending Resulted 11/17/16 14:07 Wound Foot Acid Fast Stain Pending Received 11/17/16 14:07 Wound Foot Mycobacterial Culture Pending Received 11/17/16 14:07 Wound Foot Gram Stain - Final Resulted 11/17/16 14:07 Wound Foot Wound Culture - Preliminary NO GROWTH IN 24 HOURS. Resulted Imaging Last Impressions Foot MRI 11/15/16 0000 Signed Impressions: Service Date/Time: Tuesday, November 15, 2016 11:28 - CONCLUSION: Ulceration but does not extend to the bone. There is no defined abscess. Extensive edema is evident. Previous CTA runoff had shown more disease on the right than the left. Christiano Robertson MD FACR Chest X-Ray 11/14/16 1554 Signed Impressions: Service Date/Time: Monday, November 14, 2016 16:12 - CONCLUSION: No acute disease. No significant change has occurred. Gregorio Patiño MD Foot X-Ray 11/14/16 0000 Signed Impressions: Service Date/Time: Monday, November 14, 2016 16:11 - CONCLUSION: Soft tissue swelling dorsally. Otherwise negative Gregorio Patiño MD Physical Exam CONSTITUTIONAL/GENERAL: This is an adequately nourished patient, in no apparent distress. TUBES/LINES/DRAINS: SKIN: No jaundice, rashes, or lesions. Skin temperature appropriate. Not diaphoretic. HEAD: Atraumatic. Normocephalic. EYES: Pupils equal and round and reactive. Extraocular motions intact. No scleral icterus. No injection or drainage. Fundi not examined. ENT: Hearing grossly normal. Nose without bleeding or purulent drainage. CARDIOVASCULAR: Regular rate and rhythm without murmurs, gallops, or rubs. No JVD. Peripheral pulses symmetric. RESPIRATORY/CHEST: Symmetric, unlabored respirations. Clear to auscultation. Breath sounds equal bilaterally. No wheezes, rales, or rhonchi. GASTROINTESTINAL: Abdomen soft, non-tender, nondistended. No hepato-splenomegaly , or palpable masses. No guarding. Bowel sounds present. GENITOURINARY: Without palpable bladder distension. Wolfe catheter in place with clear yellow urne MUSCULOSKELETAL: Extremities without clubbing, cyanosis, L foot surg dressing in place with some proximally present edema, miniaml erythema NEUROLOGICAL: Awake and alert. Motor and sensory grossly within normal limits. Follows commands. Clear speech Moves all extremities. PSYCHIATRIC: No obvious anxiety/depression. no apparent hallucinations or other psychotic thought process. Assessment & Plan Remarks (1) Sepsis Likely secondary to Left foot infection & UTI (2) Diabetic foot infection, L diabetic foot infx polimicrobial mixed aerobic/ anaerobic IC Type 2 diabetes mellitus with foot ulcer; Non-pressure chronic ulcer of other part of unspecified foot with unspecified severity including MSSA, enotcocci, mixed enteric bret negatives and anaerobs (3) Urinary retention 22 BPH urine clx with contamination Status: Chronic (4) CAD (coronary artery disease) (5) Peripheral vascular disease in diabetes mellitus Rec's: cont zosyn dc vancomycin add cefazolin fu op wound clx (bone) and bone path change yaneth; repeat UA, C+S with Savita Estrada MD Nov 18, 2016 19:11
[2016-11-18] MEDS: TOLTERODINE TARTRATE 4 MG CAP LA PO SCH (19:39)
[2016-11-18] MEDS: RESP: ALBUTEROL 2.5 MG/IPRATROPIUM 0.5 MG NEB (PRN) NEB (20:23)
[2016-11-18] MEDS: traZODone HCL 50 MG TAB PO SCH (20:56)
[2016-11-18] MEDS: ATORVASTATIN 40 MG TAB PO SCH (20:57)
[2016-11-18] MEDS: buPROPion HCL 100 MG TAB PO SCH (20:58)
[2016-11-18] MEDS: INSULIN DETEMIR 100 UNITS/ML VIAL SQ SCH (20:58)
[2016-11-18] MEDS: ceFAZolin 2 GM PREMIX 50 ML IV SCH (21:01)
[2016-11-18] MEDS: ACETAMINOPHEN/HYDROcodone 325 MG/7.5 MG TAB PO PRN (21:13)
[2016-11-19] VITALS (27 sets, daily range): BP systolic 108–152; BP diastolic 70–89; PULSE 16–107; RESP 16–18; TEMP 97.6–99; O2SAT 95–97
[2016-11-19] MEDS ORDERED: PHARMACY ORDERED LAB ONE (02:45)
[2016-11-19] MEDS: ceFAZolin 2 GM PREMIX 50 ML IV SCH ×3 (03:59→20:24)
[2016-11-19] MEDS: HYDROmorphone HCL PF 1 MG/ML VIAL IV PUSH PRN ×4 (04:01→23:48)
[2016-11-19 05:20] LABS: BACTERIA, URINE FEW /hpf; BLOOD, URINE MOD (NEG); GLUCOSE,URINE TRACE mg/dL (NEG); KETONE, URINE NEG (NEG); MUCUS URINE FEW /lpf (OCC); NITRITE,URINE NEG (NEG); TRANSITIONAL EPI CELLS, URINE <1 /hpf; URINE COLOR YELLOW (YELLW/STRAW)
[2016-11-19 05:22] LABS: COMMENT (UR) CATH-CULTURE IND; CULTURE IF INDICATED CATH CULTURE IND
[2016-11-19] MEDS: INSULIN ASPART SUPPLEMENTAL SCALE SQ SCH ×4 (06:14→21:00)
[2016-11-19] MEDS: ISOSORBIDE MONONITRATE 30 MG TAB PO SCH (06:15)
[2016-11-19] MEDS: INSULIN ASPART 1,000 UNITS/10 ML VIAL SQ SCH ×3 (08:00→15:30)
--- NOTE | 2016-11-19 09:01 | PD.POD ---
Subjective Pain score: 3 Remarks Minimal foot pain Past Med/Surg/Social History Past Medical History Endocrine: REPORTS HX OF: Diabetes mellitus Cardiovascular: REPORTS HX OF: Coronary artery disease, Peripheral vascular dz Genitourinary: REPORTS HX OF: Past UTI Past Surgical History Genitourinary: REPORTS HX OF: Other surgery Social History Smoking Status: Current Some Day Smoker Objective Vital Signs Vital Signs Date Time Temp Pulse Resp B/P (MAP) Pulse Ox O2 Delivery O2 Flow Rate FiO2 11/19/16 07:00 102 11/19/16 06:00 92 11/19/16 05:00 100 11/19/16 04:08 91 16 110/74 (86) 97 11/19/16 04:08 97 Room Air 11/19/16 04:00 90 11/19/16 03:00 75 11/19/16 02:00 92 11/19/16 01:00 90 11/19/16 00:19 96 Room Air 11/19/16 00:19 97.6 16 16 108/70 (83) 96 11/19/16 00:00 90 11/18/16 23:00 98 11/18/16 22:00 104 11/18/16 21:00 118 11/18/16 20:25 94 11/18/16 20:00 116 11/18/16 19:15 97 Room Air 11/18/16 19:15 99.0 100 18 154/87 (109) 97 11/18/16 19:00 111 11/18/16 18:00 100 11/18/16 17:00 104 11/18/16 16:00 98 11/18/16 16:00 98 Room Air 11/18/16 15:57 98.1 100 20 120/68 (85) 98 11/18/16 15:00 100 11/18/16 14:00 98 11/18/16 13:00 110 11/18/16 12:00 98.7 110 18 147/70 (95) 98 11/18/16 12:00 102 11/18/16 11:00 98 Room Air 11/18/16 11:00 110 11/18/16 10:00 100 11/18/16 09:00 114 Coded Allergies: bee venom protein (honey bee) (Unverified Allergy, Severe, Anaphylaxis, ) Medications and IVs Administered Medications Medications (Trade) Dose Ordered Sig/Kurt Route PRN Reason Start Time Stop Time Status Last Admin Dose Admin Sodium Chloride (NS Flush) 2 ml BID IV FLUSH 11/14/16 21:00 11/18/16 20:57 Senna/Docusate Sodium (Aundrea-Colace) 1 tab BID PO 11/14/16 21:00 11/18/16 20:56 Magnesium Hydroxide (Milk Of Magnesia Liq) 30 ml Q12H PRN PO MILD - MODERATE CONSTIPATION 11/14/16 17:15 11/18/16 21:13 Albuterol Sulfate (Proair Hfa Inh) 2 puff Q4H PRN INH COPD 11/14/16 18:45 11/15/16 09:04 Acetaminophen/ Hydrocodone Bitart ([place] 7.5-325 Mg) 1 tab Q6H PRN PO PAIN SCALE 5 TO 10 11/14/16 18:45 11/18/16 21:13 Hydromorphone HCl (Dilaudid Pf Inj) 1 mg Q4H PRN IV PUSH BREAKTHROUGH PAIN 11/14/16 18:45 11/19/16 04:01 Atorvastatin Calcium (Lipitor) 80 mg HS PO 11/14/16 21:00 11/18/16 20:57 Budesonide/ Formoterol Fumarate (Symbicort 80-4.5 Mcg Inh) 1 puff Q12HR INH 11/14/16 21:00 11/18/16 21:00 Clopidogrel Bisulfate (Plavix) 75 mg DAILY PO 11/15/16 09:00 11/18/16 09:56 Finasteride (Proscar) 5 mg DAILY PO 11/15/16 09:00 11/17/16 11:50 Gabapentin (Neurontin) 600 mg BID PO 11/14/16 21:00 11/18/16 20:55 Isosorbide Mononitrate (Imdur) 30 mg DAILY@0700 PO 11/15/16 07:00 11/19/16 06:15 Tamsulosin HCl (Flomax) 0.8 mg DAILY PO 11/15/16 09:00 11/18/16 09:00 Trazodone HCl (Desyrel) 50 mg HS PO 11/14/16 21:00 11/18/16 20:56 Pantoprazole Sodium (Protonix) 20 mg DAILY PO 11/15/16 09:00 11/18/16 09:55 Piperacillin Sod/ Tazobactam Sod 100 ml @ 200 mls/hr Q8H IV 11/15/16 00:00 11/18/16 23:57 Metoprolol Tartrate (Lopressor) 50 mg Q12HR PO 11/14/16 21:00 11/18/16 20:56 Insulin Aspart (NovoLOG SUPPLEMENTAL SCALE) 1 ACHS SLIDING SCALE SQ 11/14/16 21:00 11/19/16 06:14 Insulin Aspart (NovoLOG INJ) 6 units TIDAC SQ 11/15/16 08:00 11/18/16 16:07 Lisinopril (Prinivil) 40 mg DAILY PO 11/15/16 09:00 11/18/16 09:55 Albuterol/ Ipratropium (Duoneb Neb) 1 ampule Q2HR NEB PRN NEB wheezing 11/15/16 01:00 11/18/16 20:23 Digoxin (Lanoxin) 0.25 mg DAILY PO 11/16/16 09:00 11/18/16 09:57 Aspirin (Aspirin Chew) 81 mg DAILY PO 11/17/16 09:00 11/18/16 09:00 Heparin Sodium (Porcine) (Heparin Inj) 5,000 units Q8H SQ 11/17/16 09:00 11/18/16 23:57 Insulin Detemir (Levemir Inj) 18 units HS SQ 11/16/16 21:00 11/18/16 20:58 Bupropion HCl (Wellbutrin) 150 mg BID PO 11/18/16 21:00 11/18/16 20:58 Tolterodine Tartrate (Detrol La) 4 mg DAILY PO 11/18/16 17:30 11/18/16 19:39 Cefazolin Sodium/ Dextrose 50 ml @ 150 mls/hr Q8H IV 11/18/16 20:00 11/19/16 03:59 Other Results Microbiology Date/Time Source Procedure Growth Status 11/19/16 04:53 Urine Catheterized Urine Urine Culture Pending Received 11/17/16 14:07 Wound Foot Fungal Smear - Final NO FUNGAL ELEMENTS SEEN. Resulted 11/17/16 14:07 Wound Foot Fungal Culture Pending Resulted 11/17/16 14:07 Wound Foot Acid Fast Stain Pending Received 11/17/16 14:07 Wound Foot Mycobacterial Culture Pending Received 11/17/16 14:07 Wound Foot Gram Stain - Final Resulted 11/17/16 14:07 Wound Foot Wound Culture - Preliminary NO GROWTH IN 24 HOURS. Resulted neg margin cx, path pending. Physical Exam Remarks Left foot plantar incision loosely coapted, minimal serosanguineous drainage no pus no ischemic changes plantar foot, new dorsal lateral 1st MPJ swelling redness with superficial skin slough, no gas felt within tissue, decreased sensation BL feet goo ROM foot and ankle Assessment & Plan A/P Left foot abscess, ulcer, cellulitis SP I and D, tibial sesamoid removal, skin plasty 11-17. Plantar foot is doing well, new area of concern may need return to OR for I and D, if no improvement, for now compress elevate, HH ordered for woundcare for when pt Dc's, non weight bearing left foot, Will sign out to Dr Go to evaluate tomorrow. Akin Cr DPM Nov 19, 2016 09:01
[2016-11-19] MEDS: PIPERACIL-TAZO 4.5 GM PREMIX 100 ML IV SCH ×3 (09:36→23:51)
[2016-11-19] MEDS: HEPARIN SODIUM - SQ 10,000 UNITS/ML VIAL SQ SCH ×3 (09:37→23:53)
[2016-11-19] MEDS: BUDESONIDE-FORMOTEROL 80/4.5 MCG INHALER INH SCH ×2 (09:42→21:00)
[2016-11-19] MEDS: SODIUM CHLORIDE 0.9% FLUSH 10 ML FLUSH IV FLUSH SCH ×2 (09:43→20:24)
[2016-11-19] MEDS: TAMSULOSIN HCL 0.4 MG CAP PO SCH (09:44)
[2016-11-19] MEDS: FINASTERIDE 5 MG TAB PO SCH (09:44)
[2016-11-19] MEDS: CLOPIDOGREL 75 MG TAB PO SCH (09:44)
[2016-11-19] MEDS: GABAPENTIN 300 MG CAP PO SCH ×2 (09:45→20:59)
[2016-11-19] MEDS: LISINOPRIL 20 MG TAB PO SCH (09:45)
[2016-11-19] MEDS: DOCUSATE SODIUM 50 MG/SENNA 8.6 MG TAB PO SCH ×2 (09:46→21:00)
[2016-11-19] MEDS: TOLTERODINE TARTRATE 4 MG CAP LA PO SCH (09:46)
[2016-11-19] MEDS: METOPROLOL TARTRATE 50 MG TAB PO SCH ×2 (09:46→20:59)
[2016-11-19] MEDS: DIGOXIN 0.25 MG TAB PO SCH (09:46)
[2016-11-19] MEDS: PANTOPRAZOLE SOD 20 MG DELAYED RELEASE TAB PO SCH (09:46)
[2016-11-19] MEDS: ASPIRIN 81 MG CHEW TAB PO SCH (09:47)
--- NOTE | 2016-11-19 09:51 | HHI.PR ---
Subjective Remarks Pt states he feels much better today. Bladder spasms are much improved. Denies any CP/SOB/N/V Tolerating a diet, had a BM disappointed that his foot has a new area of concern. Of note: pt in a much better mood today Objective Vitals Vital Signs Date Time Temp Pulse Resp B/P (MAP) Pulse Ox O2 Delivery O2 Flow Rate FiO2 11/19/16 07:00 98.4 107 18 152/89 (110) 96 11/19/16 07:00 102 11/19/16 06:00 92 11/19/16 05:00 100 11/19/16 04:08 91 16 110/74 (86) 97 11/19/16 04:08 97 Room Air 11/19/16 04:00 90 11/19/16 03:00 75 11/19/16 02:00 92 11/19/16 01:00 90 11/19/16 00:19 96 Room Air 11/19/16 00:19 97.6 16 16 108/70 (83) 96 11/19/16 00:00 90 11/18/16 23:00 98 11/18/16 22:00 104 11/18/16 21:00 118 11/18/16 20:25 94 11/18/16 20:00 116 11/18/16 19:15 97 Room Air 11/18/16 19:15 99.0 100 18 154/87 (109) 97 11/18/16 19:00 111 11/18/16 18:00 100 11/18/16 17:00 104 11/18/16 16:00 98 11/18/16 16:00 98 Room Air 11/18/16 15:57 98.1 100 20 120/68 (85) 98 11/18/16 15:00 100 11/18/16 14:00 98 11/18/16 13:00 110 11/18/16 12:00 98.7 110 18 147/70 (95) 98 11/18/16 12:00 102 11/18/16 11:00 98 Room Air 11/18/16 11:00 110 11/18/16 10:00 100 I/O 11/18/16 11/18/16 11/18/16 11/19/16 11/19/16 11/19/16 07:00 15:00 23:00 07:00 15:00 23:00 Intake Total 1170 ml 1370 ml 450 ml Output Total 550 ml 1000 ml 1125 ml Balance 620 ml 370 ml -675 ml Intake Oral 720 ml 720 ml 400 ml IV Total 450 ml 650 ml 50 ml Output Urine Total 550 ml 1000 ml 1125 ml # Bowel Movements 1 Result Diagram: 11/17/16 0542 11/17/16 0542 Imaging Last Impressions Foot MRI 11/15/16 0000 Signed Impressions: Service Date/Time: Tuesday, November 15, 2016 11:28 - CONCLUSION: Ulceration but does not extend to the bone. There is no defined abscess. Extensive edema is evident. Previous CTA runoff had shown more disease on the right than the left. Christiano Robertson MD FACR Chest X-Ray 11/14/16 1554 Signed Impressions: Service Date/Time: Monday, November 14, 2016 16:12 - CONCLUSION: No acute disease. No significant change has occurred. Gregorio Patiño MD Foot X-Ray 11/14/16 0000 Signed Impressions: Service Date/Time: Monday, November 14, 2016 16:11 - CONCLUSION: Soft tissue swelling dorsally. Otherwise negative Gregorio Patiño MD Objective Remarks GENERAL: Alert, oriented 3, NAD. SKIN: Warm and very dry. HEAD: Normocephalic. EYES: EOMI NECK: trachea midline. CARDIOVASCULAR: Irregularly irregular without murmurs RESPIRATORY: Breath sounds equal bilaterally. No accessory muscle use. no wheezing today GASTROINTESTINAL: Abdomen soft, some suprapubic discomfort w deep palpation but no guarding or rebound MUSCULOSKELETAL: Left foot wrapped. Procedures cardiac cath s/p BRIAN to distal RCA (2.5x18) A/P Problem List: (1) NSTEMI (non-ST elevated myocardial infarction) ICD Code: I21.4 - Non-ST elevation (NSTEMI) myocardial infarction Status: Acute (2) Diabetic foot ulcer ICD Code: E11.621 - Type 2 diabetes mellitus with foot ulcer; L97.509 - Non- pressure chronic ulcer of other part of unspecified foot with unspecified severity Status: Acute (3) Peripheral vascular disease in diabetes mellitus ICD Code: E11.51 - Type 2 diabetes mellitus with diabetic peripheral angiopathy without gangrene Status: Chronic (4) Urinary retention ICD Code: R33.9 - Retention of urine, unspecified Status: Chronic (5) A-fib ICD Code: I48.91 - Unspecified atrial fibrillation Status: Chronic Assessment and Plan Mr. Rowland is a 61-year-old with a history of coronary artery disease status post stent placement in February 2016, diabetes mellitus, PVD, urinary retention who presents to the emergency department due to sharp left-sided chest pain as well as left foot infection - Sepsis - due to diabetic foot infection. On arrival temperature 101.1F pulse 124 respiration 22, WBC 13.4 - Diabetic foot infection of the left foot. - wound grew staph aureus and enterococcus faecalis. - ID following and has recommended stopping vanco and continuing w the zosyn and added cefazolin - Podiatry following. MRI did not show any evidence of osteomyelitis. Pt s/p left foot I&D tibial sesamoid removal, rotational skin closure POD 2. Discussed w Dr. Patterson today, and will hold off on starting eliquis as pt has a new area of concern on the dorsal midfoot and may need I&D. will wait for clearance from podiatry prior to starting eliquis. - continue pain control with [place] when necessary, acetaminophen when necessary, Dilaudid IV for breakthrough. - NSTEMI - possibly type 2. - Coronary artery disease status post stent placement in February 2016. - s/p cardiac cath s/p BRIAN to distal RCA (2.5x18) - Continue aspirin, Plavix, statin. Continue beta sheree, lisinopril 40 mg , Imdur. Per cards pt will go on eliquis once all surgical procedures completed. -Pt refused his metoprolol yesterday. Stating Dr. Perez is no longer his physician. Didn't explain to me why. Pt being non compliant w medical recs. Monitor HR closely. - Atrial fibrillation with rapid ventricular response - on metoprolol tartrate 50 mg every 12 hours. Continue digoxin 0.25 mg daily. Pt non compliant. - [id number] score 3 (DM, PVD, HTN). - After any podiatry surgical intervention with can consider apixaban 5 mg twice a day. - continue aspirin and Plavix - Patient does not have any significant bleeding history. - Diabetes mellitus - Diabetic neuropathy - increased dose of Levemir to 20 units QHS and sliding scale insulin. Also include meal coverage with aspart 6 units 3 times a day before meals. continue to monitor insulin requirements and adjust med as needed - Continue Gabapentin 600mg BID. - Hypertension - Continue Amlodipine 2.5mg Qday, Lisinopril 40mg Qday. Consider increasing Amlodipine if BP remains elevated. - BPH - Continue Tamsulin 0.4mg Qday, finasteride 5 mg daily. Urology evaluated the pt and has started pt on Detrol LA 4mg po daily for bladder spasms. Pt to f/ u w urology as an outpatient for TURP. see note. - GERD - continue PPI. Discharge Planning Awaiting final recs from podiatry and clearance to start eliquis ID following and abx have been changed. awaiting final recs from their standpoint as well. Problem Qualifiers (1) Diabetic foot ulcer: Qualified Codes: E08.621 - Diabetes mellitus due to underlying condition with foot ulcer; L97.529 - Non-pressure chronic ulcer of other part of left foot with unspecified severity (2) A-fib: Qualified Codes: I48.91 - Unspecified atrial fibrillation Birgit Li MD Nov 19, 2016 09:51
[2016-11-19] MEDS: buPROPion HCL 100 MG TAB PO SCH ×2 (10:02→20:59)
[2016-11-19] MEDS: ACETAMINOPHEN/HYDROcodone 325 MG/7.5 MG TAB PO PRN ×2 (10:08→15:33)
[2016-11-19] MEDS: ATORVASTATIN 40 MG TAB PO SCH (21:00)
[2016-11-19] MEDS: traZODone HCL 50 MG TAB PO SCH (21:00)
[2016-11-19] MEDS: INSULIN DETEMIR 100 UNITS/ML VIAL SQ SCH (21:06)
[2016-11-20] VITALS (25 sets, daily range): BP systolic 104–149; BP diastolic 70–85; PULSE 75–100; RESP 16–18; TEMP 97.9–98.7; O2SAT 94–97
[2016-11-20] MEDS: HYDROmorphone HCL PF 1 MG/ML VIAL IV PUSH PRN ×3 (04:20→21:18)
[2016-11-20] MEDS: ceFAZolin 2 GM PREMIX 50 ML IV SCH ×3 (04:23→21:07)
[2016-11-20] MEDS: INSULIN ASPART SUPPLEMENTAL SCALE SQ SCH ×4 (05:41→21:00)
[2016-11-20] MEDS: ISOSORBIDE MONONITRATE 30 MG TAB PO SCH (06:36)
[2016-11-20] MEDS: INSULIN ASPART 1,000 UNITS/10 ML VIAL SQ SCH ×3 (08:00→17:00)
[2016-11-20] MEDS: PIPERACIL-TAZO 4.5 GM PREMIX 100 ML IV SCH ×3 (08:30→23:15)
[2016-11-20] MEDS: DOCUSATE SODIUM 50 MG/SENNA 8.6 MG TAB PO SCH ×2 (08:31→21:12)
[2016-11-20] MEDS: ASPIRIN 81 MG CHEW TAB PO SCH (08:31)
[2016-11-20] MEDS: buPROPion HCL 100 MG TAB PO SCH ×2 (08:31→21:10)
[2016-11-20] MEDS: CLOPIDOGREL 75 MG TAB PO SCH (08:31)
[2016-11-20] MEDS: GABAPENTIN 300 MG CAP PO SCH ×2 (08:31→21:12)
[2016-11-20] MEDS: TAMSULOSIN HCL 0.4 MG CAP PO SCH (08:32)
[2016-11-20] MEDS: METOPROLOL TARTRATE 50 MG TAB PO SCH ×2 (08:32→21:13)
[2016-11-20] MEDS: PANTOPRAZOLE SOD 20 MG DELAYED RELEASE TAB PO SCH (08:32)
[2016-11-20] MEDS: FINASTERIDE 5 MG TAB PO SCH (08:32)
[2016-11-20] MEDS: TOLTERODINE TARTRATE 4 MG CAP LA PO SCH (08:32)
[2016-11-20] MEDS: DIGOXIN 0.25 MG TAB PO SCH (08:32)
[2016-11-20] MEDS: LISINOPRIL 20 MG TAB PO SCH (08:32)
[2016-11-20] MEDS: SODIUM CHLORIDE 0.9% FLUSH 10 ML FLUSH IV FLUSH SCH ×2 (08:33→21:08)
[2016-11-20] MEDS: BUDESONIDE-FORMOTEROL 80/4.5 MCG INHALER INH SCH ×2 (08:34→21:07)
[2016-11-20] MEDS: HEPARIN SODIUM - SQ 10,000 UNITS/ML VIAL SQ SCH ×3 (08:34→23:15)
--- NOTE | 2016-11-20 08:39 | PD.POD ---
Subjective Podiatric Problems s/p I and D left foot DR Cr 11/17/16 Worsening erythema and edema dorsal foot. Pain score: 3 Past Med/Surg/Social History Past Medical History Endocrine: REPORTS HX OF: Diabetes mellitus Cardiovascular: REPORTS HX OF: Coronary artery disease, Peripheral vascular dz Genitourinary: REPORTS HX OF: Past UTI Past Surgical History Genitourinary: REPORTS HX OF: Other surgery Social History Smoking Status: Current Some Day Smoker Objective Vital Signs Vital Signs Date Time Temp Pulse Resp B/P (MAP) Pulse Ox O2 Delivery O2 Flow Rate FiO2 11/20/16 06:00 86 11/20/16 05:00 80 11/20/16 04:35 96 Room Air 11/20/16 04:35 95 18 104/70 (81) 96 11/20/16 04:00 86 11/20/16 03:00 91 11/20/16 02:00 82 11/20/16 01:00 84 11/20/16 00:04 96 Room Air 11/20/16 00:04 89 16 144/79 (100) 96 11/20/16 00:00 82 11/19/16 23:00 102 11/19/16 22:00 92 11/19/16 21:00 94 11/19/16 20:00 90 11/19/16 19:40 99.0 97 16 127/84 (98) 95 11/19/16 19:40 95 Room Air 11/19/16 19:00 101 11/19/16 18:09 97 11/19/16 17:05 18 11/19/16 17:00 77 11/19/16 16:12 84 11/19/16 15:40 98.4 99 18 131/73 (92) 95 11/19/16 15:00 96 Room Air 11/19/16 13:10 18 11/19/16 13:00 97 11/19/16 12:19 100 11/19/16 12:15 95 Room Air 11/19/16 12:05 98.4 97 18 118/76 (90) 95 11/19/16 11:00 95 11/19/16 10:00 106 11/19/16 09:00 106 Coded Allergies: bee venom protein (honey bee) (Unverified Allergy, Severe, Anaphylaxis, ) Other Results Laboratory Tests Test 11/14/16 16:05 8/29/17 16:15 11/15/16 05:49 11/15/16 13:47 Prothrombin Time 11.4 SEC Prothromb Time International Ratio 1.0 RATIO Activated Partial Thromboplast Time 33.8 SEC Blood Urea Nitrogen 10 MG/DL Creatinine 0.82 MG/DL Random Glucose 240 MG/DL Total Protein 7.6 GM/DL Albumin 3.1 GM/DL Calcium Level 8.7 MG/DL Magnesium Level 1.7 MG/DL Alkaline Phosphatase 116 U/L Aspartate Amino Transf (AST/SGOT) 23 U/L Alanine Aminotransferase (ALT/SGPT) 16 U/L Total Bilirubin 0.6 MG/DL Sodium Level 134 MEQ/L Potassium Level 4.5 MEQ/L Chloride Level 98 MEQ/L Carbon Dioxide Level 28.6 MEQ/L Total Creatine Kinase 82 U/L B-Type Natriuretic Peptide 144 PG/ML Urine Collection Type CLEAN CATCH Urine Squamous Epithelial Cells 6-8 /hpf Urine Collection Time 16:15 Troponin I 0.10 NG/ML Lactic Acid Level 1.4 mmol/L Test 11/16/16 15:20 11/17/16 05:42 11/19/16 04:53 Vancomycin Level Trough 9.4 MCG/ML White Blood Count 9.1 TH/MM3 Red Blood Count 3.68 MIL/MM3 Hemoglobin 9.9 GM/DL Hematocrit 30.4 % Mean Corpuscular Volume 82.8 FL Mean Corpuscular Hemoglobin 27.0 PG Mean Corpuscular Hemoglobin Concent 32.6 % Red Cell Distribution Width 15.3 % Platelet Count 224 TH/MM3 Mean Platelet Volume 8.5 FL Neutrophils (%) (Auto) 76.5 % Lymphocytes (%) (Auto) 8.2 % Monocytes (%) (Auto) 12.2 % Eosinophils (%) (Auto) 2.2 % Basophils (%) (Auto) 0.9 % Neutrophils # (Auto) 7.0 TH/MM3 Lymphocytes # (Auto) 0.7 TH/MM3 Monocytes # (Auto) 1.1 TH/MM3 Eosinophils # (Auto) 0.2 TH/MM3 Basophils # (Auto) 0.1 TH/MM3 CBC Comment DIFF FINAL Differential Comment Blood Urea Nitrogen 10 MG/DL Creatinine 0.66 MG/DL Random Glucose 177 MG/DL Calcium Level 8.4 MG/DL Sodium Level 138 MEQ/L Potassium Level 4.0 MEQ/L Chloride Level 101 MEQ/L Carbon Dioxide Level 29.2 MEQ/L Anion Gap 8 MEQ/L Estimat Glomerular Filtration Rate 122 ML/MIN Urine Color YELLOW Urine Turbidity HAZY Urine pH 7.0 Urine Specific [place] 1.029 Urine Protein GREATER THAN 600 mg/dL Urine Glucose (UA) TRACE mg/dL Urine Ketones NEG mg/dL Urine Occult Blood MOD Urine Nitrite NEG Urine Bilirubin NEG Urine Urobilinogen LESS THAN 2.0 MG/DL Urine Leukocyte Esterase MOD Urine RBC /hpf Urine WBC 59 /hpf Urine WBC Clumps RARE Urine Transitional Epithelial Cells <1 /hpf Urine Amorphous Sediment RARE Urine Bacteria FEW /hpf Urine Mucus FEW /lpf Microscopic Urinalysis Comment CATH-CULTURE IND Exam-Podiatry Dermatological Exam Ulcers: Location/Measurements LLE Intact sutures plantar first ray. Dorsal foot erythema and edema, no streaking. + POP + macerated IS NVS intact. Assessment & Plan Diagnosis: (1) Diabetes ICD Codes: E11.9 - Type 2 diabetes mellitus without complications Status: Acute (2) PAD (peripheral artery disease) ICD Codes: I73.9 - Peripheral vascular disease, unspecified Status: Chronic (3) Cellulitis ICD Codes: L03.90 - Cellulitis, unspecified Status: Acute A/P s/p I and D with Dr Cr 11/17/16 Plan to OR for left foot I and D dorsal on 11/21/16 at 1600 Patient is refusing bedside I and D NPO after 0700 breakfast on 11/21/16 Problem Qualifiers (1) Cellulitis: Qualified Codes: L03.116 - Cellulitis of left lower limb Lexus Go DPM Nov 20, 2016 08:39
--- NOTE | 2016-11-20 08:39 | MP ---
cc: SAMUEL RIVERA DATE OF SURGERY 11/17/2016 PREOPERATIVE DIAGNOSIS Left foot ulceration/abscess, possible septic joint. POSTOPERATIVE DIAGNOSIS Left foot ulceration/abscess, possible septic joint. PROCEDURE PERFORMED Left foot incision and drainage, debridement, tibial sesamoid removal, rotational skin-plasty closure greater than 2.5 cm in length. FINDINGS Purulent drainage seen within the first MPJ, ulcer probing also directly to the tibial sesamoid. COMPLICATIONS None. SPECIMENS None for pathology. Deep wound culture of the first MPJ for microbial analysis. ESTIMATED BLOOD LOSS Less than 15 mL. ANESTHESIA Popliteal block with monitored anesthesia care. DRAINS None. PLAN OF ACTIVITY Return to floor to monitor wound and the patient's multiple comorbidities/ JUSTIFICATION FOR PROCEDURE This is a 61-year-old male who was admitted for a diabetic foot infection. He was noted to have chest pain. He was evaluated by cardiology. He had a stent placed. The patient was granted clearance under a popliteal block for incision and drainage. The patient was educated on the need for the surgery, possible need for partial amputation if not leg amputation if the infection continues to progress. The patient understood the risks and benefits and consented. PROCEDURE IN DETAIL Under mild sedation the patient was brought into the operating room, placed on the operating table in supine position. Following the induction of monitored anesthesia of note, the patient's popliteal block took place before I entered the room. The patient's left lower extremity was scrubbed, prepped and draped in the usual aseptic fashion. The foot was elevated and examined. There was noted to be a full-thickness ulceration of the plantar aspect of the first MPJ, slightly medial. Upon probing the area, it went down directly to the tibial sesamoid. Sharp excisional debridement took place of the wound periphery. Fibrotic tissue was removed utilizing a rongeur. The flexor hallucis longus tendon was then exposed and then sharply the tibial sesamoid was removed. Upon removing the tibial sesamoid, there was noted to be copious amounts of purulent drainage within the first MPJ. Utilizing a pulse lavage the intraarticular contents and debris of the first MPJ was removed. Utilizing a combination of a rongeur and a 15 blade, all nonviable tissue at the wound periphery was removed. The incision was then lengthened approximately 3 cm distal and then a 3 cm proximal. Undermining of the soft tissue edges took place to allow for rotational skin plasty closure, further closing over the first MPJ and the flexor hallucis longus tendon. Of note, upon probing the first MPJ bone cortex there was no signs of deficits or softness clinically. There were no signs of osteomyelitis. The wound was then closed primarily utilizing 0 Prolene. There was noted to be actually good bleeding at the time of surgery. Bovie and ligation of venous structures took place as deemed appropriate. Capillary refill time to the digits remained throughout the entire procedure. A bulky bandage was placed and the patient transferred from OR to PACU with all vital signs stable. Pathology was tibial sesamoid, deep wound culture of the first MPJ for micro. I will change the bandage within the next 1-2 days to follow along the patient's clinical progress. MAGDY Chambers/MADIE /2:51 PM /8:24 AM
--- NOTE | 2016-11-20 09:43 | HHI.PR ---
Subjective Remarks Pt states that he suprapubic pain is not bothering him as much and has much improved. Pt is frustrated that urology is not willing to do the TURP during this hospitalization. Pt demanding to speak again w urology. Pt also disappointed that his foot is "going backwards". Denies any CP/SOB Discussed w RN, pt will only take half of his metoprolol. Objective Vitals Vital Signs Date Time Temp Pulse Resp B/P (MAP) Pulse Ox O2 Delivery O2 Flow Rate FiO2 11/20/16 06:00 86 11/20/16 05:00 80 11/20/16 04:35 96 Room Air 11/20/16 04:35 95 18 104/70 (81) 96 11/20/16 04:00 86 11/20/16 03:00 91 11/20/16 02:00 82 11/20/16 01:00 84 11/20/16 00:04 96 Room Air 11/20/16 00:04 89 16 144/79 (100) 96 11/20/16 00:00 82 11/19/16 23:00 102 11/19/16 22:00 92 11/19/16 21:00 94 11/19/16 20:00 90 11/19/16 19:40 99.0 97 16 127/84 (98) 95 11/19/16 19:40 95 Room Air 11/19/16 19:00 101 11/19/16 18:09 97 11/19/16 17:05 18 11/19/16 17:00 77 11/19/16 16:12 84 11/19/16 15:40 98.4 99 18 131/73 (92) 95 11/19/16 15:00 96 Room Air 11/19/16 13:10 18 11/19/16 13:00 97 11/19/16 12:19 100 11/19/16 12:15 95 Room Air 11/19/16 12:05 98.4 97 18 118/76 (90) 95 11/19/16 11:00 95 11/19/16 10:00 106 I/O 11/19/16 11/19/16 11/19/16 11/20/16 11/20/16 11/20/16 07:00 15:00 23:00 07:00 15:00 23:00 Intake Total 450 ml 820 ml 390 ml Output Total 1125 ml 500 ml 1050 ml Balance -675 ml 320 ml -660 ml Intake Oral 400 ml 620 ml 240 ml IV Total 50 ml 200 ml 150 ml Output Urine Total 1125 ml 500 ml 1050 ml # Bowel Movements 1 Result Diagram: 11/17/16 0542 11/17/16 0542 Imaging Last Impressions Foot MRI 11/15/16 0000 Signed Impressions: Service Date/Time: Tuesday, November 15, 2016 11:28 - CONCLUSION: Ulceration but does not extend to the bone. There is no defined abscess. Extensive edema is evident. Previous CTA runoff had shown more disease on the right than the left. Christiano Robertson MD FACR Chest X-Ray 11/14/16 1554 Signed Impressions: Service Date/Time: Monday, November 14, 2016 16:12 - CONCLUSION: No acute disease. No significant change has occurred. Gregorio Patiño MD Foot X-Ray 11/14/16 0000 Signed Impressions: Service Date/Time: Monday, November 14, 2016 16:11 - CONCLUSION: Soft tissue swelling dorsally. Otherwise negative Gregorio Patiño MD Objective Remarks GENERAL: Alert, oriented 3, NAD. SKIN: Warm and very dry. HEAD: Normocephalic. EYES: EOMI NECK: trachea midline. CARDIOVASCULAR: Irregularly irregular without murmurs RESPIRATORY: Breath sounds equal bilaterally. No accessory muscle use. no wheezing today GASTROINTESTINAL: Abdomen soft, NT to palpation MUSCULOSKELETAL: Left foot wrapped. Procedures cardiac cath s/p BRIAN to distal RCA (2.5x18) A/P Problem List: (1) NSTEMI (non-ST elevated myocardial infarction) ICD Code: I21.4 - Non-ST elevation (NSTEMI) myocardial infarction Status: Acute (2) Diabetic foot ulcer ICD Code: E11.621 - Type 2 diabetes mellitus with foot ulcer; L97.509 - Non- pressure chronic ulcer of other part of unspecified foot with unspecified severity Status: Acute (3) Peripheral vascular disease in diabetes mellitus ICD Code: E11.51 - Type 2 diabetes mellitus with diabetic peripheral angiopathy without gangrene Status: Chronic (4) Urinary retention ICD Code: R33.9 - Retention of urine, unspecified Status: Chronic (5) A-fib ICD Code: I48.91 - Unspecified atrial fibrillation Status: Chronic Assessment and Plan Mr. Rowland is a 61-year-old with a history of coronary artery disease status post stent placement in February 2016, diabetes mellitus, PVD, urinary retention who presents to the emergency department due to sharp left-sided chest pain as well as left foot infection - Sepsis - due to diabetic foot infection. On arrival temperature 101.1F pulse 124 respiration 22, WBC 13.4 - Diabetic foot infection of the left foot. - wound grew staph aureus and enterococcus faecalis. - ID following, s/p vanco, on zosyn and cefazolin - Podiatry following. MRI did not show any evidence of osteomyelitis. Pt s/p left foot I&D tibial sesamoid removal, rotational skin closure POD 3. hold off on starting eliquis as pt has a new area of concern on the dorsal midfoot, will need I&D tomorrow. will need clearance from podiatry prior to starting eliquis. - continue pain control with Buckner when necessary, acetaminophen when necessary, Dilaudid IV for breakthrough. - NSTEMI - possibly type 2. - Coronary artery disease status post stent placement in February 2016. - s/p cardiac cath s/p BRIAN to distal RCA (2.5x18) - Continue aspirin, Plavix, statin. Continue beta sheree, lisinopril 40 mg , Imdur. Per cards pt will go on eliquis once all surgical procedures completed. -Pt refused to take the metoprolol as directed by cards, will cut tablet and only take half. Pt states that Dr. Perez is no longer his physician. Didn't explain to me why. Pt being non compliant w medical recs. Monitor HR closely. - Atrial fibrillation with rapid ventricular response - on metoprolol tartrate 50 mg every 12 hours. Continue digoxin 0.25 mg daily. Pt non compliant. - [id number] score 3 (DM, PVD, HTN). - After any podiatry surgical intervention with can consider apixaban 5 mg twice a day. - continue aspirin and Plavix - Patient does not have any significant bleeding history. - Diabetes mellitus - Diabetic neuropathy - increased dose of Levemir to 20 units QHS and sliding scale insulin. Also include meal coverage with aspart 6 units 3 times a day before meals. continue to monitor insulin requirements and adjust med as needed - Continue Gabapentin 600mg BID. - Hypertension - Continue Amlodipine 2.5mg Qday, Lisinopril 40mg Qday. Consider increasing Amlodipine if BP remains elevated. - BPH - Continue Tamsulin 0.4mg Qday, finasteride 5 mg daily. Urology evaluated the pt and started him on Detrol LA 4mg po daily for bladder spasms. Pt to f/u w urology as an outpatient for TURP. see their note. I did my best to explain to patient that currently we are treating his foot infection and this is the priority along we his NSTEMI. Once this infection clears he can address timing of TURP w urology. If pt continues to insist on speaking w Urology, will consult Dr. Davis in AM when he is available (pt known to Dr. Davis and currently Dr. Nelda leary). - GERD - continue PPI. Discharge Planning Pt will be going to OR tomorrow morning. Medically he is stable. NPO after breakfast tomorrow. Problem Qualifiers (1) Diabetic foot ulcer: Qualified Codes: E08.621 - Diabetes mellitus due to underlying condition with foot ulcer; L97.529 - Non-pressure chronic ulcer of other part of left foot with unspecified severity (2) A-fib: Qualified Codes: I48.91 - Unspecified atrial fibrillation Birgit Li MD Nov 20, 2016 09:43
[2016-11-20] MEDS: ATORVASTATIN 40 MG TAB PO SCH (21:13)
[2016-11-20] MEDS: INSULIN DETEMIR 100 UNITS/ML VIAL SQ SCH (21:16)
[2016-11-20] MEDS: traZODone HCL 50 MG TAB PO SCH (21:17)
[2016-11-21] VITALS (24 sets, daily range): BP systolic 110–145; BP diastolic 67–84; PULSE 68–97; RESP 18; TEMP 97.1–99.7; O2SAT 94–100
[2016-11-21] MEDS: ceFAZolin 2 GM PREMIX 50 ML IV SCH ×3 (03:48→20:00)
[2016-11-21] MEDS: HYDROmorphone HCL PF 1 MG/ML VIAL IV PUSH PRN ×3 (04:12→22:29)
[2016-11-21] MEDS: INSULIN ASPART SUPPLEMENTAL SCALE SQ SCH ×4 (06:10→21:00)
[2016-11-21] MEDS: ISOSORBIDE MONONITRATE 30 MG TAB PO SCH (06:11)
[2016-11-21 07:13] LABS: BICARBONATE 32.8 MEQ/L (21.0-32.0); POTASSIUM 3.8 MEQ/L (3.5-5.1)
[2016-11-21] MEDS: INSULIN ASPART 1,000 UNITS/10 ML VIAL SQ SCH ×3 (08:00→17:00)
[2016-11-21] MEDS: PIPERACIL-TAZO 4.5 GM PREMIX 100 ML IV SCH ×2 (08:30→17:41)
[2016-11-21] MEDS: HEPARIN SODIUM - SQ 10,000 UNITS/ML VIAL SQ SCH ×2 (08:31→17:42)
[2016-11-21] MEDS: DOCUSATE SODIUM 50 MG/SENNA 8.6 MG TAB PO SCH ×2 (08:32→22:31)
[2016-11-21] MEDS: buPROPion HCL 100 MG TAB PO SCH ×2 (08:32→22:32)
[2016-11-21] MEDS: LISINOPRIL 20 MG TAB PO SCH (08:33)
[2016-11-21] MEDS: FINASTERIDE 5 MG TAB PO SCH (08:35)
[2016-11-21] MEDS: PANTOPRAZOLE SOD 20 MG DELAYED RELEASE TAB PO SCH (08:35)
[2016-11-21] MEDS: TOLTERODINE TARTRATE 4 MG CAP LA PO SCH (08:35)
[2016-11-21] MEDS: GABAPENTIN 300 MG CAP PO SCH ×2 (08:36→22:31)
[2016-11-21] MEDS: ASPIRIN 81 MG CHEW TAB PO SCH (08:36)
[2016-11-21] MEDS: TAMSULOSIN HCL 0.4 MG CAP PO SCH (08:37)
[2016-11-21] MEDS: METOPROLOL TARTRATE 50 MG TAB PO SCH ×2 (08:38→22:31)
[2016-11-21] MEDS: DIGOXIN 0.25 MG TAB PO SCH (08:39)
[2016-11-21] MEDS: SODIUM CHLORIDE 0.9% FLUSH 10 ML FLUSH IV FLUSH SCH (08:39)
[2016-11-21] MEDS: BUDESONIDE-FORMOTEROL 80/4.5 MCG INHALER INH SCH ×2 (08:40→21:00)
[2016-11-21] MEDS: CLOPIDOGREL 75 MG TAB PO SCH (09:00)
[2016-11-21] MEDS: RESP: ALBUTEROL 2.5 MG/IPRATROPIUM 0.5 MG NEB (PRN) NEB (10:53)
--- NOTE | 2016-11-21 11:54 | HHI.PR ---
Subjective Remarks Patient reports is feeling okay. No fevers or chills. Plan for OR today with podiatry. Objective Vitals Vital Signs Date Time Temp Pulse Resp B/P (MAP) Pulse Ox O2 Delivery O2 Flow Rate FiO2 11/21/16 11:16 99.7 72 18 125/84 (98) 96 11/21/16 10:55 95 21 11/21/16 10:07 68 11/21/16 08:13 98.7 77 18 111/71 (84) 95 11/21/16 08:00 74 11/21/16 07:00 Room Air 11/21/16 07:00 74 11/21/16 06:00 90 11/21/16 05:00 78 11/21/16 04:00 74 11/21/16 04:00 97.1 78 18 128/67 (87) 99 11/21/16 04:00 Room Air 11/21/16 03:00 72 11/21/16 02:00 76 11/21/16 01:00 82 11/21/16 00:00 75 11/21/16 00:00 Room Air 11/21/16 00:00 98.0 97 18 129/80 (96) 94 11/20/16 23:00 88 11/20/16 22:00 96 11/20/16 21:00 98 11/20/16 20:00 95 11/20/16 20:00 98.7 100 18 149/77 (101) 96 11/20/16 20:00 Room Air 11/20/16 18:09 86 11/20/16 17:37 79 11/20/16 16:10 84 11/20/16 15:10 97.9 84 18 113/72 (86) 97 11/20/16 15:10 97 Room Air 11/20/16 15:10 87 11/20/16 14:44 90 11/20/16 13:06 75 11/20/16 12:14 16 11/20/16 12:12 78 I/O 11/20/16 11/20/16 11/20/16 11/21/16 11/21/16 11/21/16 06:59 14:59 22:59 06:59 14:59 22:59 Intake Total 390 ml 720 ml 480 ml Output Total 1050 ml 1200 ml 1700 ml Balance -660 ml -480 ml -1220 ml Intake Oral 240 ml 720 ml 480 ml IV Total 150 ml Output Urine Total 1050 ml 1200 ml 1700 ml # Bowel Movements 1 Result Diagram: 11/17/16 0542 11/21/16 0551 Imaging Last Impressions Foot MRI 11/15/16 0000 Signed Impressions: Service Date/Time: Tuesday, November 15, 2016 11:28 - CONCLUSION: Ulceration but does not extend to the bone. There is no defined abscess. Extensive edema is evident. Previous CTA runoff had shown more disease on the right than the left. Christiano Robertson MD FACR Chest X-Ray 11/14/16 1554 Signed Impressions: Service Date/Time: Monday, November 14, 2016 16:12 - CONCLUSION: No acute disease. No significant change has occurred. Gregorio Patiño MD Foot X-Ray 11/14/16 0000 Signed Impressions: Service Date/Time: Monday, November 14, 2016 16:11 - CONCLUSION: Soft tissue swelling dorsally. Otherwise negative Gregorio Patiño MD Objective Remarks GENERAL: This is a well-nourished, well-developed patient, in no apparent distress. CARDIOVASCULAR: Normal rate and regular rhythm without murmurs, gallops, or rubs. RESPIRATORY: Good respiratory efforts. Breath sounds equal and clear to auscultation bilaterally. GASTROINTESTINAL: Abdomen soft, non-tender, non-distended. Normal active bowel sounds MUSCULOSKELETAL: Left foot is wrapped. There is purulent drainage that soaked through the dressing. Status post partial right great toe amputation. Well- healed. NEURO: Alert & Oriented x4 to person, place, time, situation. Moves all ext x4 PSYCH: Appropriate mood and affect. Procedures cardiac cath s/p BRIAN to distal RCA (2.5x18) A/P Problem List: (1) NSTEMI (non-ST elevated myocardial infarction) ICD Code: I21.4 - Non-ST elevation (NSTEMI) myocardial infarction Status: Acute (2) Diabetic foot ulcer ICD Code: E11.621 - Type 2 diabetes mellitus with foot ulcer; L97.509 - Non- pressure chronic ulcer of other part of unspecified foot with unspecified severity Status: Acute (3) Peripheral vascular disease in diabetes mellitus ICD Code: E11.51 - Type 2 diabetes mellitus with diabetic peripheral angiopathy without gangrene Status: Chronic (4) Urinary retention ICD Code: R33.9 - Retention of urine, unspecified Status: Chronic (5) A-fib ICD Code: I48.91 - Unspecified atrial fibrillation Status: Chronic Assessment and Plan 61-year-old with a history of coronary artery disease status post stent placement in February 2016, diabetes mellitus, PVD, urinary retention who presents to the emergency department due to sharp left-sided chest pain as well as left foot infection - Sepsis - due to diabetic foot infection. On arrival temperature 101.1F pulse 124 respiration 22, WBC 13.4 - Diabetic foot infection of the left foot. - wound grew staph aureus and enterococcus faecalis. - ID following, s/p vanco, on zosyn and cefazolin - Podiatry following. MRI did not show any evidence of osteomyelitis. Pt s/p left foot I&D tibial sesamoid removal, rotational skin closure POD 3. Per podiatry, plan for I&D of dorsal midfoot today. - continue pain control with Suches when necessary, acetaminophen when necessary, Dilaudid IV for breakthrough. - NSTEMI - possibly type 2. - Coronary artery disease status post stent placement in February 2016. - s/p cardiac cath s/p BRIAN to distal RCA (2.5x18) - Continue aspirin, Plavix, statin. Continue beta sheree, lisinopril 40 mg , Imdur. Per cards pt will go on eliquis once all surgical procedures completed. -Pt refused to take the metoprolol as directed by cards, will cut tablet and only take half. Pt states that Dr. Perez is no longer his physician. Didn't explain to me why. Pt being non compliant w medical recs. Monitor HR closely. - Atrial fibrillation with rapid ventricular response - on metoprolol tartrate 50 mg every 12 hours. Continue digoxin 0.25 mg daily. Pt non compliant. - [id number] score 3 (DM, PVD, HTN). - After all podiatry surgical intervention with can consider apixaban 5 mg twice a day. - continue aspirin and Plavix - Patient does not have any significant bleeding history. - Diabetes mellitus - Diabetic neuropathy - increased dose of Levemir to 20 units QHS and sliding scale insulin. Also include meal coverage with aspart 6 units 3 times a day before meals. continue to monitor insulin requirements and adjust med as needed - Continue Gabapentin 600mg BID. - Hypertension - Continue Amlodipine 2.5mg Qday, Lisinopril 40mg Qday. Consider increasing Amlodipine if BP remains elevated. - BPH - Continue Tamsulin 0.4mg Qday, finasteride 5 mg daily. Urology evaluated the pt and started him on Detrol LA 4mg po daily for bladder spasms. Pt to f/u w urology as an outpatient for TURP. - GERD - continue PPI. Problem Qualifiers (1) Diabetic foot ulcer: Qualified Codes: E08.621 - Diabetes mellitus due to underlying condition with foot ulcer; L97.529 - Non-pressure chronic ulcer of other part of left foot with unspecified severity (2) A-fib: Qualified Codes: I48.91 - Unspecified atrial fibrillation Meghana Vasquez MD Nov 21, 2016 11:54
[2016-11-21] MEDS ORDERED: BUPIVACAINE HCL PF 0.5% 30 ML VIAL ONE (13:16)
[2016-11-21] MEDS ORDERED: LIDOCAINE HCL 2% 50 ML VIAL ONE (13:16)
[2016-11-21] MEDS ORDERED: FAMOTIDINE 20 MG/2 ML VIAL ONE (15:35)
[2016-11-21] MEDS ORDERED: MIDAZOLAM HCL 2 MG/2 ML VIAL ONE (15:35)
[2016-11-21] MEDS ORDERED: METOCLOPRAMIDE HCL 10 MG/2 ML VIAL ONE (15:35)
[2016-11-21] MEDS ORDERED: NEOMYCIN/POLYMYXIN 1 ML G.U. IRRIGANT IRRIGATION ONE (15:45)
[2016-11-21] MEDS ORDERED: DO NOT ADM ANY ANTICOAGULANT DRUGS PRN (16:29)
[2016-11-21] MEDS: INSULIN DETEMIR 100 UNITS/ML VIAL SQ SCH (21:00)
--- NOTE | 2016-11-21 22:11 | MP ---
cc: HEATHER GO DPM DATE OF SURGERY 11/21/16 SURGEON Jennifer Go DPM PREOPERATIVE DIAGNOSIS Left foot abscess. POSTOPERATIVE DIAGNOSIS Left foot abscess PROCEDURE Wound left foot I&D FINDINGS Consistent with diagnosis ANESTHESIOLOGIST Dr. Bocanegra ANESTHESIA General HEMOSTASIS None ESTIMATED BLOOD LOSS Less than 5 mL MATERIALS 3-0 nylon, 1/2-inch Iodoform packing. INJECTABLES POSTOPERATIVELY 10 mL 0.5% Marcaine plain. BRIEF HISTORY The patient is a 61-year-old male who was admitted for diabetic foot infection [facility]. He underwent on 11/17/[address] Cr a left foot I&D with tibial sesamoidectomy and skin biopsy. The risks, benefits, pros and cons discussed with patient regarding surgical intervention. No guarantees were given or implied. PROCEDURE IN DETAIL The patient was brought to the operating room and placed on the operating table in supine position after general anesthesia was administered. Left foot was scrubbed, prepped and draped in usual sterile aseptic manner. Tourniquet was applied onto the ankle but never inflated at any point in time of the procedure. An incision was made on the dorsal first interspace after prep time-out was carried out. Significant purulent drainage approximately 10 mL in nature was evacuated out of the first interspace. Evaluating the interspace, deep culture was taken of all purulent drainage. The necrotic nonviable tissue was manually debrided or rongeured or sharply excised with a #15 blade, excisionally excised. The incision was then copiously irrigated with normal sterile saline impregnated 2 units of . The patient was on routine antibiotics at the time. Bleeders were Bovied or tied as necessary. The wound was closed with 3-0 Prolene in a simple suture pattern and 1/2-inch Iodoform packing into the interspace. Dry sterile dressings were applied using Adaptic soaked with Betadine, 4x4s, Sof-Rol, Oral and an Deric wrap. The patient was transferred to post anesthesia care unit brief period of postop monitoring after which will be transferred to the floor. He will follow up appropriately while in-house. Heather Go DPM SR/ /8:37 PM /9:56 PM LORE
[2016-11-21] MEDS: ACETAMINOPHEN/HYDROcodone 325 MG/7.5 MG TAB PO PRN (22:30)
[2016-11-21] MEDS: ATORVASTATIN 40 MG TAB PO SCH (22:30)
[2016-11-21] MEDS: traZODone HCL 50 MG TAB PO SCH (22:31)
[2016-11-22] VITALS (29 sets, daily range): BP systolic 85–125; BP diastolic 52–78; PULSE 60–96; RESP 17–18; TEMP 97–98.5; O2SAT 66–96
[2016-11-22] MEDS: HEPARIN SODIUM - SQ 10,000 UNITS/ML VIAL SQ SCH ×3 (01:00→16:28)
[2016-11-22] MEDS: PIPERACIL-TAZO 4.5 GM PREMIX 100 ML IV SCH ×3 (01:22→16:28)
[2016-11-22] MEDS: ceFAZolin 2 GM PREMIX 50 ML IV SCH ×3 (04:00→21:50)
[2016-11-22] MEDS: HYDROmorphone HCL PF 1 MG/ML VIAL IV PUSH PRN ×2 (05:24→21:51)
[2016-11-22] MEDS: ACETAMINOPHEN/HYDROcodone 325 MG/7.5 MG TAB PO PRN (05:24)
[2016-11-22] MEDS: ISOSORBIDE MONONITRATE 30 MG TAB PO SCH (06:59)
[2016-11-22] MEDS: INSULIN ASPART SUPPLEMENTAL SCALE SQ SCH ×4 (07:00→21:00)
[2016-11-22] MEDS: INSULIN ASPART 1,000 UNITS/10 ML VIAL SQ SCH (08:00)
[2016-11-22] MEDS: PANTOPRAZOLE SOD 20 MG DELAYED RELEASE TAB PO SCH (08:42)
[2016-11-22] MEDS: TAMSULOSIN HCL 0.4 MG CAP PO SCH (08:43)
[2016-11-22] MEDS: DIGOXIN 0.25 MG TAB PO SCH (08:43)
[2016-11-22] MEDS: TOLTERODINE TARTRATE 4 MG CAP LA PO SCH (08:43)
[2016-11-22] MEDS: DOCUSATE SODIUM 50 MG/SENNA 8.6 MG TAB PO SCH ×2 (08:43→21:44)
[2016-11-22] MEDS: LISINOPRIL 20 MG TAB PO SCH (08:44)
[2016-11-22] MEDS: CLOPIDOGREL 75 MG TAB PO SCH (08:44)
[2016-11-22] MEDS: ASPIRIN 81 MG CHEW TAB PO SCH (08:44)
[2016-11-22] MEDS: GABAPENTIN 300 MG CAP PO SCH ×2 (08:44→21:44)
[2016-11-22] MEDS: FINASTERIDE 5 MG TAB PO SCH (08:45)
[2016-11-22] MEDS: buPROPion HCL 100 MG TAB PO SCH ×2 (08:45→21:44)
[2016-11-22] MEDS: METOPROLOL TARTRATE 50 MG TAB PO SCH ×2 (08:45→21:44)
[2016-11-22] MEDS: BUDESONIDE-FORMOTEROL 80/4.5 MCG INHALER INH SCH ×2 (08:47→21:00)
[2016-11-22] MEDS: SODIUM CHLORIDE 0.9% FLUSH 10 ML FLUSH IV FLUSH SCH ×2 (08:47→21:43)
--- NOTE | 2016-11-22 09:48 | HHI.PR ---
Subjective Remarks Patient had a hypoglycemic event earlier this morning after receiving insulin. He was given orange juice. States he is feeling better. Objective Vitals Vital Signs Date Time Temp Pulse Resp B/P (MAP) Pulse Ox O2 Delivery O2 Flow Rate FiO2 11/22/16 09:00 78 11/22/16 08:05 96 Room Air 11/22/16 08:00 76 11/22/16 07:00 77 11/22/16 07:00 97.3 66 17 102/68 (79) 66 11/22/16 06:00 68 11/22/16 05:00 68 11/22/16 04:00 68 11/22/16 04:00 98.3 96 18 102/73 (83) 94 11/22/16 04:00 100 Nasal Cannula 2.00 11/22/16 03:00 70 11/22/16 02:00 74 11/22/16 01:00 78 11/22/16 00:00 100 Nasal Cannula 2.00 11/22/16 00:00 98.4 96 18 123/68 (86) 93 11/22/16 00:00 100 Nasal Cannula 2.00 11/22/16 00:00 88 11/21/16 23:00 84 11/21/16 22:00 88 11/21/16 21:00 84 11/21/16 20:00 98.4 92 18 145/84 (104) 100 11/21/16 20:00 72 11/21/16 20:00 100 Nasal Cannula 2.00 11/21/16 18:16 99 21 11/21/16 18:00 78 11/21/16 17:39 78 18 110/74 (86) 100 11/21/16 17:27 97.9 79 19 126/70 (88) 99 Nasal Cannula 2 11/21/16 17:15 76 18 119/65 (83) 100 Nasal Cannula 2 11/21/16 17:00 76 12 114/66 (82) 100 Simple Mask 6 11/21/16 16:45 75 12 99/56 (70) 100 Simple Mask 6 11/21/16 16:30 97.6 73 12 93/54 (67) 100 Simple Mask 6 11/21/16 15:16 Room Air 11/21/16 14:06 78 11/21/16 13:29 18 11/21/16 13:00 78 11/21/16 12:00 76 11/21/16 11:16 99.7 72 18 125/84 (98) 96 11/21/16 11:00 69 11/21/16 11:00 98 Room Air 11/21/16 10:55 95 21 11/21/16 10:07 68 I/O 11/21/16 11/21/16 11/21/16 11/22/16 11/22/16 11/22/16 07:00 15:00 23:00 07:00 15:00 23:00 Intake Total 480 ml 400 ml 470 ml Output Total 1700 ml 605 ml 740 ml Balance -1220 ml -205 ml -270 ml Intake Oral 480 ml 0 ml 320 ml IV Total 150 ml Other 400 ml Output Urine Total 1700 ml 600 ml 740 ml Estimated Blood Loss 5 ml Result Diagram: 11/21/16 0551 Objective Remarks GENERAL: This is a well-nourished, well-developed patient, in no apparent distress. CARDIOVASCULAR: Normal rate and regular rhythm without murmurs, gallops, or rubs. RESPIRATORY: Good respiratory efforts. Breath sounds equal and clear to auscultation bilaterally. GASTROINTESTINAL: Abdomen soft, non-tender, non-distended. Normal active bowel sounds MUSCULOSKELETAL: Left foot is wrapped and postsurgical dressing. Postop shoe in place. Status post partial right great toe amputation. Well-healed. NEURO: Somewhat drowsy. Moves all ext x4 PSYCH: Appropriate mood and affect. Procedures cardiac cath s/p BRIAN to distal RCA (2.5x18) A/P Problem List: (1) NSTEMI (non-ST elevated myocardial infarction) ICD Code: I21.4 - Non-ST elevation (NSTEMI) myocardial infarction Status: Acute (2) Diabetic foot ulcer ICD Code: E11.621 - Type 2 diabetes mellitus with foot ulcer; L97.509 - Non- pressure chronic ulcer of other part of unspecified foot with unspecified severity Status: Acute (3) Peripheral vascular disease in diabetes mellitus ICD Code: E11.51 - Type 2 diabetes mellitus with diabetic peripheral angiopathy without gangrene Status: Chronic (4) Urinary retention ICD Code: R33.9 - Retention of urine, unspecified Status: Chronic (5) A-fib ICD Code: I48.91 - Unspecified atrial fibrillation Status: Chronic Assessment and Plan 61-year-old with a history of coronary artery disease status post stent placement in February 2016, diabetes mellitus, PVD, urinary retention who presents to the emergency department due to sharp left-sided chest pain as well as left foot infection - Sepsis - due to diabetic foot infection. On arrival temperature 101.1F pulse 124 respiration 22, WBC 13.4 - Diabetic foot infection of the left foot. - wound grew staph aureus and enterococcus faecalis. - ID following, s/p vanco, on zosyn and cefazolin - Podiatry following. MRI did not show any evidence of osteomyelitis. Pt s/p left foot I&D tibial sesamoid removal, rotational skin closure POD 3. Status post I&D of dorsal midfoot on 11/21/16. Intraoperative cultures pending - continue pain control with [place] when necessary, acetaminophen when necessary, Dilaudid IV for breakthrough. - NSTEMI - possibly type 2. - Coronary artery disease status post stent placement in February 2016. - s/p cardiac cath s/p BRIAN to distal RCA (2.5x18) - Continue aspirin, Plavix, statin. Continue beta sheree, lisinopril 40 mg , Imdur. Per cards pt will go on eliquis once all surgical procedures completed. -Pt refused to take the metoprolol as directed by cards, will cut tablet and only take half. Pt states that Dr. Perez is no longer his physician. Didn't explain to me why. Pt being non compliant w medical recs. Monitor HR closely. - Atrial fibrillation with rapid ventricular response - on metoprolol tartrate 50 mg every 12 hours. Continue digoxin 0.25 mg daily. Pt non compliant. - [id number] score 3 (DM, PVD, HTN). - After all podiatry surgical intervention with can consider apixaban 5 mg twice a day. - continue aspirin and Plavix - Patient does not have any significant bleeding history. - Diabetes mellitus - Diabetic neuropathy -Continue Levemir to 20 units QHS and sliding scale insulin. Hypoglycemic episode this morning. Suspect his insulin requirement is getting less as infectious process improving. Hold scheduled NovoLog. - Continue Gabapentin 600mg BID. - Hypertension - Continue Amlodipine 2.5mg Qday, Lisinopril 40mg Qday. Consider increasing Amlodipine if BP remains elevated. - BPH - Continue Tamsulin 0.4mg Qday, finasteride 5 mg daily. Urology evaluated the pt and started him on Detrol LA 4mg po daily for bladder spasms. Pt to f/u w urology as an outpatient for TURP. - GERD - continue PPI. Problem Qualifiers (1) Diabetic foot ulcer: Qualified Codes: E08.621 - Diabetes mellitus due to underlying condition with foot ulcer; L97.529 - Non-pressure chronic ulcer of other part of left foot with unspecified severity (2) A-fib: Qualified Codes: I48.91 - Unspecified atrial fibrillation Meghana Vasquez MD Nov 22, 2016 09:48
[2016-11-22] MEDS: RESP: ALBUTEROL 2.5 MG/IPRATROPIUM 0.5 MG NEB (PRN) NEB (16:46)
[2016-11-22] MEDS: INSULIN DETEMIR 100 UNITS/ML VIAL SQ SCH (21:00)
[2016-11-22 21:32] LABS: AUTOMATED NEUTROPHIL # 5.7 TH/MM3 (1.8-7.7); BASOPHIL # 0.1 TH/MM3 (0-0.2); EOSINOPHIL # 0.2 TH/MM3 (0-0.4); HEMATOCRIT 26.4 % (39.0-51.0); HEMO FLAGS DIFF FINAL; LYMPH % 15.6 % (9.0-44.0); LYMPHOCYTE # 1.3 TH/MM3 (1.0-4.8); MEAN CELL VOLUME 82.6 FL (80.0-100.0); MEAN CORPUSCULAR HEMOGLOBIN 26.6 PG (27.0-34.0); MEAN CORPUSCULAR HGB CONC 32.2 % (32.0-36.0); MONO % 10.4 % (0.0-8.0); PLATELET COUNT 332 TH/MM3 (150-450); RED CELL DISTRIBUTION WIDTH 15.6 % (11.6-17.2); WHITE BLOOD COUNT 8.1 TH/MM3 (4.0-11.0)
[2016-11-22 21:42] LABS: ANION GAP 9 MEQ/L (5-15); BICARBONATE 30.5 MEQ/L (21.0-32.0); BLOOD UREA NITROGEN 14 MG/DL (7-18); CHLORIDE 99 MEQ/L (98-107); GLOMERULAR FILTRATION RATE 104 ML/MIN (>89); POTASSIUM 3.9 MEQ/L (3.5-5.1); SODIUM (NA) 138 MEQ/L (136-145)
[2016-11-22 21:43] LABS: ALT (GPT) 22 U/L (12-78)
[2016-11-22] MEDS: ATORVASTATIN 40 MG TAB PO SCH (21:44)
[2016-11-22] MEDS: traZODone HCL 50 MG TAB PO SCH (21:45)
[2016-11-22 21:52] LABS: ALKALINE PHOSPHATASE 108 U/L (45-117); AST (GOT) 24 U/L (15-37); TOTAL BILIRUBIN ADULT 0.3 MG/DL (0.2-1.0)
[2016-11-23] VITALS (22 sets, daily range): BP systolic 101–138; BP diastolic 59–87; PULSE 62–84; RESP 16–20; TEMP 97.4–98.7; O2SAT 94–97
[2016-11-23] MEDS: PIPERACIL-TAZO 4.5 GM PREMIX 100 ML IV SCH ×4 (00:37→23:47)
[2016-11-23] MEDS: HEPARIN SODIUM - SQ 10,000 UNITS/ML VIAL SQ SCH ×3 (00:37→17:27)
[2016-11-23] MEDS: ceFAZolin 2 GM PREMIX 50 ML IV SCH ×3 (05:06→19:46)
[2016-11-23 06:42] LABS: AUTOMATED NEUTROPHIL # 5.2 TH/MM3 (1.8-7.7); BASOPHIL # 0.1 TH/MM3 (0-0.2); BASOPHIL % 1.1 % (0.0-2.0); EOSINOPHIL # 0.2 TH/MM3 (0-0.4); EOSINOPHIL % 2.7 % (0.0-4.0); HEMATOCRIT 25.4 % (39.0-51.0); HEMO FLAGS DIFF FINAL; LYMPHOCYTE # 1.1 TH/MM3 (1.0-4.8); MEAN CELL VOLUME 82.3 FL (80.0-100.0); MEAN CORPUSCULAR HGB CONC 32.8 % (32.0-36.0); MONO % 11.1 % (0.0-8.0); NEUT % 70.1 % (16.0-70.0); PLATELET COUNT 307 TH/MM3 (150-450); RED BLOOD COUNT 3.09 MIL/MM3 (4.50-5.90); RED CELL DISTRIBUTION WIDTH 15.5 % (11.6-17.2); WHITE BLOOD COUNT 7.5 TH/MM3 (4.0-11.0)
[2016-11-23] MEDS: ISOSORBIDE MONONITRATE 30 MG TAB PO SCH (06:42)
[2016-11-23 07:07] LABS: ALT (GPT) 24 U/L (12-78); ANION GAP 7 MEQ/L (5-15); AST (GOT) 23 U/L (15-37); BICARBONATE 32.6 MEQ/L (21.0-32.0); BLOOD UREA NITROGEN 12 MG/DL (7-18); CHLORIDE 100 MEQ/L (98-107); GLOMERULAR FILTRATION RATE 94 ML/MIN (>89); POTASSIUM 3.9 MEQ/L (3.5-5.1); SODIUM (NA) 140 MEQ/L (136-145)
[2016-11-23 07:10] LABS: ALKALINE PHOSPHATASE 106 U/L (45-117); TOTAL BILIRUBIN ADULT 0.2 MG/DL (0.2-1.0)
[2016-11-23] MEDS: RESP: ALBUTEROL 2.5 MG/IPRATROPIUM 0.5 MG NEB (PRN) NEB ×2 (08:18→17:29)
[2016-11-23] MEDS: ASPIRIN 81 MG CHEW TAB PO SCH (08:33)
[2016-11-23] MEDS: SODIUM CHLORIDE 0.9% FLUSH 10 ML FLUSH IV FLUSH SCH ×2 (08:33→20:52)
[2016-11-23] MEDS: FINASTERIDE 5 MG TAB PO SCH (08:33)
[2016-11-23] MEDS: BUDESONIDE-FORMOTEROL 80/4.5 MCG INHALER INH SCH ×2 (08:33→20:53)
[2016-11-23] MEDS: CLOPIDOGREL 75 MG TAB PO SCH (08:33)
[2016-11-23] MEDS: buPROPion HCL 100 MG TAB PO SCH ×2 (08:33→20:54)
[2016-11-23] MEDS: GABAPENTIN 300 MG CAP PO SCH ×2 (08:34→20:54)
[2016-11-23] MEDS: TOLTERODINE TARTRATE 4 MG CAP LA PO SCH (08:34)
[2016-11-23] MEDS: PANTOPRAZOLE SOD 20 MG DELAYED RELEASE TAB PO SCH (08:34)
[2016-11-23] MEDS: LISINOPRIL 20 MG TAB PO SCH (08:34)
[2016-11-23] MEDS: DOCUSATE SODIUM 50 MG/SENNA 8.6 MG TAB PO SCH ×2 (08:34→20:52)
[2016-11-23] MEDS: DIGOXIN 0.25 MG TAB PO SCH (08:34)
[2016-11-23] MEDS: TAMSULOSIN HCL 0.4 MG CAP PO SCH (08:34)
[2016-11-23] MEDS: METOPROLOL TARTRATE 50 MG TAB PO SCH ×2 (08:35→20:54)
[2016-11-23] MEDS: INSULIN ASPART SUPPLEMENTAL SCALE SQ SCH ×3 (11:00→20:57)
--- NOTE | 2016-11-23 12:22 | HHI.PR ---
Subjective Remarks Patient reports he is doing okay. Pain is controlled. Feels somewhat fatigued. Otherwise doing okay. Objective Vitals Vital Signs Date Time Temp Pulse Resp B/P (MAP) Pulse Ox O2 Delivery O2 Flow Rate FiO2 11/23/16 12:00 72 11/23/16 11:00 98.7 78 20 129/76 (93) 96 11/23/16 11:00 96 Room Air 11/23/16 11:00 78 11/23/16 10:00 84 11/23/16 09:00 78 11/23/16 08:21 97 11/23/16 07:15 Nasal Cannula 2.00 11/23/16 07:15 97.9 64 20 101/59 (73) 11/23/16 07:15 64 11/23/16 04:00 97.4 81 18 116/77 (90) 95 11/23/16 04:00 96 Room Air 11/23/16 03:00 62 11/23/16 02:00 64 11/23/16 01:00 72 11/23/16 00:00 93 Room Air 11/23/16 00:00 98.5 76 19 124/79 (94) 94 11/23/16 00:00 74 11/22/16 23:00 74 11/22/16 22:00 76 11/22/16 21:00 70 11/22/16 20:00 95 Room Air 11/22/16 20:00 72 11/22/16 20:00 98.5 78 18 125/78 (94) 95 11/22/16 18:01 72 11/22/16 17:00 72 11/22/16 16:55 94 11/22/16 16:00 66 11/22/16 15:09 95 Room Air 11/22/16 15:08 65 11/22/16 15:01 97.0 67 18 96/52 (67) 95 11/22/16 14:07 69 11/22/16 13:00 70 I/O 11/22/16 11/22/16 11/22/16 11/23/16 11/23/16 11/23/16 07:00 15:00 23:00 07:00 15:00 23:00 Intake Total 470 ml 150 ml 720 ml 520 ml Output Total 740 ml 500 ml 950 ml Balance -270 ml 150 ml 220 ml -430 ml Intake Oral 320 ml 620 ml 420 ml IV Total 150 ml 150 ml 100 ml 100 ml Output Urine Total 740 ml 500 ml 950 ml Result Diagram: 11/23/1651411/23/16514 Objective Remarks GENERAL: This is a well-nourished, well-developed patient, in no apparent distress. CARDIOVASCULAR: Normal rate and regular rhythm without murmurs, gallops, or rubs. RESPIRATORY: Good respiratory efforts. Breath sounds equal and clear to auscultation bilaterally. GASTROINTESTINAL: Abdomen soft, non-tender, non-distended. Normal active bowel sounds MUSCULOSKELETAL: Left foot is wrapped and postsurgical dressing. Postop shoe in place. Status post partial right great toe amputation. Well-healed. NEURO: Somewhat drowsy. Moves all ext x4 PSYCH: Appropriate mood and affect. Procedures cardiac cath s/p BRIAN to distal RCA (2.5x18) A/P Problem List: (1) NSTEMI (non-ST elevated myocardial infarction) ICD Code: I21.4 - Non-ST elevation (NSTEMI) myocardial infarction Status: Acute (2) Diabetic foot ulcer ICD Code: E11.621 - Type 2 diabetes mellitus with foot ulcer; L97.509 - Non- pressure chronic ulcer of other part of unspecified foot with unspecified severity Status: Acute (3) Peripheral vascular disease in diabetes mellitus ICD Code: E11.51 - Type 2 diabetes mellitus with diabetic peripheral angiopathy without gangrene Status: Chronic (4) Urinary retention ICD Code: R33.9 - Retention of urine, unspecified Status: Chronic (5) A-fib ICD Code: I48.91 - Unspecified atrial fibrillation Status: Chronic Assessment and Plan 61-year-old with a history of coronary artery disease status post stent placement in February 2016, diabetes mellitus, PVD, urinary retention who presents to the emergency department due to sharp left-sided chest pain as well as left foot infection - Sepsis - due to diabetic foot infection. On arrival temperature 101.1F pulse 124 respiration 22, WBC 13.4 - Diabetic foot infection of the left foot. - wound grew staph aureus and enterococcus faecalis. - ID following, s/p vanco, on zosyn and cefazolin - Podiatry following. MRI did not show any evidence of osteomyelitis. Pt s/p left foot I&D tibial sesamoid removal, rotational skin closure POD 3. Status post I&D of dorsal midfoot on 11/21/16. Intraoperative cultures pending - continue pain control with [place] when necessary, acetaminophen when necessary, Dilaudid IV for breakthrough. - Further plans per podiatry. - NSTEMI - possibly type 2. - Coronary artery disease status post stent placement in February 2016. - s/p cardiac cath s/p BRIAN to distal RCA (2.5x18) - Continue aspirin, Plavix, statin. Continue beta sheree, lisinopril 40 mg , Imdur. Per cards pt will go on eliquis once all surgical procedures completed. -Pt refused to take the metoprolol as directed by cards, will cut tablet and only take half. Pt states that Dr. Preez is no longer his physician. Didn't explain to me why. Pt being non compliant w medical recs. Monitor HR closely. - Atrial fibrillation with rapid ventricular response - on metoprolol tartrate 50 mg every 12 hours. Continue digoxin 0.25 mg daily. Pt non compliant. - [id number] score 3 (DM, PVD, HTN). - After all podiatry surgical intervention with can consider apixaban 5 mg twice a day. - continue aspirin and Plavix - Patient does not have any significant bleeding history. - Diabetes mellitus - Diabetic neuropathy -Continue Levemir to 20 units QHS and sliding scale insulin. - Continue Gabapentin 600mg BID. - Hypertension - Continue Amlodipine 2.5mg Qday, Lisinopril 40mg Qday. Consider increasing Amlodipine if BP remains elevated. - BPH - Continue Tamsulin 0.4mg Qday, finasteride 5 mg daily. Urology evaluated the pt and started him on Detrol LA 4mg po daily for bladder spasms. Pt to f/u w urology as an outpatient for TURP. - GERD - continue PPI. Problem Qualifiers (1) Diabetic foot ulcer: Qualified Codes: E08.621 - Diabetes mellitus due to underlying condition with foot ulcer; L97.529 - Non-pressure chronic ulcer of other part of left foot with unspecified severity (2) A-fib: Qualified Codes: I48.91 - Unspecified atrial fibrillation Meghana Vasquez MD Nov 23, 2016 12:22
[2016-11-23] MEDS: ACETAMINOPHEN/HYDROcodone 325 MG/7.5 MG TAB PO PRN ×2 (12:37→20:55)
[2016-11-23] MEDS: ATORVASTATIN 40 MG TAB PO SCH (20:53)
[2016-11-23] MEDS: traZODone HCL 50 MG TAB PO SCH (20:54)
[2016-11-23] MEDS: INSULIN DETEMIR 100 UNITS/ML VIAL SQ SCH (20:56)
--- NOTE | 2016-11-23 22:31 | PD.POD ---
Subjective Podiatric Problems s/p I and D left foot DR Cr 11/17/16 s/p I and D dorsal foot with Dr Go 11/21/16 Pain score: 3 Past Med/Surg/Social History Past Medical History Endocrine: REPORTS HX OF: Diabetes mellitus Cardiovascular: REPORTS HX OF: Coronary artery disease, Peripheral vascular dz Genitourinary: REPORTS HX OF: Past UTI Past Surgical History Genitourinary: REPORTS HX OF: Other surgery Social History Smoking Status: Current Some Day Smoker Objective Vital Signs Vital Signs Date Time Temp Pulse Resp B/P (MAP) Pulse Ox O2 Delivery O2 Flow Rate FiO2 11/23/16 18:00 65 11/23/16 17:00 79 11/23/16 16:00 70 11/23/16 15:00 71 11/23/16 15:00 75 20 131/77 (95) 96 11/23/16 15:00 96 Room Air 11/23/16 14:00 68 11/23/16 13:52 20 11/23/16 13:00 74 11/23/16 12:00 72 11/23/16 11:00 98.7 78 20 129/76 (93) 96 11/23/16 11:00 96 Room Air 11/23/16 11:00 78 11/23/16 10:00 84 11/23/16 09:00 78 11/23/16 08:21 97 11/23/16 07:15 Nasal Cannula 2.00 11/23/16 07:15 97.9 64 20 101/59 (73) 11/23/16 07:15 64 11/23/16 04:00 97.4 81 18 116/77 (90) 95 11/23/16 04:00 96 Room Air 11/23/16 03:00 62 11/23/16 02:00 64 11/23/16 01:00 72 11/23/16 00:00 93 Room Air 11/23/16 00:00 98.5 76 19 124/79 (94) 94 11/23/16 00:00 74 11/22/16 23:00 74 Coded Allergies: bee venom protein (honey bee) (Unverified Allergy, Severe, Anaphylaxis, ) Other Results Laboratory Tests Test 11/14/16 16:05 11/14/16 16:15 11/15/16 05:49 11/15/16 13:47 Prothrombin Time 11.4 SEC Prothromb Time International Ratio 1.0 RATIO Activated Partial Thromboplast Time 33.8 SEC Blood Urea Nitrogen 10 MG/DL Creatinine 0.82 MG/DL Random Glucose 240 MG/DL Total Protein 7.6 GM/DL Albumin 3.1 GM/DL Calcium Level 8.7 MG/DL Magnesium Level 1.7 MG/DL Alkaline Phosphatase 116 U/L Aspartate Amino Transf (AST/SGOT) 23 U/L Alanine Aminotransferase (ALT/SGPT) 16 U/L Total Bilirubin 0.6 MG/DL Sodium Level 134 MEQ/L Potassium Level 4.5 MEQ/L Chloride Level 98 MEQ/L Carbon Dioxide Level 28.6 MEQ/L Total Creatine Kinase 82 U/L B-Type Natriuretic Peptide 144 PG/ML Urine Collection Type CLEAN CATCH Urine Squamous Epithelial Cells 6-8 /hpf Urine Collection Time 16:15 Troponin I 0.10 NG/ML Lactic Acid Level 1.4 mmol/L Test 11/16/16 15:20 11/19/16 04:53 11/23/16 05:15 Vancomycin Level Trough 9.4 MCG/ML Urine Color YELLOW Urine Turbidity HAZY Urine pH 7.0 Urine Specific [place] 1.029 Urine Protein GREATER THAN 600 mg/dL Urine Glucose (UA) TRACE mg/dL Urine Ketones NEG mg/dL Urine Occult Blood MOD Urine Nitrite NEG Urine Bilirubin NEG Urine Urobilinogen LESS THAN 2.0 MG/DL Urine Leukocyte Esterase MOD Urine RBC /hpf Urine WBC 59 /hpf Urine WBC Clumps RARE Urine Transitional Epithelial Cells <1 /hpf Urine Amorphous Sediment RARE Urine Bacteria FEW /hpf Urine Mucus FEW /lpf Microscopic Urinalysis Comment CATH-CULTURE IND White Blood Count 7.5 TH/MM3 Red Blood Count 3.09 MIL/MM3 Hemoglobin 8.3 GM/DL Hematocrit 25.4 % Mean Corpuscular Volume 82.3 FL Mean Corpuscular Hemoglobin 27.0 PG Mean Corpuscular Hemoglobin Concent 32.8 % Red Cell Distribution Width 15.5 % Platelet Count 307 TH/MM3 Mean Platelet Volume 8.2 FL Neutrophils (%) (Auto) 70.1 % Lymphocytes (%) (Auto) 15.0 % Monocytes (%) (Auto) 11.1 % Eosinophils (%) (Auto) 2.7 % Basophils (%) (Auto) 1.1 % Neutrophils # (Auto) 5.2 TH/MM3 Lymphocytes # (Auto) 1.1 TH/MM3 Monocytes # (Auto) 0.8 TH/MM3 Eosinophils # (Auto) 0.2 TH/MM3 Basophils # (Auto) 0.1 TH/MM3 CBC Comment DIFF FINAL Differential Comment Blood Urea Nitrogen 12 MG/DL Creatinine 0.83 MG/DL Random Glucose 102 MG/DL Total Protein 6.1 GM/DL Albumin 2.1 GM/DL Calcium Level 8.1 MG/DL Alkaline Phosphatase 106 U/L Aspartate Amino Transf (AST/SGOT) 23 U/L Alanine Aminotransferase (ALT/SGPT) 24 U/L Total Bilirubin 0.2 MG/DL Sodium Level 140 MEQ/L Potassium Level 3.9 MEQ/L Chloride Level 100 MEQ/L Carbon Dioxide Level 32.6 MEQ/L Anion Gap 7 MEQ/L Estimat Glomerular Filtration Rate 94 ML/MIN Exam-Podiatry Dermatological Exam Ulcers: Location/Measurements LLE Resolved dorsal foot erythema. Intact sutures and packing. LE is warm to warm. NVS unchanged. No streaking and no active drainage. Assessment & Plan Diagnosis: (1) Diabetes ICD Codes: E11.9 - Type 2 diabetes mellitus without complications Status: Acute (2) PAD (peripheral artery disease) ICD Codes: I73.9 - Peripheral vascular disease, unspecified Status: Chronic (3) Cellulitis ICD Codes: L03.90 - Cellulitis, unspecified Status: Acute A/P s/p I and D with Dr Cr 11/17/16 s/p Left foot dorsal I and D with Dr Go 11/21/16 OK to d/c per Podiatry. F/U with Dr Cr with in 1 week of d/c Keep the foot clean dry and intact. WB with post op shoe and f/u with abx. Recommend 2 week of oral abx. Problem Qualifiers (1) Cellulitis: Qualified Codes: L03.116 - Cellulitis of left lower limb Lexus Go DPM Nov 23, 2016 22:30
[2016-11-23] MEDS: HYDROmorphone HCL PF 1 MG/ML VIAL IV PUSH PRN (23:47)
[2016-11-24] VITALS (15 sets, daily range): BP systolic 120–129; BP diastolic 73–85; PULSE 60–88; RESP 16–19; TEMP 97.6–98.6; O2SAT 95–97
[2016-11-24] MEDS: HEPARIN SODIUM - SQ 10,000 UNITS/ML VIAL SQ SCH ×2 (01:15→08:31)
[2016-11-24] MEDS: ceFAZolin 2 GM PREMIX 50 ML IV SCH ×2 (03:57→11:56)
[2016-11-24] MEDS: ISOSORBIDE MONONITRATE 30 MG TAB PO SCH (06:21)
[2016-11-24] MEDS: ACETAMINOPHEN/HYDROcodone 325 MG/7.5 MG TAB PO PRN (06:22)
[2016-11-24] MEDS: INSULIN ASPART SUPPLEMENTAL SCALE SQ SCH ×2 (06:28→11:00)
[2016-11-24] MEDS: PIPERACIL-TAZO 4.5 GM PREMIX 100 ML IV SCH (08:28)
[2016-11-24] MEDS: BUDESONIDE-FORMOTEROL 80/4.5 MCG INHALER INH SCH (08:28)
[2016-11-24] MEDS: TAMSULOSIN HCL 0.4 MG CAP PO SCH (08:29)
[2016-11-24] MEDS: TOLTERODINE TARTRATE 4 MG CAP LA PO SCH (08:29)
[2016-11-24] MEDS: FINASTERIDE 5 MG TAB PO SCH (08:29)
[2016-11-24] MEDS: buPROPion HCL 100 MG TAB PO SCH (08:29)
[2016-11-24] MEDS: ASPIRIN 81 MG CHEW TAB PO SCH (08:29)
[2016-11-24] MEDS: GABAPENTIN 300 MG CAP PO SCH (08:29)
[2016-11-24] MEDS: CLOPIDOGREL 75 MG TAB PO SCH (08:30)
[2016-11-24] MEDS: DIGOXIN 0.25 MG TAB PO SCH (08:30)
[2016-11-24] MEDS: PANTOPRAZOLE SOD 20 MG DELAYED RELEASE TAB PO SCH (08:30)
[2016-11-24] MEDS: LISINOPRIL 20 MG TAB PO SCH (08:30)
[2016-11-24] MEDS: DOCUSATE SODIUM 50 MG/SENNA 8.6 MG TAB PO SCH (08:31)
[2016-11-24] MEDS: METOPROLOL TARTRATE 50 MG TAB PO SCH (08:31)
[2016-11-24] MEDS: SODIUM CHLORIDE 0.9% FLUSH 10 ML FLUSH IV FLUSH SCH (08:32)
[2016-11-24] MEDS ORDERED: OXYC1TAB35 PO (09:59)
[2016-11-24] MEDS ORDERED: CEFU1TAB20 PO (10:00)
[2016-11-24] MEDS ORDERED: METO-309 PO (10:34)
[2016-11-24] MEDS ORDERED: ASPI81CH25 PO (10:34)
[2016-11-24] MEDS ORDERED: DETR4CAP PO (10:34)
[2016-11-24] MEDS ORDERED: APIX5TAB PO (10:37)
--- NOTE | 2016-11-24 10:37 | HHI.DCPOC ---
Discharge Care Plan Diagnosis: (1) Sepsis (2) Diabetes mellitus with foot ulcer and gangrene (3) Peripheral vascular disease in diabetes mellitus (4) NSTEMI (non-ST elevated myocardial infarction) (5) CAD (coronary artery disease) (6) Elevated troponin (7) Hypotonic bladder Goals to Promote Your Health * To prevent worsening of your condition and complications * To maintain your health at the optimal level Directions to Meet Your Goals Take your medications as prescribed Follow your dietary instruction Follow activity as directed Keep your appointments as scheduled Take your immunizations and boosters as scheduled If your symptoms worsen call your PCP, if no PCP go to Urgent Care Center or Emergency Room Smoking is Dangerous to Your Health. Avoid second hand smoke Call the 24-hour hour crisis hotline for domestic abuse at Meghana Vasquez MD Nov 24, 2016 10:37
--- NOTE | 2016-11-24 10:39 | HHI.DS ---
Discharge Summary Admission Date Nov 14, 2016 at 17:02 Discharge Date: Nov 24, 2016 Admitting Diagnosis sepsis, chest pain, elevated troponin, diabetic foot ulcer, A. fib (1) NSTEMI (non-ST elevated myocardial infarction) ICD Code: I21.4 - Non-ST elevation (NSTEMI) myocardial infarction Status: Acute (2) Diabetic foot ulcer ICD Code: E11.621 - Type 2 diabetes mellitus with foot ulcer; L97.509 - Non- pressure chronic ulcer of other part of unspecified foot with unspecified severity Status: Acute (3) Peripheral vascular disease in diabetes mellitus ICD Code: E11.51 - Type 2 diabetes mellitus with diabetic peripheral angiopathy without gangrene Status: Chronic (4) Urinary retention ICD Code: R33.9 - Retention of urine, unspecified Status: Chronic (5) A-fib ICD Code: I48.91 - Unspecified atrial fibrillation Status: Chronic Procedures cardiac cath s/p BRIAN to distal RCA (2.5x18) Brief History - From Admission Mr. Rowland is a pleasant 61-year-old with a history of coronary artery disease status post stent placement in February 2016, diabetes mellitus, PVD, urinary retention who presents to the emergency department due to sharp left-sided chest pain as well as left foot infection. His chest pain is localized in the left chest area and sharp in nature. No associated nausea vomiting or diaphoresis. Patient also reports noticing a blister on his left foot about 2 months ago. The blister improved and started drying up. However about 2 weeks ago he noticed a hole in his left foot and since then his left foot infection has been worsening. He reports fever and chills in the last 2 weeks. Denies any changes in bowel habits. He has chronic Melgoza catheter. On arrival temperature 101.1F pulse 124 respiration 22 blood pressure 169/99 pulse oximetry 95% on room air. WBC 13.4 with neutrophil 82.2%, hemoglobin 12.4. Sodium 134 potassium 4.5 BUN 10 creatinine 0.82 random glucose 240. Lactic acid 1.6. Troponin 0.12. CBC/BMP: 11/23/16 0515 11/23/16 0515 Significant Findings Laboratory Tests Test 11/22/16 20:41 11/23/16 05:15 Red Blood Count 3.20 MIL/MM3 (4.50-5.90) 3.09 MIL/MM3 (4.50-5.90) Hemoglobin 8.5 GM/DL (13.0-17.0) 8.3 GM/DL (13.0-17.0) Hematocrit 26.4 % (39.0-51.0) 25.4 % (39.0-51.0) Mean Corpuscular Hemoglobin 26.6 PG (27.0-34.0) Neutrophils (%) (Auto) 71.0 % (16.0-70.0) 70.1 % (16.0-70.0) Monocytes (%) (Auto) 10.4 % (0.0-8.0) 11.1 % (0.0-8.0) Random Glucose 109 MG/DL (74-106) Total Protein 6.3 GM/DL (6.4-8.2) 6.1 GM/DL (6.4-8.2) Albumin 2.2 GM/DL (3.4-5.0) 2.1 GM/DL (3.4-5.0) Calcium Level 8.4 MG/DL (8.5-10.1) 8.1 MG/DL (8.5-10.1) Carbon Dioxide Level 32.6 MEQ/L (21.0-32.0) Imaging Last Impressions Foot MRI 11/15/16 0000 Signed Impressions: Service Date/Time: Tuesday, November 15, 2016 11:28 - CONCLUSION: Ulceration but does not extend to the bone. There is no defined abscess. Extensive edema is evident. Previous CTA runoff had shown more disease on the right than the left. Christiano Robertson MD FACR Chest X-Ray 11/14/16 1554 Signed Impressions: Service Date/Time: Monday, November 14, 2016 16:12 - CONCLUSION: No acute disease. No significant change has occurred. Gregorio Patiño MD Foot X-Ray 11/14/16 0000 Signed Impressions: Service Date/Time: Monday, November 14, 2016 16:11 - CONCLUSION: Soft tissue swelling dorsally. Otherwise negative Gregorio Patiño MD PE at Discharge GENERAL: This is a well-nourished, well-developed patient, in no apparent distress. CARDIOVASCULAR: Normal rate and regular rhythm without murmurs, gallops, or rubs. RESPIRATORY: Good respiratory efforts. Breath sounds equal and clear to auscultation bilaterally. GASTROINTESTINAL: Abdomen soft, non-tender, non-distended. Normal active bowel sounds MUSCULOSKELETAL: Left foot is wrapped and postsurgical dressing. Postop shoe in place. Status post partial right great toe amputation. Well-healed. NEURO: Somewhat drowsy. Moves all ext x4 PSYCH: Appropriate mood and affect. Pt update on day of discharge Patient reports is feeling okay. He was cleared by podiatry for discharge. We discussed discharge planning at length and the need to follow-up outpatient with urology. Hospital Course 61-year-old with a history of coronary artery disease status post stent placement in February 2016, diabetes mellitus, PVD, urinary retention who presents to the emergency department due to sharp left-sided chest pain as well as left foot infection. Evaluation and treatment course detailed below: - Sepsis - due to diabetic foot infection. On arrival temperature 101.1F pulse 124 respiration 22, WBC 13.4 - Diabetic foot infection of the left foot. - wound grew staph aureus and enterococcus faecalis. - ID following, s/p vanco, on zosyn and cefazolin - Podiatry followed the patient. MRI did not show any evidence of osteomyelitis. Pt s/p left foot I&D tibial sesamoid removal, rotational skin closure POD 3. Status post I&D of dorsal midfoot on 11/21/16. Intraoperative cultures pending - continue pain control with Black when necessary, acetaminophen when necessary. -The patient was discharged on oral antibiotics to follow-up outpatient with podiatry. - NSTEMI - possibly type 2. - Coronary artery disease status post stent placement in February 2016. - s/p cardiac cath s/p BRIAN to distal RCA (2.5x18) - Continue aspirin, Plavix, statin. Continue beta sheree, lisinopril 40 mg , Imdur. Per cards patient discharged on Eliquis. -Pt refused to take the metoprolol as directed by cards, will cut tablet and only take half. Pt states that Dr. Perez is no longer his physician. Patient at times was noncompliant with medical recommendations. 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 - Atrial fibrillation with rapid ventricular response - on metoprolol tartrate 50 mg every 12 hours. Continue digoxin 0.25 mg daily. Pt non compliant. - [id number] score 3 (DM, PVD, HTN). - continue aspirin and Plavix - Patient does not have any significant bleeding history. He was discharge on Eliquis per cardiology recommendations. - Diabetes mellitus - Diabetic neuropathy - Continue Levemir to 20 units QHS and sliding scale insulin. - Continue Gabapentin 600mg BID. - Hypertension - Continue Amlodipine 2.5mg Qday, Lisinopril 40mg Qday. Consider increasing Amlodipine if BP remains elevated. - BPH - Continue Tamsulin 0.4mg Qday, finasteride 5 mg daily. Urology evaluated the pt and started him on Detrol LA 4mg po daily for bladder spasms. Pt to f/u w urology as an outpatient for TURP. - GERD - continue PPI. Pt Condition on Discharge: Good Discharge Disposition: Discharge Home Discharge Time: > 30 minutes Discharge Instructions DIET: Follow Instructions for: Diabetic Diet Activities you can perform: Regular-No Restrictions, See Additionl Instruction Other Activity Instructions: Weight brearing left foot with post op shoe only. Follow up Referrals: Cardiology - 2 Weeks PCP Follow-up - 1 Week Urology - 2 Weeks with Ovi Davis DO New Medications: Apixaban (Eliquis) 5 Mg Tab 5 MG PO BID for Blood Clot Prevention, #60 TAB 0 Refills Cefuroxime (Cefuroxime) 500 Mg Tab 500 MG PO BID for Infection, #28 TAB 0 Refills Aspirin (Aspirin Low Strength) 81 Mg Chew 81 MG PO DAILY, #30 EA Metoprolol Tartrate (Lopressor) 50 Mg Tab 50 MG PO Q12HR, #60 TAB Tolterodine ER (Detrol LA) 4 Mg Cap 4 MG PO DAILY, #30 CAP Continued Medications: Albuterol 6.7 GM Inh (Proventil Hfa 6.7 GM Inh) 90 Mcg/Act Aer 2 PUFF INH Q4-6H PRN for SHORTNESS OF BREATH, #1 INHALER 0 Refills Amlodipine (Norvasc) 5 Mg Tab 2.5 MG PO DAILY for Blood Pressure Management, #30 TAB Atorvastatin (Lipitor) 80 Mg Tab 80 MG PO HS for Cholesterol Management, #30 TAB 0 Refills Blood Glucose Monitoring Suppl (Blood Glucose System Kishan) 1 Kit Kit KIT, #1 Budesonide-Formoterol Inh (Symbicort Inh) 80-4.5 Mcg/Act Aero 1 PUFF INH Q12HR for Asthma Management, #1 INHALER 0 Refills Bupropion HCl (Bupropion HCl) 100 Mg Tab 150 MG PO BID for Control Depression, TAB 0 Refills Clopidogrel (Plavix) 75 Mg Tab 75 MG PO DAILY for Stents, #30 TAB Digoxin (Digoxin) 0.25 Mg Tab 0.25 MG PO DAILY for Regulate Heart Beat, #30 TAB [address] (Esomeprazole DR) 20 Mg Capdr 20 MG PO DAILY, #30 CAP 0 Refills Fenofibrate (Fenofibrate) 48 Mg Tab 48 MG PO DAILY, #30 TAB 0 Refills Finasteride (Finasteride) 5 Mg Tab 5 MG PO DAILY for Manage Prostate Problems, #30 TAB 0 Refills Do not crush. Gabapentin (Gabapentin) 600 Mg Tab 600 MG PO BID, #60 TAB 0 Refills Insulin Detemir Inj (Levemir Flextouch Pen Inj) 300 unit/3 ML Pen 30 UNITS SQ BID for Blood Sugar Management, #60 PEN 0 Refills Ipratropium-Albuterol Inh (Combivent Respimat Inh) 20-100 Prison/Act Aero 1 PUFF INH QID for Asthma Management, #1 INHALER 0 Refills Isosorbide Mononitrate (Isosorbide Mononitrate) 20 Mg Tab 30 MG PO DAILY for Prevent Chest Pain, #60 TAB 0 Refills Take 2 doses 7 hours apart. Lisinopril (Lisinopril) 40 Mg Tab 40 MG PO for Blood Pressure Management, #30 TAB 0 Refills Magnesium Hydroxide Liq (Milk of Magnesia Liq) 400 Mg/5 Ml Susp 30 ML PO DAILY PRN for CONSTIPATION, #1 BOTTLE 0 Refills Metoprolol Succinate ER 24 HR (Metoprolol Succinate ER 24 HR) 50 Mg Tab 50 MG PO DAILY for Blood Pressure Management, #30 TAB Oxycodone-Acetaminophen (Oxycodone-Acetaminophen) 7.5-325 mg Tab 1 TAB PO Q6H PRN for PAIN SCALE 5 TO 10, #30 TAB (This prescription has been renewed) Tamsulosin (Flomax) 0.4 Mg Cap 0.8 MG PO DAILY for BPH, #90 CAP Trazodone (Trazodone) 50 Mg Tab 50 MG PO HS for Control Depression, #30 TAB 0 Refills Meghana Vasquez MD Nov 24, 2016 10:39
== END 2016-11-24 13:24 | disposition home or self-care (01) | DRG 853 ==
LOC: PHED 15:41 → PHEDA 17:02 → PHICU 17:45 → HCIS 11-15 22:21
PROVIDERS: ADMIT Family Medicine; ATTEND Family Medicine
PROC: 027134Z Dilation of Coronary Artery, Two Arteries with Drug-eluting Intraluminal Device, Percutaneous Approach (ICD-10-PCS; 2016-11-16)
PROC: 4A023N7 Measurement of Cardiac Sampling and Pressure, Left Heart, Percutaneous Approach (ICD-10-PCS; 2016-11-16)
PROC: B2111ZZ Fluoroscopy of Multiple Coronary Arteries using Low Osmolar Contrast (ICD-10-PCS; 2016-11-16)
PROC: 0HXNXZZ Transfer Left Foot Skin, External Approach (ICD-10-PCS; 2016-11-17)
PROC: 0JBR0ZZ Excision of Left Foot Subcutaneous Tissue and Fascia, Open Approach (ICD-10-PCS; 2016-11-17)
PROC: 3E0T3CZ (ICD-10-PCS; 2016-11-17)
PROC: 0QTP0ZZ Resection of Left Metatarsal, Open Approach (ICD-10-PCS; principal; 2016-11-17 13:31)
PROC: 0JBR0ZZ Excision of Left Foot Subcutaneous Tissue and Fascia, Open Approach (ICD-10-PCS; 2016-11-21)
DX: A41.01 Sepsis due to Methicillin susceptible Staphylococcus aureus (principal); I21.4 Non-ST elevation (NSTEMI) myocardial infarction; E11.52 Type 2 diabetes mellitus with diabetic peripheral angiopathy with gangrene; M00.072 Staphylococcal arthritis, left ankle and foot; L03.116 Cellulitis of left lower limb; I48.91 Unspecified atrial fibrillation; N13.8 Other obstructive and reflux uropathy; L02.612 Cutaneous abscess of left foot; N39.0 Urinary tract infection, site not specified; T82.855A Stenosis of coronary artery stent, initial encounter; M00.872 Arthritis due to other bacteria, left ankle and foot; A41.81 Sepsis due to Enterococcus; E11.42 Type 2 diabetes mellitus with diabetic polyneuropathy; E11.40 Type 2 diabetes mellitus with diabetic neuropathy, unspecified; E11.621 Type 2 diabetes mellitus with foot ulcer; E11.69 Type 2 diabetes mellitus with other specified complication; N40.1 Benign prostatic hyperplasia with lower urinary tract symptoms; K21.9 Gastro-esophageal reflux disease without esophagitis; R33.8 Other retention of urine; I25.10 Atherosclerotic heart disease of native coronary artery without angina pectoris; J44.9 Chronic obstructive pulmonary disease, unspecified; L97.529 Non-pressure chronic ulcer of other part of left foot with unspecified severity; E11.628 Type 2 diabetes mellitus with other skin complications; E78.5 Hyperlipidemia, unspecified; N32.89 Other specified disorders of bladder; E11.649 Type 2 diabetes mellitus with hypoglycemia without coma; F12.90 Cannabis use, unspecified, uncomplicated; F17.200 Nicotine dependence, unspecified, uncomplicated; Y83.1 Surgical operation with implant of artificial internal device as the cause of abnormal reaction of the patient, or of later complication, without mention of misadventure at the time of the procedure; Z79.4 Long term (current) use of insulin; Z74.01 Bed confinement status; Z89.411 Acquired absence of right great toe; Z89.431 Acquired absence of right foot; Z91.030 Bee allergy status; Z91.19 Patient's noncompliance with other medical treatment and regimen
CPT/HCPCS: 71010; 73630; 73720; 76937; 80048; 80053; 80202; 81001; 82550; 82948; 83605; 83735; 83880; 84484; 85002; 85025; 85610; 85730; 86403; 87015; 87040; 87070; 87077; 87086; 87102; 87116; 87147; 87185; 87186; 87205; 87206; 88307; 88311; 92928; 93005; 93454; 94640; 94664; 96365; A9579; C1725; C1769; C1876; C1887; C1893; J0690; J1170; J1644; J1650; J1815; J2250; J2543; J2765; J2795; J3010; J3370; J7040; J7050; Q9967

== ENCOUNTER 2017-02-01 17:52 | Emergency (ER) | payer OTHER ==
[~2017-02-01] VITALS: Ht 177.8 cm; Wt 95.5 kg
[~2017-02-01 17:52] MED LIST changes: +APIX5TAB PO; -ASPI1TAB69 PO; +ASPI81CH25 PO; +CEFU1TAB20 PO; +DETR4CAP PO; -LEVA750T PO; +METO-309 PO; +METO1TAB9 PO; -METO50TA11 PO
[2017-02-01 17:53] VITALS: BP 173/108; PULSE 100; RESP 20; TEMP 98.2; O2SAT 98
[2017-02-01] MEDS ORDERED: ISOS30TA3 PO (18:24)
[2017-02-01] MEDS ORDERED: MORPHINE SULFATE 4 MG/ML INJ IV PUSH ONE (18:30)
[2017-02-01] MEDS ORDERED: ONDANSETRON HCL 4 MG/2 ML VIAL IV PUSH ONE (18:30)
[2017-02-01 19:28] LABS: AUTOMATED NEUTROPHIL # 5.6 TH/MM3 (1.8-7.7); BASOPHIL # 0.1 TH/MM3 (0-0.2); BASOPHIL % 1.1 % (0.0-2.0); EOSINOPHIL # 0.2 TH/MM3 (0-0.4); EOSINOPHIL % 2.3 % (0.0-4.0); HEMATOCRIT 39.6 % (39.0-51.0); HEMO FLAGS DIFF FINAL; LYMPHOCYTE # 1.5 TH/MM3 (1.0-4.8); MEAN CELL VOLUME 77.5 FL (80.0-100.0); MEAN CORPUSCULAR HGB CONC 30.9 % (32.0-36.0); MONO % 7.9 % (0.0-8.0); NEUT % 69.7 % (16.0-70.0); PLATELET COUNT 212 TH/MM3 (150-450); RED CELL DISTRIBUTION WIDTH 17.1 % (11.6-17.2); WHITE BLOOD COUNT 8.1 TH/MM3 (4.0-11.0)
[2017-02-01 19:40] LABS: APTT (PATIENT) 28.8 SEC (24.3-30.1); PROTHROMBIN TIME - PATIENT 11.4 SEC (9.8-11.6)
[2017-02-01 19:40] LABS: BACTERIA, URINE OCC /hpf; BLOOD, URINE MOD (NEG); COMMENT (UR) CULTURE INDICATED; CULTURE IF INDICATED CULTURE INDICATED; GLUCOSE,URINE 300 mg/dL (NEG); KETONE, URINE NEG (NEG); NITRITE,URINE NEG (NEG); PH, URINE 5.5 (5.0-8.5); URINE COLOR LIGHT-YELLOW (YELLW/STRAW)
[2017-02-01 19:44] LABS: ANION GAP 7 MEQ/L (5-15); AST (GOT) 14 U/L (15-37); BICARBONATE 30.2 MEQ/L (21.0-32.0); BLOOD UREA NITROGEN 13 MG/DL (7-18); CHLORIDE 100 MEQ/L (98-107); GLOMERULAR FILTRATION RATE 76 ML/MIN (>89); MAGNESIUM 1.7 MG/DL (1.5-2.5); POTASSIUM 4.2 MEQ/L (3.5-5.1); SODIUM (NA) 137 MEQ/L (136-145)
[2017-02-01 19:45] LABS: ALT (GPT) 23 U/L (12-78)
[2017-02-01 19:47] LABS: ALKALINE PHOSPHATASE 145 U/L (45-117); TOTAL BILIRUBIN ADULT 0.3 MG/DL (0.2-1.0)
--- NOTE | 2017-02-01 19:48 | RADRPT ---
EXAM DATE/TIME: 02/01/2017 19:18 [facility] COMPARISON: CHEST SINGLE AP, November 14, 2016, 16:12. INDICATIONS : Shortness of breath. MEDICAL HISTORY : Chronic obstructive pulmonary disease. A-fib. SURGICAL HISTORY : Heart stents. ENCOUNTER: Initial ACUITY: 1 day PAIN SCORE: 0/10 LOCATION: Bilateral chest FINDINGS: A single view of the chest demonstrates the lungs to be symmetrically aerated without evidence of mas s, infiltrate or effusion. The heart size is borderline enlarged. Osseous structures are intact. CONCLUSION: No acute disease. Kenroy Erazo MD on February 01, 2017 at 19:46 Board Certified Radiologist. This report was verified electronically.
[2017-02-01] MEDS ORDERED: cefTRIAXone INJ 1,000 MG in SODIUM CHLORIDE 0.9% INJ 100 ML IV ONE (20:00)
--- NOTE | 2017-02-01 20:39 | PD ---
HPI Chief Complaint: Complaint Time Seen by Provider: 18:20 Travel History International Travel<30 days: No Contact w/Intl Traveler<30days: No Traveled to known affect area: No History of Present Illness HPI 62-year-old male that presents to the ED for evaluation of possible Wolfe issue. Per patient he's had a Wolfe since been discharged in October. Patient is using the secondary to urinary retention. Per patient he is waiting for cardiology to clear him so he can have a more permanent catheter. Per patient he noted that for the past 2 hours before coming he could not urinate anything. Per patient he had a lot of pain and burning. Patient comes here to get this checked. He also states that he believes that he is having some dehydration and possible CHF. He denies any other symptoms. No chest pain. But states feeling somewhat short of breath with laying down. She denies any fevers chills or sweats. [facility] patient [facility] that he had possible urinary infection. He was not given any antibiotics. Per patient he is compliant with his Lasix. He denies any other medical issues at this time. No blood in the urine. PFSH Past Medical History Hx Anticoagulant Therapy: Yes Atrial Fibrillation: Yes Anxiety: No Depression: No Heart Rhythm Problems: Yes (A FIB ) Cancer: No Cardiac Catheterization: Yes Cardiovascular Problems: Yes High Cholesterol: Yes Chest Pain: Yes (CAD) Congestive Heart Failure: Yes COPD: Yes Cerebrovascular Accident: Yes (HX OF TIA) Diabetes: Yes Patient Takes Glucophage: Yes Diminished Hearing: No Endocrine: Yes Gastrointestinal Disorders: Yes GERD: Yes Genitourinary: Yes Hypertension: Yes Immune Disorder: No Kidney Stones: Yes Musculoskeletal: No Neurologic: Yes Psychiatric: No Reproductive: No Respiratory: Yes Migraines: Yes (YEARS AGO) Seizures: No Thyroid Disease: No Past Surgical History Cardiac Surgery: Yes (ABLATION & 4 STENTS) Coronary Stent: Yes (DEC) Other Surgery: Yes Social History Alcohol Use: No Tobacco Use: Yes (pt sts smoked 10 days ago) Substance Use: Yes (MARIJUANA) Allergies-Medications (Allergen,Severity, Reaction): Coded Allergies: bee venom protein (honey bee) (Unverified Allergy, Severe, Anaphylaxis, ) Reported Meds & Prescriptions Reported Meds & Active Scripts Active Cipro (Ciprofloxacin HCl) 500 Mg Tab 500 Mg PO BID 10 Days Eliquis (Apixaban) 5 Mg Tab 5 Mg PO BID Detrol LA (Tolterodine Tartrate) 4 Mg Cap 4 Mg PO DAILY Aspirin Low Strength (Aspirin) 81 Mg Chew 81 Mg PO DAILY Lopressor (Metoprolol Tartrate) 50 Mg Tab 50 Mg PO Q12HR Lipitor (Atorvastatin Calcium) 80 Mg Tab 80 Mg PO HS Flomax (Tamsulosin HCl) 0.4 Mg Cap 0.8 Mg PO DAILY Levemir Flextouch Pen Inj (Insulin Detemir) 300 unit/3 ML Pen 30 Units SQ BID Plavix (Clopidogrel Bisulfate) 75 Mg Tab 75 Mg PO DAILY Norvasc (Amlodipine Besylate) 5 Mg Tab 2.5 Mg PO DAILY Reported Isosorbide Mononitrate ER (Isosorbide Mononitrate) 30 Mg Izzy 30 Mg PO DAILY Finasteride 5 Mg Tab 5 Mg PO DAILY Do not crush. Lisinopril 40 Mg Tab 40 Mg PO Proventil Hfa 6.7 GM Inh (Albuterol Sulfate) 90 Mcg/Act Aer 2 Puff INH Q4-6H PRN Symbicort Inh (Budesonide/Formoterol Fumarate) 80-4.5 Mcg/Act Aero 1 Puff INH Q12HR Trazodone (Trazodone HCl) 50 Mg Tab 50 Mg PO HS Combivent Respimat Inh (Ipratropium-Albuterol Inh) 20-100 Prison/Act Aero 1 Puff INH QID Fenofibrate 48 Mg Tab 48 Mg PO DAILY Gabapentin 600 Mg Tab 600 Mg PO BID Digoxin 0.25 Mg Tab 0.25 Mg PO DAILY Esomeprazole DR 20 Mg Capdr 20 Mg PO DAILY Bupropion HCl 100 Mg Tab 150 Mg PO BID Review of Systems Except as stated in HPI: all other systems reviewed are Neg Physical Exam Narrative GENERAL: SKIN: Warm and dry. HEAD: Atraumatic. Normocephalic. EYES: Pupils equal and round. No scleral icterus. No injection or drainage. ENT: No nasal bleeding or discharge. Mucous membranes pink and moist. Tongue is midline. No uvula deviation. NECK: Trachea midline. No JVD. CARDIOVASCULAR: Regular rate and rhythm. No murmurs, S3, S4. RESPIRATORY: No accessory muscle use. Clear to auscultation. Breath sounds equal bilaterally. GASTROINTESTINAL: Abdomen soft, non-tender, nondistended. Hepatic and splenic margins not palpable. MUSCULOSKELETAL: Extremities without clubbing, cyanosis, or edema. No obvious deformities. Full range of motion of the upper and lower extremities bilaterally. Patient does have bilateral lower leg edema which is one plus. Patient does have chronic deformities to the lower legs bilaterally. Patient does have some blisters that appear to have healed. 2+ pulses bilaterally in the lower extremities and upper extremities. NEUROLOGICAL: Awake and alert. No obvious cranial nerve deficits. Motor grossly within normal limits. Five out of 5 muscle strength in the arms and legs. Normal speech. PSYCHIATRIC: Appropriate mood and affect; insight and judgment normal. Data Data Last Documented VS Vital Signs Date Time Temp Pulse Resp B/P (MAP) Pulse Ox O2 Delivery O2 Flow Rate FiO2 02/01/17 19:05 Room Air 02/01/17 17:53 98.2 100 20 98 Orders Orders Urinary Catheter Insert/Apply (02/01/17 18:20) Electrocardiogram (02/01/17 18:29) Complete Blood Count With Diff (02/01/17 18:29) Comprehensive Metabolic Panel (02/01/17 18:29) B-Type Natriuretic Peptide (02/01/17 18:29) Prothrombin Time / Inr (Pt) (02/01/17 18:29) Act Partial Throm Time (Ptt) (02/01/17 18:29) Blood Culture (02/01/17 18:29) Urinalysis - C+S If Indicated (02/01/17 18:29) Magnesium (Mg) (02/01/17 18:29) Chest, Single Ap (02/01/17 18:29) Iv Access Insert/Monitor (02/01/17 18:29) Ecg Monitoring (02/01/17 18:29) Oximetry (02/01/17 18:29) Morphine Inj (Morphine Inj) (02/01/17 18:30) Ondansetron Inj (Zofran Inj) (02/01/17 18:30) Urine Culture (02/01/17 19:00) Ceftriaxone Inj (Rocephin Inj) (02/01/17 20:00) Labs Laboratory Tests Test 02/01/17 18:50 02/01/17 19:00 White Blood Count 8.1 TH/MM3 Red Blood Count 5.10 MIL/MM3 Hemoglobin 12.2 GM/DL Hematocrit 39.6 % Mean Corpuscular Volume 77.5 FL Mean Corpuscular Hemoglobin 24.0 PG Mean Corpuscular Hemoglobin Concent 30.9 % Red Cell Distribution Width 17.1 % Platelet Count 212 TH/MM3 Mean Platelet Volume 8.4 FL Neutrophils (%) (Auto) 69.7 % Lymphocytes (%) (Auto) 19.0 % Monocytes (%) (Auto) 7.9 % Eosinophils (%) (Auto) 2.3 % Basophils (%) (Auto) 1.1 % Neutrophils # (Auto) 5.6 TH/MM3 Lymphocytes # (Auto) 1.5 TH/MM3 Monocytes # (Auto) 0.6 TH/MM3 Eosinophils # (Auto) 0.2 TH/MM3 Basophils # (Auto) 0.1 TH/MM3 CBC Comment DIFF FINAL Differential Comment Prothrombin Time 11.4 SEC Prothromb Time International Ratio 1.0 RATIO Activated Partial Thromboplast Time 28.8 SEC Blood Urea Nitrogen 13 MG/DL Creatinine 0.99 MG/DL Random Glucose 245 MG/DL Total Protein 7.4 GM/DL Albumin 3.5 GM/DL Calcium Level 8.4 MG/DL Magnesium Level 1.7 MG/DL Alkaline Phosphatase 145 U/L Aspartate Amino Transf (AST/SGOT) 14 U/L Alanine Aminotransferase (ALT/SGPT) 23 U/L Total Bilirubin 0.3 MG/DL Sodium Level 137 MEQ/L Potassium Level 4.2 MEQ/L Chloride Level 100 MEQ/L Carbon Dioxide Level 30.2 MEQ/L Anion Gap 7 MEQ/L Estimat Glomerular Filtration Rate 76 ML/MIN B-Type Natriuretic Peptide 659 PG/ML Urine Color LIGHT-YELLOW Urine Turbidity CLEAR Urine pH 5.5 Urine Specific Babcock 1.010 Urine Protein TRACE mg/dL Urine Glucose (UA) 300 mg/dL Urine Ketones NEG mg/dL Urine Occult Blood MOD Urine Nitrite NEG Urine Bilirubin NEG Urine Urobilinogen LESS THAN 2.0 MG/DL Urine Leukocyte Esterase LARGE Urine RBC 67 /hpf Urine WBC 16 /hpf Urine Bacteria OCC /hpf Microscopic Urinalysis Comment CULTURE INDICATED MDM Medical Decision Making Medical Screen Exam Complete: Yes Emergency Medical Condition: Yes Medical Record Reviewed: Yes Interpretation(s) CBC & BMP Diagram 02/01/17 18:50 Total Protein 7.4, Albumin 3.5, Calcium Level 8.4 L, Magnesium Level 1.7, Alkaline Phosphatase 145 H, Aspartate Amino Transf (AST/SGOT) 14 L, Alanine Aminotransferase (ALT/SGPT) 23, Total Bilirubin 0.3 Last Impressions Chest X-Ray 02/01/17 9609 Signed Impressions: Service Date/Time: January 19:18 - CONCLUSION: No acute disease. Kenroy Erazo MD BNP of 600s Differential Diagnosis UTI versus Wolfe dysfunction versus CHF versus polynephritis versus normal exam Narrative Course 62-year-old male that presents to the ED for evaluation of urinary wolfe malfunction. Patient was properly examined and was found to have signs and symptoms consistent appears. Follow malfunction. Patient also complains and shortness of breath and swelling on the lower legs. He states that he has a history of CHF and significant taking his Lasix. He also has a history of chronic peripheral artery disease. Patient does appear to have chronic wounds to his legs. Labs and imaging were ordered. Labs and imaging were positive for UTI and slightly elevated BNP. Case was discussed in my attending Dr. Ibarra who agrees the patient can be discharged. Patient had his Wolfe catheter replaced with improvement of symptoms. Patient will be given Cipro prescription. Patient was given dose of Rocephin here. See ED worsening symptoms. Follow with PCP. Diagnosis Primary Impression: Obstructed Wolfe catheter Qualified Codes: T83.091A - Other mechanical complication of indwelling urethral catheter, initial encounter Additional Impression: UTI (urinary tract infection) Qualified Codes: N30.00 - Acute cystitis without hematuria Patient Instructions: General Instructions Additional Instructions: Take medication as prescribed. Follow with PCP. See ED for any worsening symptoms. Follow with urologist to get your Wolfe checked. Med/Other Pt SpecificInfo: Prescription(s) given Scripts Ciprofloxacin (Cipro) 500 Mg Tab 500 MG PO BID for Infection for 10 Days, #20 TAB 0 Refills Prov: Cathie Ibarra DO 02/01/17 Disposition: 01 DISCHARGE HOME Condition: Stable Christopher Dunham Feb 01, 2017 20:39
[2017-02-01] MEDS ORDERED: CIPR-9 PO (20:48)
--- NOTE | 2017-02-02 16:42 | EKG ---
Date Performed: 02/01/2017 Time Performed: 20:08:59 PTAGE: 62 years EKG: ATRIAL FIBRILLATION MARKED RIGHT AXIS DEVIATION RIGHT BUNDLE BRANCH BLOCK SEPTAL MYOCARDIAL INFARCTION ABNORMAL ECG Since PREVIOUS TRACING , no significant change noted PREVIOUS TRACIN11/15/2016 00.27 DOCTOR: eHma Murray Interpretating Date/Time 02/02/2017 16:42:01
== END 2017-02-01 21:22 | disposition home or self-care (01) ==
LOC: NEPD 17:52
DX: T83.091A Other mechanical complication of indwelling urethral catheter, initial encounter (principal); N30.00 Acute cystitis without hematuria; B96.89 Other specified bacterial agents as the cause of diseases classified elsewhere; I48.91 Unspecified atrial fibrillation; Z79.01 Long term (current) use of anticoagulants; J44.9 Chronic obstructive pulmonary disease, unspecified; E11.9 Type 2 diabetes mellitus without complications; I11.0 Hypertensive heart disease with heart failure
CPT/HCPCS: 51702; 71010; 80053; 81001; 83735; 83880; 85025; 85610; 85730; 87040; 87077; 87086; 87186; 93005; 96365; 96375; 99285; J0696; J2270; J2405